=== PATIENT | male | born 1935 | race Caucasian/White ===

== ENCOUNTER 2017-02-22 15:39 | Inpatient (IN) | payer MEDICARE, OTHER ==
[2017-02-22] MEDS ORDERED: Sodium Chloride 0.9% 500 ML IV STA (17:37)
[2017-02-22] MEDS ORDERED: Sodium Chloride 0.9% 500 ML IV ONE (17:51)
--- NOTE | 2017-02-22 17:53 | C.PDOC ---
History Of Present Illness <Lucy Abreu - Last Filed: 02/22/17 19:10> <Christiano Callahan - Last Filed: 02/22/17 21:07> 81-year-old male, presents to the emergency department with complaints of generalized weakness. States he was seen by PMD in office, who told him that he was dehydrated w/ abnormal liver enzymes, resulting in him being sent to the ED for evaluation. Denies nausea/vomiting, diarrhea, fevers or chills. No other complaints at this time, (Lucy Abreu) History Per: Patient History/Exam Limitations: no limitations Current Symptoms Are (Timing): Still Present <Lucy Abreu - Last Filed: 02/22/17 19:10> <Christiano Callahan - Last Filed: 02/22/17 21:07> Time Seen by Provider: 02/22/17 17:07 Chief Complaint (Nursing): Dizziness/Lightheaded Past Medical History Reviewed: Historical Data, Nursing Documentation, Vital Signs - Medical History PMH: CHF, HTN Surgical History: CABG (2x) Family History: States: Unknown Family Hx - Social History Hx Alcohol Use: No Hx Substance Use: No <Lucy Abreu - Last Filed: 02/22/17 19:10> Vital Signs: Last Vital Signs Temp 98.2 F 02/22/17 19:39 Pulse 65 02/22/17 19:20 Resp 18 02/22/17 19:20 BP 189/73 H 02/22/17 19:20 Pulse Ox 96 02/22/17 19:20 Review Of Systems Except As Marked, All Systems Reviewed And Found Negative. Constitutional: Positive for: Weakness. Negative for: Fever, Chills Cardiovascular: Negative for: Chest Pain, Palpitations Respiratory: Negative for: Shortness of Breath Gastrointestinal: Negative for: Nausea, Vomiting Musculoskeletal: Negative for: Back Pain Neurological: Negative for: Weakness, Numbness, Headache, Dizziness <Lucy Abreu - Last Filed: 02/22/17 19:10> Physical Exam - Physical Exam Appears: Non-toxic, No Acute Distress Skin: Warm, Dry, No Rash Head: Atraumatic, Normacephalic Eye(s): bilateral: Normal Inspection, PERRL Nose: Normal Oral Mucosa: Moist Lips: Normal Appearing Neck: Normal ROM Cardiovascular: Rhythm Regular Respiratory: Normal Breath Sounds, No Accessory Muscle Use Gastrointestinal/Abdominal: Other (enlarged liver) Back: No CVA Tenderness Extremity: Pedal Edema (2+, pitting B/L LE) Neurological/Psych: Oriented x3, Normal Speech <Lucy Abreu - Last Filed: 02/22/17 19:10> ED Course And Treatment - Laboratory Results Result Diagrams: 02/22/17 18:08 02/22/17 18:08 ECG Rhythm: Sinus Rhythm, ST/T Changes Rate From EC O2 Sat by Pulse Oximetry: 95 <Lucy Abreu - Last Filed: 02/22/17 19:10> - Laboratory Results Result Diagrams: 02/22/17 18:08 02/22/17 18:08 Pulse Ox Interpretation: Normal (96) <Christiano Callahan - Last Filed: 02/22/17 21:07> Disposition - Disposition Disposition Time: 19:11 <Lucy Abreu - Last Filed: 02/22/17 19:10> Discussed With DrLiz: Danna Hutchison Comment: accepted the pt on her service and took over the care at 9:06PM Doctor Will See Patient In The: Hospital Counseled Patient/Family Regarding: Studies Performed, Diagnosis - Disposition Disposition Time: 19:00 - POA Present On Arrival: None <Christiano Callahan - Last Filed: 02/22/17 21:07> - Disposition Disposition: HOSPITALIZED Condition: FAIR - Clinical Impression Clinical Impression: Dehydration - Scribe Statement The provider has reviewed the documentation as recorded by the Scribe <Lucy Abreu - Last Filed: 02/22/17 19:10> <Christiano Callahan - Last Filed: 02/22/17 21:07> - Scribe Statement Anselmo Fall All medical record entries made by the Scribe were at my direction and personally dictated by me. I have reviewed the chart and agree that the record accurately reflects my personal performance of the history, physical exam, medical decision making, and the department course for this patient. I have also personally directed, reviewed, and agree with the discharge instructions and disposition. (Lucy Abreu) Physician Patient Turnover Patient Signed Over To: Christiano Callahan Handoff Comments: Labs and admission are pending <Lucy Abreu - Last Filed: 02/22/17 19:10> Decision To Admit <Lucy Abreu - Last Filed: 02/22/17 19:10> - Pt Status Changed To: Hospital Disposition Of: Inpatient - Admit Certification Admit to Inpatient:: After my assessment, the patient will require hospitalization for at least two midnights. This is because of the severity of symptoms shown, intensity of services needed, and/or the medical risk in this patient being treated as an outpatient. - InPatient: Physician Admission Certification: I certify that this patient requires 2 or more midnights of care for the following reason:: After my assessment, the patient will require hospitalization for at least two midnights. This is because of the severity of symptoms shown, intensity of services needed, and/or the medical risk in this patient being treated as an outpatient. - . Bed Request Type: Regular Admitting Physician: Danna Hutchison <Christiano Callahan - Last Filed: 02/22/17 21:07> - . Patient Diagnosis: Dehydration
--- NOTE | 2017-02-22 18:08 | RAD ---
PROCEDURE: CHEST RADIOGRAPH, 1 VIEW. Technique: Single view portable semi erect @ 17:37. HISTORY: weakness COMPARISON: None available. FINDINGS: LUNGS: Clear. PLEURA: No pneumothorax or pleural fluid seen. CARDIOVASCULAR: Cardiomegaly. No evidence of acute, significant cardiovascular disease. OSSEOUS STRUCTURES: No significant abnormalities. VISUALIZED UPPER ABDOMEN: Normal. OTHER FINDINGS: None. IMPRESSION: No active disease.
[2017-02-22 18:18] LABS: BASO # 0.1 K/uL (0.0-0.2); BASO % 1.3 % (0.0-2.0); EOS # 0.2 K/uL (0.0-0.7); EOS % 2.7 % (0.0-4.0); LYMPH # 2.2 K/uL (1.0-4.3); LYMPH % 36.8 % (20.0-40.0); MEAN CORPUSCULAR HEMOGLOBIN 33.6 pg (27.0-31.0); MEAN PLATELET VOLUME 7.6 fL (7.2-11.7); MONO # 0.6 K/uL (0.0-0.8); MONO % 10.1 % (0.0-10.0); NRBC % 0.2 % (0.0-2.0); RED CELL DISTRIBUTION WIDTH 15.1 % (11.5-14.5); WHITE BLOOD COUNT 5.9 K/uL (4.8-10.8)
[2017-02-22 18:28] LABS: URINE BILIRUBIN NEGATIVE (NEGATIVE); URINE BLOOD 1+ (NEGATIVE); URINE COLOR Straw (YELLOW); URINE GLUCOSE (UA) NORMAL (Normal); URINE KETONE NEGATIVE (NEGATIVE); URINE LEUKOCYTE ESTERASE NEG Leu/uL (Negative); URINE PROTEIN 1+ mg/dL (NEGATIVE); URINE UROBILINOGEN NORMAL mg/dL (0.2-1.0); WBC URINE < 1 /hpf (0-5)
[2017-02-22 18:55] LABS: POTASSIUM 3.7 mmol/L (3.6-5.2)
[2017-02-22 18:57] LABS: ALB/GLOB RATIO 0.9 (1.0-2.1); BILIRUBIN,TOTAL 1.2 mg/dL (0.2-1.3); TOTAL PROTEIN 9.4 g/dL (6.3-8.3)
[2017-02-22 18:58] LABS: CALCIUM 10.1 mg/dl (8.6-10.4); MAGNESIUM 1.3 mg/dL (1.6-2.3)
[2017-02-22 19:09] LABS: TROPONIN I 0.017 ng/mL (0.00-0.120)
[2017-02-22] MEDS ORDERED: Sodium Chloride 0.9% 1,000 ML IV ONE (19:12)
[2017-02-22] MEDS ORDERED: Sodium Chloride 0.9% 1,000 ML ONE (19:49)
[2017-02-22] MEDS ORDERED: Iodixanol 320 MG/ML 100 ML BOTTLE IV ONE (19:56)
[2017-02-22] MEDS ORDERED: Sodium Chloride 0.9% 1,000 ML IV SCH (21:30)
--- NOTE | 2017-02-23 01:45 | CP.PCM.HP ---
History of Present Illness - History of Present Illness History of Present Illness: 81 y. man with PMH DM2 Hypertension CAD S/ CABG COPD was sent to ER due to dehydration from poor po intake and light headedness patient was fine until a month ago, patient 's appetite has declined, and reports lightheadedness, there was no fevr, no cough no vomiting no urine nor abdominal complaints Patient was noted to have lost BOUT 20 OUNDS IN 3 MONTHS. , IN ER PATIENT HAS VERY HIGH LIVER ENZYMES, DEHYDRATED AND WAS SUBSEQUENTLY ADMITTED FOR FURTHER EVALUATION AND MANGEMENT ROS ABOVE PMH ABOVE SOCIAL PREVIOUS SMOKER NON ETOH LIVES [facility] SURGERY CATRACT CABG Present on Admission - Present on Admission Any Indicators Present on Admission: No History of DVT/PE: No History of Uncontrolled Diabetes: No Urinary Catheter: No Decubitus Ulcer Present: No Review of Systems - Constitutional Constitutional: Anorexia, Weakness. absent: Fever - EENT Eyes: absent: Other Visual Disturbances Nose/Mouth/Throat: absent: Epistaxis, Nasal Congestion, Odynophagia, Sore Throat - Cardiovascular Cardiovascular: Syncope (NEAR SYNCOPE ). 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 absent: Abnormal Gait, Convulsions, Memory Loss, Other Visual Disturbances - Psychiatric Psychiatric: absent: Behavioral Changes, Confusion, Depression, Memory Loss - Endocrine Endocrine: absent: Polydipsia, Polyphagia, Polyuria - Hematologic/Lymphatic Hematologic: absent: Easy Bleeding, Easy Bruising Past Patient History - Past Medical History & Family History Past Medical History?: Yes - Past Social History Smoking Status: Former Smoker Alcohol: None Home Situation {Lives}: With Family - CARDIAC Hx Cardiac Disorders: Yes (S/P CABG) Hx Congestive Heart Failure: Yes Hx Hypertension: Yes - PULMONARY Hx Chronic Obstructive Pulmonary Disease (COPD): Yes - HEENT Hx Cataracts: Yes - ENDOCRINE/METABOLIC Hx Diabetes Mellitus Type 2: Yes - PSYCHIATRIC Hx Substance Use: No - SURGICAL HISTORY Hx Coronary Artery Bypass Graft: Yes (2x) Meds Allergies/Adverse Reactions: Allergies Allergy/AdvReac Type Severity Reaction Status Date / Time No Known Allergies Allergy Unverified 02/22/17 16:22 Physical Exam - Constitutional Appears: Non-toxic (BUT LOOKS QUIET) - Head Exam Head Exam: ATRAUMATIC, NORMOCEPHALIC - Eye Exam Eye Exam: Normal appearance. absent: Nystagmus - ENT Exam ENT Exam: Mucous Membranes Dry - Neck Exam Neck exam: Positive for: Full Rom. Negative for: Tenderness - Respiratory Exam Respiratory Exam: Clear to Auscultation Bilateral, NORMAL BREATHING PATTERN - Cardiovascular Exam Cardiovascular Exam: REGULAR RHYTHM - GI/Abdominal Exam GI & Abdominal Exam: Normal Bowel Sounds, Soft. absent: Tenderness - Extremities Exam Extremities exam: Positive for: full ROM, pedal pulses present. Negative for: joint swelling, pedal edema, tenderness - Back Exam Back exam: FULL ROM. absent: tenderness - Neurological Exam Neurological exam: Alert, Normal Gait, Oriented x3 - Psychiatric Exam Psychiatric exam: Normal Affect, Normal Mood - Skin Skin Exam: Dry (POOR TURGOR), Intact, Normal Color Results - Vital Signs Recent Vital Signs: Last Vital Signs Temp 97.9 F 02/23/17 01:21 Pulse 62 02/23/17 01:21 Resp 18 02/23/17 01:21 BP 177/65 H 02/23/17 01:21 Pulse Ox 96 02/23/17 01:21 - Labs Result Diagrams: 02/22/17 18:08 02/22/17 18:08 Assessment & Plan - Assessment and Plan (Free Text) Assessment: PATIENT WITH CAD DME HYPERTENSION ADMITTED FOR WEAKNESS LIGHTHEADEDNESS = DEHYDRATION FROM POOR ORAL INTAKE- IVF - ON LOW DOSE - DUE TO HISTORY OF CHF NOT TO AGGRAVATE WITH ABNORMAL WEIGHT LOSS OF 20 POUNDS IN 3 MONTHS WITH ABNORMAL LFTS AND ABNORMAL CT SCAN-- NEEDS GASTRO EVALUATION WITH UNCONTROLLLED HYPERTENSION- START LOW DOSE- NOT TO CAUSE DROP-SINCE PATIENT IS DEHYDRATED DM TO ACCUCHECK WITH NO COVERAGE FOR NOW, ELEVATED CREATININE- FROM DEHYDRATION WILL REPEAT GI PROPHYL;AXIS DVT PROPHY;AXIS FURTHER EVALUATION AND MANAGEMNET
[2017-02-23] MEDS ORDERED: Metoprolol 1 mg/ml Inj IVP ONE (02:43)
[2017-02-23] MEDS: Pantoprazole 40 mg EC Tab PO SCH (09:04)
[2017-02-23] MEDS: Enoxaparin 30 mg Syringe SC SCH (09:05)
--- NOTE | 2017-02-23 09:38 | CT ---
PROCEDURE: CT Abdomen and Pelvis with contrast HISTORY: elevated lipase COMPARISON: None. TECHNIQUE: Axial and reformatted coronal and sagittal CT images of the abdomen and pelvis were obtained after IV contrast administration. Contrast dose: 100 mL of Visipaque 320 Radiation dose: Total exam DLP = 424.5 mGy-cm. This CT exam was performed using one or more of the following dose reduction techniques: Automated exposure control, adjustment of the mA and/or kV according to patient size, and/or use of iterative reconstruction technique. FINDINGS: LOWER THORAX: No evidence of acute pathology at the lung bases. Hazy opacities at the posterior dependent portion likely atelectasis. The heart is mildly to moderately enlarged. LIVER: There is a spiculated border partially demarcated low-attenuation mass lesion at the left liver lobe measures approximately 7.2 x 5.8 centimeter. The possibility of malignant neoplasm should be considered. The left liver lobe is larger than the right. There are also smaller foci of low attenuation seen in the left liver lobe. There is low-attenuation lesion at the posterior medial aspect of the liver dome measures 10.6 millimeter. The portal vein is patent. There is a tubular shaped low-attenuation structure adjacent to the cecilia hepatis and main portal vein of uncertain etiology may represent dilated biliary duct. GALLBLADDER AND BILE DUCTS: Multiple gallstones are seen without evidence of acute cholecystitis. The main hepatic and common hepatic biliary duct is not dilated. PANCREAS: The pancreas is small in size. No evidence of pancreatitis or pancreatic mass. The main pancreatic duct is not dilated. SPLEEN: Unremarkable. ADRENALS: Unremarkable. No mass. KIDNEYS AND URETERS: The kidneys enhance symmetrically. There is low-attenuation cystic lesion exophytic from the left kidney measures 2.3 centimeter. No evidence of hydronephrosis. VASCULATURE: Unremarkable. No aortic aneurysm. BOWEL: Unremarkable. No obstruction. No gross mural thickening. APPENDIX: No evidence of appendicitis P PERITONEUM: Unremarkable. No free fluid. No free air. LYMPH NODES: Unremarkable. No enlarged lymph nodes. BLADDER: Mildly distended urinary bladder demonstrate mild diffuse wall thickening. There is right posterior bladder diverticulum measures 1.5 x 1.6 centimeter. REPRODUCTIVE: Moderately enlarged heterogeneous prostate protruding into the bladder lumen. BONES: No acute fracture. OTHER FINDINGS: None. IMPRESSION: Heterogeneous low-attenuation poorly defined spiculated border mass lesion at the left liver lobe suspicious for neoplasm. Further assessment by MRI with contrast is suggested. Gallstones without evidence of cholecystitis. Moderately enlarged heterogeneous prostate. Mild diffuse urinary bladder wall thickening. Preliminary report was submitted by [facility].
[2017-02-23] MEDS ORDERED: Metoprolol Succinate 50 mg XL Tab PO SCH ×2 (10:00)
--- NOTE | 2017-02-23 10:53 | CP.PCM.PN ---
Subjective - Date & Time of Evaluation Date of Evaluation: 02/23/17 Time of Evaluation: 10:45 - Subjective Subjective: Patient seen, in bed , afraid of getting out of bed- worries for who is in the hospital no complaints, BP still running high no chest pain case discussed with patient Objective - Vital Signs/Intake and Output Vital Signs (last 24 hours): Temp Pulse Resp BP Pulse Ox 97.8 F 70 22 180/76 H 97 02/23/17 08:36 02/23/17 09:07 02/23/17 09:07 02/23/17 09:07 02/23/17 09:07 Intake and Output: 02/23/17 02/23/17 06:59 18:59 Intake Total 490 Output Total 750 Balance -260 - Medications Medications: Current Medications Amlodipine Besylate (Norvasc) 10 mg PO DAILY [facility] Enoxaparin Sodium (Lovenox) 30 mg SC DAILY [facility] Last Admin: 02/23/17 09:05 Dose: 30 mg Losartan Potassium (Cozaar) 100 mg PO DAILY [facility] Last Admin: 02/23/17 09:04 Dose: 100 mg Metoprolol Succinate (Toprol Xl) 50 mg PO BID [facility] Last Admin: 02/23/17 09:04 Dose: 50 mg Pantoprazole Sodium (Protonix Ec Tab) 40 mg PO DAILY [facility] Last Admin: 02/23/17 09:04 Dose: 40 mg - Labs Labs: PT 11.2 SECONDS (9.7-12.2) 02/22/17 19:07 INR 1.0 02/22/17 19:07 APTT 34 SECONDS (21-34) 02/22/17 19:07 - Constitutional Appears: Well, Non-toxic (quiet, worried for sick ) - Head Exam Head Exam: ATRAUMATIC, NORMOCEPHALIC - Eye Exam Eye Exam: absent: Nystagmus - ENT Exam ENT Exam: Mucous Membranes Dry - Neck Exam Neck Exam: Full ROM. absent: Meningismus - Respiratory Exam Respiratory Exam: Decreased Breath Sounds, NORMAL BREATHING PATTERN - Cardiovascular Exam Cardiovascular Exam: REGULAR RHYTHM - GI/Abdominal Exam GI & Abdominal Exam: Soft, Normal Bowel Sounds (no mass appreciated). absent: Tenderness - Extremities Exam Extremities Exam: Full ROM. absent: Pedal Edema, Tenderness - Back Exam Back Exam: Full ROM. absent: tenderness - Neurological Exam Neurological Exam: Alert, Awake, Normal Gait, Oriented x3 - Skin Skin Exam: Dry, Intact, Normal Color Assessment and Plan - Assessment and Plan (Free Text) Plan: patient admitted for dehydration- IVF, weakness due to poor oral intake Hypertension not on goal- will adjust meds. History of CAD s/ P CABFG , history of CHF Abnormal weight loss with abnormal LFTs elevated lipase- CT abdomen presult pending case discussed with patient- further discussion with family Physical Therapy GI and DVT prophy;axis
[2017-02-23] MEDS ORDERED: Sodium Chloride 0.9% 1,000 ML IV SCH (11:30)
[2017-02-23 16:48] LABS: CHLORIDE 89 mmol/L (98-107); SODIUM 134 mmol/L (132-148)
[2017-02-23 16:49] LABS: POTASSIUM 3.3 mmol/L (3.6-5.2)
[2017-02-23 16:51] LABS: ALKALINE PHOSPHATASE 49 U/L (38-126); ALT/SGPT 54 U/L (21-72); AST/SGOT 266 U/L (17-59); BLOOD UREA NITROGEN 24 mg/dL (9-20); CARBON DIOXIDE 30 mmol/L (22-30); GFR AFRICAN-AMERICAN > 60; GLUCOSE,RANDOM 117 mg/dL (75-110); TOTAL PROTEIN 7.4 g/dL (6.3-8.3)
[2017-02-23 16:52] LABS: CALCIUM 8.8 mg/dl (8.6-10.4)
--- NOTE | 2017-02-23 16:53 | CARD ---
APPROVED REPORT EKG Measurement Heart [id number] MD [id number] <Conclusion> Reversed Arm leads Normal sinus rhythm ST & T wave abnormality, consider lateral ischemia Abnormal ECG
[2017-02-23] MEDS: Potassium Chloride 10 mEq ER Tab PO SCH (19:34)
--- NOTE | 2017-02-23 23:27 | CP.PCM.CON ---
History of Present Illness - History of Present Illness History of Present Illness: 81 years old male complaining of a generalized weakness, poor appetite, loss of 20 lbs for the past 4 months. 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 He was given Norvasc with good control of hid BP. Known to have a CAD, with CABG x3 in 1995, and CABG x1 (Graft to RCA) in 2001, he denies chest pain. A CT scan of the abdomen reveals a spiculated mas of the left liver lobe, highly suspicious of malignancy. No Hx of abdominal pain, nausea, jaundice. BUN : 32 creatinine 1.2 AST: 360 T biliribin: 1.2 Review of Systems - Constitutional Constitutional: Weight Loss, Weakness - Neurological Neurological: Dizziness Past Patient History - Infectious Disease Hx of Infectious Diseases: None - Tetanus Immunizations Tetanus Immunization: Unknown - Past Medical History & Family History Past Medical History?: Yes - Past Social History Smoking Status: Former Smoker Alcohol: None Home Situation {Lives}: With Family - CARDIAC Hx Cardiac Disorders: Yes (S/P CABG) Hx Congestive Heart Failure: Yes Hx Hypertension: Yes - PULMONARY Hx Chronic Obstructive Pulmonary Disease (COPD): Yes - HEENT Hx Cataracts: Yes - ENDOCRINE/METABOLIC Hx Diabetes Mellitus Type 2: Yes - MUSCULOSKELETAL/RHEUMATOLOGICAL Hx Falls: No - PSYCHIATRIC Hx Substance Use: No - SURGICAL HISTORY Hx Surgeries: Yes Hx Coronary Artery Bypass Graft: Yes (2x) - ANESTHESIA Hx Anesthesia: Yes Hx Anesthesia Reactions: No Meds Allergies/Adverse Reactions: Allergies Allergy/AdvReac Type Severity Reaction Status Date / Time No Known Allergies Allergy Unverified 02/22/17 16:22 - Medications Medications: Current Medications Amlodipine Besylate (Norvasc) 10 mg PO DAILY [facility] Enoxaparin Sodium (Lovenox) 30 mg SC DAILY [facility] Last Admin: 02/23/17 09:05 Dose: 30 mg Sodium Chloride (Sodium Chloride 0.9%) 1,000 mls @ 50 mls/hr IV .Q20H [facility] Last Admin: 02/23/17 12:25 Dose: 50 mls/hr Losartan Potassium (Cozaar) 100 mg PO DAILY [facility] Last Admin: 02/23/17 09:04 Dose: 100 mg Metoprolol Succinate (Toprol Xl) 50 mg PO BID [facility] Last Admin: 02/23/17 09:04 Dose: 50 mg Pantoprazole Sodium (Protonix Ec Tab) 40 mg PO DAILY [facility] Last Admin: 02/23/17 09:04 Dose: 40 mg Pneumococcal Polyvalent Vaccine (Pneumovax 23 Vaccine) 0.5 ml IM .ONCE ONE Stop: 02/25/17 10:01 Potassium Chloride (Klor-Con 10) 10 meq PO BRK [facility] Stop: 02/24/17 08:01 Last Admin: 02/23/17 19:34 Dose: 10 meq Physical Exam - Constitutional Appears: No Acute Distress - Head Exam Head Exam: NORMAL INSPECTION - Eye Exam Eye Exam: Normal appearance - ENT Exam ENT Exam: Normal Exam - Neck Exam Neck exam: Positive for: Normal Inspection - Respiratory Exam Respiratory Exam: Clear to Auscultation Bilateral, NORMAL BREATHING PATTERN - Cardiovascular Exam Cardiovascular Exam: REGULAR RHYTHM - GI/Abdominal Exam GI & Abdominal Exam: Normal Bowel Sounds, Soft - Rectal Exam Rectal Exam: Deferred - Exam Exam: NORMAL INSPECTION - Extremities Exam Extremities exam: Positive for: normal inspection - Back Exam Back exam: NORMAL INSPECTION - Neurological Exam Neurological exam: Alert, CN II-XII Intact, Normal Gait, Oriented x3 - Psychiatric Exam Psychiatric exam: Anxious - Skin Skin Exam: Dry, Intact, Normal Color, Warm Results - Vital Signs Recent Vital Signs: Last Vital Signs Temp 98.4 F 02/23/17 15:51 Pulse 69 02/23/17 16:00 Resp 20 02/23/17 15:51 BP 134/66 02/23/17 15:51 Pulse Ox 97 02/23/17 15:51 - Labs Result Diagrams: 02/22/17 18:08 02/23/17 16:36 Labs: Laboratory Results - last 24 hr 02/23/17 02/23/17 02/23/17 06:38 11:22 16:36 Sodium 134 Potassium 3.3 L Chloride 89 L Carbon Dioxide 30 Anion Gap 18 BUN 24 H Creatinine 1.2 Est GFR ( Amer) > 60 Est GFR (Non-Af Amer) 58 POC Glucose (mg/dL) 86 114 H Random Glucose 117 H Calcium 8.8 Total Bilirubin 1.0 AST 266 H D ALT 54 Alkaline Phosphatase 49 Total Protein 7.4 Albumin 3.8 Globulin 3.7 Albumin/Globulin Ratio 1.0 02/23/17 02/23/17 16:43 21:13 Sodium Potassium Chloride Carbon Dioxide Anion Gap BUN Creatinine Est GFR ( Amer) Est GFR (Non-Af Amer) POC Glucose (mg/dL) 115 H 103 Random Glucose Calcium Total Bilirubin AST ALT Alkaline Phosphatase Total Protein Albumin Globulin Albumin/Globulin Ratio Assessment & Plan (1) Dehydration Assessment and Plan: To continue IVF Status: Acute (2) Uncontrolled hypertension Status: Acute (3) Coronary artery disease Assessment and Plan: Stable. Status: Chronic (4) Liver mass Assessment and Plan: Needs Biopsy? Status: Acute
[2017-02-24] MEDS: Potassium Chloride 10 mEq ER Tab PO SCH (08:36)
--- NOTE | 2017-02-24 10:05 | CP.PCM.CON ---
History of Present Illness - History of Present Illness History of Present Illness: CC: liver lesion WE were not notified about consult. I happened to see patient on my list for the first time today. PMH: HTN, CAD, heart block. Admitted for weakness, light headed. Reports 20 lb wt loss. Review of Systems - Constitutional Constitutional: Fatigue. absent: Chills - EENT Eyes: absent: Photophobia Nose/Mouth/Throat: absent: Throat Swelling - Cardiovascular Cardiovascular: Lightheadedness. absent: Chest Pain, Dyspnea - Respiratory Respiratory: absent: Dyspnea, Hemoptysis, Wheezing - Gastrointestinal Gastrointestinal: absent: Bloating, Constipation, Diarrhea, Hematemesis, Hematochezia, Melena - Genitourinary Genitourinary: absent: Hematuria - Musculoskeletal Musculoskeletal: absent: Arthralgias, Muscle Cramps - Integumentary Integumentary: absent: Pruritus, Rash, Jaundice - Neurological Neurological: absent: Convulsions - Psychiatric Psychiatric: absent: Hallucinations - Endocrine Endocrine: absent: [place] Past Patient History - Infectious Disease Hx of Infectious Diseases: None - Tetanus Immunizations Tetanus Immunization: Unknown - Past Medical History & Family History Past Medical History?: Yes - Past Social History Smoking Status: Former Smoker Alcohol: None Home Situation {Lives}: With Family - CARDIAC Hx Cardiac Disorders: Yes (S/P CABG) Hx Congestive Heart Failure: Yes Hx Hypertension: Yes - PULMONARY Hx Chronic Obstructive Pulmonary Disease (COPD): Yes - HEENT Hx Cataracts: Yes - ENDOCRINE/METABOLIC Hx Diabetes Mellitus Type 2: Yes - MUSCULOSKELETAL/RHEUMATOLOGICAL Hx Falls: No - PSYCHIATRIC Hx Substance Use: No - SURGICAL HISTORY Hx Surgeries: Yes Hx Coronary Artery Bypass Graft: Yes (2x) - ANESTHESIA Hx Anesthesia: Yes Hx Anesthesia Reactions: No Meds Allergies/Adverse Reactions: Allergies Allergy/AdvReac Type Severity Reaction Status Date / Time No Known Allergies Allergy Unverified 02/22/17 16:22 - Medications Medications: Current Medications Amlodipine Besylate (Norvasc) 10 mg PO DAILY [facility] Enoxaparin Sodium (Lovenox) 30 mg SC DAILY [facility] Last Admin: 02/23/17 09:05 Dose: 30 mg Losartan Potassium (Cozaar) 100 mg PO DAILY [facility] Last Admin: 02/23/17 09:04 Dose: 100 mg Metoprolol Succinate (Toprol Xl) 50 mg PO BID [facility] Last Admin: 02/23/17 09:04 Dose: 50 mg Pantoprazole Sodium (Protonix Ec Tab) 40 mg PO DAILY [facility] Last Admin: 02/23/17 09:04 Dose: 40 mg Pneumococcal Polyvalent Vaccine (Pneumovax 23 Vaccine) 0.5 ml IM .ONCE ONE Stop: 02/25/17 10:01 Physical Exam - Constitutional Appears: Non-toxic - Respiratory Exam Respiratory Exam: Clear to Auscultation Bilateral - Cardiovascular Exam Cardiovascular Exam: RRR - GI/Abdominal Exam GI & Abdominal Exam: Normal Bowel Sounds, Soft. absent: Firm, Guarding, Mass, Tenderness - Extremities Exam Extremities exam: Negative for: calf tenderness - Neurological Exam Neurological exam: Alert, Oriented x3 - Skin Skin Exam: Intact Results - Vital Signs Recent Vital Signs: Last Vital Signs Temp 98 F 02/24/17 08:27 Pulse 59 L 02/24/17 08:27 Resp 19 02/24/17 08:27 BP 157/69 H 02/24/17 08:27 Pulse Ox 98 02/24/17 08:27 - Labs Result Diagrams: 02/22/17 18:08 02/23/17 16:36 Labs: Laboratory Results - last 24 hr 02/23/17 02/23/17 02/23/17 11:22 16:36 16:43 Sodium 134 Potassium 3.3 L Chloride 89 L Carbon Dioxide 30 Anion Gap 18 BUN 24 H Creatinine 1.2 Est GFR ( Amer) > 60 Est GFR (Non-Af Amer) 58 POC Glucose (mg/dL) 114 H 115 H Random Glucose 117 H Calcium 8.8 Total Bilirubin 1.0 AST 266 H D ALT 54 Alkaline Phosphatase 49 Total Protein 7.4 Albumin 3.8 Globulin 3.7 Albumin/Globulin Ratio 1.0 02/23/17 02/24/17 21:13 06:38 Sodium Potassium Chloride Carbon Dioxide Anion Gap BUN Creatinine Est GFR ( Amer) Est GFR (Non-Af Amer) POC Glucose (mg/dL) 103 90 Random Glucose Calcium Total Bilirubin AST ALT Alkaline Phosphatase Total Protein Albumin Globulin Albumin/Globulin Ratio Assessment & Plan (1) Dehydration Status: Acute (2) Liver mass Assessment and Plan: r/o malignancy. Consider hemangioma, abscess. Rec: AFP, CEA, stool tests. MRI liver. Consider colonoscopy. Status: Acute (3) Uncontrolled hypertension Status: Acute (4) Coronary artery disease Status: Chronic (5) Weight loss Assessment and Plan: Consider malignancy. Consider liver malignancy. Status: Acute (6) Liver function test abnormality Assessment and Plan: Related to liver mass? Consider meds Rec: check AFP, CEA, sono, MRI abdomen. hepatitis profile. Check LFTs. Status: Acute
[2017-02-24] MEDS: Enoxaparin 30 mg Syringe SC SCH (11:05)
[2017-02-24] MEDS: Pantoprazole 40 mg EC Tab PO SCH (11:06)
[2017-02-24 12:15] LABS: CHLORIDE 92 mmol/L (98-107)
[2017-02-24 12:16] LABS: POTASSIUM 3.5 mmol/L (3.6-5.2); SODIUM 131 mmol/L (132-148)
[2017-02-24 12:18] LABS: ALKALINE PHOSPHATASE 49 U/L (38-126); ALT/SGPT 55 U/L (21-72); AST/SGOT 269 U/L (17-59); BILIRUBIN,TOTAL 1.1 mg/dL (0.2-1.3); BLOOD UREA NITROGEN 19 mg/dL (9-20); CARBON DIOXIDE 25 mmol/L (22-30); GFR AFRICAN-AMERICAN > 60; GLUCOSE,RANDOM 142 mg/dL (75-110); TOTAL PROTEIN 7.7 g/dL (6.3-8.3)
[2017-02-24 12:19] LABS: CALCIUM 8.6 mg/dl (8.6-10.4)
--- NOTE | 2017-02-24 19:18 | CP.PCM.PN ---
Subjective - Date & Time of Evaluation Date of Evaluation: 02/24/17 Time of Evaluation: 11:00 - Subjective Subjective: Patient seen, feeling better- BP still on the high side, adjusting medication dose- discussed with patient CT scan finding discussion - patient does not want any procedure Objective - Vital Signs/Intake and Output Vital Signs (last 24 hours): Temp Pulse Resp BP Pulse Ox 97.6 F 69 20 154/63 H 99 02/24/17 16:00 02/24/17 16:00 02/24/17 16:00 02/24/17 16:00 02/24/17 16:00 - Medications Medications: Current Medications Amlodipine Besylate (Norvasc) 10 mg PO DAILY [facility] Last Admin: 02/24/17 11:06 Dose: 10 mg Enoxaparin Sodium (Lovenox) 30 mg SC DAILY [facility] Last Admin: 02/24/17 11:05 Dose: 30 mg Losartan Potassium (Cozaar) 100 mg PO DAILY [facility] Last Admin: 02/24/17 11:06 Dose: 100 mg Metoprolol Succinate (Toprol Xl) 50 mg PO BID [facility] Last Admin: 02/23/17 09:04 Dose: 50 mg Pantoprazole Sodium (Protonix Ec Tab) 40 mg PO DAILY [facility] Last Admin: 02/24/17 11:06 Dose: 40 mg Pneumococcal Polyvalent Vaccine (Pneumovax 23 Vaccine) 0.5 ml IM .ONCE ONE Stop: 02/25/17 10:01 Potassium Chloride (K-Dur 20 Meq Er Tab) 20 meq PO DAILY [facility] Stop: 02/25/17 23:59 - Labs Labs: 02/24/17 11:44 PT 11.2 SECONDS (9.7-12.2) 02/22/17 19:07 INR 1.0 02/22/17 19:07 APTT 34 SECONDS (21-34) 02/22/17 19:07 - Constitutional Appears: Well, Non-toxic - Head Exam Head Exam: ATRAUMATIC, NORMOCEPHALIC - Eye Exam Eye Exam: Normal appearance. absent: Nystagmus - ENT Exam ENT Exam: Mucous Membranes Moist - Respiratory Exam Respiratory Exam: Clear to Ausculation Bilateral, NORMAL BREATHING PATTERN - Cardiovascular Exam Cardiovascular Exam: REGULAR RHYTHM - GI/Abdominal Exam GI & Abdominal Exam: Soft, Normal Bowel Sounds. absent: Tenderness - Extremities Exam Extremities Exam: Full ROM. absent: Pedal Edema, Tenderness - Back Exam Back Exam: absent: tenderness - Neurological Exam Neurological Exam: Alert, Awake, Normal Gait, Oriented x3 - Psychiatric Exam Psychiatric exam: Normal Affect, Normal Mood - Skin Skin Exam: Intact, Normal Color Assessment and Plan - Assessment and Plan (Free Text) Assessment: Patient with DEhydration- improving, Uncomntrolled HYpertension with medication adjusted Patient will have family discussion tonight regarding wifes condition who is in the hospital Liver mass, with abnormal LFTS amylase= patient does not want any procedure done will plan for home tomorrow
[2017-02-24] MEDS: Potassium Chloride 20 mEq ER Tab PO SCH (19:31)
[2017-02-25 08:29] LABS: CHLORIDE 96 mmol/L (98-107); POTASSIUM 3.7 mmol/L (3.6-5.2); SODIUM 132 mmol/L (132-148)
[2017-02-25 08:31] LABS: BILIRUBIN,DIRECT 1.1 mg/dL (0.0-0.4); BILIRUBIN,TOTAL 1.1 mg/dL (0.2-1.3); CARBON DIOXIDE 23 mmol/L (22-30); GFR AFRICAN-AMERICAN > 60
[2017-02-25 08:32] LABS: ALKALINE PHOSPHATASE 48 U/L (38-126); ALT/SGPT 55 U/L (21-72); AST/SGOT 225 U/L (17-59); BLOOD UREA NITROGEN 19 mg/dL (9-20); CALCIUM 8.3 mg/dl (8.6-10.4); GLUCOSE,RANDOM 95 mg/dL (75-110); TOTAL PROTEIN 7.2 g/dL (6.3-8.3)
[2017-02-25 09:03] LABS: CARCINOEMBRYONIC ANTIGEN 1.9 ng/mL (0-3.0)
--- NOTE | 2017-02-25 09:30 | CP.PCM.PN ---
Subjective - Date & Time of Evaluation Date of Evaluation: 02/25/17 Time of Evaluation: 09:28 - Subjective Subjective: CC: Follow up Liver mass Feels well D/W Dr Hutchison- patient/family do not wish to pursue liver Biopsy AFP WNL Objective - Vital Signs/Intake and Output Vital Signs (last 24 hours): Temp Pulse Resp BP Pulse Ox 98.2 F 82 18 168/69 H 95 02/25/17 09:16 02/25/17 09:16 02/25/17 09:16 02/25/17 09:16 02/25/17 09:16 Intake and Output: 02/25/17 02/25/17 06:59 18:59 Intake Total 120 Balance 120 - Medications Medications: Current Medications Amlodipine Besylate (Norvasc) 10 mg PO DAILY [facility] Last Admin: 02/24/17 11:06 Dose: 10 mg Enoxaparin Sodium (Lovenox) 30 mg SC DAILY [facility] Last Admin: 02/24/17 11:05 Dose: 30 mg Hydrochlorothiazide (Hydrodiuril) 25 mg PO DAILY [facility] Losartan Potassium (Cozaar) 100 mg PO DAILY [facility] Metoprolol Succinate (Toprol Xl) 50 mg PO BID [facility] Last Admin: 02/23/17 09:04 Dose: 50 mg Pantoprazole Sodium (Protonix Ec Tab) 40 mg PO DAILY [facility] Last Admin: 02/24/17 11:06 Dose: 40 mg Pneumococcal Polyvalent Vaccine (Pneumovax 23 Vaccine) 0.5 ml IM .ONCE ONE Stop: 02/25/17 10:01 Potassium Chloride (K-Dur 20 Meq Er Tab) 20 meq PO DAILY [facility] Stop: 02/25/17 23:59 Last Admin: 02/24/17 19:31 Dose: 20 meq - Labs Labs: 02/25/17 07:37 PT 11.2 SECONDS (9.7-12.2) 02/22/17 19:07 INR 1.0 02/22/17 19:07 APTT 34 SECONDS (21-34) 02/22/17 19:07 - Constitutional Appears: Well, No Acute Distress - Eye Exam Eye Exam: absent: Scleral icterus - Respiratory Exam Respiratory Exam: NORMAL BREATHING PATTERN - Cardiovascular Exam Cardiovascular Exam: REGULAR RHYTHM Additional comments: Sternotomy scar - GI/Abdominal Exam GI & Abdominal Exam: Soft. absent: Tenderness Assessment and Plan (1) Liver mass Assessment & Plan: AFP normal If agreeable, recommend MRI of Liver with contrast Status: Acute
[2017-02-25] MEDS ORDERED: Pneumococcal 23-Valent Vaccine IM ONE ×2 (10:00→15:12)
[2017-02-25] MEDS: Pantoprazole 40 mg EC Tab PO SCH (11:57)
[2017-02-25] MEDS: Potassium Chloride 20 mEq ER Tab PO SCH (11:57)
[2017-02-25] MEDS: Enoxaparin 30 mg Syringe SC SCH (11:57)
--- NOTE | 2017-02-25 12:58 | CP.PCM.PN ---
Subjective - Date & Time of Evaluation Date of Evaluation: 02/25/17 Time of Evaluation: 08:50 - Subjective Subjective: Patient seen, no complaints- Bp on the high side no headache no chest pain ambulates feeling sad due to 's condition- they will have family meeting toady in 6th floor eating better Objective - Vital Signs/Intake and Output Vital Signs (last 24 hours): Temp Pulse Resp BP Pulse Ox 98.2 F 86 20 143/67 96 02/25/17 09:16 02/25/17 12:00 02/25/17 12:00 02/25/17 12:00 02/25/17 12:00 Intake and Output: 02/25/17 02/25/17 06:59 18:59 Intake Total 120 Balance 120 - Medications Medications: Current Medications Amlodipine Besylate (Norvasc) 10 mg PO DAILY [facility] Last Admin: 02/25/17 11:57 Dose: 10 mg Enoxaparin Sodium (Lovenox) 30 mg SC DAILY [facility] Last Admin: 02/25/17 11:57 Dose: 30 mg Hydrochlorothiazide (Hydrodiuril) 25 mg PO DAILY [facility] Last Admin: 02/25/17 11:57 Dose: 25 mg Losartan Potassium (Cozaar) 100 mg PO DAILY [facility] Last Admin: 02/25/17 11:57 Dose: 100 mg Metoprolol Succinate (Toprol Xl) 50 mg PO BID [facility] Last Admin: 02/23/17 09:04 Dose: 50 mg Pantoprazole Sodium (Protonix Ec Tab) 40 mg PO DAILY [facility] Last Admin: 02/25/17 11:57 Dose: 40 mg Potassium Chloride (K-Dur 20 Meq Er Tab) 20 meq PO DAILY [facility] Stop: 02/25/17 23:59 Last Admin: 02/25/17 11:57 Dose: 20 meq - Labs Labs: 02/25/17 07:37 PT 11.2 SECONDS (9.7-12.2) 02/22/17 19:07 INR 1.0 02/22/17 19:07 APTT 34 SECONDS (21-34) 02/22/17 19:07 - Constitutional Appears: Well, Non-toxic - Head Exam Head Exam: ATRAUMATIC, NORMOCEPHALIC - Eye Exam Eye Exam: Normal appearance. absent: Nystagmus - ENT Exam ENT Exam: Mucous Membranes Moist - Neck Exam Neck Exam: Full ROM, Tenderness - Respiratory Exam Respiratory Exam: Decreased Breath Sounds, Clear to Ausculation Bilateral, NORMAL BREATHING PATTERN - Cardiovascular Exam Cardiovascular Exam: REGULAR RHYTHM - GI/Abdominal Exam GI & Abdominal Exam: Soft, Normal Bowel Sounds. absent: Tenderness - Extremities Exam Extremities Exam: Normal Capillary Refill. absent: Pedal Edema, Tenderness - Back Exam Back Exam: Full ROM. absent: tenderness - Neurological Exam Neurological Exam: Alert, Awake, Normal Gait, Oriented x3 - Psychiatric Exam Psychiatric exam: Normal Affect, Normal Mood - Skin Skin Exam: Intact, Normal Color Assessment and Plan - Assessment and Plan (Free Text) Assessment: patient with Dehydration due to poor po intake - improved Liver mass with abnormal high LFTS and amylase - patient refuses further evaluation and treatment Hypertension controlled plan for home [facility] referral follow up in clinic next week
--- NOTE | 2017-02-25 13:03 | CP.PCM.DIS ---
Provider - Provider Date of Admission: 02/22/17 21:05 Attending physician: Danna Hutchison MD Time Spent in preparation of Discharge (in minutes): 30 Hospital Course - Lab Results Lab Results: Most Recent Lab Values WBC 5.9 K/uL (4.8-10.8) 02/22/17 18:08 RBC 4.06 Mil/uL (4.40-5.90) L 02/22/17 18:08 Hgb 13.7 g/dL (12.0-18.0) 02/22/17 18:08 Hct 39.0 % (35.0-51.0) 02/22/17 18:08 MCV 96.0 fL (80.0-94.0) H 02/22/17 18:08 MCH 33.6 pg (27.0-31.0) H 02/22/17 18:08 MCHC 35.0 g/dL (33.0-37.0) 02/22/17 18:08 RDW 15.1 % (11.5-14.5) H 02/22/17 18:08 Plt Count 331 K/uL (130-400) 02/22/17 18:08 MPV 7.6 fL (7.2-11.7) 02/22/17 18:08 Neut % (Auto) 49.1 % (50.0-75.0) L 02/22/17 18:08 Lymph % (Auto) 36.8 % (20.0-40.0) 02/22/17 18:08 [place] % (Auto) 10.1 % (0.0-10.0) H 02/22/17 18:08 Eos % (Auto) 2.7 % (0.0-4.0) 02/22/17 18:08 Baso % (Auto) 1.3 % (0.0-2.0) 02/22/17 18:08 Neut # 2.9 K/uL (1.8-7.0) 02/22/17 18:08 Lymph # 2.2 K/uL (1.0-4.3) 02/22/17 18:08 [place] # 0.6 K/uL (0.0-0.8) 02/22/17 18:08 Eos # 0.2 K/uL (0.0-0.7) 02/22/17 18:08 Baso # 0.1 K/uL (0.0-0.2) 02/22/17 18:08 PT 11.2 SECONDS (9.7-12.2) 02/22/17 19:07 INR 1.0 02/22/17 19:07 APTT 34 SECONDS (21-34) 02/22/17 19:07 Sodium 132 mmol/L (132-148) 02/25/17 07:37 Potassium 3.7 mmol/L (3.6-5.2) 02/25/17 07:37 Chloride 96 mmol/L (98-107) L 02/25/17 07:37 Carbon Dioxide 23 mmol/L (22-30) 02/25/17 07:37 Anion Gap 17 (10-20) 02/25/17 07:37 BUN 19 mg/dL (9-20) 02/25/17 07:37 Creatinine 1.3 MG/DL (0.8-1.5) 02/25/17 07:37 Est GFR ( Amer) > 60 02/25/17 07:37 Est GFR (Non-Af Amer) 53 02/25/17 07:37 POC Glucose (mg/dL) 188 mg/dL (65-110) H 02/25/17 11:39 Random Glucose 95 mg/dL (75-110) 02/25/17 07:37 Calcium 8.3 mg/dl (8.6-10.4) L 02/25/17 07:37 Magnesium 1.3 mg/dL (1.6-2.3) L 02/22/17 18:08 Total Bilirubin 1.1 mg/dL (0.2-1.3) 02/25/17 07:37 Direct Bilirubin 1.1 mg/dL (0.0-0.4) H 02/25/17 07:37 AST 225 U/L (17-59) H 02/25/17 07:37 ALT 55 U/L (21-72) 02/25/17 07:37 Alkaline Phosphatase 48 U/L (38-126) 02/25/17 07:37 Total Creatine Kinase 130 U/L (55-170) 02/22/17 18:08 CK-MB (Mass) 0.63 ng/mL (0.0-3.38) 02/22/17 18:08 Troponin I 0.0170 ng/mL (0.00-0.120) 02/22/17 18:08 Total Protein 7.2 g/dL (6.3-8.3) 02/25/17 07:37 Albumin 3.7 g/dL (3.5-5.0) 02/25/17 07:37 Globulin 3.6 gm/dL (2.2-3.9) 02/25/17 07:37 Albumin/Globulin Ratio 1.0 (1.0-2.1) 02/25/17 07:37 Lipase 417 U/L (23-300) H 02/22/17 18:08 Alpha Fetoprotein 4.9 ng/mL (0.0-7.5) 02/25/17 07:37 Carcinoembryonic Ag 1.9 ng/mL (0-3.0) 02/25/17 07:37 Urine Color Straw (YELLOW) 02/22/17 18:08 Urine Clarity Clear (Clear) 02/22/17 18:08 Urine pH 7.0 (5.0-8.0) 02/22/17 18:08 Ur Specific [place] 1.006 (1.003-1.030) 02/22/17 18:08 Urine Protein 1+ mg/dL (NEGATIVE) H 02/22/17 18:08 Urine Glucose (UA) Normal mg/dL (Normal) 02/22/17 18:08 Urine Ketones Negative mg/dL (NEGATIVE) 02/22/17 18:08 Urine Blood 1+ (NEGATIVE) H 02/22/17 18:08 Urine Nitrate Negative (NEGATIVE) 02/22/17 18:08 Urine Bilirubin Negative (NEGATIVE) 02/22/17 18:08 Urine Urobilinogen Normal mg/dL (0.2-1.0) 02/22/17 18:08 Ur Leukocyte Esterase Neg Lady/uL (Negative) 02/22/17 18:08 Urine WBC (Auto) < 1 /hpf (0-5) 02/22/17 18:08 Hepatitis A IgM Ab Negative (NEGATIVE) 02/25/17 07:37 Hep Bs Antigen Negative (NEGATIVE) 02/25/17 07:37 Hep B Core IgM Ab Negative (NEGATIVE) 02/25/17 07:37 Hepatitis C Antibody Negative (NEGATIVE) 02/25/17 07:37 - Hospital Course Hospital Course: Patient admitted for dehydration due to poor oral intake with abnormal 20 pound loss in 3 months, , started on IVF, supplementation for hypokalemia, abnormal ly high LFTS and amylase ct abdomen liver mass- patient refuses further tests and treatment patient sent home Discharge Exam - Head Exam Head Exam: ATRAUMATIC, NORMOCEPHALIC - Eye Exam Eye Exam: absent: Nystagmus - ENT Exam ENT Exam: Mucous Membranes Moist - Neck Exam Neck exam: Full Rom - Respiratory Exam Respiratory Exam: Decreased Breath Sounds, Clear to PA & Lateral, NORMAL BREATHING PATTERN - Cardiovascular Exam Cardiovascular Exam: REGULAR RHYTHM - GI/Abdominal Exam GI & Abdominal Exam: Normal Bowel Sounds, Soft. absent: Distended, Mass, Tenderness - Extremities Exam Extremities exam: full ROM - Neurological Exam Neurological exam: Alert, Normal Gait, Oriented x3 - Psychiatric Exam Psychiatric exam: Normal Affect, Normal Mood - Skin Skin Exam: Intact, Normal Color Discharge Plan - Follow Up Plan Condition: FAIR Disposition: HOME/ ROUTINE
[2017-02-25 15:38] VITALS: BP 129/66; PULSE 77; RESP 18; TEMP 98.4; O2SAT 94
--- NOTE | 2017-02-27 09:15 | CARD ---
APPROVED REPORT EKG Measurement Heart [id number] <Conclusion> Normal sinus rhythm NONSPEC ST FLAT Abnormal ECG
== END 2017-02-25 16:32 | disposition home or self-care (01) | DRG 641 ==
LOC: C.ER 15:39 → C.9E 21:05 → C.3T 22:26 → C.9E 22:45 → C.5T 02-23 01:00
PROVIDERS: ADMIT Internal Medicine; ATTEND Internal Medicine
DX: E86.0 Dehydration (principal); J44.9 Chronic obstructive pulmonary disease, unspecified; I11.0 Hypertensive heart disease with heart failure; I50.9 Heart failure, unspecified; I44.1 Atrioventricular block, second degree; R16.0 Hepatomegaly, not elsewhere classified; E87.6 Hypokalemia; E11.9 Type 2 diabetes mellitus without complications; Z95.1 Presence of aortocoronary bypass graft; I25.10 Atherosclerotic heart disease of native coronary artery without angina pectoris; Z87.891 Personal history of nicotine dependence; R63.4 Abnormal weight loss; R79.89 Other specified abnormal findings of blood chemistry

== ENCOUNTER 2017-04-08 06:19 | Inpatient (IN) | payer MEDICARE, OTHER ==
--- NOTE | 2017-04-08 06:37 | C.PDOC ---
History Of Present Illness 82 year old patient, with a past medical history of COPD, CHF, and hypertension , is brought to the ED by ambulance complaining of shortness of breath for the past week. Patient states it is worse this morning with associated chest pain. Patient reports increased bilateral leg swelling for the past 2 days. Patient was given 20 mg of Lasix by IV by ALS prior to arrival. Patient denies all other complaints. Time Seen by Provider: 04/08/17 06:36 Chief Complaint (Nursing): Respiratory Distress History Per: Patient History/Exam Limitations: no limitations Onset/Duration Of Symptoms: Days (1 week), Worse Since (this morning) Current Symptoms Are (Timing): Still Present Quality: Tightness Current Respiratory Medications: See Home Med List Recent travel outside of the [place]: No Additional History Per: EMS Past Medical History Reviewed: Historical Data, Nursing Documentation, Vital Signs Vital Signs: Last Vital Signs Temp 98.1 F 04/08/17 06:23 Pulse 116 H 04/08/17 06:37 Resp 33 H 04/08/17 06:28 BP 156/86 H 04/08/17 06:23 Pulse Ox 99 04/08/17 06:47 - Medical History PMH: CHF, COPD, HTN Surgical History: CABG (2x) Family History: States: Unknown Family Hx - Social History Hx Alcohol Use: No Hx Substance Use: No Review Of Systems Except As Marked, All Systems Reviewed And Found Negative. Constitutional: Negative for: Fever Cardiovascular: Positive for: Chest Pain Respiratory: Positive for: Shortness of Breath Gastrointestinal: Negative for: Nausea, Vomiting Neurological: Negative for: Weakness, Numbness Physical Exam - Physical Exam Appears: Non-toxic, Other (dyspnea) Skin: Warm, Dry Head: Atraumatic, Normacephalic Eye(s): bilateral: Normal Inspection, PERRL, EOMI Oral Mucosa: Moist Neck: Normal ROM, Supple Chest: Symmetrical, Tenderness (anterior chest wall) Cardiovascular: Rhythm Regular, No Murmur, Other (engorged neck veins) Respiratory: Rales, Rhonchi, No Wheezing Back: Normal Inspection, No CVA Tenderness Extremity: Normal ROM, Pedal Edema (pitting; bilaterally; 3+), No Calf Tenderness, No Deformity Neurological/Psych: Oriented x3, Normal Motor, Normal Sensation ED Course And Treatment - Laboratory Results Result Diagrams: 05/19/17 06:50 O2 Sat by Pulse Oximetry: 99 (room air) Pulse Ox Interpretation: Normal Progress Note: Plan: VBG, EKG, Labs, Chest x-ray, Ecotrin, Nitroglycerin Disposition - Disposition Disposition Time: 07:11 Condition: STABLE - Clinical Impression Clinical Impression: Dyspnea, Congestive heart failure - Scribe Statement The provider has reviewed the documentation as recorded by the Scribe Estefani Yates Provider Attestation: All medical record entries made by the Scribe were at my direction and personally dictated by me. I have reviewed the chart and agree that the record accurately reflects my personal performance of the history, physical exam, medical decision making, and the department course for this patient. I have also personally directed, reviewed, and agree with the discharge instructions and disposition.
[2017-04-08] MEDS ORDERED: Nitroglycerin 2% Ointment Foilpak UD TOP ONE (06:38)
[2017-04-08] MEDS ORDERED: Nitroglycerin 2% Ointment Foilpak UD TOP STA (06:42)
[2017-04-08 06:53] LABS: BASO # 0.1 K/uL (0.0-0.2); BASO % 1.2 % (0.0-2.0); HEMATOCRIT 29.7 % (35.0-51.0); LYMPH # 0.5 K/uL (1.0-4.3); LYMPH % 4.2 % (20.0-40.0); MEAN CELL VOLUME 96.7 fL (80.0-94.0); MEAN CORPUSCULAR HEMOGLOBIN 33.2 pg (27.0-31.0); MEAN CORPUSCULAR HGB CONC 34.4 g/dL (33.0-37.0); MEAN PLATELET VOLUME 7.3 fL (7.2-11.7); MONO # 0.7 K/uL (0.0-0.8); MONO % 5.2 % (0.0-10.0); PLATELET COUNT 568 K/uL (130-400); RED CELL DISTRIBUTION WIDTH 14.7 % (11.5-14.5); WHITE BLOOD COUNT 12.8 K/uL (4.8-10.8)
[2017-04-08 07:05] LABS: ALB/GLOB RATIO 0.9 (1.0-2.1); BILIRUBIN,TOTAL 2.6 mg/dL (0.2-1.3); TOTAL PROTEIN 8.3 g/dL (6.3-8.3)
[2017-04-08 07:06] LABS: CALCIUM 8.9 mg/dl (8.6-10.4)
[2017-04-08 07:07] LABS: INR 1.1
[2017-04-08 07:11] LABS: VENOUS BLOOD GAS BASE EXCESS -5.4 mmol/L (0.0-2.0); VENOUS BLOOD GAS PCO2 41 mmHg (40-60); VENOUS BLOOD PH 7.31 (7.32-7.43)
[2017-04-08 07:53] LABS: NEUTROPHIL 90 % (50-75); REACTIVE LYMPHOCYTES 1 % (0-0); TOTAL CELLS COUNTED 100
[2017-04-08 09:21] LABS: RBC URINE < 1 /hpf (0-3); URINE BILIRUBIN NEGATIVE (NEGATIVE); URINE BLOOD NEGATIVE (NEGATIVE); URINE COLOR Yellow (YELLOW); URINE GLUCOSE (UA) NORMAL (Normal); URINE KETONE NEGATIVE (NEGATIVE); URINE LEUKOCYTE ESTERASE NEG Leu/uL (Negative); URINE PROTEIN 2+ mg/dL (NEGATIVE); URINE UROBILINOGEN NORMAL mg/dL (0.2-1.0); WBC URINE 1 /hpf (0-5)
[2017-04-08] MEDS ORDERED: Albuterol-Ipratrop 3 mg / 0.5 (3 ml) UD INH ONE (12:23)
--- NOTE | 2017-04-08 13:10 | RAD ---
HISTORY: r/o infiltrate bed 6 COMPARISON: 02/22/2017 FINDINGS: LUNGS: Extensive bilateral pulmonary infiltrate predominantly in the lower portions of the lungs. Right greater than left. Bilateral pneumonia versus pulmonary edema. PLEURA: Probable small right pleural effusion. No definite left pleural effusion. No pneumothorax. CARDIOVASCULAR: Normal heart size. Sternotomy wires are noted. Status post CABG. Mild congestive change. OSSEOUS STRUCTURES: No significant abnormalities. VISUALIZED UPPER ABDOMEN: Normal. OTHER FINDINGS: None. IMPRESSION: Bilateral pneumonia versus pulmonary edema. Small right pleural effusion. Mild congestive change. CABG.
[2017-04-08] MEDS: Moxifloxacin IV 400mg/250ml NS 400 MG/250 ML BAG IVPB SCH (13:30)
--- NOTE | 2017-04-08 13:45 | CP.PCM.CON ---
History of Present Illness - History of Present Illness History of Present Illness: 82 year old patient, with a past medical history of COPD, CHF, and hypertension , is brought to the ED by ambulance complaining of shortness of breath for the past week. Patient states it is worse this morning with associated chest pain. Patient reports increased bilateral leg swelling for the past 2 days. Patient was given 20 mg of Lasix by IV by ALS prior to arrival. Patient denies all other complaints. PMH: CAD- S/P CABG X 2- 1995, REDO 2000 HTN DM 2 COPD DL CHF EPISODE FEW MONTH AGO LIVER MASS PSH: CABG- 2 TIMES SOCIAL- FORMER SMOKER NO ETOH OR ILLICITS FH- NONCONTRIBUATORY ROS: SILVA DRY COUGH INCREASING PEDAL EDEMA CONSULT DICTATED PATIENT IN SEVERE CHF- AGREE WITH TREATMENT AND ADD METOLAZONE QUANTFY URINE PROTEIN EXCRETION RATE RENAL US FOLLOW URINE OUTPUT, HYPONATREMIA Past Patient History - Infectious Disease Hx of Infectious Diseases: None - Tetanus Immunizations Tetanus Immunization: Unknown - Past Medical History & Family History Past Medical History?: Yes - Past Social History Smoking Status: Former Smoker - CARDIAC Hx Congestive Heart Failure: Yes Hx Hypertension: Yes - PULMONARY Hx Chronic Obstructive Pulmonary Disease (COPD): Yes - NEUROLOGICAL Hx Neurological Disorder: No - HEENT Hx HEENT Problems: Yes Hx Cataracts: Yes - RENAL Hx Chronic Kidney Disease: No - ENDOCRINE/METABOLIC Hx Endocrine Disorders: Yes Hx Diabetes Mellitus Type 2: Yes - HEMATOLOGICAL/ONCOLOGICAL Hx Blood Disorders: No - INTEGUMENTARY Hx Dermatological Problems: No - MUSCULOSKELETAL/RHEUMATOLOGICAL Hx Falls: No - GASTROINTESTINAL Hx Gastrointestinal Disorders: No - GENITOURINARY/GYNECOLOGICAL Hx Genitourinary Disorders: No Hx Prostate Problems: Yes - PSYCHIATRIC Hx Psychophysiologic Disorder: No Hx Substance Use: No - SURGICAL HISTORY Hx Coronary Artery Bypass Graft: Yes (2x) - ANESTHESIA Hx Anesthesia: Yes Hx Anesthesia Reactions: No Hx Malignant Hyperthermia: No Meds Allergies/Adverse Reactions: Allergies Allergy/AdvReac Type Severity Reaction Status Date / Time No Known Allergies Allergy Unverified 04/08/17 06:27 - Medications Medications: Current Medications Albuterol/Ipratropium (Duoneb 3 Mg/0.5 Mg (3 Ml) Ud) 3 ml INH RQ6 PRN PRN Reason: Shortness of Breath Aspirin (Aspirin Chewable) 81 mg PO DAILY [facility] Last Admin: 04/08/17 13:29 Dose: 81 mg Famotidine (Pepcid) 20 mg PO DAILY [facility] Furosemide (Lasix) 40 mg IVP BID [facility] Last Admin: 04/08/17 13:29 Dose: 40 mg Heparin Sodium (Porcine) (Heparin) 5,000 units SC Q8 [facility] Last Admin: 04/08/17 13:29 Dose: 5,000 units Hydrochlorothiazide (Hydrodiuril) 25 mg PO DAILY [facility] Last Admin: 04/08/17 13:29 Dose: 25 mg Moxifloxacin HCl (Avelox Iv 400mg/250ml Ns) 400 mg in 250 mls @ 167 mls/hr IVPB Q24H [facility] Last Admin: 04/08/17 13:30 Dose: 167 mls/hr Metoprolol Tartrate (Lopressor) 12.5 mg PO BID [facility] Pneumococcal Polyvalent Vaccine (Pneumovax 23 Vaccine) 0.5 ml IM .ONCE ONE Stop: 04/11/17 10:01 Results - Vital Signs Recent Vital Signs: Last Vital Signs Temp 98.1 F 04/08/17 06:23 Pulse 90 04/08/17 13:04 Resp 22 04/08/17 10:21 BP 136/71 04/08/17 13:29 Pulse Ox 100 04/08/17 10:21 - Labs Result Diagrams: 04/08/17 06:50 04/08/17 06:50 Labs: Laboratory Results - last 24 hr 04/08/17 09:07 Urine Color Yellow Urine Clarity Clear Urine pH 5.0 Ur Specific [place] 1.011 Urine Protein 2+ H Urine Glucose (UA) Normal Urine Ketones Negative Urine Blood Negative Urine Nitrate Negative Urine Bilirubin Negative Urine Urobilinogen Normal Ur Leukocyte Esterase Neg Urine WBC (Auto) 1 Urine RBC (Auto) < 1 Ur Squamous Epith Cells < 1 Hyaline Casts 6-10 H
--- NOTE | 2017-04-08 13:46 | CP.PCM.HP ---
History of Present Illness - History of Present Illness History of Present Illness: 82 y.o. with Hypertension CAD s/p CABG CHF COPD CRI Liver mass -patient refuses further evaluation was brought to ER due toincreasing shortness of breath, leg swelling - in ER patient was given Lasix, CXR showed pneumonia/chf, patient has elevated troponins- and patient was admitted to ICU for further evaluation and managmenet PMH as above recent hospitalozation for CHF and COPD and uncom=ntrolled hypertension Surgical Immunization completed Pneumonia Social previous smoker lives with family and children Present on Admission - Present on Admission Any Indicators Present on Admission: No History of DVT/PE: No History of Uncontrolled Diabetes: No Urinary Catheter: No Decubitus Ulcer Present: No Review of Systems - Constitutional Constitutional: Fatigue, Weakness - EENT Eyes: absent: Other Visual Disturbances, Loss of Vision Ears: absent: Ear Pain Nose/Mouth/Throat: absent: Epistaxis, Bleeding Gums - Cardiovascular Cardiovascular: Dyspnea on Exertion, Pedal Edema. absent: Syncope - Gastrointestinal Gastrointestinal: absent: Abdominal Pain, Change in Bowel Habits, Melena, Vomiting - Genitourinary Genitourinary: absent: Difficulty Urinating - Musculoskeletal Musculoskeletal: absent: Abnormal Gait, Deformity, Neck Pain - Integumentary Integumentary: absent: Bleeding Lesions, Skin Ulcer, Sores - Neurological Neurological: absent: Abnormal Movements, Behavioral Changes, Memory Loss - Psychiatric Psychiatric: absent: Behavioral Changes, Confusion, Depression - Endocrine Endocrine: absent: Palpitations - Hematologic/Lymphatic Hematologic: absent: Easy Bleeding, Easy Bruising Past Patient History - Infectious Disease Hx of Infectious Diseases: None - Tetanus Immunizations Tetanus Immunization: Unknown - Past Medical History & Family History Past Medical History?: Yes - Past Social History Smoking Status: Former Smoker - CARDIAC Hx Congestive Heart Failure: Yes Hx Hypertension: Yes - PULMONARY Hx Chronic Obstructive Pulmonary Disease (COPD): Yes - NEUROLOGICAL Hx Neurological Disorder: No - HEENT Hx HEENT Problems: Yes Hx Cataracts: Yes - RENAL Hx Chronic Kidney Disease: No - ENDOCRINE/METABOLIC Hx Endocrine Disorders: Yes Hx Diabetes Mellitus Type 2: Yes - HEMATOLOGICAL/ONCOLOGICAL Hx Blood Disorders: No - INTEGUMENTARY Hx Dermatological Problems: No - MUSCULOSKELETAL/RHEUMATOLOGICAL Hx Falls: No - GASTROINTESTINAL Hx Gastrointestinal Disorders: No - GENITOURINARY/GYNECOLOGICAL Hx Genitourinary Disorders: No Hx Prostate Problems: Yes - PSYCHIATRIC Hx Psychophysiologic Disorder: No Hx Substance Use: No - SURGICAL HISTORY Hx Coronary Artery Bypass Graft: Yes (2x) - ANESTHESIA Hx Anesthesia: Yes Hx Anesthesia Reactions: No Hx Malignant Hyperthermia: No Meds Allergies/Adverse Reactions: Allergies Allergy/AdvReac Type Severity Reaction Status Date / Time No Known Allergies Allergy Unverified 04/08/17 06:27 Physical Exam - Constitutional Appears: Other (in ICU bed , on BIPAP/CPAP, able to answer questions,) - Head Exam Head Exam: ATRAUMATIC, NORMOCEPHALIC - Eye Exam Eye Exam: Normal appearance. absent: Nystagmus - ENT Exam ENT Exam: Mucous Membranes Moist - Neck Exam Neck exam: Negative for: Meningismus, Tenderness - Respiratory Exam Respiratory Exam: NORMAL BREATHING PATTERN (congested no wheezing at this point ) - Cardiovascular Exam Cardiovascular Exam: REGULAR RHYTHM - GI/Abdominal Exam GI & Abdominal Exam: Normal Bowel Sounds, Soft. absent: Distended, Tenderness - Extremities Exam Extremities exam: Positive for: pedal edema, pedal pulses present - Back Exam Back exam: absent: rash noted, tenderness - Neurological Exam Neurological exam: Alert, Oriented x3, Reflexes Normal - Psychiatric Exam Psychiatric exam: Normal Affect, Normal Mood - Skin Skin Exam: Intact, Normal Color Results - Vital Signs Recent Vital Signs: Last Vital Signs Temp 98.1 F 04/08/17 06:23 Pulse 90 04/08/17 13:04 Resp 22 04/08/17 10:21 BP 136/71 04/08/17 13:29 Pulse Ox 100 04/08/17 10:21 - Labs Result Diagrams: 04/09/17 06:40 04/09/17 06:43 Labs: Laboratory Results - last 24 hr 04/08/17 09:07 Urine Color Yellow Urine Clarity Clear Urine pH 5.0 Ur Specific [place] 1.011 Urine Protein 2+ H Urine Glucose (UA) Normal Urine Ketones Negative Urine Blood Negative Urine Nitrate Negative Urine Bilirubin Negative Urine Urobilinogen Normal Ur Leukocyte Esterase Neg Urine WBC (Auto) 1 Urine RBC (Auto) < 1 Ur Squamous Epith Cells < 1 Hyaline Casts 6-10 H Assessment & Plan - Assessment and Plan (Free Text) Assessment: Patient with multiple medical problem- admitted for SOB, fluid retention CHF exacerbation possible pneumonia,, Elevated Troponins, , currently in ICU on antibiotic, respiratory care, cardio care CRI- renal on case on GI prophylaxis on heparin patient had completed pneumonia shots x 2 closer monitoring - Date & Time Date: 04/08/17 Time: 20:04
--- NOTE | 2017-04-08 14:06 | CP.PCM.CON ---
<Ambreen Washburn - Last Filed: 04/08/17 15:56> History of Present Illness - History of Present Illness History of Present Illness: PGY-[address] Wynn Cardiology: CHF, trops elevation 82 M with PMH of CAD s/p CABG, CHF, HTN, COPD (not on home O2), Liver mass, CKD 3A, admitted for shortness of breath x 1 week, and increased dry coughs and b/l leg swelling. Pt was hospitalized for CHF exacerbation in February 2017. After prior hospital discharge, pt sleeps on 3 pillows and ambulates [address] with SOB[address] Pt took his own meds and compliant. However, per family, pt was not always compliant on low Na food. On ED arrival T 98.1, HR 120, BP 156/86, RR 33, 99% bipap WBC 12.8, Hb 10, Hct 30, plt 568 (high) VBG lactate 3 Na 126, K 4, Cl 90, bicarb 18, BUN 37, creatinine 1.6, glu 179 AST = 336. ALT = 56, alk phos 140 Trops 0.852 --> 2 CK-MB 2 --> 2 pro-BNP [id number] ROS: (+) SILVA, orthopnea, DRY COUGH (+) INCREASING PEDAL EDEMA Decreases appetite Denies CP, N/V/D/C, dysuria Per family, stool was dark recently PMH: CAD- S/P CABG X 2- 1995, REDO 2000 HTN CKD 3A DM 2 x 5 years COPD CHF, last exacerbation a FEW MONTHs AGO LIVER MASS, chronic transamininitis, pt does not wish for intervention Cataracts PSH: CABG- 2 TIMES FH- NONCONTRIBUATORY SH- FORMER SMOKER of 40-50ppd, quit 30 years ago NO ETOH OR ILLICITS Allergy: NKDA Meds: ASA, KCl, Lasix, hydrocholrothiazie 25, losartin 50 PMD: Dr. Hutchison Outpt Director Of Staff Development: Dr. Wynn No POA established yet Past Patient History - Infectious Disease Hx of Infectious Diseases: None - Tetanus Immunizations Tetanus Immunization: Unknown - Past Medical History & Family History Past Medical History?: Yes - Past Social History Smoking Status: Former Smoker - CARDIAC Hx Congestive Heart Failure: Yes Hx Hypertension: Yes - PULMONARY Hx Chronic Obstructive Pulmonary Disease (COPD): Yes - NEUROLOGICAL Hx Neurological Disorder: No - HEENT Hx HEENT Problems: Yes Hx Cataracts: Yes - RENAL Hx Chronic Kidney Disease: No - ENDOCRINE/METABOLIC Hx Endocrine Disorders: Yes Hx Diabetes Mellitus Type 2: Yes - HEMATOLOGICAL/ONCOLOGICAL Hx Blood Disorders: No - INTEGUMENTARY Hx Dermatological Problems: No - MUSCULOSKELETAL/RHEUMATOLOGICAL Hx Falls: No - GASTROINTESTINAL Hx Gastrointestinal Disorders: No - GENITOURINARY/GYNECOLOGICAL Hx Genitourinary Disorders: No Hx Prostate Problems: Yes - PSYCHIATRIC Hx Psychophysiologic Disorder: No Hx Substance Use: No - SURGICAL HISTORY Hx Coronary Artery Bypass Graft: Yes (2x) - ANESTHESIA Hx Anesthesia: Yes Hx Anesthesia Reactions: No Hx Malignant Hyperthermia: No Meds Allergies/Adverse Reactions: Allergies Allergy/AdvReac Type Severity Reaction Status Date / Time No Known Allergies Allergy Unverified 04/08/17 06:27 - Medications Medications: Current Medications Albuterol/Ipratropium (Duoneb 3 Mg/0.5 Mg (3 Ml) Ud) 3 ml INH RQ6 PRN PRN Reason: Shortness of Breath Aspirin (Aspirin Chewable) 81 mg PO DAILY [facility] Last Admin: 04/08/17 13:29 Dose: 81 mg Famotidine (Pepcid) 20 mg PO DAILY [facility] Furosemide (Lasix) 60 mg IVP BID [facility] Heparin Sodium (Porcine) (Heparin) 5,000 units SC Q8 [facility] Last Admin: 04/08/17 13:29 Dose: 5,000 units Moxifloxacin HCl (Avelox Iv 400mg/250ml Ns) 400 mg in 250 mls @ 167 mls/hr IVPB Q24H [facility] Last Admin: 04/08/17 13:30 Dose: 167 mls/hr Metolazone (Zaroxolyn) 5 mg PO DAILY [facility] Metoprolol Tartrate (Lopressor) 12.5 mg PO BID [facility] Pneumococcal Polyvalent Vaccine (Pneumovax 23 Vaccine) 0.5 ml IM .ONCE ONE Stop: 04/11/17 10:01 Physical Exam - Constitutional Appears: No Acute Distress, Chronically Ill - Head Exam Head Exam: ATRAUMATIC, NORMOCEPHALIC - Eye Exam Eye Exam: EOMI, Normal appearance, PERRL. absent: Scleral icterus - ENT Exam ENT Exam: Mucous Membranes Moist - Neck Exam Additional comments: No JVD distention - Respiratory Exam Respiratory Exam: Clear to Auscultation Bilateral, Rales, Rhonchi. absent: Wheezes - Cardiovascular Exam Cardiovascular Exam: REGULAR RHYTHM, +S1, +S2. absent: Systolic Murmur - GI/Abdominal Exam GI & Abdominal Exam: Normal Bowel Sounds, Soft. absent: Distended, Guarding, Tenderness - Extremities Exam Extremities exam: Positive for: pedal edema (3+ pitting), pedal pulses present ( slight). Negative for: calf tenderness - Back Exam Back exam: absent: CVA tenderness (L), CVA tenderness (R) - Neurological Exam Neurological exam: Alert - Psychiatric Exam Psychiatric exam: Flat Affect - Skin Skin Exam: Dry, Warm Results - Vital Signs Recent Vital Signs: Last Vital Signs Temp 98.1 F 04/08/17 06:23 Pulse 90 04/08/17 13:04 Resp 22 04/08/17 10:21 BP 136/71 04/08/17 13:29 Pulse Ox 100 04/08/17 10:21 - Labs Result Diagrams: 04/08/17 06:50 04/08/17 06:50 Labs: Laboratory Results - last 24 hr 04/08/17 04/08/17 09:07 13:14 Total Creatine Kinase 86 Urine Color Yellow Urine Clarity Clear Urine pH 5.0 Ur Specific [place] 1.011 Urine Protein 2+ H Urine Glucose (UA) Normal Urine Ketones Negative Urine Blood Negative Urine Nitrate Negative Urine Bilirubin Negative Urine Urobilinogen Normal Ur Leukocyte Esterase Neg Urine WBC (Auto) 1 Urine RBC (Auto) < 1 Ur Squamous Epith Cells < 1 Hyaline Casts 6-10 H Assessment & Plan - Assessment and Plan (Free Text) Plan: 82 M with PMH of CAD s/p CABG, CHF, HTN, COPD (not on home O2), CKD 3A, Liver mass, admitted to ICU for CHF exacerbation requiring bipap vs PNA with Hx of recent hospitalization. Trop is positive. 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 Elevated trops NSTEMI - Possible type 2 [place] vs ventricular stretch from overload vs decrease clearance - Heparin gtt - cardiac cath on tuesday CHF, system, acute on chronic - lasix 60 IV BID - Echo: low EF 30-35% - lifevest of 3 months - repeat echo in 3 months to assess need for permanant icd Hx CAD s/p CABG - asa, Metoprolol 12.5 BID, Metolazone 5 daily, lasix - lipid, A1C S/R/D/w Dr. Wynn - Date & Time Date: 04/08/17 Time: 15:36 <Krishna Wynn - Last Filed: 04/08/17 21:38> Meds - Medications Medications: Current Medications Albuterol/Ipratropium (Duoneb 3 Mg/0.5 Mg (3 Ml) Ud) 3 ml INH RQ6 PRN PRN Reason: Shortness of Breath Last Admin: 04/08/17 19:17 Dose: 3 ml Aspirin (Aspirin Chewable) 81 mg PO DAILY [facility] Last Admin: 04/08/17 13:29 Dose: 81 mg Famotidine (Pepcid) 20 mg PO DAILY [facility] Last Admin: 04/08/17 18:18 Dose: 20 mg Furosemide (Lasix) 60 mg IVP BID [facility] Last Admin: 04/08/17 18:18 Dose: 60 mg Moxifloxacin HCl (Avelox Iv 400mg/250ml Ns) 400 mg in 250 mls @ 167 mls/hr IVPB Q24H [facility] Last Admin: 04/08/17 13:30 Dose: 167 mls/hr Heparin Sodium/Sodium Chloride (Heparin 04579 Units/250ml 1/2 Normal Saline) 25 ,000 units in 250 mls @ 0 mls/hr IV .Q0M PRN; Protocol; Per Protocol PRN Reason: PROTOCOL Last Admin: 04/08/17 16:08 Dose: 13 mls/hr Metolazone (Zaroxolyn) 5 mg PO DAILY [facility] Last Admin: 04/08/17 16:09 Dose: 5 mg Metoprolol Tartrate (Lopressor) 12.5 mg PO BID [facility] Last Admin: 04/08/17 18:18 Dose: 12.5 mg Results - Vital Signs Recent Vital Signs: Last Vital Signs Temp 98.5 F 04/08/17 20:00 Pulse 83 04/08/17 21:30 Resp 29 H 04/08/17 21:30 BP 122/62 04/08/17 20:50 Pulse Ox 94 L 04/08/17 21:30 - Labs Result Diagrams: 04/08/17 06:50 04/08/17 06:50 Labs: Laboratory Results - last 24 hr 04/08/17 04/08/17 04/08/17 09:07 13:14 14:10 Phosphorus 5.2 H Magnesium 1.5 L Total Creatine Kinase 86 CK-MB (Mass) 1.96 Troponin I, Quant 2.0500 H* Urine Color Yellow Urine Clarity Clear Urine pH 5.0 Ur Specific [place] 1.011 Urine Protein 2+ H Urine Glucose (UA) Normal Urine Ketones Negative Urine Blood Negative Urine Nitrate Negative Urine Bilirubin Negative Urine Urobilinogen Normal Ur Leukocyte Esterase Neg Urine WBC (Auto) 1 Urine RBC (Auto) < 1 Ur Squamous Epith Cells < 1 Hyaline Casts 6-10 H Urine Osmolality Ur Random Sodium 04/08/17 04/08/17 15:53 18:45 Phosphorus Magnesium Total Creatine Kinase 86 CK-MB (Mass) 1.91 Troponin I, Quant 2.9000 H* Urine Color Urine Clarity Urine pH Ur Specific [place] Urine Protein Urine Glucose (UA) Urine Ketones Urine Blood Urine Nitrate Urine Bilirubin Urine Urobilinogen Ur Leukocyte Esterase Urine WBC (Auto) Urine RBC (Auto) Ur Squamous Epith Cells Hyaline Casts Urine Osmolality 352 Ur Random Sodium 16 Assessment & Plan - Assessment and Plan (Free Text) Plan: Patient seen and evaluated with the caregivers non medical Agree with the management plan
[2017-04-08 14:20] LABS: MAGNESIUM 1.5 mg/dL (1.6-2.3); PHOSPHOROUS 5.2 mg/dL (2.5-4.5)
--- NOTE | 2017-04-08 14:25 | CON ---
DATE: 04/08/2017 The patient is an 82-year-old man who has a past medical history of heart failure several months ago and now he presents with increasing shortness of breath and was diagnosed with having heart failure a gain and is on BiPAP in the ICU. He had chest pain in the morning accompanied by the shortness of br eath. He has had increasing leg swelling for several weeks to months. PAST MEDICAL HISTORY: Coronary artery disease. He is status post coronary artery bypass graft surge ry in 1995 and a redo again in 2000. History of hypertension, diabetes mellitus type 2, COPD, dyslip idemia and a CHF episode a few months ago and a known liver mass of unknown etiology. PAST SURGICAL HISTORY: Only coronary artery bypass graft surgery 2 times. SOCIAL HISTORY: He is a former smoker. No history of alcohol abuse or illicit drug use. FAMILY HISTORY: Noncontributory. REVIEW OF SYSTEMS: Significant for dyspnea on exertion, chest pain, increasing dry cough and increas ing peripheral edema. He is right now not able to converse due to BiPAP. Other review of systems ar e not obtainable. MEDICATIONS: In the hospital now include Lasix 40 mg b.i.d., aspirin, albuterol, hydrochlorothiazide 25 daily, metoprolol, Avelox, Pepcid. PHYSICAL EXAMINATION: GENERAL: He is a well-developed man, seems very dyspneic, on a BiPAP. VITAL SIGNS: Blood pressure is 124/60, pulse is approximately 100, irregularly irregular. HEENT: He is anicteric. Mouth was clear. NECK: No JVD. CHEST: Showed increasing rales and rhonchi throughout both lung street. HEART SOUNDS: Irregular rhythm. No murmur appreciated. Ventricular response around 100. ABDOMEN: Distended. No mass or organomegaly. EXTREMITIES: He had 2-3+ pedal edema lower extremities. NEUROLOGIC: No focal deficits. Chest x-ray showed congestive heart failure. Hemoglobin of 10.2, white count of 12.8. Sodium 126, potassium 4, BUN 37, creatinine 1.6, GFR of 41. He had elevated AST of 336, total bili of 2.6. Troponins are elevated at 0.8520 and proBNP of 10,9 00. Urinalysis showed 2+ protein. IMPRESSION: The patient has congestive heart failure, atrial fibrillation. He has chronic kidney di sease stage III, likely has cardiorenal syndrome with acute kidney injury and possibly has diabetic n ephropathy with proteinuria. Hyponatremia appears to be dilutional. PLAN: Would be agree with IV Lasix. Would stop the thiazide and give metolazone. Would try to incr ease the diuretics and if the patient cannot diurese, he might need renal replacement therapy. I wou ld get 24-hour urine for protein to quantify his urine protein excretion rate, get a urine electrolyt es and also obtain serial chemistries and a renal ultrasound. We will need to follow up closely. Th e patient appears to be acutely ill. Jose Conrad MD cc: [id number] TT: 04/08/2017 14:25:02 Confirmation # [id number] Dictation # [id number] en
[2017-04-08] MEDS: Heparin25000 units/250ml 1/2NS 25,000 UNITS/250 ML BAG IV PRN (16:08)
--- NOTE | 2017-04-08 16:08 | US ---
PROCEDURE: Ultrasound of the Kidneys HISTORY: ARIE COMPARISON: CT abdomen pelvis with contrast performed 02/22/27 TECHNIQUE: Sonogram of the kidneys. FINDINGS: RIGHT KIDNEY: Measures: 9.2 x 4.2 x 5.4 cm. No obstructing calculus or hydronephrosis identified. LEFT KIDNEY: Measures: 11.0 x 5.6 x 5.6 cm. 2.3 x 1.8 x 2.1 cm lower pole avascular anechoic renal lesion compatible with cyst. No obstructing calculus or hydronephrosis identified. OTHER FINDINGS: Incidental note is made of cholelithiasis. Small right upper quadrant ascites. Distended urinary bladder. Images were not provided of the prostate gland. IMPRESSION: 2.3 x 1.8 x 2.1 cm lower pole avascular anechoic renal lesion compatible with cyst. Incidental note was made of cholelithiasis. Small right upper quadrant ascites.
[2017-04-08] MEDS: metOLazone 5 MG TAB PO SCH (16:09)
--- NOTE | 2017-04-08 16:58 | CP.PCM.CON ---
<Sami Casillas - Last Filed: 04/08/17 16:46> History of Present Illness - History of Present Illness History of Present Illness: PGY-1 ICU Consult Note Pt is an 82 yo M with PMH of CAD s/p CABG, CHF, HTN, COPD (not on home O2), Liver mass and CKD that was admitted for shortness of breath and CXR consistent with CHF exacerbation vs pneumonia. For the past week he states that he has had increased dry coughs and bilateral leg edema. He admits to increased sob with ADLs and sleeps with 3 pillows at night. He was recently hospitalized in February 2017 for CHF exacerbation. He denies non-compliance with home meds but per family, this is not always the case. Denies fevers, chills, nausea, vomiting. PMH: CAD- S/P CABG X 2- 1995, REDO 2000 HTN CKD 3A DM 2 x 5 years COPD CHF, last exacerbation a FEW MONTHs AGO LIVER MASS, chronic transamininitis, pt does not wish for intervention Cataracts PSH: CABG- 2 TIMES FH- NONCONTRIBUATORY SH- FORMER SMOKER of 40-50ppd, quit 30 years ago NO ETOH OR ILLICITS Allergy: NKDA Meds: ASA, KCl, Lasix, hydrocholrothiazie 25, losartin 50 PMD: Dr. Hutchison Review of Systems - Review of Systems All systems: reviewed and no additional remarkable complaints except (where noted in the HPI) Past Patient History - Infectious Disease Hx of Infectious Diseases: None - Tetanus Immunizations Tetanus Immunization: Unknown - Past Medical History & Family History Past Medical History?: Yes - Past Social History Smoking Status: Former Smoker - CARDIAC Hx Congestive Heart Failure: Yes Hx Hypertension: Yes - PULMONARY Hx Chronic Obstructive Pulmonary Disease (COPD): Yes - NEUROLOGICAL Hx Neurological Disorder: No - HEENT Hx HEENT Problems: Yes Hx Cataracts: Yes - RENAL Hx Chronic Kidney Disease: No - ENDOCRINE/METABOLIC Hx Endocrine Disorders: Yes Hx Diabetes Mellitus Type 2: Yes - HEMATOLOGICAL/ONCOLOGICAL Hx Blood Disorders: No - INTEGUMENTARY Hx Dermatological Problems: No - MUSCULOSKELETAL/RHEUMATOLOGICAL Hx Falls: No - GASTROINTESTINAL Hx Gastrointestinal Disorders: No - GENITOURINARY/GYNECOLOGICAL Hx Genitourinary Disorders: No Hx Prostate Problems: Yes - PSYCHIATRIC Hx Psychophysiologic Disorder: No Hx Substance Use: No - SURGICAL HISTORY Hx Coronary Artery Bypass Graft: Yes (2x) - ANESTHESIA Hx Anesthesia: Yes Hx Anesthesia Reactions: No Hx Malignant Hyperthermia: No Meds Allergies/Adverse Reactions: Allergies Allergy/AdvReac Type Severity Reaction Status Date / Time No Known Allergies Allergy Unverified 04/08/17 06:27 - Medications Medications: Current Medications Albuterol/Ipratropium (Duoneb 3 Mg/0.5 Mg (3 Ml) Ud) 3 ml INH RQ6 PRN PRN Reason: Shortness of Breath Aspirin (Aspirin Chewable) 81 mg PO DAILY [facility] Last Admin: 04/08/17 13:29 Dose: 81 mg Famotidine (Pepcid) 20 mg PO DAILY [facility] Furosemide (Lasix) 60 mg IVP BID [facility] Moxifloxacin HCl (Avelox Iv 400mg/250ml Ns) 400 mg in 250 mls @ 167 mls/hr IVPB Q24H [facility] Last Admin: 04/08/17 13:30 Dose: 167 mls/hr Heparin Sodium/Sodium Chloride (Heparin 28466 Units/250ml 1/2 Normal Saline) 25 ,000 units in 250 mls @ 0 mls/hr IV .Q0M PRN; Protocol; Per Protocol PRN Reason: PROTOCOL Last Admin: 04/08/17 16:08 Dose: 13 mls/hr Metolazone (Zaroxolyn) 5 mg PO DAILY [facility] Last Admin: 04/08/17 16:09 Dose: 5 mg Metoprolol Tartrate (Lopressor) 12.5 mg PO BID [facility] Pneumococcal Polyvalent Vaccine (Pneumovax 23 Vaccine) 0.5 ml IM .ONCE ONE Stop: 04/11/17 10:01 Physical Exam - Constitutional Appears: Non-toxic, No Acute Distress, Chronically Ill - Head Exam Head Exam: ATRAUMATIC, NORMOCEPHALIC - ENT Exam ENT Exam: Mucous Membranes Moist - Respiratory Exam Respiratory Exam: Rales - Cardiovascular Exam Cardiovascular Exam: +S1, +S2 - GI/Abdominal Exam GI & Abdominal Exam: Normal Bowel Sounds, Soft - Extremities Exam Extremities exam: Positive for: pedal edema - Back Exam Back exam: NORMAL INSPECTION - Neurological Exam Neurological exam: Alert, Oriented x3 - Skin Skin Exam: Dry, Warm Results - Vital Signs Recent Vital Signs: Last Vital Signs Temp 98.1 F 04/08/17 06:23 Pulse 82 04/08/17 15:37 Resp 22 04/08/17 10:21 BP 136/71 04/08/17 13:29 Pulse Ox 100 04/08/17 10:21 - Labs Result Diagrams: 04/08/17 06:50 04/08/17 06:50 Labs: Laboratory Results - last 24 hr 04/08/17 04/08/17 04/08/17 09:07 13:14 14:10 Phosphorus 5.2 H Magnesium 1.5 L Total Creatine Kinase 86 CK-MB (Mass) 1.96 Troponin I, Quant 2.0500 H* Urine Color Yellow Urine Clarity Clear Urine pH 5.0 Ur Specific [place] 1.011 Urine Protein 2+ H Urine Glucose (UA) Normal Urine Ketones Negative Urine Blood Negative Urine Nitrate Negative Urine Bilirubin Negative Urine Urobilinogen Normal Ur Leukocyte Esterase Neg Urine WBC (Auto) 1 Urine RBC (Auto) < 1 Ur Squamous Epith Cells < 1 Hyaline Casts 6-10 H Urine Osmolality Ur Random Sodium 04/08/17 15:53 Phosphorus Magnesium Total Creatine Kinase CK-MB (Mass) Troponin I, Quant Urine Color Urine Clarity Urine pH Ur Specific [place] Urine Protein Urine Glucose (UA) Urine Ketones Urine Blood Urine Nitrate Urine Bilirubin Urine Urobilinogen Ur Leukocyte Esterase Urine WBC (Auto) Urine RBC (Auto) Ur Squamous Epith Cells Hyaline Casts Urine Osmolality 352 Ur Random Sodium 16 Assessment & Plan - Assessment and Plan (Free Text) Assessment: 82 M with PMH of CAD s/p CABG, CHF, HTN, COPD (not on home O2), CKD 3A, Liver mass, admitted to ICU for CHF exacerbation requiring bipap vs pneumonia. Trop is positive. 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 Plan: Neuro: AAOx3, monitor Cardiovascular: NSTEMI Heparin drip started, ASA and metoprolol Cardio consulted Cath for tuesday Lipid, A1C Acute on chronic systolic CHF exacerbation Last echo shows EF of 30-35% Per cardio - life vest and reassess for AICD Lasix 60 BID Pulmonary: On BiPAP, wean as tolerated CXR - CHF exacerbation vs pneumonia b/l Lasix Avelox started Gastrointestinal: No acute issues Hematology: Anemia at 10.2 - f/u morning labs Endocrine: No acute issues Renal: Lasix 60mg BID, monitor labs Strict I/Os Infectious Disease: Afebrile. mild leukocytosis Avelox Monitor GI Prophylaxis: Pepcid DVT Prophylaxis: Heparin drip <LatefArmando M - Last Filed: 04/14/17 15:32> Meds - Medications Medications: Current Medications Albuterol/Ipratropium (Duoneb 3 Mg/0.5 Mg (3 Ml) Ud) 3 ml INH RQ6 [facility] Last Admin: 04/14/17 14:15 Dose: 3 ml Calcium Acetate (Phoslo) 1,334 mg GT TIDCC [facility] Last Admin: 04/14/17 14:09 Dose: 1,334 mg Propofol (Diprivan) 1,000 mg in 100 mls @ 2.096 mls/hr IV .Q24H PRN; Protocol; 5 MCG/KG/MIN PRN Reason: TITRATE PER MD ORDER Last Titration: 04/12/17 19:30 Dose: 15 mcg/kg/min, 6.287 mls/hr Norepinephrine Bitartrate 8 mg (/ Sodium Chloride) 258 mls @ 7.74 mls/hr IV .Q24H PRN; Protocol; 4 MCG/MIN PRN Reason: TITRATE PER MD ORDER Last Admin: 04/14/17 09:42 Dose: 13.59 mcg/min, 26.3 mls/hr Piperacillin Sod/Tazobactam Sod (Zosyn 2.25 Gm Iv Premix) 2.25 gm in 50 mls @ 100 mls/hr IVPB Q8H [facility] Last Admin: 04/14/17 14:09 Dose: 100 mls/hr Vasopressin 40 units/ Sodium (Chloride) 40 mls @ 2.4 mls/hr IV .[id number] [facility]; 0.04 UNITS/MIN PRN Reason: Protocol Last Admin: 04/12/17 04:27 Dose: Not Given Insulin Human Regular (Novolin R) 0 unit SC Q6 [facility] PRN Reason: Protocol Last Admin: 04/14/17 12:29 Dose: Not Given Pantoprazole Sodium (Protonix Inj) 40 mg IVP DAILY [facility] Last Admin: 04/14/17 09:44 Dose: 40 mg Rosuvastatin Calcium (Crestor) 10 mg PO HS [facility] Last Admin: 04/13/17 21:38 Dose: 10 mg Results - Vital Signs Recent Vital Signs: Last Vital Signs Temp 98.4 F 04/14/17 08:00 Pulse 116 H 04/14/17 12:00 Resp 28 H 04/14/17 12:00 BP 96/29 L 04/14/17 11:28 Pulse Ox 99 04/14/17 12:00 - Labs Result Diagrams: 04/13/17 06:17 04/13/17 06:17 Labs: Laboratory Results - last 24 hr 04/13/17 04/13/17 04/13/17 18:10 18:34 23:44 POC Glucose (mg/dL) 41 L 148 H 124 H 04/14/17 04/14/17 05:39 12:06 POC Glucose (mg/dL) 121 H 118 H Attending/Attestation - Attestation I have personally seen and examined this patient.: Yes I have fully participated in the care of the patient.: Yes I have reviewed all pertinent clinical information: Yes Notes (Text): Today: Tuesday, April 08, 2017 The Patient was seen and examined at the bedside, Medical records reviewed, all clinical/lab/hemodynamic/radiographic data were reviewed and management issues were discussed and formulated, Events reviewed Pain issues, skin care, head of the bed elevation, glycemic control were addressed. Agree with above treatment plans as transcribed in Dr. Casillas note Patient with Acute respiratory failure admitted to the ICU for hemodynamic monitoring and close monitor of respiratory status Chest x-ray revealed bilateral diffuse infiltrates consistent with CHF/possible pneumonia Supplemental O2 with 2L via NC, monitor O2 saturation ANTIBIOTICS IV Diuresis Strict I&O ECHO. Discussed with family in details diagnosis, treatment plans and alternative
--- NOTE | 2017-04-08 17:28 | CP.PCM.CON ---
History of Present Illness - History of Present Illness History of Present Illness: Reason for consultation: Shortness of breath requiring BiPAP 82 M with PMH of CAD s/p CABG, CHF, HTN, COPD (not on home O2), Liver mass, CKD 3A, admitted for shortness of breath x 1 week, and increased dry coughs and b/l leg swelling. Pt was hospitalized for CHF exacerbation in February 2017. pt complaining of orthopnea and sleeps on 3 pillows and ambulates [address] with SOB. In the emergency room patient was placed on BiPAP and was found to have elevated troponins PMH: CAD- S/P CABG X 2- 1995, REDO 2000, CHF, HTN, COPD (not on home O2), Liver mass, CKD 3A SH- FORMER SMOKER of 40-50ppd, quit 30 years ago NO ETOH OR ILLICITS Allergy: NKDA Meds: ASA, KCl, Lasix, hydrocholrothiazie 25, losartin 50 Review of Systems - Review of Systems Systems not reviewed;Unavailable: Respiratory Distress Past Patient History - Infectious Disease Hx of Infectious Diseases: None - Tetanus Immunizations Tetanus Immunization: Unknown - Past Medical History & Family History Past Medical History?: Yes - Past Social History Smoking Status: Former Smoker - CARDIAC Hx Congestive Heart Failure: Yes Hx Hypertension: Yes - PULMONARY Hx Chronic Obstructive Pulmonary Disease (COPD): Yes - NEUROLOGICAL Hx Neurological Disorder: No - HEENT Hx HEENT Problems: Yes Hx Cataracts: Yes - RENAL Hx Chronic Kidney Disease: No - ENDOCRINE/METABOLIC Hx Endocrine Disorders: Yes Hx Diabetes Mellitus Type 2: Yes - HEMATOLOGICAL/ONCOLOGICAL Hx Blood Disorders: No - INTEGUMENTARY Hx Dermatological Problems: No - MUSCULOSKELETAL/RHEUMATOLOGICAL Hx Falls: No - GASTROINTESTINAL Hx Gastrointestinal Disorders: No - GENITOURINARY/GYNECOLOGICAL Hx Genitourinary Disorders: No Hx Prostate Problems: Yes - PSYCHIATRIC Hx Psychophysiologic Disorder: No Hx Substance Use: No - SURGICAL HISTORY Hx Coronary Artery Bypass Graft: Yes (2x) - ANESTHESIA Hx Anesthesia: Yes Hx Anesthesia Reactions: No Hx Malignant Hyperthermia: No Meds Allergies/Adverse Reactions: Allergies Allergy/AdvReac Type Severity Reaction Status Date / Time No Known Allergies Allergy Unverified 04/08/17 06:27 - Medications Medications: Current Medications Albuterol/Ipratropium (Duoneb 3 Mg/0.5 Mg (3 Ml) Ud) 3 ml INH RQ6 PRN PRN Reason: Shortness of Breath Aspirin (Aspirin Chewable) 81 mg PO DAILY [facility] Last Admin: 04/08/17 13:29 Dose: 81 mg Famotidine (Pepcid) 20 mg PO DAILY [facility] Furosemide (Lasix) 60 mg IVP BID [facility] Moxifloxacin HCl (Avelox Iv 400mg/250ml Ns) 400 mg in 250 mls @ 167 mls/hr IVPB Q24H [facility] Last Admin: 04/08/17 13:30 Dose: 167 mls/hr Heparin Sodium/Sodium Chloride (Heparin 88524 Units/250ml 1/2 Normal Saline) 25 ,000 units in 250 mls @ 0 mls/hr IV .Q0M PRN; Protocol; Per Protocol PRN Reason: PROTOCOL Last Admin: 04/08/17 16:08 Dose: 13 mls/hr Metolazone (Zaroxolyn) 5 mg PO DAILY [facility] Last Admin: 04/08/17 16:09 Dose: 5 mg Metoprolol Tartrate (Lopressor) 12.5 mg PO BID [facility] Pneumococcal Polyvalent Vaccine (Pneumovax 23 Vaccine) 0.5 ml IM .ONCE ONE Stop: 04/11/17 10:01 Physical Exam - Head Exam Head Exam: ATRAUMATIC, NORMOCEPHALIC - ENT Exam ENT Exam: Mucous Membranes Moist - Neck Exam Neck exam: Positive for: Normal Inspection - Respiratory Exam Respiratory Exam: Decreased Breath Sounds - Cardiovascular Exam Cardiovascular Exam: REGULAR RHYTHM - GI/Abdominal Exam GI & Abdominal Exam: Normal Bowel Sounds, Soft - Extremities Exam Extremities exam: Positive for: pedal edema Results - Vital Signs Recent Vital Signs: Last Vital Signs Temp 98.1 F 04/08/17 06:23 Pulse 82 04/08/17 15:37 Resp 22 04/08/17 10:21 BP 136/71 04/08/17 13:29 Pulse Ox 100 04/08/17 10:21 - Labs Result Diagrams: 04/08/17 06:50 04/08/17 06:50 Labs: Laboratory Results - last 24 hr 04/08/17 04/08/17 04/08/17 09:07 13:14 14:10 Phosphorus 5.2 H Magnesium 1.5 L Total Creatine Kinase 86 CK-MB (Mass) 1.96 Troponin I, Quant 2.0500 H* Urine Color Yellow Urine Clarity Clear Urine pH 5.0 Ur Specific [place] 1.011 Urine Protein 2+ H Urine Glucose (UA) Normal Urine Ketones Negative Urine Blood Negative Urine Nitrate Negative Urine Bilirubin Negative Urine Urobilinogen Normal Ur Leukocyte Esterase Neg Urine WBC (Auto) 1 Urine RBC (Auto) < 1 Ur Squamous Epith Cells < 1 Hyaline Casts 6-10 H Urine Osmolality Ur Random Sodium 04/08/17 15:53 Phosphorus Magnesium Total Creatine Kinase CK-MB (Mass) Troponin I, Quant Urine Color Urine Clarity Urine pH Ur Specific [place] Urine Protein Urine Glucose (UA) Urine Ketones Urine Blood Urine Nitrate Urine Bilirubin Urine Urobilinogen Ur Leukocyte Esterase Urine WBC (Auto) Urine RBC (Auto) Ur Squamous Epith Cells Hyaline Casts Urine Osmolality 352 Ur Random Sodium 16 Assessment & Plan (1) Acute respiratory failure with hypoxia Status: Acute Comment: 82-year-old male with history of coronary artery disease presented with worsening shortness of breath and found to have elevated troponins with CHF. Continue BiPAP and follow-up ABG. Continue diuretics and IV heparin. Nebulizer treatment because of history of COPD. Seen by cardiology (2) Congestive heart failure Status: Acute (3) Coronary artery disease Status: Chronic
[2017-04-08] MEDS: Albuterol-Ipratrop 3 mg / 0.5 (3 ml) UD INH PRN (19:17)
[2017-04-09 06:12] LABS: ABG ALLEN TEST POS; ARTERIAL BLOOD HGB O2 SAT 88.6 % (95.0-98.0); CARBOXYHEMOGLOBIN 2.1 % (0.5-1.5); DRAW SITE RR; METHEMOGLOBIN 1.2 % (0.0-3.0)
[2017-04-09 06:50] LABS: BASO # 0.2 K/uL (0.0-0.2); BASO % 1.6 % (0.0-2.0); LYMPH # 0.7 K/uL (1.0-4.3); LYMPH % 4.6 % (20.0-40.0); MEAN CELL VOLUME 97.6 fL (80.0-94.0); MEAN CORPUSCULAR HEMOGLOBIN 33.1 pg (27.0-31.0); MEAN CORPUSCULAR HGB CONC 33.9 g/dL (33.0-37.0); MEAN PLATELET VOLUME 8.3 fL (7.2-11.7); MONO # 0.5 K/uL (0.0-0.8); MONO % 3.2 % (0.0-10.0); NRBC % 0.1 % (0.0-2.0); PLATELET COUNT 543 K/uL (130-400); RED CELL DISTRIBUTION WIDTH 15.1 % (11.5-14.5); WHITE BLOOD COUNT 14.4 K/uL (4.8-10.8)
[2017-04-09 07:00] LABS: POTASSIUM 3.9 mmol/L (3.6-5.2)
[2017-04-09 07:02] LABS: ALB/GLOB RATIO 0.9 (1.0-2.1); BILIRUBIN,TOTAL 2.3 mg/dL (0.2-1.3); TOTAL PROTEIN 7.5 g/dL (6.3-8.3)
[2017-04-09 07:03] LABS: CALCIUM 8.5 mg/dl (8.6-10.4); MAGNESIUM 1.5 mg/dL (1.6-2.3); PHOSPHOROUS 6.8 mg/dL (2.5-4.5)
[2017-04-09] MEDS: Albuterol-Ipratrop 3 mg / 0.5 (3 ml) UD INH PRN ×3 (07:20→19:22)
[2017-04-09 07:33] LABS: THYROID STIMULATING HORMONE 0.37 mIU/L (0.46-4.68)
[2017-04-09] MEDS: (Novolog) Insulin Aspart, Recombinant 100 u/ml 10 ml vial SC SCH ×4 (08:03→22:00)
--- NOTE | 2017-04-09 09:03 | RAD ---
PROCEDURE: CHEST RADIOGRAPH, 1 VIEW HISTORY: Shortness of breath COMPARISON: None available. FINDINGS: LUNGS: Dense diffuse confluent bilateral airspace opacities throughout both lungs most prominent in the mid to lower lung zone suggestive for prominent edema and or infiltrate. Posttreatment followup would be helpful to exclude underlying lesions. PLEURA: As above. CARDIOVASCULAR: Status post median sternotomy. Cardiomegaly. OSSEOUS STRUCTURES: Degenerative changes in the spine and shoulders. VISUALIZED UPPER ABDOMEN: Normal. OTHER FINDINGS: None. IMPRESSION: Dense diffuse confluent bilateral airspace opacities throughout both lungs most prominent in the mid to lower lung zone suggestive for prominent edema and or infiltrate. Posttreatment followup would be helpful to exclude underlying lesions.
[2017-04-09 09:12] LABS: NEUTROPHIL 89 % (50-75); REACTIVE LYMPHOCYTES 1 % (0-0); TOTAL CELLS COUNTED 100
[2017-04-09 09:17] LABS: LARGE PLATELETS PRESENT
--- NOTE | 2017-04-09 09:18 | CP.PCM.PN ---
Subjective - Date & Time of Evaluation Date of Evaluation: 04/09/17 Time of Evaluation: 09:15 - Subjective Subjective: urine output 2300 about 1700cc negative water balance not including insensible loss afebrile today bp noted creatinine 1.5 -2 bun up to 48 sodium up to 126 renal ultrasound no obstruction chest bilateral infiltrates awake tachypneic not answering questions ROS no vomiting,diarrhea,hemoptysis according to nurse see above Objective - Vital Signs/Intake and Output Vital Signs (last 24 hours): Temp Pulse Resp BP Pulse Ox 98.5 F 139 H 29 H 129/63 91 L 04/09/17 08:00 04/09/17 08:40 04/09/17 08:40 04/09/17 07:51 04/09/17 08:40 Intake and Output: 04/09/17 04/09/17 06:59 18:59 Intake Total 206 26 Output Total 1000 100 Balance -794 -74 - Medications Medications: Current Medications Albuterol/Ipratropium (Duoneb 3 Mg/0.5 Mg (3 Ml) Ud) 3 ml INH RQ6 PRN PRN Reason: Shortness of Breath Last Admin: 04/09/17 07:20 Dose: 3 ml Aspirin (Aspirin Chewable) 81 mg PO DAILY [facility] Last Admin: 04/08/17 13:29 Dose: 81 mg Famotidine (Pepcid) 20 mg PO DAILY [facility] Last Admin: 04/08/17 18:18 Dose: 20 mg Furosemide (Lasix) 60 mg IVP BID [facility] Last Admin: 04/08/17 18:18 Dose: 60 mg Moxifloxacin HCl (Avelox Iv 400mg/250ml Ns) 400 mg in 250 mls @ 167 mls/hr IVPB Q24H [facility] Last Admin: 04/08/17 13:30 Dose: 167 mls/hr Heparin Sodium/Sodium Chloride (Heparin 09737 Units/250ml 1/2 Normal Saline) 25 ,000 units in 250 mls @ 0 mls/hr IV .Q0M PRN; Protocol; Per Protocol PRN Reason: PROTOCOL Last Admin: 04/08/17 16:08 Dose: 13 mls/hr Insulin Aspart (Novolog) 0 unit SC ACHS [facility] PRN Reason: Protocol Last Admin: 04/09/17 08:03 Dose: Not Given Metolazone (Zaroxolyn) 5 mg PO DAILY [facility] Last Admin: 04/08/17 16:09 Dose: 5 mg Metoprolol Tartrate (Lopressor) 12.5 mg PO BID [facility] Last Admin: 04/08/17 18:18 Dose: 12.5 mg - Labs Labs: 04/09/17 06:40 04/09/17 06:43 PT 11.8 SECONDS (9.7-12.2) 04/08/17 06:50 INR 1.1 04/08/17 06:50 APTT 81 SECONDS (21-34) H D 04/09/17 06:40 - Head Exam Additional comments: tachypneic - Neck Exam Additional comments: no jvd at 70-80 degrees - Respiratory Exam Respiratory Exam: Accessory Muscle Use, Clear to Ausculation Bilateral - Cardiovascular Exam Cardiovascular Exam: Tachycardia, Irregular Rhythm - GI/Abdominal Exam GI & Abdominal Exam: Soft. absent: Distended, Tenderness - Extremities Exam Extremities Exam: absent: Calf Tenderness Additional comments: 1-2+ leg edema - Neurological Exam Neurological Exam: Awake - Skin Additional comments: not responding to commands Assessment and Plan (1) Congestive heart failure Status: Acute (2) Coronary artery disease Status: Chronic - Assessment and Plan (Free Text) Plan: would continue diuretics for now rhythm control per cardiology follow chems closely would expect rise in bun creatinine with negative water balance follow sodium closely Probably manifestion of chf If respiratory staus doesn't improve or chems deterirate may require renal replacement therapy
[2017-04-09] MEDS: Magnesium Sulfate 1 gm in D5W 1 GM/100 ML BAG IVPB SCH ×2 (09:50→11:57)
[2017-04-09] MEDS: metOLazone 5 MG TAB PO SCH (09:50)
[2017-04-09] MEDS: Heparin25000 units/250ml 1/2NS 25,000 UNITS/250 ML BAG IV PRN (12:00)
[2017-04-09] MEDS: Moxifloxacin IV 400mg/250ml NS 400 MG/250 ML BAG IVPB SCH (12:00)
--- NOTE | 2017-04-09 13:31 | CARD ---
APPROVED REPORT EXAM: Two-dimensional and M-mode echocardiogram with Doppler and color Doppler. Other Information Quality : GoodRhythm : INDICATION Dyspnea Cardiac Disease: CAD Congestive Heart Failure RISK FACTORS Hypertension M-Mode DIMENSIONS RVDd0.98 (2.1-3.2cm)Left Atrium (MM)3.91 (2.5-4.0cm) IVSd1.04 (0.7-1.1cm)Aortic Root3.25 (2.2-3.7cm) LVDd5.61 (4.0-5.6cm)Aortic Cusp Exc.1.03 (1.5-2.0cm) PWd0.99 (0.7-1.1cm)FS (%) 18 % LVDs4.59 (2.0-3.8cm)LVEF (%)37 (>50%) Mitral Valve MV E Allmbzbr06.4cm/sMV A Zkvlehpy61.3cm/sE/A ratio1.0 TDI E/Lateral E'0.0E/Medial E'0.0 Tricuspid Valve TR Peak [id number]/sTR Peak Gr.[id number] LEFT VENTRICLE The left ventricle is normal size. There is normal left ventricular wall thickness. The Ejection Fraction is 35-40%. probably pseudonormal,grade 2 diastolic dysfunction. RIGHT VENTRICLE The right ventricle is normal size. The right ventricular systolic function is normal. ATRIA The left atrium is borderline dilated. The right atrium size is normal. The interatrial septum is intact with no evidence for an atrial septal defect. AORTIC VALVE probably biscupid sclerotic aortic valve. No aortic regurgitation is present. MITRAL VALVE Mitral annular calcification is mild. Mitral regurgitation is mild. TRICUSPID VALVE The tricuspid valve is normal in structure. There is mild tricuspid regurgitation. Right ventricular systolic pressure is estimated at 40 mmHg. There is mild pulmonary hypertension. PULMONIC VALVE The pulmonary valve is normal in structure. There is mild pulmonic valvular regurgitation. GREAT VESSELS The aortic root is normal size. The aortic root displays mild sclerocalcific changes of the aortic root. The IVC is normal in size and collapses >50% with inspiration. PERICARDIAL EFFUSION There is no pericardial effusion. <Conclusion> The left ventricle is normal size. The Ejection Fraction is 35-40%. probably pseudonormal,grade 2 diastolic dysfunction. The left atrium is borderline dilated. probably biscupid sclerotic aortic valve. No aortic regurgitation is present. Mitral regurgitation is mild. There is mild tricuspid regurgitation. Right ventricular systolic pressure is estimated at 40 mmHg. There is mild pulmonary hypertension. The aortic root is normal size. The aortic root displays mild sclerocalcific changes of the aortic root.
--- NOTE | 2017-04-09 16:20 | CP.CCUPN ---
CCU Subjective - Physician Review Events Since Last Encounter (Free Text): 04/09/17 16:17 Patient seen and examined in the intensive care unit. Case discussed with house staff in the morning rounds. Patient remains on BiPAP requiring high FiO2 and saturation in the low 90s Afebrile Response to vocal commands by opening eyes good Urine output CCU Objective - Vital Signs / Intake & Output Vital Signs (Last 4 hours): Vital Signs Pulse Resp Pulse Ox 04/09/17 16:05 91 H 04/09/17 13:40 76 04/09/17 12:20 85 26 H 92 L Intake and Output (Last 8hrs): Intake & Output 04/09/17 04/09/17 04/09/17 06:59 14:59 22:59 Intake Total 104 515 Output Total 500 150 Balance -396 365 Weight 158 lb 6.4 oz Intake: Intake, IV Amount 104 445 Left Forearm 104 78 Right Antecubital 367 Oral 70 Output: Urine 500 150 Urine, Voided 500 150 Other: # Voids Urine, Voided 1 - Physical Exam Head: Positive for: Atraumatic, Normocephalic Mouth: Positive for: Moist Mucous Membranes Neck: Positive for: Normal Range of Motion Respiratory/Chest: Positive for: Respiratory Distress, Rales Cardiovascular: Positive for: Regular Rate and Rhythm, Tachycardic Upper Extremity: Positive for: Edema Lower Extremity: Positive for: Edema Skin: Positive for: Warm - Medications Active Medications: Active Medications Generic Name Dose Route Start Last Admin Trade Name Freq PRN Reason Stop Dose Admin Albuterol/Ipratropium 3 ml 04/08/17 12:23 04/09/17 13:40 Duoneb 3 Mg/0.5 Mg (3 Ml) Ud INH 3 ml RQ6 PRN Administration Shortness of Breath Aspirin 81 mg 04/08/17 12:30 04/09/17 09:49 Aspirin Chewable PO 81 mg DAILY [facility] Administration Famotidine 20 mg 04/08/17 18:00 04/09/17 09:49 Pepcid PO 20 mg DAILY [facility] Administration Furosemide 60 mg 04/08/17 13:59 04/09/17 09:49 Lasix IVP 60 mg BID [facility] Administration Moxifloxacin HCl 400 mg in 250 mls @ 167 mls/hr 04/08/17 13:00 04/09/17 12:00 Avelox Iv 400mg/250ml Ns IVPB 167 mls/hr Q24H [facility] Administration Heparin Sodium/Sodium Chloride 25,000 units in 250 mls @ 0 mls/hr 04/08/17 14: 15 04/08/17 16:08 Heparin 34371 Units/250ml 1/2 Normal Saline IV 13 mls/hr .Q0M PRN Administration PROTOCOL Protocol Per Protocol Insulin Aspart 0 unit 04/09/17 07:30 04/09/17 11:55 Novolog SC Not Given ACHS [facility] Protocol Metolazone 5 mg 04/08/17 14:00 04/09/17 09:50 Zaroxolyn PO 5 mg DAILY [facility] Administration Metoprolol Tartrate 12.5 mg 04/08/17 18:00 04/09/17 09:49 Lopressor PO 12.5 mg BID [facility] Administration Rosuvastatin Calcium 20 mg 04/09/17 22:00 Crestor PO HS [facility]Y - Patient Studies Lab Studies: Lab Studies 04/09/17 04/09/17 04/09/17 Range/Units 15:22 06:43 06:40 WBC (4.8-10.8) K/uL RBC (4.40-5.90) Mil/uL Hgb (12.0-18.0) g/dL Hct (35.0-51.0) % MCV (80.0-94.0) fL MCH (27.0-31.0) pg MCHC (33.0-37.0) g/dL RDW (11.5-14.5) % Plt Count (130-400) K/uL MPV (7.2-11.7) fL Neut % (Auto) (50.0-75.0) % Lymph % (Auto) (20.0-40.0) % [place] % (Auto) (0.0-10.0) % Eos % (Auto) (0.0-4.0) % Baso % (Auto) (0.0-2.0) % Neut # (1.8-7.0) K/uL Lymph # (1.0-4.3) K/uL [place] # (0.0-0.8) K/uL Eos # (0.0-0.7) K/uL Baso # (0.0-0.2) K/uL Neutrophils % (Manual) (50-75) % Lymphocytes % (Manual) (20-40) % Reactive Lymphs % (0-0) % Monocytes % (Manual) (0-10) % Toxic Granulation Platelet Estimate (NORMAL) Large Platelets Polychromasia Hypochromasia (manual) Poikilocytosis (manual Anisocytosis (manual) Target Cells Ovalocytes [place] Cells Schistocytes APTT 81 H D (21-34) SECONDS Puncture Site pCO2 (35-45) mm/Hg pO2 (80-100) mm/Hg HCO3 (21-28) mmol/L ABG pH (7.35-7.45) ABG Total CO2 (22-28) mmol/L ABG O2 Saturation (95-98) % ABG Base Excess (-2.0-3.0) mmol/L ABG Hemoglobin (11.7-17.4) g/dL ABG Carboxyhemoglobin (0.5-1.5) % POC ABG HHb (Measured) (0.0-5.0) % ABG Methemoglobin (0.0-3.0) % Ilir Test A-a O2 Difference mm/Hg Respiratory Index Hgb O2 Saturation (95.0-98.0) % FiO2 % Inspiratory BiPAP Expiratory BiPAP Sodium 128 L (132-148) mmol/L Potassium 3.9 (3.6-5.2) mmol/L Chloride 91 L (98-107) mmol/L Carbon Dioxide 20 L (22-30) mmol/L Anion Gap 21 H (10-20) BUN 48 H (9-20) mg/dL Creatinine 2.0 H (0.8-1.5) MG/DL Est GFR ( Amer) 39 Est GFR (Non-Af Amer) 32 Random Glucose 104 (75-110) mg/dL Calcium 8.5 L (8.6-10.4) mg/dl Phosphorus 6.8 H (2.5-4.5) mg/dL Magnesium 1.5 L (1.6-2.3) mg/dL Total Bilirubin 2.3 H (0.2-1.3) mg/dL AST 293 H (17-59) U/L ALT 36 (21-72) U/L Alkaline Phosphatase 110 (38-126) U/L Total Creatine Kinase (55-170) U/L CK-MB (Mass) (0.0-3.38) ng/mL Troponin I, Quant (0.00-0.120) ng/mL Total Protein 7.5 (6.3-8.3) g/dL Albumin 3.5 (3.5-5.0) g/dL Globulin 4.0 H (2.2-3.9) gm/dL Albumin/Globulin Ratio 0.9 L (1.0-2.1) Triglycerides 183 H (0-149) mg/dL Cholesterol 764 H (0-199) mg/dL LDL Cholesterol Direct 500 H (0-129) mg/dL HDL Cholesterol 34 (30-70) mg/dL TSH 3rd Generation 0.37 L (0.46-4.68) mIU/L Urine Osmolality (300-1000) mosm/kg Ur Random Sodium Cancelled mmol/L Urine Collection Time 24 HRS Urine Total Volume 1600 mL Ur Protein 24 Hr Calc 480.0 H (42-225) mg/24hr 04/09/17 04/09/17 04/08/17 Range/Units 06:40 05:50 22:43 WBC 14.4 H (4.8-10.8) K/uL RBC 2.97 L (4.40-5.90) Mil/uL Hgb 9.8 L (12.0-18.0) g/dL Hct 29.0 L (35.0-51.0) % MCV 97.6 H (80.0-94.0) fL MCH 33.1 H (27.0-31.0) pg MCHC 33.9 (33.0-37.0) g/dL RDW 15.1 H (11.5-14.5) % Plt Count 543 H (130-400) K/uL MPV 8.3 (7.2-11.7) fL Neut % (Auto) 90.6 H (50.0-75.0) % Lymph % (Auto) 4.6 L (20.0-40.0) % [place] % (Auto) 3.2 (0.0-10.0) % Eos % (Auto) 0.0 (0.0-4.0) % Baso % (Auto) 1.6 (0.0-2.0) % Neut # 13.1 H (1.8-7.0) K/uL Lymph # 0.7 L (1.0-4.3) K/uL [place] # 0.5 (0.0-0.8) K/uL Eos # 0.0 (0.0-0.7) K/uL Baso # 0.2 (0.0-0.2) K/uL Neutrophils % (Manual) 89 H (50-75) % Lymphocytes % (Manual) 6 L (20-40) % Reactive Lymphs % 1 H (0-0) % Monocytes % (Manual) 4 (0-10) % Toxic Granulation Present Platelet Estimate Increased H (NORMAL) Large Platelets Present Polychromasia Slight Hypochromasia (manual) Slight Poikilocytosis (manual Slight Anisocytosis (manual) Slight Target Cells Slight Ovalocytes Slight [place]ary[place] Cells Slight Schistocytes Slight APTT 74 H D (21-34) SECONDS Puncture Site Rr pCO2 33 L (35-45) mm/Hg pO2 58 L (80-100) mm/Hg HCO3 21.0 (21-28) mmol/L ABG pH 7.38 (7.35-7.45) ABG Total CO2 20.5 L (22-28) mmol/L ABG O2 Saturation 91.7 L (95-98) % ABG Base Excess -4.9 L (-2.0-3.0) mmol/L ABG Hemoglobin 9.8 L (11.7-17.4) g/dL ABG Carboxyhemoglobin 2.1 H (0.5-1.5) % POC ABG HHb (Measured) 8.0 H (0.0-5.0) % ABG Methemoglobin 1.2 (0.0-3.0) % Ilir Test Pos A-a O2 Difference 614.0 mm/Hg Respiratory Index 10.6 Hgb O2 Saturation 88.6 L (95.0-98.0) % FiO2 100.0 % Inspiratory BiPAP 14 Expiratory BiPAP 6 Sodium (132-148) mmol/L Potassium (3.6-5.2) mmol/L Chloride (98-107) mmol/L Carbon Dioxide (22-30) mmol/L Anion Gap (10-20) BUN (9-20) mg/dL Creatinine (0.8-1.5) MG/DL Est GFR ( Amer) Est GFR (Non-Af Amer) Random Glucose (75-110) mg/dL Calcium (8.6-10.4) mg/dl Phosphorus (2.5-4.5) mg/dL Magnesium (1.6-2.3) mg/dL Total Bilirubin (0.2-1.3) mg/dL AST (17-59) U/L ALT (21-72) U/L Alkaline Phosphatase (38-126) U/L Total Creatine Kinase (55-170) U/L CK-MB (Mass) (0.0-3.38) ng/mL Troponin I, Quant (0.00-0.120) ng/mL Total Protein (6.3-8.3) g/dL Albumin (3.5-5.0) g/dL Globulin (2.2-3.9) gm/dL Albumin/Globulin Ratio (1.0-2.1) Triglycerides (0-149) mg/dL Cholesterol (0-199) mg/dL LDL Cholesterol Direct (0-129) mg/dL HDL Cholesterol (30-70) mg/dL TSH 3rd Generation (0.46-4.68) mIU/L Urine Osmolality (300-1000) mosm/kg Ur Random Sodium mmol/L Urine Collection Time HRS Urine Total Volume mL Ur Protein 24 Hr Calc (42-225) mg/24hr 04/08/17 04/08/17 Range/Units 18:45 15:53 WBC (4.8-10.8) K/uL RBC (4.40-5.90) Mil/uL Hgb (12.0-18.0) g/dL Hct (35.0-51.0) % MCV (80.0-94.0) fL MCH (27.0-31.0) pg MCHC (33.0-37.0) g/dL RDW (11.5-14.5) % Plt Count (130-400) K/uL MPV (7.2-11.7) fL Neut % (Auto) (50.0-75.0) % Lymph % (Auto) (20.0-40.0) % [place] % (Auto) (0.0-10.0) % Eos % (Auto) (0.0-4.0) % Baso % (Auto) (0.0-2.0) % Neut # (1.8-7.0) K/uL Lymph # (1.0-4.3) K/uL [place] # (0.0-0.8) K/uL Eos # (0.0-0.7) K/uL Baso # (0.0-0.2) K/uL Neutrophils % (Manual) (50-75) % Lymphocytes % (Manual) (20-40) % Reactive Lymphs % (0-0) % Monocytes % (Manual) (0-10) % Toxic Granulation Platelet Estimate (NORMAL) Large Platelets Polychromasia Hypochromasia (manual) Poikilocytosis (manual Anisocytosis (manual) Target Cells Ovalocytes [place] Cells Schistocytes APTT (21-34) SECONDS Puncture Site pCO2 (35-45) mm/Hg pO2 (80-100) mm/Hg HCO3 (21-28) mmol/L ABG pH (7.35-7.45) ABG Total CO2 (22-28) mmol/L ABG O2 Saturation (95-98) % ABG Base Excess (-2.0-3.0) mmol/L ABG Hemoglobin (11.7-17.4) g/dL ABG Carboxyhemoglobin (0.5-1.5) % POC ABG HHb (Measured) (0.0-5.0) % ABG Methemoglobin (0.0-3.0) % Ilir Test A-a O2 Difference mm/Hg Respiratory Index Hgb O2 Saturation (95.0-98.0) % FiO2 % Inspiratory BiPAP Expiratory BiPAP Sodium (132-148) mmol/L Potassium (3.6-5.2) mmol/L Chloride (98-107) mmol/L Carbon Dioxide (22-30) mmol/L Anion Gap (10-20) BUN (9-20) mg/dL Creatinine (0.8-1.5) MG/DL Est GFR ( Amer) Est GFR (Non-Af Amer) Random Glucose (75-110) mg/dL Calcium (8.6-10.4) mg/dl Phosphorus (2.5-4.5) mg/dL Magnesium (1.6-2.3) mg/dL Total Bilirubin (0.2-1.3) mg/dL AST (17-59) U/L ALT (21-72) U/L Alkaline Phosphatase (38-126) U/L Total Creatine Kinase 86 (55-170) U/L CK-MB (Mass) 1.91 (0.0-3.38) ng/mL Troponin I, Quant 2.9000 H* (0.00-0.120) ng/mL Total Protein (6.3-8.3) g/dL Albumin (3.5-5.0) g/dL Globulin (2.2-3.9) gm/dL Albumin/Globulin Ratio (1.0-2.1) Triglycerides (0-149) mg/dL Cholesterol (0-199) mg/dL LDL Cholesterol Direct (0-129) mg/dL HDL Cholesterol (30-70) mg/dL TSH 3rd Generation (0.46-4.68) mIU/L Urine Osmolality 352 (300-1000) mosm/kg Ur Random Sodium 16 mmol/L Urine Collection Time HRS Urine Total Volume mL Ur Protein 24 Hr Calc (42-225) mg/24hr Laboratory Results - last 24 hr 04/08/17 04/08/17 04/08/17 15:53 18:45 22:43 WBC RBC Hgb Hct MCV MCH MCHC RDW Plt Count MPV Neut % (Auto) Lymph % (Auto) [place] % (Auto) Eos % (Auto) Baso % (Auto) Neut # Lymph # [place] # Eos # Baso # Neutrophils % (Manual) Lymphocytes % (Manual) Reactive Lymphs % Monocytes % (Manual) Toxic Granulation Platelet Estimate Large Platelets Polychromasia Hypochromasia (manual) Poikilocytosis (manual Anisocytosis (manual) Target Cells Ovalocytes [place] Cells Schistocytes APTT 74 H D Puncture Site pCO2 pO2 HCO3 ABG pH ABG Total CO2 ABG O2 Saturation ABG Base Excess ABG Hemoglobin ABG Carboxyhemoglobin POC ABG HHb (Measured) ABG Methemoglobin Ilir Test A-a O2 Difference Respiratory Index Hgb O2 Saturation FiO2 Inspiratory BiPAP Expiratory BiPAP Sodium Potassium Chloride Carbon Dioxide Anion Gap BUN Creatinine Est GFR ( Amer) Est GFR (Non-Af Amer) Random Glucose Calcium Phosphorus Magnesium Total Bilirubin AST ALT Alkaline Phosphatase Total Creatine Kinase 86 CK-MB (Mass) 1.91 Troponin I, Quant 2.9000 H* Total Protein Albumin Globulin Albumin/Globulin Ratio Triglycerides Cholesterol LDL Cholesterol Direct HDL Cholesterol TSH 3rd Generation Urine Osmolality 352 Ur Random Sodium 16 Urine Collection Time Urine Total Volume Ur Protein 24 Hr Calc 04/09/17 04/09/17 04/09/17 05:50 06:40 06:40 WBC 14.4 H RBC 2.97 L Hgb 9.8 L Hct 29.0 L MCV 97.6 H MCH 33.1 H MCHC 33.9 RDW 15.1 H Plt Count 543 H MPV 8.3 Neut % (Auto) 90.6 H Lymph % (Auto) 4.6 L [place] % (Auto) 3.2 Eos % (Auto) 0.0 Baso % (Auto) 1.6 Neut # 13.1 H Lymph # 0.7 L [place] # 0.5 Eos # 0.0 Baso # 0.2 Neutrophils % (Manual) 89 H Lymphocytes % (Manual) 6 L Reactive Lymphs % 1 H Monocytes % (Manual) 4 Toxic Granulation Present Platelet Estimate Increased H Large Platelets Present Polychromasia Slight Hypochromasia (manual) Slight Poikilocytosis (manual Slight Anisocytosis (manual) Slight Target Cells Slight Ovalocytes Slight [place] Cells Slight Schistocytes Slight APTT 81 H D Puncture Site Rr pCO2 33 L pO2 58 L HCO3 21.0 ABG pH 7.38 ABG Total CO2 20.5 L ABG O2 Saturation 91.7 L ABG Base Excess -4.9 L ABG Hemoglobin 9.8 L ABG Carboxyhemoglobin 2.1 H POC ABG HHb (Measured) 8.0 H ABG Methemoglobin 1.2 Ilir Test Pos A-a O2 Difference 614.0 Respiratory Index 10.6 Hgb O2 Saturation 88.6 L FiO2 100.0 Inspiratory BiPAP 14 Expiratory BiPAP 6 Sodium Potassium Chloride Carbon Dioxide Anion Gap BUN Creatinine Est GFR ( Amer) Est GFR (Non-Af Amer) Random Glucose Calcium Phosphorus Magnesium Total Bilirubin AST ALT Alkaline Phosphatase Total Creatine Kinase CK-MB (Mass) Troponin I, Quant Total Protein Albumin Globulin Albumin/Globulin Ratio Triglycerides Cholesterol LDL Cholesterol Direct HDL Cholesterol TSH 3rd Generation Urine Osmolality Ur Random Sodium Urine Collection Time Urine Total Volume Ur Protein 24 Hr Calc 04/09/17 04/09/17 06:43 15:22 WBC RBC Hgb Hct MCV MCH MCHC RDW Plt Count MPV Neut % (Auto) Lymph % (Auto) [place] % (Auto) Eos % (Auto) Baso % (Auto) Neut # Lymph # [place] # Eos # Baso # Neutrophils % (Manual) Lymphocytes % (Manual) Reactive Lymphs % Monocytes % (Manual) Toxic Granulation Platelet Estimate Large Platelets Polychromasia Hypochromasia (manual) Poikilocytosis (manual Anisocytosis (manual) Target Cells Ovalocytes [place] Cells Schistocytes APTT Puncture Site pCO2 pO2 HCO3 ABG pH ABG Total CO2 ABG O2 Saturation ABG Base Excess ABG Hemoglobin ABG Carboxyhemoglobin POC ABG HHb (Measured) ABG Methemoglobin Ilir Test A-a O2 Difference Respiratory Index Hgb O2 Saturation FiO2 Inspiratory BiPAP Expiratory BiPAP Sodium 128 L Potassium 3.9 Chloride 91 L Carbon Dioxide 20 L Anion Gap 21 H BUN 48 H Creatinine 2.0 H Est GFR ( Amer) 39 Est GFR (Non-Af Amer) 32 Random Glucose 104 Calcium 8.5 L Phosphorus 6.8 H Magnesium 1.5 L Total Bilirubin 2.3 H AST 293 H ALT 36 Alkaline Phosphatase 110 Total Creatine Kinase CK-MB (Mass) Troponin I, Quant Total Protein 7.5 Albumin 3.5 Globulin 4.0 H Albumin/Globulin Ratio 0.9 L Triglycerides 183 H Cholesterol 764 H LDL Cholesterol Direct 500 H HDL Cholesterol 34 TSH 3rd Generation 0.37 L Urine Osmolality Ur Random Sodium Cancelled Urine Collection Time 24 Urine Total Volume 1600 Ur Protein 24 Hr Calc 480.0 H Review of Systems - Review of Systems Systems not reviewed;Unavailable: Respiratory Distress (On BiPAP) Critical Care Progress Note - Ventilator Checklist Head of Bed 30 Degrees: Yes Assessment/Plan (1) Acute respiratory failure with hypoxia Assessment and plan: Chest x-ray revealed bilateral diffuse infiltrates consistent with CHF/possible pneumonia Current Visit: Yes Status: Acute Comment: Continue BiPAP Spoke with family at length and need for intubation if condition worsens Family unable to decide at this point Continue present medical management with diuretics, antibiotics (2) Congestive heart failure Current Visit: Yes Status: Acute (3) Coronary artery disease Current Visit: No Status: Chronic
--- NOTE | 2017-04-09 18:43 | CP.PCM.PN ---
Subjective - Date & Time of Evaluation Date of Evaluation: 04/09/17 Time of Evaluation: 02:00 - Subjective Subjective: Patient seen- in ICU- on BIPAP- trying to communicate, discussion of condition , patient aware Objective - Vital Signs/Intake and Output Vital Signs (last 24 hours): Temp Pulse Resp BP Pulse Ox 97.5 F L 138 H 33 H 117/63 87 L 04/09/17 16:00 04/09/17 17:10 04/09/17 17:10 04/09/17 18:10 04/09/17 17:10 Intake and Output: 04/09/17 04/09/17 06:59 18:59 Intake Total 206 917 Output Total 1000 400 Balance -794 517 - Medications Medications: Current Medications Albuterol/Ipratropium (Duoneb 3 Mg/0.5 Mg (3 Ml) Ud) 3 ml INH RQ6 PRN PRN Reason: Shortness of Breath Last Admin: 04/09/17 13:40 Dose: 3 ml Aspirin (Aspirin Chewable) 81 mg PO DAILY [facility] Last Admin: 04/09/17 09:49 Dose: 81 mg Famotidine (Pepcid) 20 mg PO DAILY [facility] Last Admin: 04/09/17 09:49 Dose: 20 mg Furosemide (Lasix) 60 mg IVP BID [facility] Last Admin: 04/09/17 18:10 Dose: 60 mg Moxifloxacin HCl (Avelox Iv 400mg/250ml Ns) 400 mg in 250 mls @ 167 mls/hr IVPB Q24H [facility] Last Admin: 04/09/17 12:00 Dose: 167 mls/hr Heparin Sodium/Sodium Chloride (Heparin 87247 Units/250ml 1/2 Normal Saline) 25 ,000 units in 250 mls @ 0 mls/hr IV .Q0M PRN; Protocol; Per Protocol PRN Reason: PROTOCOL Last Admin: 04/09/17 12:00 Dose: 13 mls/hr Insulin Aspart (Novolog) 0 unit SC ACHS [facility] PRN Reason: Protocol Last Admin: 04/09/17 16:37 Dose: Not Given Metolazone (Zaroxolyn) 5 mg PO DAILY [facility] Last Admin: 04/09/17 09:50 Dose: 5 mg Metoprolol Tartrate (Lopressor) 12.5 mg PO BID [facility] Last Admin: 04/09/17 18:10 Dose: 12.5 mg Rosuvastatin Calcium (Crestor) 20 mg PO HS [facility] - Labs Labs: 04/09/17 06:40 04/09/17 06:43 PT 11.8 SECONDS (9.7-12.2) 04/08/17 06:50 INR 1.1 04/08/17 06:50 APTT 81 SECONDS (21-34) H D 04/09/17 06:40 - Constitutional Appears: Other (on BIPAP/CPAP, ) - Eye Exam Eye Exam: absent: Nystagmus - ENT Exam ENT Exam: Mucous Membranes Moist - Neck Exam Neck Exam: absent: Meningismus - Respiratory Exam Respiratory Exam: Decreased Breath Sounds, NORMAL BREATHING PATTERN. absent: Wheezes - Cardiovascular Exam Cardiovascular Exam: REGULAR RHYTHM - GI/Abdominal Exam GI & Abdominal Exam: Soft, Normal Bowel Sounds. absent: Distended, Tenderness - Extremities Exam Extremities Exam: absent: Pedal Edema, Tenderness - Neurological Exam Neurological Exam: Alert, Awake, Oriented x3 - Psychiatric Exam Psychiatric exam: Normal Affect, Normal Mood - Skin Skin Exam: Intact, Normal Color Assessment and Plan - Assessment and Plan (Free Text) Assessment: Patient with CAD with history of CABG , admitted for CHF exacerbation with Elevated troponins,with infiltrates currently on CPAP/BIPAP, on antibiotic _ DVT and GI prophylaxis currently stable but guarded patient and family aware
--- NOTE | 2017-04-09 23:13 | CP.PCM.PN ---
Subjective - Date & Time of Evaluation Date of Evaluation: 04/09/17 Time of Evaluation: 14:10 - Subjective Subjective: No new events noted. On biPAP Physical Exam - Constitutional Appears: No Acute Distress, Chronically Ill - Head Exam Head Exam: ATRAUMATIC, NORMOCEPHALIC - Eye Exam Eye Exam: EOMI, Normal appearance, PERRL. absent: Scleral icterus - ENT Exam ENT Exam: Mucous Membranes Moist - Neck Exam Additional comments: No JVD distention - Respiratory Exam Respiratory Exam: Clear to Auscultation Bilateral, Rales, Rhonchi. absent: Wheezes - Cardiovascular Exam Cardiovascular Exam: REGULAR RHYTHM, +S1, +S2. absent: Systolic Murmur - GI/Abdominal Exam GI & Abdominal Exam: Normal Bowel Sounds, Soft. absent: Distended, Guarding, Tenderness - Extremities Exam Extremities exam: Positive for: pedal edema (3+ pitting), pedal pulses present ( slight). Negative for: calf tenderness - Back Exam Back exam: absent: CVA tenderness (L), CVA tenderness (R) - Neurological Exam Neurological exam: Alert - Psychiatric Exam Psychiatric exam: Flat Affect - Skin Skin Exam: Dry, Warm Objective - Vital Signs/Intake and Output Vital Signs (last 24 hours): Temp Pulse Resp BP Pulse Ox 97.5 F L 82 31 H 120/57 L 85 L 04/09/17 16:00 04/09/17 22:10 04/09/17 18:50 04/09/17 18:50 04/09/17 18:50 Intake and Output: 04/09/17 04/10/17 18:59 06:59 Intake Total 993 102 Output Total 500 200 Balance 493 -98 - Medications Medications: Current Medications Albuterol/Ipratropium (Duoneb 3 Mg/0.5 Mg (3 Ml) Ud) 3 ml INH RQ6 PRN PRN Reason: Shortness of Breath Last Admin: 04/09/17 19:22 Dose: 3 ml Aspirin (Aspirin Chewable) 81 mg PO DAILY [facility] Last Admin: 04/09/17 09:49 Dose: 81 mg Famotidine (Pepcid) 20 mg PO DAILY [facility] Last Admin: 04/09/17 09:49 Dose: 20 mg Furosemide (Lasix) 60 mg IVP BID [facility] Last Admin: 04/09/17 18:10 Dose: 60 mg Moxifloxacin HCl (Avelox Iv 400mg/250ml Ns) 400 mg in 250 mls @ 167 mls/hr IVPB Q24H [facility] Last Admin: 04/09/17 12:00 Dose: 167 mls/hr Heparin Sodium/Sodium Chloride (Heparin 50717 Units/250ml 1/2 Normal Saline) 25 ,000 units in 250 mls @ 0 mls/hr IV .Q0M PRN; Protocol; Per Protocol PRN Reason: PROTOCOL Last Admin: 04/09/17 12:00 Dose: 13 mls/hr Insulin Aspart (Novolog) 0 unit SC ACHS [facility] PRN Reason: Protocol Last Admin: 04/09/17 22:00 Dose: Not Given Metolazone (Zaroxolyn) 5 mg PO DAILY [facility] Last Admin: 04/09/17 09:50 Dose: 5 mg Metoprolol Tartrate (Lopressor) 12.5 mg PO BID [facility] Last Admin: 04/09/17 18:10 Dose: 12.5 mg Rosuvastatin Calcium (Crestor) 20 mg PO HS [facility] Last Admin: 04/09/17 22:00 Dose: 20 mg - Labs Labs: 04/09/17 06:40 04/09/17 06:43 PT 11.8 SECONDS (9.7-12.2) 04/08/17 06:50 INR 1.1 04/08/17 06:50 APTT 81 SECONDS (21-34) H D 04/09/17 06:40 Assessment and Plan - Assessment and Plan (Free Text) Assessment: 82 M with PMH of CAD s/p CABG, CHF, HTN, COPD (not on home O2), CKD 3A, Liver mass, admitted to ICU for CHF exacerbation requiring bipap vs PNA with Hx of recent hospitalization. Trop is positive. 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 Elevated trops NSTEMI - Possible type 2 HI vs ventricular stretch from overload vs decrease clearance - Heparin gtt - cardiac cath on tuesday CHF, system, acute on chronic - lasix 60 IV BID - Echo: low EF 30-35% - lifevest of 3 months - repeat echo in 3 months to assess need for permanant icd Hx CAD s/p CABG - asa, Metoprolol 12.5 BID, Metolazone 5 daily, lasix - lipid, A1C
[2017-04-10 06:34] LABS: POTASSIUM 3.7 mmol/L (3.6-5.2)
[2017-04-10 06:36] LABS: ALB/GLOB RATIO 0.8 (1.0-2.1); TOTAL PROTEIN 7.6 g/dL (6.3-8.3)
[2017-04-10 06:37] LABS: CALCIUM 8.4 mg/dl (8.6-10.4); MAGNESIUM 2.2 mg/dL (1.6-2.3)
[2017-04-10 06:42] LABS: HEMATOCRIT 29.5 % (35.0-51.0); MEAN CELL VOLUME 97.7 fL (80.0-94.0); MEAN CORPUSCULAR HEMOGLOBIN 32.9 pg (27.0-31.0); MEAN CORPUSCULAR HGB CONC 33.7 g/dL (33.0-37.0); MEAN PLATELET VOLUME 7.6 fL (7.2-11.7); PLATELET COUNT 608 K/uL (130-400); RED CELL DISTRIBUTION WIDTH 15.2 % (11.5-14.5); WHITE BLOOD COUNT 13.4 K/uL (4.8-10.8)
[2017-04-10] MEDS: Albuterol-Ipratrop 3 mg / 0.5 (3 ml) UD INH PRN (07:21)
[2017-04-10] MEDS: Heparin25000 units/250ml 1/2NS 25,000 UNITS/250 ML BAG IV PRN (08:28)
[2017-04-10] MEDS: (Novolog) Insulin Aspart, Recombinant 100 u/ml 10 ml vial SC SCH ×4 (08:33→21:25)
[2017-04-10 08:40] LABS: NEUTROPHIL 93 % (50-75); TOTAL CELLS COUNTED 100
[2017-04-10 08:44] LABS: LARGE PLATELETS PRESENT
[2017-04-10 08:45] LABS: GIANT PLATELETS PRESENT
[2017-04-10] MEDS: metOLazone 5 MG TAB PO SCH (10:08)
[2017-04-10 11:09] LABS: ABG ALLEN TEST POS; ARTERIAL BLOOD HGB O2 SAT 88.9 % (95.0-98.0); CARBOXYHEMOGLOBIN 2.4 % (0.5-1.5); DRAW SITE RR; HHB 7.8 % (0.0-5.0); METHEMOGLOBIN 0.9 % (0.0-3.0)
--- NOTE | 2017-04-10 12:57 | CP.PCM.PN ---
Subjective - Date & Time of Evaluation Date of Evaluation: 04/10/17 Time of Evaluation: 10:00 - Subjective Subjective: Patient remained in ICU- with desaturation on BIPAP CPAP, with respiratory distress- impending intubation- discussion with family and patient regarding intubation on antibiotic on heparin Objective - Vital Signs/Intake and Output Vital Signs (last 24 hours): Temp Pulse Resp BP Pulse Ox 98.3 F 84 30 H 129/58 L 84 L 04/10/17 08:00 04/10/17 10:51 04/10/17 10:51 04/10/17 10:51 04/10/17 10:51 Intake and Output: 04/10/17 04/10/17 06:59 18:59 Intake Total 206 382 Output Total 200 Balance 6 382 - Medications Medications: Current Medications Albuterol/Ipratropium (Duoneb 3 Mg/0.5 Mg (3 Ml) Ud) 3 ml INH RQ6 [facility] Aspirin (Aspirin Chewable) 81 mg PO DAILY [facility] Last Admin: 04/10/17 10:00 Dose: 81 mg Famotidine (Pepcid) 20 mg PO DAILY [facility] Last Admin: 04/10/17 10:00 Dose: 20 mg Furosemide (Lasix) 60 mg IVP BID [facility] Last Admin: 04/10/17 10:02 Dose: 60 mg Moxifloxacin HCl (Avelox Iv 400mg/250ml Ns) 400 mg in 250 mls @ 167 mls/hr IVPB Q24H [facility] Last Admin: 04/09/17 12:00 Dose: 167 mls/hr Heparin Sodium/Sodium Chloride (Heparin 57708 Units/250ml 1/2 Normal Saline) 25 ,000 units in 250 mls @ 0 mls/hr IV .Q0M PRN; Protocol; Per Protocol PRN Reason: PROTOCOL Last Admin: 04/10/17 08:28 Dose: 13 mls/hr Insulin Aspart (Novolog) 0 unit SC ACHS [facility] PRN Reason: Protocol Last Admin: 04/10/17 08:33 Dose: Not Given Metolazone (Zaroxolyn) 5 mg PO DAILY [facility] Last Admin: 04/10/17 10:08 Dose: 5 mg Metoprolol Tartrate (Lopressor) 12.5 mg PO BID [facility] Last Admin: 04/10/17 10:00 Dose: 12.5 mg Rosuvastatin Calcium (Crestor) 20 mg PO HS [facility] Last Admin: 04/09/17 22:00 Dose: 20 mg - Labs Labs: 04/10/17 06:17 04/10/17 06:17 PT 11.8 SECONDS (9.7-12.2) 04/08/17 06:50 INR 1.1 04/08/17 06:50 APTT 75 SECONDS (21-34) H D 04/10/17 06:17 - Constitutional Appears: In Acute Distress (but is conversant ) - Head Exam Head Exam: ATRAUMATIC, NORMOCEPHALIC - Eye Exam Eye Exam: absent: Nystagmus - ENT Exam ENT Exam: Mucous Membranes Moist - Neck Exam Neck Exam: absent: Meningismus, Tenderness - Respiratory Exam Respiratory Exam: Decreased Breath Sounds, Rhonchi, Wheezes, NORMAL BREATHING PATTERN - Cardiovascular Exam Cardiovascular Exam: REGULAR RHYTHM - GI/Abdominal Exam GI & Abdominal Exam: Soft, Normal Bowel Sounds. absent: Tenderness - Extremities Exam Extremities Exam: Full ROM, Pedal Edema. absent: Tenderness - Neurological Exam Neurological Exam: Alert, Awake, Oriented x3 - Psychiatric Exam Psychiatric exam: Normal Affect, Normal Mood - Skin Skin Exam: Intact, Normal Color Assessment and Plan - Assessment and Plan (Free Text) Assessment: Patient with Hypertensison DM CAD admitted for NSTEMI- on heparin drip CXR infiltrate, CHF ,ARDS on antibiotic,closer monitoring - impending intubation Family and patient discussion guarded condition
[2017-04-10] MEDS: Moxifloxacin IV 400mg/250ml NS 400 MG/250 ML BAG IVPB SCH (13:02)
[2017-04-10] MEDS: Albuterol-Ipratrop 3 mg / 0.5 (3 ml) UD INH SCH ×2 (13:08→19:28)
--- NOTE | 2017-04-10 19:09 | CP.CCUPN ---
CCU Subjective - Physician Review Events Since Last Encounter (Free Text): 04/10/17 19:07 Patient is a 82-year-old male with history of CAD hypertension diabetes COPD and liver mass. Patient hospitalized to the intensive care unit with the congestive heart failure, positive troponin. Patient has a bilateral infiltrate in the lungs. Today patient is awake and responding. This morning patient was reluctant to get intubated. Saturation the morning was 84% on 100% BiPAP. I spoke to the PMD. Patient received Lasix this morning. In the evening his oxygen saturation is improving to 96%. Patient is awake and responding. Still on BiPAP with 100%. Patient is still at high risk for intubation. CCU Objective - Vital Signs / Intake & Output Vital Signs (Last 4 hours): Vital Signs Temp Pulse Resp BP Pulse Ox 04/10/17 18:20 89 29 H 83 L 04/10/17 18:10 92 H 30 H 84 L 04/10/17 18:00 85 24 88 L 04/10/17 17:57 123/41 L 04/10/17 17:55 83 27 H 123/41 L 90 L 04/10/17 17:51 84 26 H 112/44 L 97 04/10/17 17:50 82 28 H 92 L 04/10/17 17:40 87 28 H 89 L 04/10/17 17:30 81 29 H 88 L 04/10/17 17:20 85 28 H 87 L 04/10/17 17:10 85 28 H 87 L 04/10/17 17:00 88 28 H 90 L 04/10/17 16:51 85 28 H 119/49 L 90 L 04/10/17 16:50 82 28 H 90 L 04/10/17 16:40 78 30 H 85 L 04/10/17 16:30 84 28 H 89 L 04/10/17 16:20 91 H 28 H 89 L 04/10/17 16:10 84 25 H 85 L 04/10/17 16:00 98.6 F 84 27 H 122/49 L 82 L 04/10/17 15:51 80 29 H 122/49 L 87 L 04/10/17 15:50 82 27 H 89 L 04/10/17 15:40 86 21 84 L 04/10/17 15:30 85 24 90 L 04/10/17 15:20 83 26 H 92 L 04/10/17 15:10 84 29 H 90 L Intake and Output (Last 8hrs): Intake & Output 04/10/17 04/10/17 04/10/17 06:59 14:59 22:59 Intake Total 104 684 132 Output Total 0 580 200 Balance 104 104 -68 Weight 154 lb Intake: IV 250 Intake, IV Amount 104 304 52 Left Forearm 104 104 52 Right Antecubital 200 Oral 0 130 80 Output: Urine 0 580 200 Urine, Voided 0 580 200 Other: # Voids Urine, Voided 1 1 - Physical Exam Narrative Physical Exam (Free Text): 04/10/17 19:07 Vital signs reviewed No neck vein distention noted Bilateral wheezing CVS regular heart sound, no murmur noted Abdomen soft, nontender. Extremities no pedal edema [employer] alert awake oriented 3, no functional neurological deficit Head: Positive for: Atraumatic, Normocephalic Mouth: Positive for: Moist Mucous Membranes Neck: Positive for: Normal Range of Motion Respiratory/Chest: Positive for: Respiratory Distress, Rales Cardiovascular: Positive for: Regular Rate and Rhythm, Tachycardic Upper Extremity: Positive for: Edema Lower Extremity: Positive for: Edema Skin: Positive for: Warm - Medications Active Medications: Active Medications Generic Name Dose Route Start Last Admin Trade Name Freq PRN Reason Stop Dose Admin Albuterol/Ipratropium 3 ml 04/10/17 14:00 04/10/17 13:08 Duoneb 3 Mg/0.5 Mg (3 Ml) Ud INH 3 ml RQ6 [facility] Administration Aspirin 81 mg 04/08/17 12:30 04/10/17 10:00 Aspirin Chewable PO 81 mg DAILY [facility] Administration Famotidine 20 mg 04/08/17 18:00 04/10/17 10:00 Pepcid PO 20 mg DAILY [facility] Administration Furosemide 60 mg 04/08/17 13:59 04/10/17 17:57 Lasix IVP 60 mg BID [facility] Administration Moxifloxacin HCl 400 mg in 250 mls @ 167 mls/hr 04/08/17 13:00 04/10/17 13:02 Avelox Iv 400mg/250ml Ns IVPB 167 mls/hr Q24H [facility] Administration Heparin Sodium/Sodium Chloride 25,000 units in 250 mls @ 0 mls/hr 04/08/17 14: 15 04/10/17 08:28 Heparin 00348 Units/250ml 1/2 Normal Saline IV 13 mls/hr .Q0M PRN Administration PROTOCOL Protocol Per Protocol Insulin Aspart 0 unit 04/09/17 07:30 04/10/17 17:05 Novolog SC Not Given ACHS [facility] Protocol Metolazone 5 mg 04/08/17 14:00 04/10/17 10:08 Zaroxolyn PO 5 mg DAILY [facility] Administration Metoprolol Tartrate 12.5 mg 04/08/17 18:00 04/10/17 18:00 Lopressor PO 12.5 mg BID [facility] Administration Rosuvastatin Calcium 20 mg 04/09/17 22:00 04/09/17 22:00 Crestor PO 20 mg HS [facility] Administration - Patient Studies Lab Studies: Microbiology Studies 04/08/17 12:19 Blood Culture - Preliminary Blood-Venous NO GROWTH AFTER 48 HOURS 04/08/17 12:19 Blood Culture - Preliminary Blood-Venous NO GROWTH AFTER 48 HOURS 04/08/17 10:52 MRSA Culture (Admit) - Final Nose MRSA NOT DETECTED Lab Studies 04/10/17 04/10/17 04/10/17 Range/Units 11:05 06:17 06:17 WBC 13.4 H (4.8-10.8) K/uL RBC 3.02 L (4.40-5.90) Mil/uL Hgb 9.9 L (12.0-18.0) g/dL Hct 29.5 L (35.0-51.0) % MCV 97.7 H (80.0-94.0) fL MCH 32.9 H (27.0-31.0) pg MCHC 33.7 (33.0-37.0) g/dL RDW 15.2 H (11.5-14.5) % Plt Count 608 H (130-400) K/uL MPV 7.6 (7.2-11.7) fL Neutrophils % (Manual) 93 H (50-75) % Band Neutrophils % 1 (0-2) % Lymphocytes % (Manual) 2 L (20-40) % Monocytes % (Manual) 4 (0-10) % Toxic Granulation Present Platelet Estimate Increased H (NORMAL) Large Platelets Present Giant Platelets Present Polychromasia Slight Hypochromasia (manual) Slight Poikilocytosis (manual Slight Anisocytosis (manual) Slight Macrocytosis (manual) Slight Target Cells Slight Ovalocytes Slight [place] Cells Slight APTT (21-34) SECONDS Puncture Site Rr pCO2 39 (35-45) mm/Hg pO2 59 L (80-100) mm/Hg HCO3 21.8 (21-28) mmol/L ABG pH 7.35 (7.35-7.45) ABG Total CO2 22.7 (22-28) mmol/L ABG O2 Saturation 91.9 L (95-98) % ABG Base Excess -3.8 L (-2.0-3.0) mmol/L ABG Hemoglobin 9.4 L (11.7-17.4) g/dL ABG Carboxyhemoglobin 2.4 H (0.5-1.5) % POC ABG HHb (Measured) 7.8 H (0.0-5.0) % ABG Methemoglobin 0.9 (0.0-3.0) % Ilir Test Pos A-a O2 Difference 605.0 mm/Hg Respiratory Index 10.3 Hgb O2 Saturation 88.9 L (95.0-98.0) % FiO2 100.0 % Inspiratory BiPAP 18 Expiratory BiPAP 8 Sodium 130 L (132-148) mmol/L Potassium 3.7 (3.6-5.2) mmol/L Chloride 91 L (98-107) mmol/L Carbon Dioxide 18 L (22-30) mmol/L Anion Gap 25 H (10-20) BUN 76 H (9-20) mg/dL Creatinine 2.2 H (0.8-1.5) MG/DL Est GFR ( Amer) 35 Est GFR (Non-Af Amer) 29 Random Glucose 127 H (75-110) mg/dL Calcium 8.4 L (8.6-10.4) mg/dl Magnesium 2.2 (1.6-2.3) mg/dL Total Bilirubin 2.0 H (0.2-1.3) mg/dL AST 256 H (17-59) U/L ALT 54 (21-72) U/L Alkaline Phosphatase 119 (38-126) U/L Total Protein 7.6 (6.3-8.3) g/dL Albumin 3.4 L (3.5-5.0) g/dL Globulin 4.2 H (2.2-3.9) gm/dL Albumin/Globulin Ratio 0.8 L (1.0-2.1) / Range/Units 06:17 WBC (4.8-10.8) K/uL RBC (4.40-5.90) Mil/uL Hgb (12.0-18.0) g/dL Hct (35.0-51.0) % MCV (80.0-94.0) fL MCH (27.0-31.0) pg MCHC (33.0-37.0) g/dL RDW (11.5-14.5) % Plt Count (130-400) K/uL MPV (7.2-11.7) fL Neutrophils % (Manual) (50-75) % Band Neutrophils % (0-2) % Lymphocytes % (Manual) (20-40) % Monocytes % (Manual) (0-10) % Toxic Granulation Platelet Estimate (NORMAL) Large Platelets Giant Platelets Polychromasia Hypochromasia (manual) Poikilocytosis (manual Anisocytosis (manual) Macrocytosis (manual) Target Cells Ovalocytes [place] Cells APTT 75 H D (21-34) SECONDS Puncture Site pCO2 (35-45) mm/Hg pO2 (80-100) mm/Hg HCO3 (21-28) mmol/L ABG pH (7.35-7.45) ABG Total CO2 (22-28) mmol/L ABG O2 Saturation (95-98) % ABG Base Excess (-2.0-3.0) mmol/L ABG Hemoglobin (11.7-17.4) g/dL ABG Carboxyhemoglobin (0.5-1.5) % POC ABG HHb (Measured) (0.0-5.0) % ABG Methemoglobin (0.0-3.0) % Ilir Test A-a O2 Difference mm/Hg Respiratory Index Hgb O2 Saturation (95.0-98.0) % FiO2 % Inspiratory BiPAP Expiratory BiPAP Sodium (132-148) mmol/L Potassium (3.6-5.2) mmol/L Chloride (98-107) mmol/L Carbon Dioxide (22-30) mmol/L Anion Gap (10-20) BUN (9-20) mg/dL Creatinine (0.8-1.5) MG/DL Est GFR ( Amer) Est GFR (Non-Af Amer) Random Glucose (75-110) mg/dL Calcium (8.6-10.4) mg/dl Magnesium (1.6-2.3) mg/dL Total Bilirubin (0.2-1.3) mg/dL AST (17-59) U/L ALT (21-72) U/L Alkaline Phosphatase (38-126) U/L Total Protein (6.3-8.3) g/dL Albumin (3.5-5.0) g/dL Globulin (2.2-3.9) gm/dL Albumin/Globulin Ratio (1.0-2.1) Laboratory Results - last 24 hr 04/10/17 04/10/17 04/10/17 06:17 06:17 06:17 WBC 13.4 H RBC 3.02 L Hgb 9.9 L Hct 29.5 L MCV 97.7 H MCH 32.9 H MCHC 33.7 RDW 15.2 H Plt Count 608 H MPV 7.6 Neutrophils % (Manual) 93 H Band Neutrophils % 1 Lymphocytes % (Manual) 2 L Monocytes % (Manual) 4 Toxic Granulation Present Platelet Estimate Increased H Large Platelets Present Giant Platelets Present Polychromasia Slight Hypochromasia (manual) Slight Poikilocytosis (manual Slight Anisocytosis (manual) Slight Macrocytosis (manual) Slight Target Cells Slight Ovalocytes Slight [place] Cells Slight APTT 75 H D Puncture Site pCO2 pO2 HCO3 ABG pH ABG Total CO2 ABG O2 Saturation ABG Base Excess ABG Hemoglobin ABG Carboxyhemoglobin POC ABG HHb (Measured) ABG Methemoglobin Ilir Test A-a O2 Difference Respiratory Index Hgb O2 Saturation FiO2 Inspiratory BiPAP Expiratory BiPAP Sodium 130 L Potassium 3.7 Chloride 91 L Carbon Dioxide 18 L Anion Gap 25 H BUN 76 H Creatinine 2.2 H Est GFR ( Amer) 35 Est GFR (Non-Af Amer) 29 Random Glucose 127 H Calcium 8.4 L Magnesium 2.2 Total Bilirubin 2.0 H AST 256 H ALT 54 Alkaline Phosphatase 119 Total Protein 7.6 Albumin 3.4 L Globulin 4.2 H Albumin/Globulin Ratio 0.8 L 04/10/17 11:05 WBC RBC Hgb Hct MCV MCH MCHC RDW Plt Count MPV Neutrophils % (Manual) Band Neutrophils % Lymphocytes % (Manual) Monocytes % (Manual) Toxic Granulation Platelet Estimate Large Platelets Giant Platelets Polychromasia Hypochromasia (manual) Poikilocytosis (manual Anisocytosis (manual) Macrocytosis (manual) Target Cells Ovalocytes [place] Cells APTT Puncture Site Rr pCO2 39 pO2 59 L HCO3 21.8 ABG pH 7.35 ABG Total CO2 22.7 ABG O2 Saturation 91.9 L ABG Base Excess -3.8 L ABG Hemoglobin 9.4 L ABG Carboxyhemoglobin 2.4 H POC ABG HHb (Measured) 7.8 H ABG Methemoglobin 0.9 Ilir Test Pos A-a O2 Difference 605.0 Respiratory Index 10.3 Hgb O2 Saturation 88.9 L FiO2 100.0 Inspiratory BiPAP 18 Expiratory BiPAP 8 Sodium Potassium Chloride Carbon Dioxide Anion Gap BUN Creatinine Est GFR ( Amer) Est GFR (Non-Af Amer) Random Glucose Calcium Magnesium Total Bilirubin AST ALT Alkaline Phosphatase Total Protein Albumin Globulin Albumin/Globulin Ratio Review of Systems - Review of Systems All systems: reviewed and no additional remarkable complaints except Assessment/Plan (1) Acute respiratory failure with hypoxia Assessment and plan: Patient with acute respiratory failure, secondary to congestive heart failure. Currently on FiO2 of 100%. On BiPAP. There is some improvement noted since morning. But still at high risk. Spoke to the patient's family. Family wants everything to be done. We'll closely monitor. Continue the Lasix May need intubation if there is no improvement. Discussed with the family Current Visit: Yes Status: Acute Comment: Continue BiPAP Spoke with family at length and need for intubation if condition worsens Family unable to decide at this point Continue present medical management with diuretics, antibiotics (2) Congestive heart failure Current Visit: Yes Status: Acute (3) Coronary artery disease Current Visit: No Status: Chronic
[2017-04-10] MEDS ORDERED: Propofol 10 mg/ml Inj (20 ML) ONE (19:51)
[2017-04-10] MEDS ORDERED: Propofol 10 mg/ml Inj (20 ML) IV ONE (20:00)
[2017-04-10] MEDS ORDERED: Phenylephrine 30 MG in Sodium Chloride 0.9% 250 ML IV PRN (20:14)
[2017-04-10] MEDS ORDERED: Propofol 10 mg/ml Inj (100 ml) IV ONE (20:15)
[2017-04-10] MEDS ORDERED: Sodium Bicarbonate (8.4%) 50 Meq Syringe IVP ONE ×2 (20:20→20:25)
[2017-04-10 20:39] LABS: ABG ALLEN TEST POS; ATERIAL BLOOD GAS PEEP 10; DRAW SITE RRA
[2017-04-10] MEDS ORDERED: Potassium Chloride 20 mEq/15 ml LIQ UD PO ONE ×2 (20:40→22:30)
[2017-04-10] MEDS ORDERED: Calcium Gluconate 4.65 mEq/10 ml Inj IV ONE (21:00)
[2017-04-10 21:19] LABS: POTASSIUM 3.3 mmol/L (3.6-5.2)
[2017-04-10 21:22] LABS: PHOSPHOROUS 7.7 mg/dL (2.5-4.5)
[2017-04-10 21:23] LABS: CALCIUM 8.2 mg/dl (8.6-10.4); MAGNESIUM 2.4 mg/dL (1.6-2.3)
[2017-04-10] MEDS: Propofol 10 mg/ml 1,000 MG/100 ML VIAL IV PRN (21:23)
[2017-04-10] MEDS ORDERED: (Novolin R) Insulin Human Regular 100 units/ml vial SC SCH (21:45)
--- NOTE | 2017-04-10 21:51 | CP.CCUPN ---
CCU Subjective - Physician Review Events Since Last Encounter (Free Text): 04/10/17 21:42 Critical Care note While doing the night round found the patient with BiPAP off, took 2 shallow breaths and then stopped breathing, non reponsive, intubated with out need of sedation, taking agonal breaths only, gave 100 mEq of NaHCO3, 1 amp of calcium gluconate, 0.3 mg of epinephrine IV, after a couple of mn he started moving, pulse was not lost, rhythm on the monitor a. fib with RVR. Ventilator support 450/10/20/100% with gas 7.32/48/54 on arterial sample. New EKG with T wave inversions on lateral and high lateral leads. Placed right IJ central line with out complications, now on cardizem drip, levophed drip, propofol, added zosyn, discontinued zosyn and b-blockers. Lungs with ronchi on inspiration and expiration, x-ray similar to previous one, bilateral infiltrated, doubt on acute chf, but bilateral pneumonia, needs CT scan of the chest. New labs reviewed. Called his son to come and spoke to him, Junior Grant, prognosis is very poor. Critical care time 70 mn Intubated for respiratory arrest with tube 7.5 at 25 cm on first attempt with mac #3, no complications during procedure. Inserted internal jugular central line under aseptic conditions and with US guidance with out any complications, noted wire bend 45 degrees when pulled out , x-ray reviewed no pneumothorax, consent obtained over the phone from Junior Grant. CCU Objective - Vital Signs / Intake & Output Vital Signs (Last 4 hours): Vital Signs Pulse Resp BP Pulse Ox 04/10/17 21:24 77/53 L 04/10/17 21:17 125 H 28 H 108/45 L 90 L 04/10/17 21:15 127 H 24 103/42 L 87 L 04/10/17 21:12 132 H 32 H 107/48 L 84 L 04/10/17 21:10 134 H 29 H 83 L 04/10/17 21:07 120 H 29 H 100/43 L 84 L 04/10/17 21:04 136 H 30 H 100/44 L 88 L 04/10/17 21:00 151 H 28 H 86 L 04/10/17 20:58 192 H 28 H 178/84 H 86 L 04/10/17 20:53 140 H 30 H 77/53 L 85 L 04/10/17 20:50 123 H 34 H 83 L 04/10/17 20:47 131 H 33 H 95/52 L 83 L 04/10/17 20:43 135 H 26 H 88/42 L 84 L 04/10/17 20:40 141 H 29 H 86 L 04/10/17 20:37 134 H 26 H 129/59 L 89 L 04/10/17 20:32 131 H 31 H 121/60 87 L 04/10/17 20:30 140 H 30 H 90 L 04/10/17 20:27 132 H 24 100/46 L 89 L 04/10/17 20:20 109 H 28 H 88 L 04/10/17 20:14 131 H 27 H 83/45 L 82 L 04/10/17 20:10 146 H 24 75 L 04/10/17 20:02 160 H 26 H 136/66 04/10/17 20:00 187 H 22 04/10/17 19:58 167 H 20 177/79 H 04/10/17 19:55 186 H 16 176/95 H 04/10/17 19:53 169 H 25 H 132/78 04/10/17 19:52 27 H 81/34 L 04/10/17 19:50 48 L 11 L 04/10/17 19:40 127 H 31 H 89 L 04/10/17 19:30 78 29 H 100 04/10/17 19:28 78 04/10/17 19:20 78 29 H 97 04/10/17 19:10 81 30 H 100 04/10/17 19:00 78 24 04/10/17 18:51 90 33 H 131/54 L 89 L 04/10/17 18:50 82 31 H 91 L 04/10/17 18:40 86 23 87 L 04/10/17 18:30 87 27 H 91 L 04/10/17 18:20 89 29 H 83 L 04/10/17 18:10 92 H 30 H 84 L 04/10/17 18:00 85 24 88 L 04/10/17 17:57 123/41 L 04/10/17 17:55 83 27 H 123/41 L 90 L 04/10/17 17:51 84 26 H 112/44 L 97 04/10/17 17:50 82 28 H 92 L Intake and Output (Last 8hrs): Intake & Output 04/10/17 04/10/17 04/10/17 06:59 14:59 22:59 Intake Total 104 684 145 Output Total 0 580 200 Balance 104 104 -55 Weight 154 lb Intake: IV 250 Intake, IV Amount 104 304 65 Left Forearm 104 104 65 Right Antecubital 200 Oral 0 130 80 Output: Urine 0 580 200 Urine, Voided 0 580 200 Other: # Voids Urine, Voided 1 1 - Physical Exam Head: Positive for: Atraumatic, Normocephalic Mouth: Positive for: Moist Mucous Membranes Neck: Positive for: Normal Range of Motion Respiratory/Chest: Positive for: Respiratory Distress, Rales Cardiovascular: Positive for: Regular Rate and Rhythm, Tachycardic Upper Extremity: Positive for: Edema Lower Extremity: Positive for: Edema Skin: Positive for: Warm - Medications Active Medications: Active Medications Generic Name Dose Route Start Last Admin Trade Name Freq PRN Reason Stop Dose Admin Albuterol/Ipratropium 3 ml 04/10/17 14:00 04/10/17 19:28 Duoneb 3 Mg/0.5 Mg (3 Ml) Ud INH 3 ml RQ6 [facility] Administration Aspirin 81 mg 04/08/17 12:30 04/10/17 10:00 Aspirin Chewable PO 81 mg DAILY ROCKY Administration Moxifloxacin HCl 400 mg in 250 mls @ 167 mls/hr 04/08/17 13:00 04/10/17 13:02 Avelox Iv 400mg/250ml Ns IVPB 167 mls/hr Q24H [facility]Y Administration Heparin Sodium/Sodium Chloride 25,000 units in 250 mls @ 0 mls/hr 04/08/17 14: 15 04/10/17 08:28 Heparin 99403 Units/250ml 1/2 Normal Saline IV 13 mls/hr .Q0M PRN Administration PROTOCOL Protocol Per Protocol Propofol 1,000 mg in 100 mls @ 2.096 mls/hr 04/10/17 20:06 04/10/17 21:23 Diprivan IV 15 mcg/kg/min .Q24H PRN 6.287 mls/hr TITRATE PER MD ORDER Administration Protocol 5 MCG/KG/MIN Phenylephrine HCl 30 mg/ 253 mls @ 10.12 mls/hr 04/10/17 20:14 04/10/17 21:24 Sodium Chloride IV 79.05 mcg/min .Q24H PRN 40 mls/hr TITRATE PER MD ORDER Administration Protocol 20 MCG/MIN Diltiazem HCl 125 mg/ Sodium 125 mls @ 10 mls/hr 04/10/17 20:30 04/10/17 21: 27 Chloride IV 10 mg/hr .[id number] ROCKY 10 mls/hr Protocol Administration 10 MG/HR Norepinephrine Bitartrate 8 mg 258 mls @ 7.74 mls/hr 04/10/17 21:05 / Sodium Chloride IV .Q24H PRN TITRATE PER MD ORDER Protocol 4 MCG/MIN Piperacillin Sod/Tazobactam Sod 2.25 gm in 50 mls @ 100 mls/hr 04/10/17 21:45 Zosyn 2.25 Gm Iv Premix IVPB Q8H [facility] Insulin Human Regular 0 unit 04/10/17 21:45 Novolin R SC Q6H [facility] Protocol Rosuvastatin Calcium 20 mg 04/09/17 22:00 04/09/17 22:00 Crestor PO 20 mg HS ROCKY Administration - Patient Studies Lab Studies: Microbiology Studies 04/08/17 12:19 Blood Culture - Preliminary Blood-Venous NO GROWTH AFTER 48 HOURS 04/08/17 12:19 Blood Culture - Preliminary Blood-Venous NO GROWTH AFTER 48 HOURS 04/08/17 10:52 MRSA Culture (Admit) - Final Nose MRSA NOT DETECTED Lab Studies 04/10/17 04/10/17 04/10/17 Range/Units 21:09 20:30 20:07 WBC (4.8-10.8) K/uL RBC (4.40-5.90) Mil/uL Hgb (12.0-18.0) g/dL Hct (35.0-51.0) % MCV (80.0-94.0) fL MCH (27.0-31.0) pg MCHC (33.0-37.0) g/dL RDW (11.5-14.5) % Plt Count (130-400) K/uL MPV (7.2-11.7) fL Neutrophils % (Manual) (50-75) % Band Neutrophils % (0-2) % Lymphocytes % (Manual) (20-40) % Monocytes % (Manual) (0-10) % Toxic Granulation Platelet Estimate (NORMAL) Large Platelets Giant Platelets Polychromasia Hypochromasia (manual) Poikilocytosis (manual Anisocytosis (manual) Macrocytosis (manual) Target Cells Ovalocytes [place] Cells APTT (21-34) SECONDS Puncture Site Rra pCO2 48 H (35-45) mm/Hg pO2 54 L (80-100) mm/Hg HCO3 23.2 (21-28) mmol/L ABG pH 7.32 L (7.35-7.45) ABG Total CO2 26.2 (22-28) mmol/L ABG O2 Saturation 86.3 L (95-98) % ABG Base Excess -1.8 (-2.0-3.0) mmol/L ABG Hemoglobin (11.7-17.4) g/dL ABG Carboxyhemoglobin (0.5-1.5) % POC ABG HHb (Measured) (0.0-5.0) % ABG Methemoglobin (0.0-3.0) % Ilir Test Pos ABG Potassium 3.1 L (3.6-5.2) mmol/L A-a O2 Difference 599.0 mm/Hg Respiratory Index 11.1 Hgb O2 Saturation (95.0-98.0) % Glucose 167 H (75-110) mg/dl Lactate 2.7 H (0.7-2.1) mmol/L FiO2 100.0 % Tidal Volume 450 PEEP 10 Inspiratory BiPAP Expiratory BiPAP Sodium 134 139.0 Cancelled (132-148) mmol/L Potassium 3.3 L Cancelled (3.6-5.2) mmol/L Chloride 92 L 100.0 Cancelled (98-107) mmol/L Carbon Dioxide 25 Cancelled (22-30) mmol/L Anion Gap 20 Cancelled (10-20) BUN 82 H Cancelled (9-20) mg/dL Creatinine 2.6 H Cancelled (0.8-1.5) MG/DL Est GFR ( Amer) 29 Cancelled Est GFR (Non-Af Amer) 24 Cancelled Random Glucose 177 H Cancelled (75-110) mg/dL Calcium 8.2 L Cancelled (8.6-10.4) mg/dl Phosphorus 7.7 H Cancelled Magnesium 2.4 H Cancelled (1.6-2.3) mg/dL Total Bilirubin (0.2-1.3) mg/dL AST (17-59) U/L ALT (21-72) U/L Alkaline Phosphatase (38-126) U/L Total Creatine Kinase 112 Cancelled CK-MB (Mass) 0.62 Cancelled Troponin I, Quant 0.9620 H* Cancelled Total Protein (6.3-8.3) g/dL Albumin (3.5-5.0) g/dL Globulin (2.2-3.9) gm/dL Albumin/Globulin Ratio (1.0-2.1) Arterial Blood Potassium 3.1 L (3.6-5.2) mmol/L 04/10/17 04/10/17 04/10/17 Range/Units 11:05 06:17 06:17 WBC 13.4 H (4.8-10.8) K/uL RBC 3.02 L (4.40-5.90) Mil/uL Hgb 9.9 L (12.0-18.0) g/dL Hct 29.5 L (35.0-51.0) % MCV 97.7 H (80.0-94.0) fL MCH 32.9 H (27.0-31.0) pg MCHC 33.7 (33.0-37.0) g/dL RDW 15.2 H (11.5-14.5) % Plt Count 608 H (130-400) K/uL MPV 7.6 (7.2-11.7) fL Neutrophils % (Manual) 93 H (50-75) % Band Neutrophils % 1 (0-2) % Lymphocytes % (Manual) 2 L (20-40) % Monocytes % (Manual) 4 (0-10) % Toxic Granulation Present Platelet Estimate Increased H (NORMAL) Large Platelets Present Giant Platelets Present Polychromasia Slight Hypochromasia (manual) Slight Poikilocytosis (manual Slight Anisocytosis (manual) Slight Macrocytosis (manual) Slight Target Cells Slight Ovalocytes Slight [place] Cells Slight APTT (21-34) SECONDS Puncture Site Rr pCO2 39 (35-45) mm/Hg pO2 59 L (80-100) mm/Hg HCO3 21.8 (21-28) mmol/L ABG pH 7.35 (7.35-7.45) ABG Total CO2 22.7 (22-28) mmol/L ABG O2 Saturation 91.9 L (95-98) % ABG Base Excess -3.8 L (-2.0-3.0) mmol/L ABG Hemoglobin 9.4 L (11.7-17.4) g/dL ABG Carboxyhemoglobin 2.4 H (0.5-1.5) % POC ABG HHb (Measured) 7.8 H (0.0-5.0) % ABG Methemoglobin 0.9 (0.0-3.0) % Ilir Test Pos ABG Potassium (3.6-5.2) mmol/L A-a O2 Difference 605.0 mm/Hg Respiratory Index 10.3 Hgb O2 Saturation 88.9 L (95.0-98.0) % Glucose (75-110) mg/dl Lactate (0.7-2.1) mmol/L FiO2 100.0 % Tidal Volume PEEP Inspiratory BiPAP 18 Expiratory BiPAP 8 Sodium 130 L (132-148) mmol/L Potassium 3.7 (3.6-5.2) mmol/L Chloride 91 L (98-107) mmol/L Carbon Dioxide 18 L (22-30) mmol/L Anion Gap 25 H (10-20) BUN 76 H (9-20) mg/dL Creatinine 2.2 H (0.8-1.5) MG/DL Est GFR ( Amer) 35 Est GFR (Non-Af Amer) 29 Random Glucose 127 H (75-110) mg/dL Calcium 8.4 L (8.6-10.4) mg/dl Phosphorus Magnesium 2.2 (1.6-2.3) mg/dL Total Bilirubin 2.0 H (0.2-1.3) mg/dL AST 256 H (17-59) U/L ALT 54 (21-72) U/L Alkaline Phosphatase 119 (38-126) U/L Total Creatine Kinase CK-MB (Mass) Troponin I, Quant Total Protein 7.6 (6.3-8.3) g/dL Albumin 3.4 L (3.5-5.0) g/dL Globulin 4.2 H (2.2-3.9) gm/dL Albumin/Globulin Ratio 0.8 L (1.0-2.1) Arterial Blood Potassium (3.6-5.2) mmol/L 04/10/17 Range/Units 06:17 WBC (4.8-10.8) K/uL RBC (4.40-5.90) Mil/uL Hgb (12.0-18.0) g/dL Hct (35.0-51.0) % MCV (80.0-94.0) fL MCH (27.0-31.0) pg MCHC (33.0-37.0) g/dL RDW (11.5-14.5) % Plt Count (130-400) K/uL MPV (7.2-11.7) fL Neutrophils % (Manual) (50-75) % Band Neutrophils % (0-2) % Lymphocytes % (Manual) (20-40) % Monocytes % (Manual) (0-10) % Toxic Granulation Platelet Estimate (NORMAL) Large Platelets Giant Platelets Polychromasia Hypochromasia (manual) Poikilocytosis (manual Anisocytosis (manual) Macrocytosis (manual) Target Cells Ovalocytes [place] Cells APTT 75 H D (21-34) SECONDS Puncture Site pCO2 (35-45) mm/Hg pO2 (80-100) mm/Hg HCO3 (21-28) mmol/L ABG pH (7.35-7.45) ABG Total CO2 (22-28) mmol/L ABG O2 Saturation (95-98) % ABG Base Excess (-2.0-3.0) mmol/L ABG Hemoglobin (11.7-17.4) g/dL ABG Carboxyhemoglobin (0.5-1.5) % POC ABG HHb (Measured) (0.0-5.0) % ABG Methemoglobin (0.0-3.0) % Ilir Test ABG Potassium (3.6-5.2) mmol/L A-a O2 Difference mm/Hg Respiratory Index Hgb O2 Saturation (95.0-98.0) % Glucose (75-110) mg/dl Lactate (0.7-2.1) mmol/L FiO2 % Tidal Volume PEEP Inspiratory BiPAP Expiratory BiPAP Sodium (132-148) mmol/L Potassium (3.6-5.2) mmol/L Chloride (98-107) mmol/L Carbon Dioxide (22-30) mmol/L Anion Gap (10-20) BUN (9-20) mg/dL Creatinine (0.8-1.5) MG/DL Est GFR ( Amer) Est GFR (Non-Af Amer) Random Glucose (75-110) mg/dL Calcium (8.6-10.4) mg/dl Phosphorus Magnesium (1.6-2.3) mg/dL Total Bilirubin (0.2-1.3) mg/dL AST (17-59) U/L ALT (21-72) U/L Alkaline Phosphatase (38-126) U/L Total Creatine Kinase CK-MB (Mass) Troponin I, Quant Total Protein (6.3-8.3) g/dL Albumin (3.5-5.0) g/dL Globulin (2.2-3.9) gm/dL Albumin/Globulin Ratio (1.0-2.1) Arterial Blood Potassium (3.6-5.2) mmol/L Laboratory Results - last 24 hr 04/10/17 04/10/17 04/10/17 06:17 06:17 06:17 WBC 13.4 H RBC 3.02 L Hgb 9.9 L Hct 29.5 L MCV 97.7 H MCH 32.9 H MCHC 33.7 RDW 15.2 H Plt Count 608 H MPV 7.6 Neutrophils % (Manual) 93 H Band Neutrophils % 1 Lymphocytes % (Manual) 2 L Monocytes % (Manual) 4 Toxic Granulation Present Platelet Estimate Increased H Large Platelets Present Giant Platelets Present Polychromasia Slight Hypochromasia (manual) Slight Poikilocytosis (manual Slight Anisocytosis (manual) Slight Macrocytosis (manual) Slight Target Cells Slight Ovalocytes Slight [place] Cells Slight APTT 75 H D Puncture Site pCO2 pO2 HCO3 ABG pH ABG Total CO2 ABG O2 Saturation ABG Base Excess ABG Hemoglobin ABG Carboxyhemoglobin POC ABG HHb (Measured) ABG Methemoglobin Ilir Test ABG Potassium A-a O2 Difference Respiratory Index Hgb O2 Saturation Glucose Lactate FiO2 Tidal Volume PEEP Inspiratory BiPAP Expiratory BiPAP Sodium 130 L Potassium 3.7 Chloride 91 L Carbon Dioxide 18 L Anion Gap 25 H BUN 76 H Creatinine 2.2 H Est GFR ( Amer) 35 Est GFR (Non-Af Amer) 29 Random Glucose 127 H Calcium 8.4 L Phosphorus Magnesium 2.2 Total Bilirubin 2.0 H AST 256 H ALT 54 Alkaline Phosphatase 119 Total Creatine Kinase CK-MB (Mass) Troponin I, Quant Total Protein 7.6 Albumin 3.4 L Globulin 4.2 H Albumin/Globulin Ratio 0.8 L Arterial Blood Potassium 04/10/17 04/10/17 04/10/17 11:05 20:07 20:30 WBC RBC Hgb Hct MCV MCH MCHC RDW Plt Count MPV Neutrophils % (Manual) Band Neutrophils % Lymphocytes % (Manual) Monocytes % (Manual) Toxic Granulation Platelet Estimate Large Platelets Giant Platelets Polychromasia Hypochromasia (manual) Poikilocytosis (manual Anisocytosis (manual) Macrocytosis (manual) Target Cells Ovalocytes [place] Cells APTT Puncture Site Rr Rra pCO2 39 48 H pO2 59 L 54 L HCO3 21.8 23.2 ABG pH 7.35 7.32 L ABG Total CO2 22.7 26.2 ABG O2 Saturation 91.9 L 86.3 L ABG Base Excess -3.8 L -1.8 ABG Hemoglobin 9.4 L ABG Carboxyhemoglobin 2.4 H POC ABG HHb (Measured) 7.8 H ABG Methemoglobin 0.9 Ilir Test Pos Pos ABG Potassium 3.1 L A-a O2 Difference 605.0 599.0 Respiratory Index 10.3 11.1 Hgb O2 Saturation 88.9 L Glucose 167 H Lactate 2.7 H FiO2 100.0 100.0 Tidal Volume 450 PEEP 10 Inspiratory BiPAP 18 Expiratory BiPAP 8 Sodium Cancelled 139.0 Potassium Cancelled Chloride Cancelled 100.0 Carbon Dioxide Cancelled Anion Gap Cancelled BUN Cancelled Creatinine Cancelled Est GFR ( Amer) Cancelled Est GFR (Non-Af Amer) Cancelled Random Glucose Cancelled Calcium Cancelled Phosphorus Cancelled Magnesium Cancelled Total Bilirubin AST ALT Alkaline Phosphatase Total Creatine Kinase Cancelled CK-MB (Mass) Cancelled Troponin I, Quant Cancelled Total Protein Albumin Globulin Albumin/Globulin Ratio Arterial Blood Potassium 3.1 L 04/10/17 21:09 WBC RBC Hgb Hct MCV MCH MCHC RDW Plt Count MPV Neutrophils % (Manual) Band Neutrophils % Lymphocytes % (Manual) Monocytes % (Manual) Toxic Granulation Platelet Estimate Large Platelets Giant Platelets Polychromasia Hypochromasia (manual) Poikilocytosis (manual Anisocytosis (manual) Macrocytosis (manual) Target Cells Ovalocytes [place] Cells APTT Puncture Site pCO2 pO2 HCO3 ABG pH ABG Total CO2 ABG O2 Saturation ABG Base Excess ABG Hemoglobin ABG Carboxyhemoglobin POC ABG HHb (Measured) ABG Methemoglobin Ilir Test ABG Potassium A-a O2 Difference Respiratory Index Hgb O2 Saturation Glucose Lactate FiO2 Tidal Volume PEEP Inspiratory BiPAP Expiratory BiPAP Sodium 134 Potassium 3.3 L Chloride 92 L Carbon Dioxide 25 Anion Gap 20 BUN 82 H Creatinine 2.6 H Est GFR ( Amer) 29 Est GFR (Non-Af Amer) 24 Random Glucose 177 H Calcium 8.2 L Phosphorus 7.7 H Magnesium 2.4 H Total Bilirubin AST ALT Alkaline Phosphatase Total Creatine Kinase 112 CK-MB (Mass) 0.62 Troponin I, Quant 0.9620 H* Total Protein Albumin Globulin Albumin/Globulin Ratio Arterial Blood Potassium EKG/Cardiology Studies: Cardiology / EKG Studies 04/10/17 20:07 EKG [ELECTROCARDIOGRAM] Stat Comment: Mode Of Transportation: Reason For Exam: T wave inversions
[2017-04-10] MEDS: Piperacill/Tazo 2.25gm in Dex 2.25 GM/50 ML BAG IVPB SCH (22:38)
--- NOTE | 2017-04-11 00:08 | CP.PCM.PN ---
Subjective - Date & Time of Evaluation Date of Evaluation: 04/10/17 Time of Evaluation: 11:30 - Subjective Subjective: Patient seen and evaluated On BiPAP No cath tomorrow Will reassess Physical Exam - Constitutional Appears: No Acute Distress, Chronically Ill - Head Exam Head Exam: ATRAUMATIC, NORMOCEPHALIC - Eye Exam Eye Exam: EOMI, Normal appearance, PERRL. absent: Scleral icterus - ENT Exam ENT Exam: Mucous Membranes Moist - Neck Exam Additional comments: No JVD distention - Respiratory Exam Respiratory Exam: Clear to Auscultation Bilateral, Rales, Rhonchi. absent: Wheezes - Cardiovascular Exam Cardiovascular Exam: REGULAR RHYTHM, +S1, +S2. absent: Systolic Murmur - GI/Abdominal Exam GI & Abdominal Exam: Normal Bowel Sounds, Soft. absent: Distended, Guarding, Tenderness - Extremities Exam Extremities exam: Positive for: pedal edema (3+ pitting), pedal pulses present ( slight). Negative for: calf tenderness - Back Exam Back exam: absent: CVA tenderness (L), CVA tenderness (R) - Neurological Exam Neurological exam: Alert - Psychiatric Exam Psychiatric exam: Flat Affect - Skin Skin Exam: Dry, Warm Objective - Vital Signs/Intake and Output Vital Signs (last 24 hours): Temp Pulse Resp BP Pulse Ox 97.8 F 92 H 29 H 117/48 L 97 04/10/17 20:00 04/10/17 23:50 04/10/17 23:50 04/10/17 23:48 04/10/17 23:50 Intake and Output: 04/10/17 04/11/17 18:59 06:59 Intake Total 816 571.0 Output Total 780 300 Balance 36 271.0 - Medications Medications: Current Medications Albuterol/Ipratropium (Duoneb 3 Mg/0.5 Mg (3 Ml) Ud) 3 ml INH RQ6 [facility] Last Admin: 04/10/17 19:28 Dose: 3 ml Aspirin (Aspirin Chewable) 81 mg PO DAILY [facility] Last Admin: 04/10/17 10:00 Dose: 81 mg Clopidogrel Bisulfate (Plavix) 75 mg PO DAILY [facility] Moxifloxacin HCl (Avelox Iv 400mg/250ml Ns) 400 mg in 250 mls @ 167 mls/hr IVPB Q24H [facility] Last Admin: 04/10/17 13:02 Dose: 167 mls/hr Heparin Sodium/Sodium Chloride (Heparin 18385 Units/250ml 1/2 Normal Saline) 25 ,000 units in 250 mls @ 0 mls/hr IV .Q0M PRN; Protocol; Per Protocol PRN Reason: PROTOCOL Last Admin: 04/10/17 08:28 Dose: 13 mls/hr Propofol (Diprivan) 1,000 mg in 100 mls @ 2.096 mls/hr IV .Q24H PRN; Protocol; 5 MCG/KG/MIN PRN Reason: TITRATE PER MD ORDER Last Titration: 04/10/17 21:55 Dose: 40 mcg/kg/min, 16.765 mls/hr Phenylephrine HCl 30 mg/ (Sodium Chloride) 253 mls @ 10.12 mls/hr IV .Q24H PRN ; Protocol; 20 MCG/MIN PRN Reason: TITRATE PER MD ORDER Last Titration: 04/11/17 00:02 Dose: 19.76 mcg/min, 9.99 mls/hr Diltiazem HCl 125 mg/ Sodium (Chloride) 125 mls @ 10 mls/hr IV .[id number] [facility]OCKY; 10 MG/HR PRN Reason: Protocol Last Titration: 04/11/17 00:03 Dose: 5 mg/hr, 5 mls/hr Norepinephrine Bitartrate 8 mg (/ Sodium Chloride) 258 mls @ 7.74 mls/hr IV .Q24H PRN; Protocol; 4 MCG/MIN PRN Reason: TITRATE PER MD ORDER Last Titration: 04/11/17 00:04 Dose: 2 mcg/min, 3.87 mls/hr Piperacillin Sod/Tazobactam Sod (Zosyn 2.25 Gm Iv Premix) 2.25 gm in 50 mls @ 100 mls/hr IVPB Q8H [facility] Last Admin: 04/10/17 22:38 Dose: 100 mls/hr Insulin Human Regular (Novolin R) 0 unit SC Q6H [facility] PRN Reason: Protocol Last Admin: 04/10/17 21:53 Dose: Not Given Pantoprazole Sodium (Protonix Inj) 40 mg IVP DAILY [facility] Rosuvastatin Calcium (Crestor) 20 mg PO HS [facility] Last Admin: 04/10/17 22:37 Dose: 20 mg - Labs Labs: 04/10/17 06:17 05/21/17 21:09 PT 11.8 SECONDS (9.7-12.2) 04/08/17 06:50 INR 1.1 04/08/17 06:50 APTT 75 SECONDS (21-34) H D 04/10/17 06:17 Assessment and Plan - Assessment and Plan (Free Text) Assessment: S/P Cardiopulm arrest Tachycardia Hx A-fib - Cardizem 30 q6 - Esmolol gtt, Cardizem gtt PRN Hypotension Shock, cardiogenic vs septic from PNA - Levaphed gtt @ 7.5 - propofol gtt NSTEMI - Heparin gtt - hold - ASA, Plavix - hold - No crestor for transaminitis - No plan for cardiac cath CHF, systolic, acute on chronic - lasix 60 IV BID - Echo: low EF 30-35% - lifevest for 3 months - PENDING DNR/DNI DECISION, may need to cancel - repeat echo in 3 months to assess need for permanant icd - While intubated and sedated in ICU, will not get Life Vest; will start process now so that Life Vest available when extubated and stable/ready for discharge Hx CAD s/p CABG - asa, Metoprolol 12.5 BID, Metolazone 5 daily, lasix - A1C 5.8 Hyperlipidemia (lipid panel drawn before propofol and intubation) - Cholesterol 764 - LDL 500
[2017-04-11] MEDS: (Novolin R) Insulin Human Regular 100 units/ml vial SC SCH ×4 (00:38→17:46)
[2017-04-11] MEDS: Albuterol-Ipratrop 3 mg / 0.5 (3 ml) UD INH SCH ×4 (01:02→19:30)
[2017-04-11] MEDS: Propofol 10 mg/ml 1,000 MG/100 ML VIAL IV PRN ×3 (01:33→20:16)
[2017-04-11 04:45] LABS: ABG MECHANICAL RATE 20; ARTERIAL BLOOD HGB O2 SAT 95.4 % (95.0-98.0); ATERIAL BLOOD GAS PEEP 10; DRAW SITE LB; HHB 1.6 % (0.0-5.0); METHEMOGLOBIN 1.9 % (0.0-3.0)
[2017-04-11] MEDS: Piperacill/Tazo 2.25gm in Dex 2.25 GM/50 ML BAG IVPB SCH ×3 (05:58→21:10)
[2017-04-11 06:10] LABS: BASO % 0.3 % (0.0-2.0); HEMATOCRIT 25.2 % (35.0-51.0); LYMPH # 0.9 K/uL (1.0-4.3); LYMPH % 10.4 % (20.0-40.0); MEAN CELL VOLUME 97.7 fL (80.0-94.0); MEAN CORPUSCULAR HEMOGLOBIN 34.3 pg (27.0-31.0); MEAN CORPUSCULAR HGB CONC 35.1 g/dL (33.0-37.0); MEAN PLATELET VOLUME 7.6 fL (7.2-11.7); MONO # 0.2 K/uL (0.0-0.8); MONO % 2.6 % (0.0-10.0); NRBC % 0.2 % (0.0-2.0); PLATELET COUNT 510 K/uL (130-400)
[2017-04-11 06:14] LABS: POTASSIUM 3.6 mmol/L (3.6-5.2)
[2017-04-11 06:17] LABS: PHOSPHOROUS 6.2 mg/dL (2.5-4.5)
[2017-04-11 06:18] LABS: CALCIUM 8.2 mg/dl (8.6-10.4); MAGNESIUM 2.5 mg/dL (1.6-2.3)
[2017-04-11 08:04] LABS: NEUTROPHIL 94 % (50-75); TOTAL CELLS COUNTED 100
--- NOTE | 2017-04-11 08:55 | RAD ---
HISTORY: post intubation COMPARISON: 04/09/2017 FINDINGS: LUNGS: Endotracheal tube extending into the midthoracic trachea. NG tube extending into the stomach. Persistent diffuse ill-defined consolidative opacities throughout both lungs. Biapical pleural thickening with upper lobe granulomatous changes. PLEURA: As above. CARDIOVASCULAR: Status post median sternotomy. Calcification at the aortic knob. Mild cardiomegaly. OSSEOUS STRUCTURES: Degenerative changes in the spine and shoulders. VISUALIZED UPPER ABDOMEN: Normal. OTHER FINDINGS: None. IMPRESSION: Endotracheal tube extending into the midthoracic trachea. NG tube extending into the stomach. Persistent diffuse ill-defined consolidative opacities throughout both lungs. Biapical pleural thickening with upper lobe granulomatous changes.
--- NOTE | 2017-04-11 08:58 | RAD ---
HISTORY: post TLC palcement COMPARISON: 04/10/2017 FINDINGS: LUNGS: Status post insertion of a right central venous catheter with tip extending to the proximal SVC/right brachiocephalic junction. Other lines and tubes stable position. Diffuse increased interstitial airspace opacities throughout both lungs. Right midlung atelectasis. PLEURA: As above. CARDIOVASCULAR: Cardiomegaly. Calcification at the aortic knob. OSSEOUS STRUCTURES: Degenerative changes in the spine and shoulders. VISUALIZED UPPER ABDOMEN: Normal. OTHER FINDINGS: None. IMPRESSION: Status post insertion of a right central venous catheter with tip extending to the proximal SVC/right brachiocephalic junction. Other lines and tubes stable position. Diffuse increased interstitial airspace opacities throughout both lungs. Right midlung atelectasis.
--- NOTE | 2017-04-11 09:22 | RAD ---
HISTORY: intubated COMPARISON: 04/10/2017 FINDINGS: LUNGS: Decreased diffuse opacity compared to 04/10. This may be due in part to differences in technique. No focal consolidation. PLEURA: No significant pleural effusion identified, no pneumothorax apparent. CARDIOVASCULAR: ET tube, NG tube and right IJ central venous catheter are unchanged in position. OSSEOUS STRUCTURES: No significant abnormalities. VISUALIZED UPPER ABDOMEN: Normal. OTHER FINDINGS: None. IMPRESSION: Decreased diffuse bilateral pulmonary opacity compared to 04/09. No focal consolidation. Lines and tubes unchanged.
[2017-04-11] MEDS: Heparin25000 units/250ml 1/2NS 25,000 UNITS/250 ML BAG IV PRN (09:25)
[2017-04-11] MEDS ORDERED: Pneumococcal 23-Valent Vaccine IM ONE (10:00)
--- NOTE | 2017-04-11 10:16 | CP.PCM.PN ---
Subjective - Date & Time of Evaluation Date of Evaluation: 04/11/17 Time of Evaluation: 10:11 - Subjective Subjective: Events noted- s/p agonal episode 04/10 requiring intubation On vent now, sedated but awake UO- 1100ml/24 hrs; creat only sl worse-2.5 now CXR with same bilateral infiltrates; TNIs elevated Discussed case with family and ICU team. No need for WEEKDAY BABYSITTER now Objective - Vital Signs/Intake and Output Vital Signs (last 24 hours): Temp Pulse Resp BP Pulse Ox 99.5 F 84 26 H 115/45 L 100 04/11/17 00:00 04/11/17 06:38 04/11/17 06:38 04/11/17 06:39 04/11/17 06:38 Intake and Output: 04/11/17 04/11/17 06:59 18:59 Intake Total 1378.1 Output Total 615 Balance 763.1 - Medications Medications: Current Medications Albuterol/Ipratropium (Duoneb 3 Mg/0.5 Mg (3 Ml) Ud) 3 ml INH RQ6 ROCKY Last Admin: 04/11/17 07:48 Dose: 3 ml Aspirin (Aspirin Chewable) 81 mg PO DAILY ROCKY Last Admin: 04/11/17 09:24 Dose: 81 mg Clopidogrel Bisulfate (Plavix) 75 mg PO DAILY [facility] Last Admin: 04/11/17 09:24 Dose: 75 mg Heparin Sodium/Sodium Chloride (Heparin 00075 Units/250ml 1/2 Normal Saline) 25 ,000 units in 250 mls @ 0 mls/hr IV .Q0M PRN; Protocol; Per Protocol PRN Reason: PROTOCOL Last Admin: 04/11/17 09:25 Dose: 13 mls/hr Propofol (Diprivan) 1,000 mg in 100 mls @ 2.096 mls/hr IV .Q24H PRN; Protocol; 5 MCG/KG/MIN PRN Reason: TITRATE PER MD ORDER Last Titration: 04/11/17 06:02 Dose: 20 mcg/kg/min, 8.382 mls/hr Diltiazem HCl 125 mg/ Sodium (Chloride) 125 mls @ 10 mls/hr IV .Q30N01V ROCKY; 10 MG/HR PRN Reason: Protocol Last Admin: 04/11/17 09:23 Dose: Not Given Norepinephrine Bitartrate 8 mg (/ Sodium Chloride) 258 mls @ 7.74 mls/hr IV .Q24H PRN; Protocol; 4 MCG/MIN PRN Reason: TITRATE PER MD ORDER Last Titration: 04/11/17 06:43 Dose: 1 mcg/min, 1.93 mls/hr Piperacillin Sod/Tazobactam Sod (Zosyn 2.25 Gm Iv Premix) 2.25 gm in 50 mls @ 100 mls/hr IVPB Q8H ROCKY Last Admin: 04/11/17 05:58 Dose: 100 mls/hr Insulin Human Regular (Novolin R) 0 unit SC Q6 ROCKY PRN Reason: Protocol Last Admin: 04/11/17 05:58 Dose: Not Given Pantoprazole Sodium (Protonix Inj) 40 mg IVP DAILY [facility] Last Admin: 04/11/17 09:24 Dose: 40 mg Rosuvastatin Calcium (Crestor) 20 mg PO HS [facility] Last Admin: 04/10/17 22:37 Dose: 20 mg - Labs Labs: 04/11/17 05:54 04/11/17 05:54 PT 11.8 SECONDS (9.7-12.2) 04/08/17 06:50 INR 1.1 04/08/17 06:50 APTT 64 SECONDS (21-34) H D 04/11/17 05:54 - Constitutional Appears: Toxic, Chronically Ill - Head Exam Head Exam: ATRAUMATIC, NORMAL INSPECTION - Eye Exam Eye Exam: EOMI, Normal appearance - Neck Exam Neck Exam: Normal Inspection. absent: Tenderness - Respiratory Exam Respiratory Exam: Rhonchi, Respiratory Distress - Cardiovascular Exam Cardiovascular Exam: Irregular Rhythm, +S1 - GI/Abdominal Exam GI & Abdominal Exam: Soft. absent: Tenderness - Extremities Exam Extremities Exam: Normal Inspection. absent: Tenderness - Neurological Exam Neurological Exam: Awake, CN II-XII Intact - Skin Skin Exam: Dry, Warm Assessment and Plan (1) ARIE (acute kidney injury) Status: Acute (2) CKD (chronic kidney disease) stage 3, GFR 30-59 ml/min Status: Acute (3) ARDS (adult respiratory distress syndrome) Status: Acute (4) Coronary artery disease Status: Chronic - Assessment and Plan (Free Text) Plan: Agree with present management Mild hydration No need for WEEKDAY BABYSITTER at this time Replete K Add phoslo Serial chemistries Continue ICU management, meds
--- NOTE | 2017-04-11 11:11 | CARD ---
APPROVED REPORT EKG Measurement Heart [id number] <Conclusion> Atrial fibrillation with rapid ventricular response ST & T wave abnormality, consider inferolateral ischemia Abnormal ECG
--- NOTE | 2017-04-11 12:17 | CP.CCUPN ---
<Sami Casillas - Last Filed: 04/11/17 12:14> CCU Subjective - Physician Review Subjective (Free Text): 04/11/17 12:14 PGY-1 ICU progress note Pt seen and examined at bedside. Pt intubated overnight. Critical Care Time Spent (in minutes): 35 CCU Objective - Vital Signs / Intake & Output Intake and Output (Last 8hrs): Intake & Output 04/10/17 04/11/17 04/11/17 22:59 06:59 14:59 Intake Total 480.4 1029.7 33 Output Total 425 390 Balance 55.4 639.7 33 Weight 158 lb 1.143 oz Intake: IV 130 529.0 33 Intake, IV Amount 220.4 455.7 Left Forearm 104 117 Right 40 Right Antecubital 2 50 Right Distal Port 40 70 Right Medial Port 10 40 Right Proximal Port 7.4 37.8 Right TLC 17 140.9 Oral 80 Tube Feeding 45 Other 50 Output: Urine 425 390 Urethral (Ortiz) 225 390 Urine, Voided 200 Other: # Voids Urine, Voided 1 - Physical Exam Head: Positive for: Atraumatic, Normocephalic Mouth: Positive for: Moist Mucous Membranes Neck: Positive for: Normal Range of Motion Respiratory/Chest: Positive for: Decreased Breath Sounds, Other (intubated) Cardiovascular: Positive for: Regular Rate and Rhythm, Tachycardic Abdomen: Positive for: Normal Bowel Sounds. Negative for: Distention Upper Extremity: Positive for: Edema Lower Extremity: Positive for: Edema Skin: Positive for: Warm, Dry - Medications Active Medications: Active Medications Generic Name Dose Route Start Last Admin Trade Name Freq PRN Reason Stop Dose Admin Albuterol/Ipratropium 3 ml 04/10/17 14:00 04/11/17 07:48 Duoneb 3 Mg/0.5 Mg (3 Ml) Ud INH 3 ml RQ6 ROCKY Administration Aspirin 81 mg 04/08/17 12:30 04/11/17 09:24 Aspirin Chewable PO 81 mg DAILY ROCKY Administration Calcium Acetate 667 mg 04/11/17 14:00 Phoslo GT TID ROCKY Clopidogrel Bisulfate 75 mg 04/11/17 10:00 04/11/17 09:24 Plavix PO 75 mg DAILY ROCKY Administration Heparin Sodium/Sodium Chloride 25,000 units in 250 mls @ 0 mls/hr 04/08/17 14: 15 04/11/17 09:25 Heparin 99995 Units/250ml 1/2 Normal Saline IV 13 mls/hr .Q0M PRN Administration PROTOCOL Protocol Per Protocol Propofol 1,000 mg in 100 mls @ 2.096 mls/hr 04/10/17 20:06 04/11/17 11:24 Diprivan IV 30 mcg/kg/min .Q24H PRN 12.574 mls/hr TITRATE PER MD ORDER Administration Protocol 5 MCG/KG/MIN Diltiazem HCl 125 mg/ Sodium 125 mls @ 10 mls/hr 04/10/17 20:30 04/11/17 09: 23 Chloride IV Not Given .[id number] ROCKY Protocol 10 MG/HR Norepinephrine Bitartrate 8 mg 258 mls @ 7.74 mls/hr 04/10/17 21:05 04/11/17 06:43 / Sodium Chloride IV 1 mcg/min .Q24H PRN 1.93 mls/hr TITRATE PER MD ORDER Titration Protocol 4 MCG/MIN Piperacillin Sod/Tazobactam Sod 2.25 gm in 50 mls @ 100 mls/hr 04/10/17 21:45 04/11/17 05:58 Zosyn 2.25 Gm Iv Premix IVPB 100 mls/hr Q8H ROCKY Administration Insulin Human Regular 0 unit 04/11/17 00:45 04/11/17 12:01 Novolin R SC Not Given Q6 ROCKY Protocol Pantoprazole Sodium 40 mg 04/11/17 10:00 04/11/17 09:24 Protonix Inj IVP 40 mg DAILY ROCKY Administration Rosuvastatin Calcium 20 mg 04/09/17 22:00 04/10/17 22:37 Crestor PO 20 mg HS ROCKY Administration - Patient Studies Lab Studies: Microbiology Studies 04/08/17 12:19 Blood Culture - Preliminary Blood-Venous NO GROWTH AFTER 48 HOURS 04/08/17 12:19 Blood Culture - Preliminary Blood-Venous NO GROWTH AFTER 48 HOURS 04/08/17 10:52 MRSA Culture (Admit) - Final Nose MRSA NOT DETECTED Lab Studies 04/11/17 04/11/17 04/11/17 Range/Units 05:54 05:54 05:54 WBC 9.0 (4.8-10.8) K/uL RBC 2.57 L (4.40-5.90) Mil/uL Hgb 8.8 L (12.0-18.0) g/dL Hct 25.2 L (35.0-51.0) % MCV 97.7 H (80.0-94.0) fL MCH 34.3 H (27.0-31.0) pg MCHC 35.1 (33.0-37.0) g/dL RDW 15.0 H (11.5-14.5) % Plt Count 510 H (130-400) K/uL MPV 7.6 (7.2-11.7) fL Neut % (Auto) 86.7 H (50.0-75.0) % Lymph % (Auto) 10.4 L (20.0-40.0) % Norman % (Auto) 2.6 (0.0-10.0) % Eos % (Auto) 0.0 (0.0-4.0) % Baso % (Auto) 0.3 (0.0-2.0) % Neut # 7.8 H (1.8-7.0) K/uL Lymph # 0.9 L (1.0-4.3) K/uL Norman # 0.2 (0.0-0.8) K/uL Eos # 0.0 (0.0-0.7) K/uL Baso # 0.0 (0.0-0.2) K/uL Neutrophils % (Manual) 94 H (50-75) % Band Neutrophils % 1 (0-2) % Lymphocytes % (Manual) 4 L (20-40) % Monocytes % (Manual) 1 (0-10) % Platelet Estimate Slightly increased H (NORMAL) Polychromasia Slight Hypochromasia (manual) Slight Anisocytosis (manual) Slight Target Cells Slight APTT 64 H D (21-34) SECONDS Puncture Site pCO2 (35-45) mm/Hg pO2 (80-100) mm/Hg HCO3 (21-28) mmol/L ABG pH (7.35-7.45) ABG Total CO2 (22-28) mmol/L ABG O2 Saturation (95-98) % ABG Base Excess (-2.0-3.0) mmol/L ABG Hemoglobin (11.7-17.4) g/dL ABG Carboxyhemoglobin (0.5-1.5) % POC ABG HHb (Measured) (0.0-5.0) % ABG Methemoglobin (0.0-3.0) % Ilir Test ABG Potassium (3.6-5.2) mmol/L A-a O2 Difference mm/Hg Respiratory Index Hgb O2 Saturation (95.0-98.0) % Glucose (75-110) mg/dl Lactate (0.7-2.1) mmol/L Mechanical Rate FiO2 % Tidal Volume PEEP Sodium 135 Potassium 3.6 Chloride 93 L Carbon Dioxide 27 Anion Gap 19 BUN 93 H Creatinine 2.5 H Est GFR ( Amer) 30 Est GFR (Non-Af Amer) 25 POC Glucose (mg/dL) (65-110) mg/dL Random Glucose 133 H Calcium 8.2 L Phosphorus 6.2 H Magnesium 2.5 H Total Creatine Kinase 79 CK-MB (Mass) 0.83 Troponin I, Quant 1.7700 H* Arterial Blood Potassium (3.6-5.2) mmol/L 04/11/17 04/10/17 04/10/17 Range/Units 04:25 21:09 20:30 WBC (4.8-10.8) K/uL RBC (4.40-5.90) Mil/uL Hgb (12.0-18.0) g/dL Hct (35.0-51.0) % MCV (80.0-94.0) fL MCH (27.0-31.0) pg MCHC (33.0-37.0) g/dL RDW (11.5-14.5) % Plt Count (130-400) K/uL MPV (7.2-11.7) fL Neut % (Auto) (50.0-75.0) % Lymph % (Auto) (20.0-40.0) % Norman % (Auto) (0.0-10.0) % Eos % (Auto) (0.0-4.0) % Baso % (Auto) (0.0-2.0) % Neut # (1.8-7.0) K/uL Lymph # (1.0-4.3) K/uL Norman # (0.0-0.8) K/uL Eos # (0.0-0.7) K/uL Baso # (0.0-0.2) K/uL Neutrophils % (Manual) (50-75) % Band Neutrophils % (0-2) % Lymphocytes % (Manual) (20-40) % Monocytes % (Manual) (0-10) % Platelet Estimate (NORMAL) Polychromasia Hypochromasia (manual) Anisocytosis (manual) Target Cells APTT (21-34) SECONDS Puncture Site Lb Rra pCO2 44 48 H (35-45) mm/Hg pO2 254 H 54 L (80-100) mm/Hg HCO3 24.3 23.2 (21-28) mmol/L ABG pH 7.36 7.32 L (7.35-7.45) ABG Total CO2 26.3 26.2 (22-28) mmol/L ABG O2 Saturation 98.4 H 86.3 L (95-98) % ABG Base Excess -0.7 -1.8 (-2.0-3.0) mmol/L ABG Hemoglobin 11.7 (11.7-17.4) g/dL ABG Carboxyhemoglobin 1.0 (0.5-1.5) % POC ABG HHb (Measured) 1.6 (0.0-5.0) % ABG Methemoglobin 1.9 (0.0-3.0) % Ilir Test Na Pos ABG Potassium 3.1 L (3.6-5.2) mmol/L A-a O2 Difference 404.0 599.0 mm/Hg Respiratory Index 1.6 11.1 Hgb O2 Saturation 95.4 (95.0-98.0) % Glucose 167 H (75-110) mg/dl Lactate 2.7 H (0.7-2.1) mmol/L Mechanical Rate 20 FiO2 100.0 100.0 % Tidal Volume 450 450 PEEP 10 10 Sodium 134 139.0 Potassium 3.3 L Chloride 92 L 100.0 Carbon Dioxide 25 Anion Gap 20 BUN 82 H Creatinine 2.6 H Est GFR ( Amer) 29 Est GFR (Non-Af Amer) 24 POC Glucose (mg/dL) (65-110) mg/dL Random Glucose 177 H Calcium 8.2 L Phosphorus 7.7 H Magnesium 2.4 H Total Creatine Kinase 112 CK-MB (Mass) 0.62 Troponin I, Quant 0.9620 H* Arterial Blood Potassium 3.1 L (3.6-5.2) mmol/L 04/10/17 04/10/17 04/09/17 Range/Units 20:07 07:14 20:57 WBC (4.8-10.8) K/uL RBC (4.40-5.90) Mil/uL Hgb (12.0-18.0) g/dL Hct (35.0-51.0) % MCV (80.0-94.0) fL MCH (27.0-31.0) pg MCHC (33.0-37.0) g/dL RDW (11.5-14.5) % Plt Count (130-400) K/uL MPV (7.2-11.7) fL Neut % (Auto) (50.0-75.0) % Lymph % (Auto) (20.0-40.0) % Norman % (Auto) (0.0-10.0) % Eos % (Auto) (0.0-4.0) % Baso % (Auto) (0.0-2.0) % Neut # (1.8-7.0) K/uL Lymph # (1.0-4.3) K/uL Norman # (0.0-0.8) K/uL Eos # (0.0-0.7) K/uL Baso # (0.0-0.2) K/uL Neutrophils % (Manual) (50-75) % Band Neutrophils % (0-2) % Lymphocytes % (Manual) (20-40) % Monocytes % (Manual) (0-10) % Platelet Estimate (NORMAL) Polychromasia Hypochromasia (manual) Anisocytosis (manual) Target Cells APTT (21-34) SECONDS Puncture Site pCO2 (35-45) mm/Hg pO2 (80-100) mm/Hg HCO3 (21-28) mmol/L ABG pH (7.35-7.45) ABG Total CO2 (22-28) mmol/L ABG O2 Saturation (95-98) % ABG Base Excess (-2.0-3.0) mmol/L ABG Hemoglobin (11.7-17.4) g/dL ABG Carboxyhemoglobin (0.5-1.5) % POC ABG HHb (Measured) (0.0-5.0) % ABG Methemoglobin (0.0-3.0) % Ilir Test ABG Potassium (3.6-5.2) mmol/L A-a O2 Difference mm/Hg Respiratory Index Hgb O2 Saturation (95.0-98.0) % Glucose (75-110) mg/dl Lactate (0.7-2.1) mmol/L Mechanical Rate FiO2 % Tidal Volume PEEP Sodium Cancelled Potassium Cancelled Chloride Cancelled Carbon Dioxide Cancelled Anion Gap Cancelled BUN Cancelled Creatinine Cancelled Est GFR ( Amer) Cancelled Est GFR (Non-Af Amer) Cancelled POC Glucose (mg/dL) 139 H 132 H (65-110) mg/dL Random Glucose Cancelled Calcium Cancelled Phosphorus Cancelled Magnesium Cancelled Total Creatine Kinase Cancelled CK-MB (Mass) Cancelled Troponin I, Quant Cancelled Arterial Blood Potassium (3.6-5.2) mmol/L 04/09/17 04/09/17 04/09/17 Range/Units 16:24 11:26 08:02 WBC (4.8-10.8) K/uL RBC (4.40-5.90) Mil/uL Hgb (12.0-18.0) g/dL Hct (35.0-51.0) % MCV (80.0-94.0) fL MCH (27.0-31.0) pg MCHC (33.0-37.0) g/dL RDW (11.5-14.5) % Plt Count (130-400) K/uL MPV (7.2-11.7) fL Neut % (Auto) (50.0-75.0) % Lymph % (Auto) (20.0-40.0) % Norman % (Auto) (0.0-10.0) % Eos % (Auto) (0.0-4.0) % Baso % (Auto) (0.0-2.0) % Neut # (1.8-7.0) K/uL Lymph # (1.0-4.3) K/uL Norman # (0.0-0.8) K/uL Eos # (0.0-0.7) K/uL Baso # (0.0-0.2) K/uL Neutrophils % (Manual) (50-75) % Band Neutrophils % (0-2) % Lymphocytes % (Manual) (20-40) % Monocytes % (Manual) (0-10) % Platelet Estimate (NORMAL) Polychromasia Hypochromasia (manual) Anisocytosis (manual) Target Cells APTT (21-34) SECONDS Puncture Site pCO2 (35-45) mm/Hg pO2 (80-100) mm/Hg HCO3 (21-28) mmol/L ABG pH (7.35-7.45) ABG Total CO2 (22-28) mmol/L ABG O2 Saturation (95-98) % ABG Base Excess (-2.0-3.0) mmol/L ABG Hemoglobin (11.7-17.4) g/dL ABG Carboxyhemoglobin (0.5-1.5) % POC ABG HHb (Measured) (0.0-5.0) % ABG Methemoglobin (0.0-3.0) % Ilir Test ABG Potassium (3.6-5.2) mmol/L A-a O2 Difference mm/Hg Respiratory Index Hgb O2 Saturation (95.0-98.0) % Glucose (75-110) mg/dl Lactate (0.7-2.1) mmol/L Mechanical Rate FiO2 % Tidal Volume PEEP Sodium Potassium Chloride Carbon Dioxide Anion Gap BUN Creatinine Est GFR ( Amer) Est GFR (Non-Af Amer) POC Glucose (mg/dL) 126 H 122 H 117 H (65-110) mg/dL Random Glucose Calcium Phosphorus Magnesium Total Creatine Kinase CK-MB (Mass) Troponin I, Quant Arterial Blood Potassium (3.6-5.2) mmol/L 04/08/17 04/08/17 04/08/17 Range/Units 20:59 16:08 11:28 WBC (4.8-10.8) K/uL RBC (4.40-5.90) Mil/uL Hgb (12.0-18.0) g/dL Hct (35.0-51.0) % MCV (80.0-94.0) fL MCH (27.0-31.0) pg MCHC (33.0-37.0) g/dL RDW (11.5-14.5) % Plt Count (130-400) K/uL MPV (7.2-11.7) fL Neut % (Auto) (50.0-75.0) % Lymph % (Auto) (20.0-40.0) % Norman % (Auto) (0.0-10.0) % Eos % (Auto) (0.0-4.0) % Baso % (Auto) (0.0-2.0) % Neut # (1.8-7.0) K/uL Lymph # (1.0-4.3) K/uL Norman # (0.0-0.8) K/uL Eos # (0.0-0.7) K/uL Baso # (0.0-0.2) K/uL Neutrophils % (Manual) (50-75) % Band Neutrophils % (0-2) % Lymphocytes % (Manual) (20-40) % Monocytes % (Manual) (0-10) % Platelet Estimate (NORMAL) Polychromasia Hypochromasia (manual) Anisocytosis (manual) Target Cells APTT (21-34) SECONDS Puncture Site pCO2 (35-45) mm/Hg pO2 (80-100) mm/Hg HCO3 (21-28) mmol/L ABG pH (7.35-7.45) ABG Total CO2 (22-28) mmol/L ABG O2 Saturation (95-98) % ABG Base Excess (-2.0-3.0) mmol/L ABG Hemoglobin (11.7-17.4) g/dL ABG Carboxyhemoglobin (0.5-1.5) % POC ABG HHb (Measured) (0.0-5.0) % ABG Methemoglobin (0.0-3.0) % Ilir Test ABG Potassium (3.6-5.2) mmol/L A-a O2 Difference mm/Hg Respiratory Index Hgb O2 Saturation (95.0-98.0) % Glucose (75-110) mg/dl Lactate (0.7-2.1) mmol/L Mechanical Rate FiO2 % Tidal Volume PEEP Sodium Potassium Chloride Carbon Dioxide Anion Gap BUN Creatinine Est GFR ( Amer) Est GFR (Non-Af Amer) POC Glucose (mg/dL) 102 107 113 H (65-110) mg/dL Random Glucose Calcium Phosphorus Magnesium Total Creatine Kinase CK-MB (Mass) Troponin I, Quant Arterial Blood Potassium (3.6-5.2) mmol/L Laboratory Results - last 24 hr 04/08/17 04/08/17 04/08/17 11:28 16:08 20:59 WBC RBC Hgb Hct MCV MCH MCHC RDW Plt Count MPV Neut % (Auto) Lymph % (Auto) Norman % (Auto) Eos % (Auto) Baso % (Auto) Neut # Lymph # Norman # Eos # Baso # Neutrophils % (Manual) Band Neutrophils % Lymphocytes % (Manual) Monocytes % (Manual) Platelet Estimate Polychromasia Hypochromasia (manual) Anisocytosis (manual) Target Cells APTT Puncture Site pCO2 pO2 HCO3 ABG pH ABG Total CO2 ABG O2 Saturation ABG Base Excess ABG Hemoglobin ABG Carboxyhemoglobin POC ABG HHb (Measured) ABG Methemoglobin Ilir Test ABG Potassium A-a O2 Difference Respiratory Index Hgb O2 Saturation Glucose Lactate Mechanical Rate FiO2 Tidal Volume PEEP Sodium Potassium Chloride Carbon Dioxide Anion Gap BUN Creatinine Est GFR ( Amer) Est GFR (Non-Af Amer) POC Glucose (mg/dL) 113 H 107 102 Random Glucose Calcium Phosphorus Magnesium Total Creatine Kinase CK-MB (Mass) Troponin I, Quant Arterial Blood Potassium 04/09/17 04/09/17 04/09/17 08:02 11:26 16:24 WBC RBC Hgb Hct MCV MCH MCHC RDW Plt Count MPV Neut % (Auto) Lymph % (Auto) Norman % (Auto) Eos % (Auto) Baso % (Auto) Neut # Lymph # Norman # Eos # Baso # Neutrophils % (Manual) Band Neutrophils % Lymphocytes % (Manual) Monocytes % (Manual) Platelet Estimate Polychromasia Hypochromasia (manual) Anisocytosis (manual) Target Cells APTT Puncture Site pCO2 pO2 HCO3 ABG pH ABG Total CO2 ABG O2 Saturation ABG Base Excess ABG Hemoglobin ABG Carboxyhemoglobin POC ABG HHb (Measured) ABG Methemoglobin Ilir Test ABG Potassium A-a O2 Difference Respiratory Index Hgb O2 Saturation Glucose Lactate Mechanical Rate FiO2 Tidal Volume PEEP Sodium Potassium Chloride Carbon Dioxide Anion Gap BUN Creatinine Est GFR ( Amer) Est GFR (Non-Af Amer) POC Glucose (mg/dL) 117 H 122 H 126 H Random Glucose Calcium Phosphorus Magnesium Total Creatine Kinase CK-MB (Mass) Troponin I, Quant Arterial Blood Potassium 04/09/17 04/10/17 04/10/17 20:57 07:14 20:07 WBC RBC Hgb Hct MCV MCH MCHC RDW Plt Count MPV Neut % (Auto) Lymph % (Auto) Norman % (Auto) Eos % (Auto) Baso % (Auto) Neut # Lymph # Norman # Eos # Baso # Neutrophils % (Manual) Band Neutrophils % Lymphocytes % (Manual) Monocytes % (Manual) Platelet Estimate Polychromasia Hypochromasia (manual) Anisocytosis (manual) Target Cells APTT Puncture Site pCO2 pO2 HCO3 ABG pH ABG Total CO2 ABG O2 Saturation ABG Base Excess ABG Hemoglobin ABG Carboxyhemoglobin POC ABG HHb (Measured) ABG Methemoglobin Ilir Test ABG Potassium A-a O2 Difference Respiratory Index Hgb O2 Saturation Glucose Lactate Mechanical Rate FiO2 Tidal Volume PEEP Sodium Cancelled Potassium Cancelled Chloride Cancelled Carbon Dioxide Cancelled Anion Gap Cancelled BUN Cancelled Creatinine Cancelled Est GFR ( Amer) Cancelled Est GFR (Non-Af Amer) Cancelled POC Glucose (mg/dL) 132 H 139 H Random Glucose Cancelled Calcium Cancelled Phosphorus Cancelled Magnesium Cancelled Total Creatine Kinase Cancelled CK-MB (Mass) Cancelled Troponin I, Quant Cancelled Arterial Blood Potassium 04/10/17 04/10/17 04/11/17 20:30 21:09 04:25 WBC RBC Hgb Hct MCV MCH MCHC RDW Plt Count MPV Neut % (Auto) Lymph % (Auto) Norman % (Auto) Eos % (Auto) Baso % (Auto) Neut # Lymph # Norman # Eos # Baso # Neutrophils % (Manual) Band Neutrophils % Lymphocytes % (Manual) Monocytes % (Manual) Platelet Estimate Polychromasia Hypochromasia (manual) Anisocytosis (manual) Target Cells APTT Puncture Site Rra Lb pCO2 48 H 44 pO2 54 L 254 H HCO3 23.2 24.3 ABG pH 7.32 L 7.36 ABG Total CO2 26.2 26.3 ABG O2 Saturation 86.3 L 98.4 H ABG Base Excess -1.8 -0.7 ABG Hemoglobin 11.7 ABG Carboxyhemoglobin 1.0 POC ABG HHb (Measured) 1.6 ABG Methemoglobin 1.9 Ilir Test Pos Na ABG Potassium 3.1 L A-a O2 Difference 599.0 404.0 Respiratory Index 11.1 1.6 Hgb O2 Saturation 95.4 Glucose 167 H Lactate 2.7 H Mechanical Rate 20 FiO2 100.0 100.0 Tidal Volume 450 450 PEEP 10 10 Sodium 139.0 134 Potassium 3.3 L Chloride 100.0 92 L Carbon Dioxide 25 Anion Gap 20 BUN 82 H Creatinine 2.6 H Est GFR ( Amer) 29 Est GFR (Non-Af Amer) 24 POC Glucose (mg/dL) Random Glucose 177 H Calcium 8.2 L Phosphorus 7.7 H Magnesium 2.4 H Total Creatine Kinase 112 CK-MB (Mass) 0.62 Troponin I, Quant 0.9620 H* Arterial Blood Potassium 3.1 L 04/11/17 04/11/17 04/11/17 05:54 05:54 05:54 WBC 9.0 RBC 2.57 L Hgb 8.8 L Hct 25.2 L MCV 97.7 H MCH 34.3 H MCHC 35.1 RDW 15.0 H Plt Count 510 H MPV 7.6 Neut % (Auto) 86.7 H Lymph % (Auto) 10.4 L Norman % (Auto) 2.6 Eos % (Auto) 0.0 Baso % (Auto) 0.3 Neut # 7.8 H Lymph # 0.9 L Norman # 0.2 Eos # 0.0 Baso # 0.0 Neutrophils % (Manual) 94 H Band Neutrophils % 1 Lymphocytes % (Manual) 4 L Monocytes % (Manual) 1 Platelet Estimate Slightly increased H Polychromasia Slight Hypochromasia (manual) Slight Anisocytosis (manual) Slight Target Cells Slight APTT 64 H D Puncture Site pCO2 pO2 HCO3 ABG pH ABG Total CO2 ABG O2 Saturation ABG Base Excess ABG Hemoglobin ABG Carboxyhemoglobin POC ABG HHb (Measured) ABG Methemoglobin Ilir Test ABG Potassium A-a O2 Difference Respiratory Index Hgb O2 Saturation Glucose Lactate Mechanical Rate FiO2 Tidal Volume PEEP Sodium 135 Potassium 3.6 Chloride 93 L Carbon Dioxide 27 Anion Gap 19 BUN 93 H Creatinine 2.5 H Est GFR ( Amer) 30 Est GFR (Non-Af Amer) 25 POC Glucose (mg/dL) Random Glucose 133 H Calcium 8.2 L Phosphorus 6.2 H Magnesium 2.5 H Total Creatine Kinase 79 CK-MB (Mass) 0.83 Troponin I, Quant 1.7700 H* Arterial Blood Potassium EKG/Cardiology Studies: Cardiology / EKG Studies 04/10/17 20:07 EKG [ELECTROCARDIOGRAM] Stat Comment: Mode Of Transportation: Reason For Exam: T wave inversions Fingerstick Blood Sugar Results: 145 Review of Systems - Review of Systems Systems not reviewed;Unavailable: Intubated Assessment/Plan - Assessment and Plan (Free Text) Assessment: 82 M with PMH of CAD s/p CABG, CHF, HTN, COPD (not on home O2), CKD 3A, Liver mass, admitted to ICU for CHF exacerbation requiring bipap vs pneumonia. Trop is positive. 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 Developed respiratory failure secondary to likely pneumonia per most recent CXR Plan: Neuro: Intubated and sedated Cardiovascular: NSTEMI Cont heparin drip, Plavix, crestor and ASA A fib with RVR last night, cardizem drip started Levophed drip for pressor support Pulmonary: Respiratory failure, intubated CXR - Decreased diffuse bilateral pulmonary opacity compared to 04/09. No focal consolidation. Lines and tubes unchanged. Avelox stopped, on Zosyn Gastrointestinal: Tube feeds started No acute issues Hematology: Anemia at 8.8 - continue to follow Endocrine: No acute issues Renal: ARIE on CKD Continue to monitor electrolytes and replete as needed Infectious Disease: Afebrile. leukocytosis resolved Zosyn Monitor GI Prophylaxis: Pepcid DVT Prophylaxis: Heparin drip <Kailash Nunez - Last Filed: 04/11/17 12:54> CCU Objective - Vital Signs / Intake & Output Intake and Output (Last 8hrs): Intake & Output 04/10/17 04/11/17 04/11/17 22:59 06:59 14:59 Intake Total 480.4 1029.7 33 Output Total 425 390 Balance 55.4 639.7 33 Weight 158 lb 1.143 oz Intake: IV 130 529.0 33 Intake, IV Amount 220.4 455.7 Left Forearm 104 117 Right 40 Right Antecubital 2 50 Right Distal Port 40 70 Right Medial Port 10 40 Right Proximal Port 7.4 37.8 Right TLC 17 140.9 Oral 80 Tube Feeding 45 Other 50 Output: Urine 425 390 Urethral (Ortiz) 225 390 Urine, Voided 200 Other: # Voids Urine, Voided 1 - Medications Active Medications: Active Medications Generic Name Dose Route Start Last Admin Trade Name Freq PRN Reason Stop Dose Admin Albuterol/Ipratropium 3 ml 04/10/17 14:00 04/11/17 07:48 Duoneb 3 Mg/0.5 Mg (3 Ml) Ud INH 3 ml RQ6 ROCKY Administration Aspirin 81 mg 04/08/17 12:30 04/11/17 09:24 Aspirin Chewable PO 81 mg DAILY ROCKY Administration Calcium Acetate 667 mg 04/11/17 14:00 Phoslo GT TID ROCKY Clopidogrel Bisulfate 75 mg 04/11/17 10:00 04/11/17 09:24 Plavix PO 75 mg DAILY ROCKY Administration Heparin Sodium/Sodium Chloride 25,000 units in 250 mls @ 0 mls/hr 04/08/17 14: 15 04/11/17 09:25 Heparin 33268 Units/250ml 1/2 Normal Saline IV 13 mls/hr .Q0M PRN Administration PROTOCOL Protocol Per Protocol Propofol 1,000 mg in 100 mls @ 2.096 mls/hr 04/10/17 20:06 04/11/17 11:24 Diprivan IV 30 mcg/kg/min .Q24H PRN 12.574 mls/hr TITRATE PER MD ORDER Administration Protocol 5 MCG/KG/MIN Diltiazem HCl 125 mg/ Sodium 125 mls @ 10 mls/hr 04/10/17 20:30 04/11/17 09: 23 Chloride IV Not Given .[id number] ROCKY Protocol 10 MG/HR Norepinephrine Bitartrate 8 mg 258 mls @ 7.74 mls/hr 04/10/17 21:05 04/11/17 06:43 / Sodium Chloride IV 1 mcg/min .Q24H PRN 1.93 mls/hr TITRATE PER MD ORDER Titration Protocol 4 MCG/MIN Piperacillin Sod/Tazobactam Sod 2.25 gm in 50 mls @ 100 mls/hr 04/10/17 21:45 04/11/17 05:58 Zosyn 2.25 Gm Iv Premix IVPB 100 mls/hr Q8H ROCKY Administration Insulin Human Regular 0 unit 04/11/17 00:45 04/11/17 12:01 Novolin R SC Not Given Q6 ROCKY Protocol Pantoprazole Sodium 40 mg 04/11/17 10:00 04/11/17 09:24 Protonix Inj IVP 40 mg DAILY ROCKY Administration Rosuvastatin Calcium 20 mg 04/09/17 22:00 04/10/17 22:37 Crestor PO 20 mg HS ROCKY Administration - Patient Studies Lab Studies: Microbiology Studies 04/08/17 12:19 Blood Culture - Preliminary Blood-Venous NO GROWTH AFTER 48 HOURS 04/08/17 12:19 Blood Culture - Preliminary Blood-Venous NO GROWTH AFTER 48 HOURS 04/08/17 10:52 MRSA Culture (Admit) - Final Nose MRSA NOT DETECTED Lab Studies 04/11/17 04/11/17 04/11/17 Range/Units 12:03 11:57 05:56 WBC (4.8-10.8) K/uL RBC (4.40-5.90) Mil/uL Hgb (12.0-18.0) g/dL Hct (35.0-51.0) % MCV (80.0-94.0) fL MCH (27.0-31.0) pg MCHC (33.0-37.0) g/dL RDW (11.5-14.5) % Plt Count (130-400) K/uL MPV (7.2-11.7) fL Neut % (Auto) (50.0-75.0) % Lymph % (Auto) (20.0-40.0) % Norman % (Auto) (0.0-10.0) % Eos % (Auto) (0.0-4.0) % Baso % (Auto) (0.0-2.0) % Neut # (1.8-7.0) K/uL Lymph # (1.0-4.3) K/uL Norman # (0.0-0.8) K/uL Eos # (0.0-0.7) K/uL Baso # (0.0-0.2) K/uL Neutrophils % (Manual) (50-75) % Band Neutrophils % (0-2) % Lymphocytes % (Manual) (20-40) % Monocytes % (Manual) (0-10) % Platelet Estimate (NORMAL) Polychromasia Hypochromasia (manual) Anisocytosis (manual) Target Cells APTT (21-34) SECONDS Puncture Site pCO2 (35-45) mm/Hg pO2 (80-100) mm/Hg HCO3 (21-28) mmol/L ABG pH (7.35-7.45) ABG Total CO2 (22-28) mmol/L ABG O2 Saturation (95-98) % ABG Base Excess (-2.0-3.0) mmol/L ABG Hemoglobin (11.7-17.4) g/dL ABG Carboxyhemoglobin (0.5-1.5) % POC ABG HHb (Measured) (0.0-5.0) % ABG Methemoglobin (0.0-3.0) % Ilir Test ABG Potassium (3.6-5.2) mmol/L A-a O2 Difference mm/Hg Respiratory Index Hgb O2 Saturation (95.0-98.0) % Glucose (75-110) mg/dl Lactate (0.7-2.1) mmol/L Mechanical Rate FiO2 % Tidal Volume PEEP Sodium Potassium Chloride Carbon Dioxide Anion Gap BUN Creatinine Est GFR ( Amer) Est GFR (Non-Af Amer) POC Glucose (mg/dL) 145 H 134 H (65-110) mg/dL Random Glucose Calcium Phosphorus Magnesium Total Creatine Kinase CK-MB (Mass) Troponin I, Quant Arterial Blood Potassium (3.6-5.2) mmol/L Stool Occult Blood Positive H (NEGATIVE) 04/11/17 04/11/17 04/11/17 Range/Units 05:54 05:54 05:54 WBC 9.0 (4.8-10.8) K/uL RBC 2.57 L (4.40-5.90) Mil/uL Hgb 8.8 L (12.0-18.0) g/dL Hct 25.2 L (35.0-51.0) % MCV 97.7 H (80.0-94.0) fL MCH 34.3 H (27.0-31.0) pg MCHC 35.1 (33.0-37.0) g/dL RDW 15.0 H (11.5-14.5) % Plt Count 510 H (130-400) K/uL MPV 7.6 (7.2-11.7) fL Neut % (Auto) 86.7 H (50.0-75.0) % Lymph % (Auto) 10.4 L (20.0-40.0) % Norman % (Auto) 2.6 (0.0-10.0) % Eos % (Auto) 0.0 (0.0-4.0) % Baso % (Auto) 0.3 (0.0-2.0) % Neut # 7.8 H (1.8-7.0) K/uL Lymph # 0.9 L (1.0-4.3) K/uL Norman # 0.2 (0.0-0.8) K/uL Eos # 0.0 (0.0-0.7) K/uL Baso # 0.0 (0.0-0.2) K/uL Neutrophils % (Manual) 94 H (50-75) % Band Neutrophils % 1 (0-2) % Lymphocytes % (Manual) 4 L (20-40) % Monocytes % (Manual) 1 (0-10) % Platelet Estimate Slightly increased H (NORMAL) Polychromasia Slight Hypochromasia (manual) Slight Anisocytosis (manual) Slight Target Cells Slight APTT 64 H D (21-34) SECONDS Puncture Site pCO2 (35-45) mm/Hg pO2 (80-100) mm/Hg HCO3 (21-28) mmol/L ABG pH (7.35-7.45) ABG Total CO2 (22-28) mmol/L ABG O2 Saturation (95-98) % ABG Base Excess (-2.0-3.0) mmol/L ABG Hemoglobin (11.7-17.4) g/dL ABG Carboxyhemoglobin (0.5-1.5) % POC ABG HHb (Measured) (0.0-5.0) % ABG Methemoglobin (0.0-3.0) % Ilir Test ABG Potassium (3.6-5.2) mmol/L A-a O2 Difference mm/Hg Respiratory Index Hgb O2 Saturation (95.0-98.0) % Glucose (75-110) mg/dl Lactate (0.7-2.1) mmol/L Mechanical Rate FiO2 % Tidal Volume PEEP Sodium 135 Potassium 3.6 Chloride 93 L Carbon Dioxide 27 Anion Gap 19 BUN 93 H Creatinine 2.5 H Est GFR ( Amer) 30 Est GFR (Non-Af Amer) 25 POC Glucose (mg/dL) (65-110) mg/dL Random Glucose 133 H Calcium 8.2 L Phosphorus 6.2 H Magnesium 2.5 H Total Creatine Kinase 79 CK-MB (Mass) 0.83 Troponin I, Quant 1.7700 H* Arterial Blood Potassium (3.6-5.2) mmol/L Stool Occult Blood (NEGATIVE) 04/11/17 04/10/17 04/10/17 Range/Units 04:25 23:51 21:24 WBC (4.8-10.8) K/uL RBC (4.40-5.90) Mil/uL Hgb (12.0-18.0) g/dL Hct (35.0-51.0) % MCV (80.0-94.0) fL MCH (27.0-31.0) pg MCHC (33.0-37.0) g/dL RDW (11.5-14.5) % Plt Count (130-400) K/uL MPV (7.2-11.7) fL Neut % (Auto) (50.0-75.0) % Lymph % (Auto) (20.0-40.0) % Norman % (Auto) (0.0-10.0) % Eos % (Auto) (0.0-4.0) % Baso % (Auto) (0.0-2.0) % Neut # (1.8-7.0) K/uL Lymph # (1.0-4.3) K/uL Norman # (0.0-0.8) K/uL Eos # (0.0-0.7) K/uL Baso # (0.0-0.2) K/uL Neutrophils % (Manual) (50-75) % Band Neutrophils % (0-2) % Lymphocytes % (Manual) (20-40) % Monocytes % (Manual) (0-10) % Platelet Estimate (NORMAL) Polychromasia Hypochromasia (manual) Anisocytosis (manual) Target Cells APTT (21-34) SECONDS Puncture Site Lb pCO2 44 (35-45) mm/Hg pO2 254 H (80-100) mm/Hg HCO3 24.3 (21-28) mmol/L ABG pH 7.36 (7.35-7.45) ABG Total CO2 26.3 (22-28) mmol/L ABG O2 Saturation 98.4 H (95-98) % ABG Base Excess -0.7 (-2.0-3.0) mmol/L ABG Hemoglobin 11.7 (11.7-17.4) g/dL ABG Carboxyhemoglobin 1.0 (0.5-1.5) % POC ABG HHb (Measured) 1.6 (0.0-5.0) % ABG Methemoglobin 1.9 (0.0-3.0) % Ilir Test Na ABG Potassium (3.6-5.2) mmol/L A-a O2 Difference 404.0 mm/Hg Respiratory Index 1.6 Hgb O2 Saturation 95.4 (95.0-98.0) % Glucose (75-110) mg/dl Lactate (0.7-2.1) mmol/L Mechanical Rate 20 FiO2 100.0 % Tidal Volume 450 PEEP 10 Sodium Potassium Chloride Carbon Dioxide Anion Gap BUN Creatinine Est GFR ( Amer) Est GFR (Non-Af Amer) POC Glucose (mg/dL) 157 H 183 H (65-110) mg/dL Random Glucose Calcium Phosphorus Magnesium Total Creatine Kinase CK-MB (Mass) Troponin I, Quant Arterial Blood Potassium (3.6-5.2) mmol/L Stool Occult Blood (NEGATIVE) 04/10/17 04/10/17 04/10/17 Range/Units 21:09 20:30 20:07 WBC (4.8-10.8) K/uL RBC (4.40-5.90) Mil/uL Hgb (12.0-18.0) g/dL Hct (35.0-51.0) % MCV (80.0-94.0) fL MCH (27.0-31.0) pg MCHC (33.0-37.0) g/dL RDW (11.5-14.5) % Plt Count (130-400) K/uL MPV (7.2-11.7) fL Neut % (Auto) (50.0-75.0) % Lymph % (Auto) (20.0-40.0) % Norman % (Auto) (0.0-10.0) % Eos % (Auto) (0.0-4.0) % Baso % (Auto) (0.0-2.0) % Neut # (1.8-7.0) K/uL Lymph # (1.0-4.3) K/uL Norman # (0.0-0.8) K/uL Eos # (0.0-0.7) K/uL Baso # (0.0-0.2) K/uL Neutrophils % (Manual) (50-75) % Band Neutrophils % (0-2) % Lymphocytes % (Manual) (20-40) % Monocytes % (Manual) (0-10) % Platelet Estimate (NORMAL) Polychromasia Hypochromasia (manual) Anisocytosis (manual) Target Cells APTT (21-34) SECONDS Puncture Site Rra pCO2 48 H (35-45) mm/Hg pO2 54 L (80-100) mm/Hg HCO3 23.2 (21-28) mmol/L ABG pH 7.32 L (7.35-7.45) ABG Total CO2 26.2 (22-28) mmol/L ABG O2 Saturation 86.3 L (95-98) % ABG Base Excess -1.8 (-2.0-3.0) mmol/L ABG Hemoglobin (11.7-17.4) g/dL ABG Carboxyhemoglobin (0.5-1.5) % POC ABG HHb (Measured) (0.0-5.0) % ABG Methemoglobin (0.0-3.0) % Ilir Test Pos ABG Potassium 3.1 L (3.6-5.2) mmol/L A-a O2 Difference 599.0 mm/Hg Respiratory Index 11.1 Hgb O2 Saturation (95.0-98.0) % Glucose 167 H (75-110) mg/dl Lactate 2.7 H (0.7-2.1) mmol/L Mechanical Rate FiO2 100.0 % Tidal Volume 450 PEEP 10 Sodium 134 139.0 Cancelled Potassium 3.3 L Cancelled Chloride 92 L 100.0 Cancelled Carbon Dioxide 25 Cancelled Anion Gap 20 Cancelled BUN 82 H Cancelled Creatinine 2.6 H Cancelled Est GFR ( Amer) 29 Cancelled Est GFR (Non-Af Amer) 24 Cancelled POC Glucose (mg/dL) (65-110) mg/dL Random Glucose 177 H Cancelled Calcium 8.2 L Cancelled Phosphorus 7.7 H Cancelled Magnesium 2.4 H Cancelled Total Creatine Kinase 112 Cancelled CK-MB (Mass) 0.62 Cancelled Troponin I, Quant 0.9620 H* Cancelled Arterial Blood Potassium 3.1 L (3.6-5.2) mmol/L Stool Occult Blood (NEGATIVE) 04/10/17 04/10/17 04/10/17 Range/Units 16:08 11:52 07:14 WBC (4.8-10.8) K/uL RBC (4.40-5.90) Mil/uL Hgb (12.0-18.0) g/dL Hct (35.0-51.0) % MCV (80.0-94.0) fL MCH (27.0-31.0) pg MCHC (33.0-37.0) g/dL RDW (11.5-14.5) % Plt Count (130-400) K/uL MPV (7.2-11.7) fL Neut % (Auto) (50.0-75.0) % Lymph % (Auto) (20.0-40.0) % Norman % (Auto) (0.0-10.0) % Eos % (Auto) (0.0-4.0) % Baso % (Auto) (0.0-2.0) % Neut # (1.8-7.0) K/uL Lymph # (1.0-4.3) K/uL Norman # (0.0-0.8) K/uL Eos # (0.0-0.7) K/uL Baso # (0.0-0.2) K/uL Neutrophils % (Manual) (50-75) % Band Neutrophils % (0-2) % Lymphocytes % (Manual) (20-40) % Monocytes % (Manual) (0-10) % Platelet Estimate (NORMAL) Polychromasia Hypochromasia (manual) Anisocytosis (manual) Target Cells APTT (21-34) SECONDS Puncture Site pCO2 (35-45) mm/Hg pO2 (80-100) mm/Hg HCO3 (21-28) mmol/L ABG pH (7.35-7.45) ABG Total CO2 (22-28) mmol/L ABG O2 Saturation (95-98) % ABG Base Excess (-2.0-3.0) mmol/L ABG Hemoglobin (11.7-17.4) g/dL ABG Carboxyhemoglobin (0.5-1.5) % POC ABG HHb (Measured) (0.0-5.0) % ABG Methemoglobin (0.0-3.0) % Ilir Test ABG Potassium (3.6-5.2) mmol/L A-a O2 Difference mm/Hg Respiratory Index Hgb O2 Saturation (95.0-98.0) % Glucose (75-110) mg/dl Lactate (0.7-2.1) mmol/L Mechanical Rate FiO2 % Tidal Volume PEEP Sodium Potassium Chloride Carbon Dioxide Anion Gap BUN Creatinine Est GFR ( Amer) Est GFR (Non-Af Amer) POC Glucose (mg/dL) 126 H 150 H 139 H (65-110) mg/dL Random Glucose Calcium Phosphorus Magnesium Total Creatine Kinase CK-MB (Mass) Troponin I, Quant Arterial Blood Potassium (3.6-5.2) mmol/L Stool Occult Blood (NEGATIVE) 04/09/17 04/09/17 04/09/17 Range/Units 20:57 16:24 11:26 WBC (4.8-10.8) K/uL RBC (4.40-5.90) Mil/uL Hgb (12.0-18.0) g/dL Hct (35.0-51.0) % MCV (80.0-94.0) fL MCH (27.0-31.0) pg MCHC (33.0-37.0) g/dL RDW (11.5-14.5) % Plt Count (130-400) K/uL MPV (7.2-11.7) fL Neut % (Auto) (50.0-75.0) % Lymph % (Auto) (20.0-40.0) % Norman % (Auto) (0.0-10.0) % Eos % (Auto) (0.0-4.0) % Baso % (Auto) (0.0-2.0) % Neut # (1.8-7.0) K/uL Lymph # (1.0-4.3) K/uL Norman # (0.0-0.8) K/uL Eos # (0.0-0.7) K/uL Baso # (0.0-0.2) K/uL Neutrophils % (Manual) (50-75) % Band Neutrophils % (0-2) % Lymphocytes % (Manual) (20-40) % Monocytes % (Manual) (0-10) % Platelet Estimate (NORMAL) Polychromasia Hypochromasia (manual) Anisocytosis (manual) Target Cells APTT (21-34) SECONDS Puncture Site pCO2 (35-45) mm/Hg pO2 (80-100) mm/Hg HCO3 (21-28) mmol/L ABG pH (7.35-7.45) ABG Total CO2 (22-28) mmol/L ABG O2 Saturation (95-98) % ABG Base Excess (-2.0-3.0) mmol/L ABG Hemoglobin (11.7-17.4) g/dL ABG Carboxyhemoglobin (0.5-1.5) % POC ABG HHb (Measured) (0.0-5.0) % ABG Methemoglobin (0.0-3.0) % Ilir Test ABG Potassium (3.6-5.2) mmol/L A-a O2 Difference mm/Hg Respiratory Index Hgb O2 Saturation (95.0-98.0) % Glucose (75-110) mg/dl Lactate (0.7-2.1) mmol/L Mechanical Rate FiO2 % Tidal Volume PEEP Sodium Potassium Chloride Carbon Dioxide Anion Gap BUN Creatinine Est GFR ( Amer) Est GFR (Non-Af Amer) POC Glucose (mg/dL) 132 H 126 H 122 H (65-110) mg/dL Random Glucose Calcium Phosphorus Magnesium Total Creatine Kinase CK-MB (Mass) Troponin I, Quant Arterial Blood Potassium (3.6-5.2) mmol/L Stool Occult Blood (NEGATIVE) 04/09/17 04/08/17 04/08/17 Range/Units 08:02 20:59 16:08 WBC (4.8-10.8) K/uL RBC (4.40-5.90) Mil/uL Hgb (12.0-18.0) g/dL Hct (35.0-51.0) % MCV (80.0-94.0) fL MCH (27.0-31.0) pg MCHC (33.0-37.0) g/dL RDW (11.5-14.5) % Plt Count (130-400) K/uL MPV (7.2-11.7) fL Neut % (Auto) (50.0-75.0) % Lymph % (Auto) (20.0-40.0) % Norman % (Auto) (0.0-10.0) % Eos % (Auto) (0.0-4.0) % Baso % (Auto) (0.0-2.0) % Neut # (1.8-7.0) K/uL Lymph # (1.0-4.3) K/uL Norman # (0.0-0.8) K/uL Eos # (0.0-0.7) K/uL Baso # (0.0-0.2) K/uL Neutrophils % (Manual) (50-75) % Band Neutrophils % (0-2) % Lymphocytes % (Manual) (20-40) % Monocytes % (Manual) (0-10) % Platelet Estimate (NORMAL) Polychromasia Hypochromasia (manual) Anisocytosis (manual) Target Cells APTT (21-34) SECONDS Puncture Site pCO2 (35-45) mm/Hg pO2 (80-100) mm/Hg HCO3 (21-28) mmol/L ABG pH (7.35-7.45) ABG Total CO2 (22-28) mmol/L ABG O2 Saturation (95-98) % ABG Base Excess (-2.0-3.0) mmol/L ABG Hemoglobin (11.7-17.4) g/dL ABG Carboxyhemoglobin (0.5-1.5) % POC ABG HHb (Measured) (0.0-5.0) % ABG Methemoglobin (0.0-3.0) % Ilir Test ABG Potassium (3.6-5.2) mmol/L A-a O2 Difference mm/Hg Respiratory Index Hgb O2 Saturation (95.0-98.0) % Glucose (75-110) mg/dl Lactate (0.7-2.1) mmol/L Mechanical Rate FiO2 % Tidal Volume PEEP Sodium Potassium Chloride Carbon Dioxide Anion Gap BUN Creatinine Est GFR ( Amer) Est GFR (Non-Af Amer) POC Glucose (mg/dL) 117 H 102 107 (65-110) mg/dL Random Glucose Calcium Phosphorus Magnesium Total Creatine Kinase CK-MB (Mass) Troponin I, Quant Arterial Blood Potassium (3.6-5.2) mmol/L Stool Occult Blood (NEGATIVE) 04/08/17 Range/Units 11:28 WBC (4.8-10.8) K/uL RBC (4.40-5.90) Mil/uL Hgb (12.0-18.0) g/dL Hct (35.0-51.0) % MCV (80.0-94.0) fL MCH (27.0-31.0) pg MCHC (33.0-37.0) g/dL RDW (11.5-14.5) % Plt Count (130-400) K/uL MPV (7.2-11.7) fL Neut % (Auto) (50.0-75.0) % Lymph % (Auto) (20.0-40.0) % Norman % (Auto) (0.0-10.0) % Eos % (Auto) (0.0-4.0) % Baso % (Auto) (0.0-2.0) % Neut # (1.8-7.0) K/uL Lymph # (1.0-4.3) K/uL Norman # (0.0-0.8) K/uL Eos # (0.0-0.7) K/uL Baso # (0.0-0.2) K/uL Neutrophils % (Manual) (50-75) % Band Neutrophils % (0-2) % Lymphocytes % (Manual) (20-40) % Monocytes % (Manual) (0-10) % Platelet Estimate (NORMAL) Polychromasia Hypochromasia (manual) Anisocytosis (manual) Target Cells APTT (21-34) SECONDS Puncture Site pCO2 (35-45) mm/Hg pO2 (80-100) mm/Hg HCO3 (21-28) mmol/L ABG pH (7.35-7.45) ABG Total CO2 (22-28) mmol/L ABG O2 Saturation (95-98) % ABG Base Excess (-2.0-3.0) mmol/L ABG Hemoglobin (11.7-17.4) g/dL ABG Carboxyhemoglobin (0.5-1.5) % POC ABG HHb (Measured) (0.0-5.0) % ABG Methemoglobin (0.0-3.0) % Ilir Test ABG Potassium (3.6-5.2) mmol/L A-a O2 Difference mm/Hg Respiratory Index Hgb O2 Saturation (95.0-98.0) % Glucose (75-110) mg/dl Lactate (0.7-2.1) mmol/L Mechanical Rate FiO2 % Tidal Volume PEEP Sodium Potassium Chloride Carbon Dioxide Anion Gap BUN Creatinine Est GFR ( Amer) Est GFR (Non-Af Amer) POC Glucose (mg/dL) 113 H (65-110) mg/dL Random Glucose Calcium Phosphorus Magnesium Total Creatine Kinase CK-MB (Mass) Troponin I, Quant Arterial Blood Potassium (3.6-5.2) mmol/L Stool Occult Blood (NEGATIVE) Laboratory Results - last 24 hr 04/08/17 04/08/17 04/08/17 11:28 16:08 20:59 WBC RBC Hgb Hct MCV MCH MCHC RDW Plt Count MPV Neut % (Auto) Lymph % (Auto) Norman % (Auto) Eos % (Auto) Baso % (Auto) Neut # Lymph # Norman # Eos # Baso # Neutrophils % (Manual) Band Neutrophils % Lymphocytes % (Manual) Monocytes % (Manual) Platelet Estimate Polychromasia Hypochromasia (manual) Anisocytosis (manual) Target Cells APTT Puncture Site pCO2 pO2 HCO3 ABG pH ABG Total CO2 ABG O2 Saturation ABG Base Excess ABG Hemoglobin ABG Carboxyhemoglobin POC ABG HHb (Measured) ABG Methemoglobin Ilir Test ABG Potassium A-a O2 Difference Respiratory Index Hgb O2 Saturation Glucose Lactate Mechanical Rate FiO2 Tidal Volume PEEP Sodium Potassium Chloride Carbon Dioxide Anion Gap BUN Creatinine Est GFR ( Amer) Est GFR (Non-Af Amer) POC Glucose (mg/dL) 113 H 107 102 Random Glucose Calcium Phosphorus Magnesium Total Creatine Kinase CK-MB (Mass) Troponin I, Quant Arterial Blood Potassium Stool Occult Blood 04/09/17 04/09/17 04/09/17 08:02 11:26 16:24 WBC RBC Hgb Hct MCV MCH MCHC RDW Plt Count MPV Neut % (Auto) Lymph % (Auto) Norman % (Auto) Eos % (Auto) Baso % (Auto) Neut # Lymph # Norman # Eos # Baso # Neutrophils % (Manual) Band Neutrophils % Lymphocytes % (Manual) Monocytes % (Manual) Platelet Estimate Polychromasia Hypochromasia (manual) Anisocytosis (manual) Target Cells APTT Puncture Site pCO2 pO2 HCO3 ABG pH ABG Total CO2 ABG O2 Saturation ABG Base Excess ABG Hemoglobin ABG Carboxyhemoglobin POC ABG HHb (Measured) ABG Methemoglobin Ilir Test ABG Potassium A-a O2 Difference Respiratory Index Hgb O2 Saturation Glucose Lactate Mechanical Rate FiO2 Tidal Volume PEEP Sodium Potassium Chloride Carbon Dioxide Anion Gap BUN Creatinine Est GFR ( Amer) Est GFR (Non-Af Amer) POC Glucose (mg/dL) 117 H 122 H 126 H Random Glucose Calcium Phosphorus Magnesium Total Creatine Kinase CK-MB (Mass) Troponin I, Quant Arterial Blood Potassium Stool Occult Blood 04/09/17 04/10/17 04/10/17 20:57 07:14 11:52 WBC RBC Hgb Hct MCV MCH MCHC RDW Plt Count MPV Neut % (Auto) Lymph % (Auto) Norman % (Auto) Eos % (Auto) Baso % (Auto) Neut # Lymph # Norman # Eos # Baso # Neutrophils % (Manual) Band Neutrophils % Lymphocytes % (Manual) Monocytes % (Manual) Platelet Estimate Polychromasia Hypochromasia (manual) Anisocytosis (manual) Target Cells APTT Puncture Site pCO2 pO2 HCO3 ABG pH ABG Total CO2 ABG O2 Saturation ABG Base Excess ABG Hemoglobin ABG Carboxyhemoglobin POC ABG HHb (Measured) ABG Methemoglobin Ilir Test ABG Potassium A-a O2 Difference Respiratory Index Hgb O2 Saturation Glucose Lactate Mechanical Rate FiO2 Tidal Volume PEEP Sodium Potassium Chloride Carbon Dioxide Anion Gap BUN Creatinine Est GFR ( Amer) Est GFR (Non-Af Amer) POC Glucose (mg/dL) 132 H 139 H 150 H Random Glucose Calcium Phosphorus Magnesium Total Creatine Kinase CK-MB (Mass) Troponin I, Quant Arterial Blood Potassium Stool Occult Blood 04/10/17 04/10/17 04/10/17 16:08 20:07 20:30 WBC RBC Hgb Hct MCV MCH MCHC RDW Plt Count MPV Neut % (Auto) Lymph % (Auto) Norman % (Auto) Eos % (Auto) Baso % (Auto) Neut # Lymph # Norman # Eos # Baso # Neutrophils % (Manual) Band Neutrophils % Lymphocytes % (Manual) Monocytes % (Manual) Platelet Estimate Polychromasia Hypochromasia (manual) Anisocytosis (manual) Target Cells APTT Puncture Site Rra pCO2 48 H pO2 54 L HCO3 23.2 ABG pH 7.32 L ABG Total CO2 26.2 ABG O2 Saturation 86.3 L ABG Base Excess -1.8 ABG Hemoglobin ABG Carboxyhemoglobin POC ABG HHb (Measured) ABG Methemoglobin Ilir Test Pos ABG Potassium 3.1 L A-a O2 Difference 599.0 Respiratory Index 11.1 Hgb O2 Saturation Glucose 167 H Lactate 2.7 H Mechanical Rate FiO2 100.0 Tidal Volume 450 PEEP 10 Sodium Cancelled 139.0 Potassium Cancelled Chloride Cancelled 100.0 Carbon Dioxide Cancelled Anion Gap Cancelled BUN Cancelled Creatinine Cancelled Est GFR ( Amer) Cancelled Est GFR (Non-Af Amer) Cancelled POC Glucose (mg/dL) 126 H Random Glucose Cancelled Calcium Cancelled Phosphorus Cancelled Magnesium Cancelled Total Creatine Kinase Cancelled CK-MB (Mass) Cancelled Troponin I, Quant Cancelled Arterial Blood Potassium 3.1 L Stool Occult Blood 04/10/17 04/10/17 04/10/17 21:09 21:24 23:51 WBC RBC Hgb Hct MCV MCH MCHC RDW Plt Count MPV Neut % (Auto) Lymph % (Auto) Norman % (Auto) Eos % (Auto) Baso % (Auto) Neut # Lymph # Norman # Eos # Baso # Neutrophils % (Manual) Band Neutrophils % Lymphocytes % (Manual) Monocytes % (Manual) Platelet Estimate Polychromasia Hypochromasia (manual) Anisocytosis (manual) Target Cells APTT Puncture Site pCO2 pO2 HCO3 ABG pH ABG Total CO2 ABG O2 Saturation ABG Base Excess ABG Hemoglobin ABG Carboxyhemoglobin POC ABG HHb (Measured) ABG Methemoglobin Ilir Test ABG Potassium A-a O2 Difference Respiratory Index Hgb O2 Saturation Glucose Lactate Mechanical Rate FiO2 Tidal Volume PEEP Sodium 134 Potassium 3.3 L Chloride 92 L Carbon Dioxide 25 Anion Gap 20 BUN 82 H Creatinine 2.6 H Est GFR ( Amer) 29 Est GFR (Non-Af Amer) 24 POC Glucose (mg/dL) 183 H 157 H Random Glucose 177 H Calcium 8.2 L Phosphorus 7.7 H Magnesium 2.4 H Total Creatine Kinase 112 CK-MB (Mass) 0.62 Troponin I, Quant 0.9620 H* Arterial Blood Potassium Stool Occult Blood 04/11/17 04/11/17 04/11/17 04:25 05:54 05:54 WBC 9.0 RBC 2.57 L Hgb 8.8 L Hct 25.2 L MCV 97.7 H MCH 34.3 H MCHC 35.1 RDW 15.0 H Plt Count 510 H MPV 7.6 Neut % (Auto) 86.7 H Lymph % (Auto) 10.4 L Norman % (Auto) 2.6 Eos % (Auto) 0.0 Baso % (Auto) 0.3 Neut # 7.8 H Lymph # 0.9 L Norman # 0.2 Eos # 0.0 Baso # 0.0 Neutrophils % (Manual) 94 H Band Neutrophils % 1 Lymphocytes % (Manual) 4 L Monocytes % (Manual) 1 Platelet Estimate Slightly increased H Polychromasia Slight Hypochromasia (manual) Slight Anisocytosis (manual) Slight Target Cells Slight APTT Puncture Site Lb pCO2 44 pO2 254 H HCO3 24.3 ABG pH 7.36 ABG Total CO2 26.3 ABG O2 Saturation 98.4 H ABG Base Excess -0.7 ABG Hemoglobin 11.7 ABG Carboxyhemoglobin 1.0 POC ABG HHb (Measured) 1.6 ABG Methemoglobin 1.9 Ilir Test Na ABG Potassium A-a O2 Difference 404.0 Respiratory Index 1.6 Hgb O2 Saturation 95.4 Glucose Lactate Mechanical Rate 20 FiO2 100.0 Tidal Volume 450 PEEP 10 Sodium 135 Potassium 3.6 Chloride 93 L Carbon Dioxide 27 Anion Gap 19 BUN 93 H Creatinine 2.5 H Est GFR ( Amer) 30 Est GFR (Non-Af Amer) 25 POC Glucose (mg/dL) Random Glucose 133 H Calcium 8.2 L Phosphorus 6.2 H Magnesium 2.5 H Total Creatine Kinase 79 CK-MB (Mass) 0.83 Troponin I, Quant 1.7700 H* Arterial Blood Potassium Stool Occult Blood 04/11/17 04/11/17 04/11/17 05:54 05:56 11:57 WBC RBC Hgb Hct MCV MCH MCHC RDW Plt Count MPV Neut % (Auto) Lymph % (Auto) Norman % (Auto) Eos % (Auto) Baso % (Auto) Neut # Lymph # Norman # Eos # Baso # Neutrophils % (Manual) Band Neutrophils % Lymphocytes % (Manual) Monocytes % (Manual) Platelet Estimate Polychromasia Hypochromasia (manual) Anisocytosis (manual) Target Cells APTT 64 H D Puncture Site pCO2 pO2 HCO3 ABG pH ABG Total CO2 ABG O2 Saturation ABG Base Excess ABG Hemoglobin ABG Carboxyhemoglobin POC ABG HHb (Measured) ABG Methemoglobin Ilir Test ABG Potassium A-a O2 Difference Respiratory Index Hgb O2 Saturation Glucose Lactate Mechanical Rate FiO2 Tidal Volume PEEP Sodium Potassium Chloride Carbon Dioxide Anion Gap BUN Creatinine Est GFR ( Amer) Est GFR (Non-Af Amer) POC Glucose (mg/dL) 134 H 145 H Random Glucose Calcium Phosphorus Magnesium Total Creatine Kinase CK-MB (Mass) Troponin I, Quant Arterial Blood Potassium Stool Occult Blood 04/11/17 12:03 WBC RBC Hgb Hct MCV MCH MCHC RDW Plt Count MPV Neut % (Auto) Lymph % (Auto) Norman % (Auto) Eos % (Auto) Baso % (Auto) Neut # Lymph # Norman # Eos # Baso # Neutrophils % (Manual) Band Neutrophils % Lymphocytes % (Manual) Monocytes % (Manual) Platelet Estimate Polychromasia Hypochromasia (manual) Anisocytosis (manual) Target Cells APTT Puncture Site pCO2 pO2 HCO3 ABG pH ABG Total CO2 ABG O2 Saturation ABG Base Excess ABG Hemoglobin ABG Carboxyhemoglobin POC ABG HHb (Measured) ABG Methemoglobin Ilir Test ABG Potassium A-a O2 Difference Respiratory Index Hgb O2 Saturation Glucose Lactate Mechanical Rate FiO2 Tidal Volume PEEP Sodium Potassium Chloride Carbon Dioxide Anion Gap BUN Creatinine Est GFR ( Amer) Est GFR (Non-Af Amer) POC Glucose (mg/dL) Random Glucose Calcium Phosphorus Magnesium Total Creatine Kinase CK-MB (Mass) Troponin I, Quant Arterial Blood Potassium Stool Occult Blood Positive H EKG/Cardiology Studies: Cardiology / EKG Studies 04/10/17 20:07 EKG [ELECTROCARDIOGRAM] Stat Comment: Mode Of Transportation: Reason For Exam: T wave inversions Assessment/Plan (1) Acute respiratory failure with hypoxia Current Visit: Yes Status: Acute Comment: Continue BiPAP Spoke with family at length and need for intubation if condition worsens Family unable to decide at this point Continue present medical management with diuretics, antibiotics (2) Congestive heart failure Current Visit: Yes Status: Acute (3) Coronary artery disease Current Visit: No Status: Chronic Attending/Attestation - Attestation I have personally seen and examined this patient.: Yes I have fully participated in the care of the patient.: Yes I have reviewed all pertinent clinical information: Yes Notes (Text): 04/11/17 12:54 Patient with acute respiratory failure. Pneumonia. Aspiration pneumonitis. CHF. Non-ST elevation IN. Slowly improving, will continue the current treatment. We'll follow the patient
[2017-04-11 13:33] LABS: ABG ALLEN TEST POS; ABG MECHANICAL RATE 20; ARTERIAL BLOOD HGB O2 SAT 96.6 % (95.0-98.0); ATERIAL BLOOD GAS PEEP 8; CARBOXYHEMOGLOBIN 1.6 % (0.5-1.5); DRAW SITE LRA; HHB 1.1 % (0.0-5.0); METHEMOGLOBIN 0.7 % (0.0-3.0)
--- NOTE | 2017-04-11 14:05 | CARD ---
APPROVED REPORT EKG Measurement Heart [id number] <Conclusion> Atrial fibrillation with rapid ventricular response Marked ST abnormality, possible anterolateral subendocardial injury Abnormal ECG
--- NOTE | 2017-04-11 16:54 | CP.PCM.PN ---
Subjective - Date & Time of Evaluation Date of Evaluation: 04/11/17 Time of Evaluation: 10:00 - Subjective Subjective: patient seen and examined in the intensive care unit. Patient intubated overnight for respiratory failure Sedated on ventilatory support requiring 100% FiO2 Spoke with family at length Objective - Vital Signs/Intake and Output Vital Signs (last 24 hours): Temp Pulse Resp BP Pulse Ox 97.6 F 88 27 H 104/64 98 04/11/17 16:00 04/11/17 16:00 04/11/17 16:00 04/11/17 16:00 04/11/17 16:00 Intake and Output: 04/11/17 04/11/17 06:59 18:59 Intake Total 1378.1 648.8 Output Total 615 355 Balance 763.1 293.8 - Medications Medications: Current Medications Albuterol/Ipratropium (Duoneb 3 Mg/0.5 Mg (3 Ml) Ud) 3 ml INH RQ6 [facility] Last Admin: 04/11/17 13:45 Dose: 3 ml Aspirin (Aspirin Chewable) 81 mg PO DAILY [facility] Last Admin: 04/11/17 09:24 Dose: 81 mg Calcium Acetate (Phoslo) 667 mg GT TID [facility] Last Admin: 04/11/17 14:09 Dose: 667 mg Clopidogrel Bisulfate (Plavix) 75 mg PO DAILY [facility] Last Admin: 04/11/17 09:24 Dose: 75 mg Heparin Sodium/Sodium Chloride (Heparin 02113 Units/250ml 1/2 Normal Saline) 25 ,000 units in 250 mls @ 0 mls/hr IV .Q0M PRN; Protocol; Per Protocol PRN Reason: PROTOCOL Last Admin: 04/11/17 09:25 Dose: 13 mls/hr Propofol (Diprivan) 1,000 mg in 100 mls @ 2.096 mls/hr IV .Q24H PRN; Protocol; 5 MCG/KG/MIN PRN Reason: TITRATE PER MD ORDER Last Admin: 04/11/17 11:24 Dose: 30 mcg/kg/min, 12.574 mls/hr Diltiazem HCl 125 mg/ Sodium (Chloride) 125 mls @ 10 mls/hr IV .[id number] ROCKY; 10 MG/HR PRN Reason: Protocol Last Admin: 04/11/17 09:23 Dose: Not Given Norepinephrine Bitartrate 8 mg (/ Sodium Chloride) 258 mls @ 7.74 mls/hr IV .Q24H PRN; Protocol; 4 MCG/MIN PRN Reason: TITRATE PER MD ORDER Last Titration: 04/11/17 06:43 Dose: 1 mcg/min, 1.93 mls/hr Piperacillin Sod/Tazobactam Sod (Zosyn 2.25 Gm Iv Premix) 2.25 gm in 50 mls @ 100 mls/hr IVPB Q8H [facility] Last Admin: 04/11/17 14:09 Dose: 100 mls/hr Insulin Human Regular (Novolin R) 0 unit SC Q6 ROCKY PRN Reason: Protocol Last Admin: 04/11/17 12:01 Dose: Not Given Pantoprazole Sodium (Protonix Inj) 40 mg IVP DAILY [facility] Last Admin: 04/11/17 09:24 Dose: 40 mg Rosuvastatin Calcium (Crestor) 20 mg PO HS [facility] Last Admin: 04/10/17 22:37 Dose: 20 mg - Labs Labs: 04/11/17 05:54 04/11/17 05:54 PT 11.8 SECONDS (9.7-12.2) 04/08/17 06:50 INR 1.1 04/08/17 06:50 APTT 64 SECONDS (21-34) H D 04/11/17 05:54 - Head Exam Head Exam: ATRAUMATIC, NORMOCEPHALIC - ENT Exam ENT Exam: Mucous Membranes Moist - Neck Exam Neck Exam: Normal Inspection - Respiratory Exam Respiratory Exam: Rales, Rhonchi - Cardiovascular Exam Cardiovascular Exam: REGULAR RHYTHM - GI/Abdominal Exam GI & Abdominal Exam: Soft, Normal Bowel Sounds Assessment and Plan (1) Acute respiratory failure with hypoxia Assessment & Plan: intubated overnight for worsening condition Reduce FiO2 as tolerated Continue antibiotics and diuretics Status: Acute (2) Congestive heart failure Status: Acute (3) Coronary artery disease Status: Chronic
--- NOTE | 2017-04-11 17:15 | CP.PCM.PN ---
Subjective - Date & Time of Evaluation Date of Evaluation: 04/11/17 Time of Evaluation: 09:00 - Subjective Subjective: Patient seen, in ICU, intubated, Discussion with staff ARDS, vs CHF versus pneumonia on antibiotic Objective - Vital Signs/Intake and Output Vital Signs (last 24 hours): Temp Pulse Resp BP Pulse Ox 97.6 F 88 27 H 104/64 98 04/11/17 16:00 04/11/17 16:00 04/11/17 16:00 04/11/17 16:00 04/11/17 16:00 Intake and Output: 04/11/17 04/11/17 06:59 18:59 Intake Total 1378.1 648.8 Output Total 615 355 Balance 763.1 293.8 - Medications Medications: Current Medications Albuterol/Ipratropium (Duoneb 3 Mg/0.5 Mg (3 Ml) Ud) 3 ml INH RQ6 [facility] Last Admin: 04/11/17 13:45 Dose: 3 ml Aspirin (Aspirin Chewable) 81 mg PO DAILY [facility] Last Admin: 04/11/17 09:24 Dose: 81 mg Calcium Acetate (Phoslo) 667 mg GT TID [facility] Last Admin: 04/11/17 14:09 Dose: 667 mg Clopidogrel Bisulfate (Plavix) 75 mg PO DAILY [facility] Last Admin: 04/11/17 09:24 Dose: 75 mg Heparin Sodium/Sodium Chloride (Heparin 94676 Units/250ml 1/2 Normal Saline) 25 ,000 units in 250 mls @ 0 mls/hr IV .Q0M PRN; Protocol; Per Protocol PRN Reason: PROTOCOL Last Admin: 04/11/17 09:25 Dose: 13 mls/hr Propofol (Diprivan) 1,000 mg in 100 mls @ 2.096 mls/hr IV .Q24H PRN; Protocol; 5 MCG/KG/MIN PRN Reason: TITRATE PER MD ORDER Last Admin: 04/11/17 11:24 Dose: 30 mcg/kg/min, 12.574 mls/hr Diltiazem HCl 125 mg/ Sodium (Chloride) 125 mls @ 10 mls/hr IV .[id number] [facility]; 10 MG/HR PRN Reason: Protocol Last Admin: 04/11/17 09:23 Dose: Not Given Norepinephrine Bitartrate 8 mg (/ Sodium Chloride) 258 mls @ 7.74 mls/hr IV .Q24H PRN; Protocol; 4 MCG/MIN PRN Reason: TITRATE PER MD ORDER Last Titration: 04/11/17 06:43 Dose: 1 mcg/min, 1.93 mls/hr Piperacillin Sod/Tazobactam Sod (Zosyn 2.25 Gm Iv Premix) 2.25 gm in 50 mls @ 100 mls/hr IVPB Q8H [facility] Last Admin: 04/11/17 14:09 Dose: 100 mls/hr Insulin Human Regular (Novolin R) 0 unit SC Q6 [facility] PRN Reason: Protocol Last Admin: 04/11/17 12:01 Dose: Not Given Pantoprazole Sodium (Protonix Inj) 40 mg IVP DAILY [facility] Last Admin: 04/11/17 09:24 Dose: 40 mg Rosuvastatin Calcium (Crestor) 20 mg PO HS [facility] Last Admin: 04/10/17 22:37 Dose: 20 mg - Labs Labs: 04/11/17 05:54 04/11/17 05:54 PT 11.8 SECONDS (9.7-12.2) 04/08/17 06:50 INR 1.1 04/08/17 06:50 APTT 64 SECONDS (21-34) H D 04/11/17 05:54 - Constitutional Appears: Other (intubated sedated ) - Head Exam Head Exam: ATRAUMATIC, NORMOCEPHALIC - Eye Exam Eye Exam: absent: Nystagmus - ENT Exam ENT Exam: Mucous Membranes Moist - Respiratory Exam Respiratory Exam: Decreased Breath Sounds - Cardiovascular Exam Cardiovascular Exam: REGULAR RHYTHM - GI/Abdominal Exam GI & Abdominal Exam: Soft, Normal Bowel Sounds. absent: Distended - Neurological Exam Neurological Exam: Altered (sedated ) Assessment and Plan - Assessment and Plan (Free Text) Assessment: Patient with DM Hypertension CAD S/P CABG- admitted for respiratory distress with no improvement with BIPAP- currently intubated on antibiotic,in ICU care Anemia-follow up
--- NOTE | 2017-04-11 17:39 | CP.PCM.PN ---
<Ambreen Washburn - Last Filed: 04/11/17 17:37> Subjective - Date & Time of Evaluation Date of Evaluation: 04/11/17 Time of Evaluation: 17:37 - Subjective Subjective: PGY-[address] Wynn Pt seen and examined with family by bedside. Intubated Objective - Vital Signs/Intake and Output Vital Signs (last 24 hours): Temp Pulse Resp BP Pulse Ox 97.6 F 75 26 H 96/60 L 100 04/11/17 16:00 04/11/17 17:00 04/11/17 17:00 04/11/17 17:00 04/11/17 17:00 Intake and Output: 04/11/17 04/11/17 06:59 18:59 Intake Total 1378.1 704.4 Output Total 615 390 Balance 763.1 314.4 - Medications Medications: Current Medications Albuterol/Ipratropium (Duoneb 3 Mg/0.5 Mg (3 Ml) Ud) 3 ml INH RQ6 [facility] Last Admin: 04/11/17 13:45 Dose: 3 ml Aspirin (Aspirin Chewable) 81 mg PO DAILY [facility] Last Admin: 04/11/17 09:24 Dose: 81 mg Calcium Acetate (Phoslo) 667 mg GT TID [facility] Last Admin: 04/11/17 14:09 Dose: 667 mg Clopidogrel Bisulfate (Plavix) 75 mg PO DAILY [facility] Last Admin: 04/11/17 09:24 Dose: 75 mg Heparin Sodium/Sodium Chloride (Heparin 86283 Units/250ml 1/2 Normal Saline) 25 ,000 units in 250 mls @ 0 mls/hr IV .Q0M PRN; Protocol; Per Protocol PRN Reason: PROTOCOL Last Admin: 04/11/17 09:25 Dose: 13 mls/hr Propofol (Diprivan) 1,000 mg in 100 mls @ 2.096 mls/hr IV .Q24H PRN; Protocol; 5 MCG/KG/MIN PRN Reason: TITRATE PER MD ORDER Last Admin: 04/11/17 11:24 Dose: 30 mcg/kg/min, 12.574 mls/hr Diltiazem HCl 125 mg/ Sodium (Chloride) 125 mls @ 10 mls/hr IV .[id number] [facility]; 10 MG/HR PRN Reason: Protocol Last Admin: 04/11/17 09:23 Dose: Not Given Norepinephrine Bitartrate 8 mg (/ Sodium Chloride) 258 mls @ 7.74 mls/hr IV .Q24H PRN; Protocol; 4 MCG/MIN PRN Reason: TITRATE PER MD ORDER Last Titration: 04/11/17 06:43 Dose: 1 mcg/min, 1.93 mls/hr Piperacillin Sod/Tazobactam Sod (Zosyn 2.25 Gm Iv Premix) 2.25 gm in 50 mls @ 100 mls/hr IVPB Q8H [facility] Last Admin: 04/11/17 14:09 Dose: 100 mls/hr Insulin Human Regular (Novolin R) 0 unit SC Q6 [facility] PRN Reason: Protocol Last Admin: 04/11/17 12:01 Dose: Not Given Pantoprazole Sodium (Protonix Inj) 40 mg IVP DAILY [facility] Last Admin: 04/11/17 09:24 Dose: 40 mg Rosuvastatin Calcium (Crestor) 20 mg PO HS [facility] Last Admin: 04/10/17 22:37 Dose: 20 mg - Labs Labs: 04/11/17 05:54 04/11/17 05:54 PT 11.8 SECONDS (9.7-12.2) 04/08/17 06:50 INR 1.1 04/08/17 06:50 APTT 64 SECONDS (21-34) H D 04/11/17 05:54 - Constitutional Appears: Other (intubated) - Head Exam Head Exam: ATRAUMATIC, NORMOCEPHALIC - ENT Exam Additional comments: intubated - Respiratory Exam Respiratory Exam: Decreased Breath Sounds, Rales. absent: Rhonchi, Wheezes - Cardiovascular Exam Cardiovascular Exam: REGULAR RHYTHM, +S1, +S2 - GI/Abdominal Exam GI & Abdominal Exam: Soft. absent: Guarding, Rigid - Extremities Exam Extremities Exam: Pedal Edema - Neurological Exam Additional comments: intubated - Psychiatric Exam Psychiatric exam: Flat Affect - Skin Skin Exam: Dry, Warm Assessment and Plan - Assessment and Plan (Free Text) Plan: 82 M with PMH of CAD s/p CABG, CHF, HTN, COPD (not on home O2), CKD 3A, Liver mass, admitted to ICU for CHF exacerbation requiring bipap vs PNA with Hx of recent hospitalization. Trop is positive. 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 Pt was apneic over the weekend, developed a-fib RVR. Pt was intubated on PRVC. A-fib rvr - resolved - OFF cardizem gtt - Consider cardizem PRN Shock, cardiogenic vs septic from PNA - Levaphid gtt Elevated trops NSTEMI - Possible type 2 [place] vs ventricular stretch from overload vs decrease clearance - Heparin gtt - No plan for cardiac cath now until pt medically stablize CHF, system, acute on chronic - lasix 60 IV BID - Echo: low EF 30-35% - lifevest of 3 months - repeat echo in 3 months to assess need for permanant icd Hx CAD s/p CABG - asa, Metoprolol 12.5 BID, Metolazone 5 daily, lasix - lipid, A1C S/R/D/w Dr. Wynn <Krishna Wynn - Last Filed: 04/11/17 20:39> Objective - Vital Signs/Intake and Output Vital Signs (last 24 hours): Temp Pulse Resp BP Pulse Ox 97.6 F 79 26 H 100/41 L 100 04/11/17 16:00 04/11/17 19:00 04/11/17 19:00 04/11/17 19:00 04/11/17 19:00 Intake and Output: 04/11/17 04/12/17 18:59 06:59 Intake Total 807.0 211.2 Output Total 435 55 Balance 372.0 156.2 - Medications Medications: Current Medications Albuterol/Ipratropium (Duoneb 3 Mg/0.5 Mg (3 Ml) Ud) 3 ml INH RQ6 [facility] Last Admin: 04/11/17 19:30 Dose: 3 ml Aspirin (Aspirin Chewable) 81 mg PO DAILY [facility] Last Admin: 04/11/17 09:24 Dose: 81 mg Calcium Acetate (Phoslo) 667 mg GT TID [facility] Last Admin: 04/11/17 17:46 Dose: 667 mg Clopidogrel Bisulfate (Plavix) 75 mg PO DAILY [facility] Last Admin: 04/11/17 09:24 Dose: 75 mg Heparin Sodium/Sodium Chloride (Heparin 21492 Units/250ml 1/2 Normal Saline) 25 ,000 units in 250 mls @ 0 mls/hr IV .Q0M PRN; Protocol; Per Protocol PRN Reason: PROTOCOL Last Admin: 04/11/17 09:25 Dose: 13 mls/hr Propofol (Diprivan) 1,000 mg in 100 mls @ 2.096 mls/hr IV .Q24H PRN; Protocol; 5 MCG/KG/MIN PRN Reason: TITRATE PER MD ORDER Last Admin: 04/11/17 20:16 Dose: 30 mcg/kg/min, 12.574 mls/hr Diltiazem HCl 125 mg/ Sodium (Chloride) 125 mls @ 10 mls/hr IV .[id number] [facility]; 10 MG/HR PRN Reason: Protocol Last Admin: 04/11/17 09:23 Dose: Not Given Norepinephrine Bitartrate 8 mg (/ Sodium Chloride) 258 mls @ 7.74 mls/hr IV .Q24H PRN; Protocol; 4 MCG/MIN PRN Reason: TITRATE PER MD ORDER Last Titration: 04/11/17 10:10 Dose: 0 mcg/min, 0 mls/hr Piperacillin Sod/Tazobactam Sod (Zosyn 2.25 Gm Iv Premix) 2.25 gm in 50 mls @ 100 mls/hr IVPB Q8H [facility] Last Admin: 04/11/17 14:09 Dose: 100 mls/hr Insulin Human Regular (Novolin R) 0 unit SC Q6 [facility] PRN Reason: Protocol Last Admin: 04/11/17 17:46 Dose: 2 unit Pantoprazole Sodium (Protonix Inj) 40 mg IVP DAILY [facility] Last Admin: 04/11/17 09:24 Dose: 40 mg Rosuvastatin Calcium (Crestor) 20 mg PO HS [facility] Last Admin: 04/10/17 22:37 Dose: 20 mg - Labs Labs: 04/11/17 17:41 04/11/17 05:54 PT 11.8 SECONDS (9.7-12.2) 04/08/17 06:50 INR 1.1 04/08/17 06:50 APTT 64 SECONDS (21-34) H D 04/11/17 05:54 Assessment and Plan - Assessment and Plan (Free Text) Assessment: Patient seen and evaluated with the medical office coordinator Agree with the plan of care
[2017-04-11 18:04] LABS: MEAN CORPUSCULAR HGB CONC 34.7 g/dL (33.0-37.0); MEAN PLATELET VOLUME 7.2 fL (7.2-11.7)
[2017-04-11 18:06] LABS: HEMATOCRIT 24.6 % (35.0-51.0); MEAN CELL VOLUME 96.5 fL (80.0-94.0); MEAN CORPUSCULAR HEMOGLOBIN 33.5 pg (27.0-31.0); PLATELET COUNT 418 K/uL (130-400); RED CELL DISTRIBUTION WIDTH 15.2 % (11.5-14.5); WHITE BLOOD COUNT 8.5 K/uL (4.8-10.8)
[2017-04-11 19:23] LABS: NEUTROPHIL 89 % (50-75); TOTAL CELLS COUNTED 100
--- NOTE | 2017-04-11 19:54 | CP.PCM.CON ---
<Ankit Varner - Last Filed: 04/11/17 19:41> History of Present Illness - History of Present Illness History of Present Illness: EP-Cardio Consult Note for Dr. Vitaliy Varner PGY-1, Internal Medicine Consulted for: Life Vest with EF 37% HPI: Pt is an 82 yo M with PMH of CAD s/p CABG, CHF, HTN, COPD (not on home O2), liver mass, CKD 3, and DM who came in on 04/06/17 for an acute exacerbation of his CHF; pt was SOB and had CP. Patient was found to have positive troponins respiratory distress, prompting initiation of BiPAP and admission to the ICU. Overnight, he went into respiratory arrest, necessitating intubation/mechanical ventilation. Last CHF exacerbation was February 2017, which was not followed up with cardiac rehab. We were consulted for implementation of life vest given low EF%. As per chart the patient went into respiratory arrest yesterday requiring intubation. Pt is currently sedated and intubated at time of exam, so ROS not obtainable. PMHx: CAD s/p CABG x2 ( 1995, 2000); HTN, CKD 3A, DM2, COPD (no home O2), CHF, Liver mass (no intervention requested) SHx: CABG x 2 (1995, 2000) FHx: none Social: former smoker, quite 30 years ago; denies ETOH and Drug use Allergies: NKDA, NKA Home meds: ASA, KCL, Lasix, HCTZ 25mg, Losartan 50 mg PMD: Dr. 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 Imaging: CXR - B/L pneumonia vs pulmonary edema; Small R pleural effusion; mild congestive changes; s/p CABG Review of Systems - Review of Systems Systems not reviewed;Unavailable: Intubated Past Patient History - Infectious Disease Hx of Infectious Diseases: None - Tetanus Immunizations Tetanus Immunization: Unknown - Past Medical History & Family History Past Medical History?: Yes - Past Social History Smoking Status: Former Smoker - CARDIAC Hx Congestive Heart Failure: Yes Hx Hypertension: Yes - PULMONARY Hx Chronic Obstructive Pulmonary Disease (COPD): Yes - NEUROLOGICAL Hx Neurological Disorder: No - HEENT Hx HEENT Problems: Yes Hx Cataracts: Yes - RENAL Hx Chronic Kidney Disease: No - ENDOCRINE/METABOLIC Hx Endocrine Disorders: Yes Hx Diabetes Mellitus Type 2: Yes - HEMATOLOGICAL/ONCOLOGICAL Hx Blood Disorders: No - INTEGUMENTARY Hx Dermatological Problems: No - MUSCULOSKELETAL/RHEUMATOLOGICAL Hx Falls: No - GASTROINTESTINAL Hx Gastrointestinal Disorders: No - GENITOURINARY/GYNECOLOGICAL Hx Genitourinary Disorders: No Hx Prostate Problems: Yes - PSYCHIATRIC Hx Psychophysiologic Disorder: No Hx Substance Use: No - SURGICAL HISTORY Hx Coronary Artery Bypass Graft: Yes (2x) - ANESTHESIA Hx Anesthesia: Yes Hx Anesthesia Reactions: No Hx Malignant Hyperthermia: No Meds Allergies/Adverse Reactions: Allergies Allergy/AdvReac Type Severity Reaction Status Date / Time No Known Allergies Allergy Unverified 04/08/17 06:27 - Medications Medications: Current Medications Albuterol/Ipratropium (Duoneb 3 Mg/0.5 Mg (3 Ml) Ud) 3 ml INH RQ6 [facility] Last Admin: 04/11/17 19:30 Dose: 3 ml Aspirin (Aspirin Chewable) 81 mg PO DAILY [facility] Last Admin: 04/11/17 09:24 Dose: 81 mg Calcium Acetate (Phoslo) 667 mg GT TID [facility] Last Admin: 04/11/17 17:46 Dose: 667 mg Clopidogrel Bisulfate (Plavix) 75 mg PO DAILY [facility] Last Admin: 04/11/17 09:24 Dose: 75 mg Heparin Sodium/Sodium Chloride (Heparin 06905 Units/250ml 1/2 Normal Saline) 25 ,000 units in 250 mls @ 0 mls/hr IV .Q0M PRN; Protocol; Per Protocol PRN Reason: PROTOCOL Last Admin: 04/11/17 09:25 Dose: 13 mls/hr Propofol (Diprivan) 1,000 mg in 100 mls @ 2.096 mls/hr IV .Q24H PRN; Protocol; 5 MCG/KG/MIN PRN Reason: TITRATE PER MD ORDER Last Admin: 04/11/17 11:24 Dose: 30 mcg/kg/min, 12.574 mls/hr Diltiazem HCl 125 mg/ Sodium (Chloride) 125 mls @ 10 mls/hr IV .[id number] ROCKY; 10 MG/HR PRN Reason: Protocol Last Admin: 04/11/17 09:23 Dose: Not Given Norepinephrine Bitartrate 8 mg (/ Sodium Chloride) 258 mls @ 7.74 mls/hr IV .Q24H PRN; Protocol; 4 MCG/MIN PRN Reason: TITRATE PER MD ORDER Last Titration: 04/11/17 10:10 Dose: 0 mcg/min, 0 mls/hr Piperacillin Sod/Tazobactam Sod (Zosyn 2.25 Gm Iv Premix) 2.25 gm in 50 mls @ 100 mls/hr IVPB Q8H [facility] Last Admin: 04/11/17 14:09 Dose: 100 mls/hr Insulin Human Regular (Novolin R) 0 unit SC Q6 [facility] PRN Reason: Protocol Last Admin: 04/11/17 17:46 Dose: 2 unit Pantoprazole Sodium (Protonix Inj) 40 mg IVP DAILY [facility] Last Admin: 04/11/17 09:24 Dose: 40 mg Rosuvastatin Calcium (Crestor) 20 mg PO HS [facility] Last Admin: 04/10/17 22:37 Dose: 20 mg Physical Exam - Additional Findings Additional findings: - Constitutional Appears: Intubated and sedated, unresponsive to stimuli, Ill-appearing - Head Exam Head Exam: ATRAUMATIC, NORMOCEPHALIC - ENT Exam ENT Exam: ETT in place. Absent: JVD - Respiratory Exam Respiratory Exam: Decreased Breath Sounds, Rales (mild rales diffusely in all street). absent: Rhonchi, Wheezes - Cardiovascular Exam Cardiovascular Exam: REGULAR RHYTHM, +S1, +S2, Difficult to auscultate due to diffuse breath sounds - GI/Abdominal Exam GI & Abdominal Exam: Soft. absent: Guarding, Rigid, Firm - Extremities Exam Extremities Exam: Pedal Edema (+1 pitting edema in B/L LE), Pedal pulses ( faintly palpable dorsalis pedis bilaterally). Absent: Erythema, Asymmetric swelling - Neurological Exam Neurological Exam: intubated and sedated, no spontaneous extremities movement noted, some withdrawal from Noxious pain stimuli, GCS: [id number] - Psychiatric Exam Psychiatric exam: Unable to assess 2/2 sedation - Skin Skin Exam: Dry, Warm, Intact, Normal Color Results - Vital Signs Recent Vital Signs: Last Vital Signs Temp 97.6 F 04/11/17 16:00 Pulse 79 04/11/17 19:00 Resp 26 H 04/11/17 19:00 BP 100/41 L 04/11/17 19:00 Pulse Ox 100 04/11/17 19:00 - Labs Result Diagrams: 04/11/17 17:41 04/11/17 05:54 Labs: Laboratory Results - last 24 hr 04/08/17 04/08/17 04/08/17 11:28 16:08 20:59 WBC RBC Hgb Hct MCV MCH MCHC RDW Plt Count MPV Neut % (Auto) Lymph % (Auto) [place] % (Auto) Eos % (Auto) Baso % (Auto) Neut # Lymph # [place] # Eos # Baso # Neutrophils % (Manual) Band Neutrophils % Lymphocytes % (Manual) Monocytes % (Manual) Platelet Estimate Polychromasia Hypochromasia (manual) Anisocytosis (manual) Target Cells APTT Puncture Site pCO2 pO2 HCO3 ABG pH ABG Total CO2 ABG O2 Saturation ABG Base Excess ABG Hemoglobin ABG Carboxyhemoglobin POC ABG HHb (Measured) ABG Methemoglobin Ilir Test ABG Potassium A-a O2 Difference Respiratory Index Hgb O2 Saturation Glucose Lactate Mechanical Rate FiO2 Tidal Volume PEEP Sodium Potassium Chloride Carbon Dioxide Anion Gap BUN Creatinine Est GFR ( Amer) Est GFR (Non-Af Amer) POC Glucose (mg/dL) 113 H 107 102 Random Glucose Calcium Phosphorus Magnesium Total Creatine Kinase CK-MB (Mass) Troponin I, Quant Procalcitonin Arterial Blood Potassium Stool Occult Blood Blood Type Antibody Screen 04/09/17 04/09/17 04/09/17 08:02 11:26 16:24 WBC RBC Hgb Hct MCV MCH MCHC RDW Plt Count MPV Neut % (Auto) Lymph % (Auto) [place] % (Auto) Eos % (Auto) Baso % (Auto) Neut # Lymph # [place] # Eos # Baso # Neutrophils % (Manual) Band Neutrophils % Lymphocytes % (Manual) Monocytes % (Manual) Platelet Estimate Polychromasia Hypochromasia (manual) Anisocytosis (manual) Target Cells APTT Puncture Site pCO2 pO2 HCO3 ABG pH ABG Total CO2 ABG O2 Saturation ABG Base Excess ABG Hemoglobin ABG Carboxyhemoglobin POC ABG HHb (Measured) ABG Methemoglobin Ilir Test ABG Potassium A-a O2 Difference Respiratory Index Hgb O2 Saturation Glucose Lactate Mechanical Rate FiO2 Tidal Volume PEEP Sodium Potassium Chloride Carbon Dioxide Anion Gap BUN Creatinine Est GFR ( Amer) Est GFR (Non-Af Amer) POC Glucose (mg/dL) 117 H 122 H 126 H Random Glucose Calcium Phosphorus Magnesium Total Creatine Kinase CK-MB (Mass) Troponin I, Quant Procalcitonin Arterial Blood Potassium Stool Occult Blood Blood Type Antibody Screen 04/09/17 04/10/17 04/10/17 20:57 07:14 11:52 WBC RBC Hgb Hct MCV MCH MCHC RDW Plt Count MPV Neut % (Auto) Lymph % (Auto) [place] % (Auto) Eos % (Auto) Baso % (Auto) Neut # Lymph # [place] # Eos # Baso # Neutrophils % (Manual) Band Neutrophils % Lymphocytes % (Manual) Monocytes % (Manual) Platelet Estimate Polychromasia Hypochromasia (manual) Anisocytosis (manual) Target Cells APTT Puncture Site pCO2 pO2 HCO3 ABG pH ABG Total CO2 ABG O2 Saturation ABG Base Excess ABG Hemoglobin ABG Carboxyhemoglobin POC ABG HHb (Measured) ABG Methemoglobin Ilir Test ABG Potassium A-a O2 Difference Respiratory Index Hgb O2 Saturation Glucose Lactate Mechanical Rate FiO2 Tidal Volume PEEP Sodium Potassium Chloride Carbon Dioxide Anion Gap BUN Creatinine Est GFR ( Amer) Est GFR (Non-Af Amer) POC Glucose (mg/dL) 132 H 139 H 150 H Random Glucose Calcium Phosphorus Magnesium Total Creatine Kinase CK-MB (Mass) Troponin I, Quant Procalcitonin Arterial Blood Potassium Stool Occult Blood Blood Type Antibody Screen 04/10/17 04/10/17 04/10/17 16:08 20:07 20:30 WBC RBC Hgb Hct MCV MCH MCHC RDW Plt Count MPV Neut % (Auto) Lymph % (Auto) [place] % (Auto) Eos % (Auto) Baso % (Auto) Neut # Lymph # [place] # Eos # Baso # Neutrophils % (Manual) Band Neutrophils % Lymphocytes % (Manual) Monocytes % (Manual) Platelet Estimate Polychromasia Hypochromasia (manual) Anisocytosis (manual) Target Cells APTT Puncture Site Rra pCO2 48 H pO2 54 L HCO3 23.2 ABG pH 7.32 L ABG Total CO2 26.2 ABG O2 Saturation 86.3 L ABG Base Excess -1.8 ABG Hemoglobin ABG Carboxyhemoglobin POC ABG HHb (Measured) ABG Methemoglobin Ilir Test Pos ABG Potassium 3.1 L A-a O2 Difference 599.0 Respiratory Index 11.1 Hgb O2 Saturation Glucose 167 H Lactate 2.7 H Mechanical Rate FiO2 100.0 Tidal Volume 450 PEEP 10 Sodium Cancelled 139.0 Potassium Cancelled Chloride Cancelled 100.0 Carbon Dioxide Cancelled Anion Gap Cancelled BUN Cancelled Creatinine Cancelled Est GFR ( Amer) Cancelled Est GFR (Non-Af Amer) Cancelled POC Glucose (mg/dL) 126 H Random Glucose Cancelled Calcium Cancelled Phosphorus Cancelled Magnesium Cancelled Total Creatine Kinase Cancelled CK-MB (Mass) Cancelled Troponin I, Quant Cancelled Procalcitonin Arterial Blood Potassium 3.1 L Stool Occult Blood Blood Type Antibody Screen 04/10/17 04/10/17 04/10/17 21:09 21:24 23:51 WBC RBC Hgb Hct MCV MCH MCHC RDW Plt Count MPV Neut % (Auto) Lymph % (Auto) [place] % (Auto) Eos % (Auto) Baso % (Auto) Neut # Lymph # [place] # Eos # Baso # Neutrophils % (Manual) Band Neutrophils % Lymphocytes % (Manual) Monocytes % (Manual) Platelet Estimate Polychromasia Hypochromasia (manual) Anisocytosis (manual) Target Cells APTT Puncture Site pCO2 pO2 HCO3 ABG pH ABG Total CO2 ABG O2 Saturation ABG Base Excess ABG Hemoglobin ABG Carboxyhemoglobin POC ABG HHb (Measured) ABG Methemoglobin Ilir Test ABG Potassium A-a O2 Difference Respiratory Index Hgb O2 Saturation Glucose Lactate Mechanical Rate FiO2 Tidal Volume PEEP Sodium 134 Potassium 3.3 L Chloride 92 L Carbon Dioxide 25 Anion Gap 20 BUN 82 H Creatinine 2.6 H Est GFR ( Amer) 29 Est GFR (Non-Af Amer) 24 POC Glucose (mg/dL) 183 H 157 H Random Glucose 177 H Calcium 8.2 L Phosphorus 7.7 H Magnesium 2.4 H Total Creatine Kinase 112 CK-MB (Mass) 0.62 Troponin I, Quant 0.9620 H* Procalcitonin Arterial Blood Potassium Stool Occult Blood Blood Type Antibody Screen 04/11/17 04/11/17 04/11/17 04:25 05:54 05:54 WBC 9.0 RBC 2.57 L Hgb 8.8 L Hct 25.2 L MCV 97.7 H MCH 34.3 H MCHC 35.1 RDW 15.0 H Plt Count 510 H MPV 7.6 Neut % (Auto) 86.7 H Lymph % (Auto) 10.4 L [place] % (Auto) 2.6 Eos % (Auto) 0.0 Baso % (Auto) 0.3 Neut # 7.8 H Lymph # 0.9 L [place] # 0.2 Eos # 0.0 Baso # 0.0 Neutrophils % (Manual) 94 H Band Neutrophils % 1 Lymphocytes % (Manual) 4 L Monocytes % (Manual) 1 Platelet Estimate Slightly increased H Polychromasia Slight Hypochromasia (manual) Slight Anisocytosis (manual) Slight Target Cells Slight APTT Puncture Site Lb pCO2 44 pO2 254 H HCO3 24.3 ABG pH 7.36 ABG Total CO2 26.3 ABG O2 Saturation 98.4 H ABG Base Excess -0.7 ABG Hemoglobin 11.7 ABG Carboxyhemoglobin 1.0 POC ABG HHb (Measured) 1.6 ABG Methemoglobin 1.9 Ilir Test Na ABG Potassium A-a O2 Difference 404.0 Respiratory Index 1.6 Hgb O2 Saturation 95.4 Glucose Lactate Mechanical Rate 20 FiO2 100.0 Tidal Volume 450 PEEP 10 Sodium Potassium Chloride Carbon Dioxide Anion Gap BUN Creatinine Est GFR ( Amer) Est GFR (Non-Af Amer) POC Glucose (mg/dL) Random Glucose Calcium Phosphorus Magnesium Total Creatine Kinase CK-MB (Mass) Troponin I, Quant Procalcitonin 6.96 H Arterial Blood Potassium Stool Occult Blood Blood Type Antibody Screen 04/11/17 04/11/17 04/11/17 05:54 05:54 05:56 WBC RBC Hgb Hct MCV MCH MCHC RDW Plt Count MPV Neut % (Auto) Lymph % (Auto) [place] % (Auto) Eos % (Auto) Baso % (Auto) Neut # Lymph # [place] # Eos # Baso # Neutrophils % (Manual) Band Neutrophils % Lymphocytes % (Manual) Monocytes % (Manual) Platelet Estimate Polychromasia Hypochromasia (manual) Anisocytosis (manual) Target Cells APTT 64 H D Puncture Site pCO2 pO2 HCO3 ABG pH ABG Total CO2 ABG O2 Saturation ABG Base Excess ABG Hemoglobin ABG Carboxyhemoglobin POC ABG HHb (Measured) ABG Methemoglobin Ilir Test ABG Potassium A-a O2 Difference Respiratory Index Hgb O2 Saturation Glucose Lactate Mechanical Rate FiO2 Tidal Volume PEEP Sodium 135 Potassium 3.6 Chloride 93 L Carbon Dioxide 27 Anion Gap 19 BUN 93 H Creatinine 2.5 H Est GFR ( Amer) 30 Est GFR (Non-Af Amer) 25 POC Glucose (mg/dL) 134 H Random Glucose 133 H Calcium 8.2 L Phosphorus 6.2 H Magnesium 2.5 H Total Creatine Kinase 79 CK-MB (Mass) 0.83 Troponin I, Quant 1.7700 H* Procalcitonin Arterial Blood Potassium Stool Occult Blood Blood Type Antibody Screen 04/11/17 04/11/17 04/11/17 10:18 11:57 12:03 WBC RBC Hgb Hct MCV MCH MCHC RDW Plt Count MPV Neut % (Auto) Lymph % (Auto) [place] % (Auto) Eos % (Auto) Baso % (Auto) Neut # Lymph # [place] # Eos # Baso # Neutrophils % (Manual) Band Neutrophils % Lymphocytes % (Manual) Monocytes % (Manual) Platelet Estimate Polychromasia Hypochromasia (manual) Anisocytosis (manual) Target Cells APTT Puncture Site pCO2 pO2 HCO3 ABG pH ABG Total CO2 ABG O2 Saturation ABG Base Excess ABG Hemoglobin ABG Carboxyhemoglobin POC ABG HHb (Measured) ABG Methemoglobin Ilir Test ABG Potassium A-a O2 Difference Respiratory Index Hgb O2 Saturation Glucose Lactate Mechanical Rate FiO2 Tidal Volume PEEP Sodium Potassium Chloride Carbon Dioxide Anion Gap BUN Creatinine Est GFR ( Amer) Est GFR (Non-Af Amer) POC Glucose (mg/dL) 145 H Random Glucose Calcium Phosphorus Magnesium Total Creatine Kinase CK-MB (Mass) Troponin I, Quant Procalcitonin 6.56 H Arterial Blood Potassium Stool Occult Blood Positive H Blood Type Antibody Screen 04/11/17 04/11/17 04/11/17 13:26 17:40 17:41 WBC 8.5 RBC 2.55 L Hgb 8.5 L Hct 24.6 L MCV 96.5 H MCH 33.5 H MCHC 34.7 RDW 15.2 H Plt Count 418 H MPV 7.2 Neut % (Auto) Lymph % (Auto) [place] % (Auto) Eos % (Auto) Baso % (Auto) Neut # Lymph # [place] # Eos # Baso # Neutrophils % (Manual) 89 H Band Neutrophils % 4 H Lymphocytes % (Manual) 5 L Monocytes % (Manual) 2 Platelet Estimate Normal Polychromasia Hypochromasia (manual) Anisocytosis (manual) Target Cells APTT Puncture Site Lra pCO2 40 pO2 107 H HCO3 25.5 ABG pH 7.41 ABG Total CO2 26.6 ABG O2 Saturation 98.9 H ABG Base Excess 0.7 ABG Hemoglobin 13.7 ABG Carboxyhemoglobin 1.6 H POC ABG HHb (Measured) 1.1 ABG Methemoglobin 0.7 Ilir Test Pos ABG Potassium A-a O2 Difference 271.0 Respiratory Index 2.5 Hgb O2 Saturation 96.6 Glucose Lactate Mechanical Rate 20 FiO2 60.0 Tidal Volume 500 PEEP 8 Sodium Potassium Chloride Carbon Dioxide Anion Gap BUN Creatinine Est GFR ( Amer) Est GFR (Non-Af Amer) POC Glucose (mg/dL) 183 H Random Glucose Calcium Phosphorus Magnesium Total Creatine Kinase CK-MB (Mass) Troponin I, Quant Procalcitonin Arterial Blood Potassium Stool Occult Blood Blood Type Antibody Screen 04/11/17 17:41 WBC RBC Hgb Hct MCV MCH MCHC RDW Plt Count MPV Neut % (Auto) Lymph % (Auto) [place] % (Auto) Eos % (Auto) Baso % (Auto) Neut # Lymph # [place] # Eos # Baso # Neutrophils % (Manual) Band Neutrophils % Lymphocytes % (Manual) Monocytes % (Manual) Platelet Estimate Polychromasia Hypochromasia (manual) Anisocytosis (manual) Target Cells APTT Puncture Site pCO2 pO2 HCO3 ABG pH ABG Total CO2 ABG O2 Saturation ABG Base Excess ABG Hemoglobin ABG Carboxyhemoglobin POC ABG HHb (Measured) ABG Methemoglobin Ilir Test ABG Potassium A-a O2 Difference Respiratory Index Hgb O2 Saturation Glucose Lactate Mechanical Rate FiO2 Tidal Volume PEEP Sodium Potassium Chloride Carbon Dioxide Anion Gap BUN Creatinine Est GFR ( Amer) Est GFR (Non-Af Amer) POC Glucose (mg/dL) Random Glucose Calcium Phosphorus Magnesium Total Creatine Kinase CK-MB (Mass) Troponin I, Quant Procalcitonin Arterial Blood Potassium Stool Occult Blood Blood Type A POSITIVE Antibody Screen Negative Assessment & Plan (1) Decreased cardiac ejection fraction Assessment and Plan: Echo 04/08/17: EF 37%, Normal LV size, pseudonormal grade 2 diastolic dysfxn, borderline dilated LA, Probably bicuspid and scleroitc aortic valve, No AR, Mild MR and TR, RVSO 40mmHg, mild Pulm HTN, Aortic root normal size with mild sclerocalcific changes EKG 04/08/17: Atrial fibrillation with rapid ventricular response at 122, ST & T wave abnormality (consider inferolateral ischemia), Abnormal ECG EKG 04/10/17: Atrial fibrillation with rapid ventricular response at 115, Marked ST abnormality, possible anterolateral subendocardial injury, Abnormal ECG -Decreased EF 2/2 Systolic CHF -Consulted for Lifevest, will get Echo in 3 months to assess need for permanent pacer as per pt's primary Cardio (Dr. Wynn) -While intubated and sedated in ICU, will not get Life Vest; will start process now so that Life Vest available when extubated and stable/ready for discharge -Continue medical management as per Pt's primary Cardio (Dr. Wynn) and per ICU team Status: Acute - Assessment and Plan (Free Text) Assessment: Case discussed with Dr. Burks. - Date & Time Date: 04/11/17 Time: 16:50 <Rosalva Burks - Last Filed: 05/30/17 03:38> Results - Vital Signs Recent Vital Signs: Last Vital Signs Temp 99.3 F 04/16/17 00:00 Pulse 37 L 04/16/17 02:06 Resp 26 H 04/16/17 02:30 BP 46/19 L 04/16/17 02:06 Pulse Ox 74 L 04/16/17 02:05 - Labs Result Diagrams: 04/13/17 06:17 04/13/17 06:17 Attending/Attestation - Attestation I have personally seen and examined this patient.: Yes I have fully participated in the care of the patient.: Yes I have reviewed all pertinent clinical information: Yes Notes (Text): 05/30/17 03:38 called for life vest eval will follow low ef prognosis guarded
[2017-04-12] MEDS: Albuterol-Ipratrop 3 mg / 0.5 (3 ml) UD INH SCH ×4 (01:04→19:11)
[2017-04-12] MEDS ORDERED: Digoxin 500 mcg/2ml (0.5 mg/2ml) Inj IVP ONE (03:02)
[2017-04-12] MEDS ORDERED: Midazolam 2 MG/2 ML VIAL IVP ONE (03:10)
[2017-04-12 03:16] VITALS: PULSE 186
[2017-04-12] MEDS ORDERED: Midazolam 2 MG/2 ML VIAL ONE (03:16)
[2017-04-12] MEDS: Propofol 10 mg/ml 1,000 MG/100 ML VIAL IV PRN (03:18)
[2017-04-12] MEDS: Esmolol 2,500 MG in Sodium Chloride 0.9% 240 ML IV SCH ×2 (04:25→15:54)
[2017-04-12 04:36] LABS: ABG MECHANICAL RATE 20; ARTERIAL BLOOD HGB O2 SAT 96.5 % (95.0-98.0); ATERIAL BLOOD GAS PEEP 8; CARBOXYHEMOGLOBIN 1.7 % (0.5-1.5); DRAW SITE LB; HHB 0.6 % (0.0-5.0); METHEMOGLOBIN 1.1 % (0.0-3.0)
--- NOTE | 2017-04-12 04:57 | CP.CCUPN ---
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 10 mn after dropping FiO2 to 50% he desaturated in the mid 80"s, back to 100% FiO2. Latter on in the night he went into a. fib with RVR in the 180's with requirement of pressors up to 15 mcg/mn of levophed, cardizem and digoxin did not worked, synchronized cardioconvesion X3 at 50J,100J and 200J with change of rhythm to sinus tachycardia and then SVT, no response to adenosine, slowed HR down with esmolol drip, levophed requirement had dropped to 5 mcg/mn. Will decrease cardizem drip slowly, on po cardizem. CCU Objective - Vital Signs / Intake & Output Vital Signs (Last 4 hours): Vital Signs Pulse Resp BP Pulse Ox 04/12/17 02:00 148 H 26 H 74/45 L 100 04/12/17 01:00 139 H 29 H 93/40 L 100 Intake and Output (Last 8hrs): Intake & Output 04/11/17 04/11/17 04/12/17 14:59 22:59 06:59 Intake Total 544.6 599.8 498.6 Output Total 300 265 100 Balance 244.6 334.8 398.6 Intake: IV 40 100 153 Intake, IV Amount 224.6 219.8 225.6 Left Forearm 91 104 52 Right Distal Port 50 15 75 Right Medial Port 79.8 100.8 79.8 Right Proximal Port 3.8 18.8 Tube Feeding 210 240 120 Other 70 40 Output: Urine 300 265 100 Urethral (Ortiz) 300 265 100 - Physical Exam Head: Positive for: Atraumatic, Normocephalic Mouth: Positive for: Moist Mucous Membranes Neck: Positive for: Normal Range of Motion Respiratory/Chest: Positive for: Decreased Breath Sounds, Other (intubated) Cardiovascular: Positive for: Regular Rate and Rhythm, Tachycardic Abdomen: Positive for: Normal Bowel Sounds. Negative for: Distention Upper Extremity: Positive for: Edema Lower Extremity: Positive for: Edema Skin: Positive for: Warm, Dry - Medications Active Medications: Active Medications Generic Name Dose Route Start Last Admin Trade Name Freq PRN Reason Stop Dose Admin Albuterol/Ipratropium 3 ml 04/10/17 14:00 04/12/17 01:04 Duoneb 3 Mg/0.5 Mg (3 Ml) Ud INH Not Given RQ6 ROCKY Aspirin 81 mg 04/08/17 12:30 04/11/17 09:24 Aspirin Chewable PO 81 mg DAILY ROCKY Administration Calcium Acetate 667 mg 04/11/17 14:00 04/11/17 17:46 Phoslo GT 667 mg TID ROCKY Administration Clopidogrel Bisulfate 75 mg 04/11/17 10:00 04/11/17 09:24 Plavix PO 75 mg DAILY ROCKY Administration Diltiazem HCl 30 mg 04/11/17 22:15 04/12/17 03:55 Cardizem PO 30 mg Q6H ROCKY Administration Fentanyl 50 mcg 04/12/17 04:00 04/12/17 04:18 Fentanyl IVP 04/12/17 06:01 Not Given Q2 ROCKY Heparin Sodium/Sodium Chloride 25,000 units in 250 mls @ 0 mls/hr 04/08/17 14: 15 04/11/17 09:25 Heparin 76648 Units/250ml 1/2 Normal Saline IV 13 mls/hr .Q0M PRN Administration PROTOCOL Protocol Per Protocol Propofol 1,000 mg in 100 mls @ 2.096 mls/hr 04/10/17 20:06 04/12/17 03:18 Diprivan IV 30 mcg/kg/min .Q24H PRN 12.574 mls/hr TITRATE PER MD ORDER Administration Protocol 5 MCG/KG/MIN Diltiazem HCl 125 mg/ Sodium 125 mls @ 10 mls/hr 04/10/17 20:30 04/12/17 02: 10 Chloride IV 15 mg/hr .[id number] ROCKY 15 mls/hr Protocol Administration 10 MG/HR Norepinephrine Bitartrate 8 mg 258 mls @ 7.74 mls/hr 04/10/17 21:05 04/12/17 02:22 / Sodium Chloride IV 10 mcg/min .Q24H PRN 19.35 mls/hr TITRATE PER MD ORDER Titration Protocol 4 MCG/MIN Piperacillin Sod/Tazobactam Sod 2.25 gm in 50 mls @ 100 mls/hr 04/10/17 21:45 04/11/17 21:10 Zosyn 2.25 Gm Iv Premix IVPB 100 mls/hr Q8H ROCKY Administration Esmolol HCl 2,500 mg/ Sodium 250 mls @ 21.51 mls/hr 04/12/17 04:00 04/12/17 04:25 Chloride IV 50 mcg/kg/min .[id number] ROCKY 21.51 mls/hr Protocol Administration 50 MCG/KG/MIN Vasopressin 40 units/ Sodium 40 mls @ 2.4 mls/hr 04/12/17 04:00 04/12/17 04: 27 Chloride IV Not Given .[id number] [facility] Protocol 0.04 UNITS/MIN Insulin Human Regular 0 unit 04/11/17 00:45 04/12/17 00:00 Novolin R SC Not Given Q6 ROCKY Protocol Pantoprazole Sodium 40 mg 04/11/17 10:00 04/11/17 09:24 Protonix Inj IVP 40 mg DAILY ROCKY Administration Rosuvastatin Calcium 20 mg 04/09/17 22:00 04/11/17 21:09 Crestor PO 20 mg HS ROCKY Administration - Patient Studies Lab Studies: Microbiology Studies 04/08/17 12:19 Blood Culture - Preliminary Blood-Venous NO GROWTH AFTER 3 DAYS 04/08/17 12:19 Blood Culture - Preliminary Blood-Venous NO GROWTH AFTER 3 DAYS Lab Studies 04/12/17 04/11/17 04/11/17 Range/Units 04:20 23:42 17:41 WBC (4.8-10.8) K/uL RBC (4.40-5.90) Mil/uL Hgb (12.0-18.0) g/dL Hct (35.0-51.0) % MCV (80.0-94.0) fL MCH (27.0-31.0) pg MCHC (33.0-37.0) g/dL RDW (11.5-14.5) % Plt Count (130-400) K/uL MPV (7.2-11.7) fL Neut % (Auto) (50.0-75.0) % Lymph % (Auto) (20.0-40.0) % Brown % (Auto) (0.0-10.0) % Eos % (Auto) (0.0-4.0) % Baso % (Auto) (0.0-2.0) % Neut # (1.8-7.0) K/uL Lymph # (1.0-4.3) K/uL Brown # (0.0-0.8) K/uL Eos # (0.0-0.7) K/uL Baso # (0.0-0.2) K/uL Neutrophils % (Manual) (50-75) % Band Neutrophils % (0-2) % Lymphocytes % (Manual) (20-40) % Monocytes % (Manual) (0-10) % Platelet Estimate (NORMAL) Polychromasia Hypochromasia (manual) Anisocytosis (manual) Target Cells APTT (21-34) SECONDS Puncture Site Lb pCO2 51 H (35-45) mm/Hg pO2 124 H (80-100) mm/Hg HCO3 24.9 (21-28) mmol/L ABG pH 7.32 L (7.35-7.45) ABG Total CO2 27.9 (22-28) mmol/L ABG O2 Saturation 99.4 H (95-98) % ABG Base Excess 0 (-2.0-3.0) mmol/L ABG Hemoglobin 7.9 L (11.7-17.4) g/dL ABG Carboxyhemoglobin 1.7 H (0.5-1.5) % POC ABG HHb (Measured) 0.6 (0.0-5.0) % ABG Methemoglobin 1.1 (0.0-3.0) % Ilir Test Na A-a O2 Difference 525.0 mm/Hg Respiratory Index 4.2 Hgb O2 Saturation 96.5 (95.0-98.0) % Mechanical Rate 20 FiO2 100.0 % Tidal Volume 500 PEEP 8 Sodium (132-148) mmol/L Potassium (3.6-5.2) mmol/L Chloride (98-107) mmol/L Carbon Dioxide (22-30) mmol/L Anion Gap (10-20) BUN (9-20) mg/dL Creatinine (0.8-1.5) MG/DL Est GFR ( Amer) Est GFR (Non-Af Amer) POC Glucose (mg/dL) 143 H (65-110) mg/dL Random Glucose (75-110) mg/dL Calcium (8.6-10.4) mg/dl Phosphorus (2.5-4.5) mg/dL Magnesium (1.6-2.3) mg/dL Total Creatine Kinase (55-170) U/L CK-MB (Mass) (0.0-3.38) ng/mL Troponin I, Quant (0.00-0.120) ng/mL Procalcitonin (0.19-0.49) NG/ML Stool Occult Blood (NEGATIVE) Blood Type A POSITIVE Antibody Screen Negative 04/11/17 04/11/17 04/11/17 Range/Units 17:41 17:40 13:26 WBC 8.5 (4.8-10.8) K/uL RBC 2.55 L (4.40-5.90) Mil/uL Hgb 8.5 L (12.0-18.0) g/dL Hct 24.6 L (35.0-51.0) % MCV 96.5 H (80.0-94.0) fL MCH 33.5 H (27.0-31.0) pg MCHC 34.7 (33.0-37.0) g/dL RDW 15.2 H (11.5-14.5) % Plt Count 418 H (130-400) K/uL MPV 7.2 (7.2-11.7) fL Neut % (Auto) (50.0-75.0) % Lymph % (Auto) (20.0-40.0) % Brown % (Auto) (0.0-10.0) % Eos % (Auto) (0.0-4.0) % Baso % (Auto) (0.0-2.0) % Neut # (1.8-7.0) K/uL Lymph # (1.0-4.3) K/uL Brown # (0.0-0.8) K/uL Eos # (0.0-0.7) K/uL Baso # (0.0-0.2) K/uL Neutrophils % (Manual) 89 H (50-75) % Band Neutrophils % 4 H (0-2) % Lymphocytes % (Manual) 5 L (20-40) % Monocytes % (Manual) 2 (0-10) % Platelet Estimate Normal (NORMAL) Polychromasia Hypochromasia (manual) Anisocytosis (manual) Target Cells APTT (21-34) SECONDS Puncture Site Lra pCO2 40 (35-45) mm/Hg pO2 107 H (80-100) mm/Hg HCO3 25.5 (21-28) mmol/L ABG pH 7.41 (7.35-7.45) ABG Total CO2 26.6 (22-28) mmol/L ABG O2 Saturation 98.9 H (95-98) % ABG Base Excess 0.7 (-2.0-3.0) mmol/L ABG Hemoglobin 13.7 (11.7-17.4) g/dL ABG Carboxyhemoglobin 1.6 H (0.5-1.5) % POC ABG HHb (Measured) 1.1 (0.0-5.0) % ABG Methemoglobin 0.7 (0.0-3.0) % Ilir Test Pos A-a O2 Difference 271.0 mm/Hg Respiratory Index 2.5 Hgb O2 Saturation 96.6 (95.0-98.0) % Mechanical Rate 20 FiO2 60.0 % Tidal Volume 500 PEEP 8 Sodium (132-148) mmol/L Potassium (3.6-5.2) mmol/L Chloride (98-107) mmol/L Carbon Dioxide (22-30) mmol/L Anion Gap (10-20) BUN (9-20) mg/dL Creatinine (0.8-1.5) MG/DL Est GFR ( Amer) Est GFR (Non-Af Amer) POC Glucose (mg/dL) 183 H (65-110) mg/dL Random Glucose (75-110) mg/dL Calcium (8.6-10.4) mg/dl Phosphorus (2.5-4.5) mg/dL Magnesium (1.6-2.3) mg/dL Total Creatine Kinase (55-170) U/L CK-MB (Mass) (0.0-3.38) ng/mL Troponin I, Quant (0.00-0.120) ng/mL Procalcitonin (0.19-0.49) NG/ML Stool Occult Blood (NEGATIVE) Blood Type Antibody Screen 04/11/17 04/11/1704/11/17 Range/Units 12:03 11:57 10:18 WBC (4.8-10.8) K/uL RBC (4.40-5.90) Mil/uL Hgb (12.0-18.0) g/dL Hct (35.0-51.0) % MCV (80.0-94.0) fL MCH (27.0-31.0) pg MCHC (33.0-37.0) g/dL RDW (11.5-14.5) % Plt Count (130-400) K/uL MPV (7.2-11.7) fL Neut % (Auto) (50.0-75.0) % Lymph % (Auto) (20.0-40.0) % Brown % (Auto) (0.0-10.0) % Eos % (Auto) (0.0-4.0) % Baso % (Auto) (0.0-2.0) % Neut # (1.8-7.0) K/uL Lymph # (1.0-4.3) K/uL Brown # (0.0-0.8) K/uL Eos # (0.0-0.7) K/uL Baso # (0.0-0.2) K/uL Neutrophils % (Manual) (50-75) % Band Neutrophils % (0-2) % Lymphocytes % (Manual) (20-40) % Monocytes % (Manual) (0-10) % Platelet Estimate (NORMAL) Polychromasia Hypochromasia (manual) Anisocytosis (manual) Target Cells APTT (21-34) SECONDS Puncture Site pCO2 (35-45) mm/Hg pO2 (80-100) mm/Hg HCO3 (21-28) mmol/L ABG pH (7.35-7.45) ABG Total CO2 (22-28) mmol/L ABG O2 Saturation (95-98) % ABG Base Excess (-2.0-3.0) mmol/L ABG Hemoglobin (11.7-17.4) g/dL ABG Carboxyhemoglobin (0.5-1.5) % POC ABG HHb (Measured) (0.0-5.0) % ABG Methemoglobin (0.0-3.0) % Ilir Test A-a O2 Difference mm/Hg Respiratory Index Hgb O2 Saturation (95.0-98.0) % Mechanical Rate FiO2 % Tidal Volume PEEP Sodium (132-148) mmol/L Potassium (3.6-5.2) mmol/L Chloride (98-107) mmol/L Carbon Dioxide (22-30) mmol/L Anion Gap (10-20) BUN (9-20) mg/dL Creatinine (0.8-1.5) MG/DL Est GFR ( Amer) Est GFR (Non-Af Amer) POC Glucose (mg/dL) 145 H (65-110) mg/dL Random Glucose (75-110) mg/dL Calcium (8.6-10.4) mg/dl Phosphorus (2.5-4.5) mg/dL Magnesium (1.6-2.3) mg/dL Total Creatine Kinase (55-170) U/L CK-MB (Mass) (0.0-3.38) ng/mL Troponin I, Quant (0.00-0.120) ng/mL Procalcitonin 6.56 H (0.19-0.49) NG/ML Stool Occult Blood Positive H (NEGATIVE) Blood Type Antibody Screen 04/11/17 04/11/17 04/11/17 Range/Units 05:56 05:54 05:54 WBC (4.8-10.8) K/uL RBC (4.40-5.90) Mil/uL Hgb (12.0-18.0) g/dL Hct (35.0-51.0) % MCV (80.0-94.0) fL MCH (27.0-31.0) pg MCHC (33.0-37.0) g/dL RDW (11.5-14.5) % Plt Count (130-400) K/uL MPV (7.2-11.7) fL Neut % (Auto) (50.0-75.0) % Lymph % (Auto) (20.0-40.0) % Brown % (Auto) (0.0-10.0) % Eos % (Auto) (0.0-4.0) % Baso % (Auto) (0.0-2.0) % Neut # (1.8-7.0) K/uL Lymph # (1.0-4.3) K/uL Brown # (0.0-0.8) K/uL Eos # (0.0-0.7) K/uL Baso # (0.0-0.2) K/uL Neutrophils % (Manual) (50-75) % Band Neutrophils % (0-2) % Lymphocytes % (Manual) (20-40) % Monocytes % (Manual) (0-10) % Platelet Estimate (NORMAL) Polychromasia Hypochromasia (manual) Anisocytosis (manual) Target Cells APTT 64 H D (21-34) SECONDS Puncture Site pCO2 (35-45) mm/Hg pO2 (80-100) mm/Hg HCO3 (21-28) mmol/L ABG pH (7.35-7.45) ABG Total CO2 (22-28) mmol/L ABG O2 Saturation (95-98) % ABG Base Excess (-2.0-3.0) mmol/L ABG Hemoglobin (11.7-17.4) g/dL ABG Carboxyhemoglobin (0.5-1.5) % POC ABG HHb (Measured) (0.0-5.0) % ABG Methemoglobin (0.0-3.0) % Ilir Test A-a O2 Difference mm/Hg Respiratory Index Hgb O2 Saturation (95.0-98.0) % Mechanical Rate FiO2 % Tidal Volume PEEP Sodium 135 (132-148) mmol/L Potassium 3.6 (3.6-5.2) mmol/L Chloride 93 L (98-107) mmol/L Carbon Dioxide 27 (22-30) mmol/L Anion Gap 19 (10-20) BUN 93 H (9-20) mg/dL Creatinine 2.5 H (0.8-1.5) MG/DL Est GFR ( Amer) 30 Est GFR (Non-Af Amer) 25 POC Glucose (mg/dL) 134 H (65-110) mg/dL Random Glucose 133 H (75-110) mg/dL Calcium 8.2 L (8.6-10.4) mg/dl Phosphorus 6.2 H (2.5-4.5) mg/dL Magnesium 2.5 H (1.6-2.3) mg/dL Total Creatine Kinase 79 (55-170) U/L CK-MB (Mass) 0.83 (0.0-3.38) ng/mL Troponin I, Quant 1.7700 H* (0.00-0.120) ng/mL Procalcitonin (0.19-0.49) NG/ML Stool Occult Blood (NEGATIVE) Blood Type Antibody Screen 04/11/17 04/11/17 04/10/17 Range/Units 05:54 05:54 23:51 WBC 9.0 (4.8-10.8) K/uL RBC 2.57 L (4.40-5.90) Mil/uL Hgb 8.8 L (12.0-18.0) g/dL Hct 25.2 L (35.0-51.0) % MCV 97.7 H (80.0-94.0) fL MCH 34.3 H (27.0-31.0) pg MCHC 35.1 (33.0-37.0) g/dL RDW 15.0 H (11.5-14.5) % Plt Count 510 H (130-400) K/uL MPV 7.6 (7.2-11.7) fL Neut % (Auto) 86.7 H (50.0-75.0) % Lymph % (Auto) 10.4 L (20.0-40.0) % Brown % (Auto) 2.6 (0.0-10.0) % Eos % (Auto) 0.0 (0.0-4.0) % Baso % (Auto) 0.3 (0.0-2.0) % Neut # 7.8 H (1.8-7.0) K/uL Lymph # 0.9 L (1.0-4.3) K/uL Brown # 0.2 (0.0-0.8) K/uL Eos # 0.0 (0.0-0.7) K/uL Baso # 0.0 (0.0-0.2) K/uL Neutrophils % (Manual) 94 H (50-75) % Band Neutrophils % 1 (0-2) % Lymphocytes % (Manual) 4 L (20-40) % Monocytes % (Manual) 1 (0-10) % Platelet Estimate Slightly increased H (NORMAL) Polychromasia Slight Hypochromasia (manual) Slight Anisocytosis (manual) Slight Target Cells Slight APTT (21-34) SECONDS Puncture Site pCO2 (35-45) mm/Hg pO2 (80-100) mm/Hg HCO3 (21-28) mmol/L ABG pH (7.35-7.45) ABG Total CO2 (22-28) mmol/L ABG O2 Saturation (95-98) % ABG Base Excess (-2.0-3.0) mmol/L ABG Hemoglobin (11.7-17.4) g/dL ABG Carboxyhemoglobin (0.5-1.5) % POC ABG HHb (Measured) (0.0-5.0) % ABG Methemoglobin (0.0-3.0) % Ilir Test A-a O2 Difference mm/Hg Respiratory Index Hgb O2 Saturation (95.0-98.0) % Mechanical Rate FiO2 % Tidal Volume PEEP Sodium (132-148) mmol/L Potassium (3.6-5.2) mmol/L Chloride (98-107) mmol/L Carbon Dioxide (22-30) mmol/L Anion Gap (10-20) BUN (9-20) mg/dL Creatinine (0.8-1.5) MG/DL Est GFR ( Amer) Est GFR (Non-Af Amer) POC Glucose (mg/dL) 157 H (65-110) mg/dL Random Glucose (75-110) mg/dL Calcium (8.6-10.4) mg/dl Phosphorus (2.5-4.5) mg/dL Magnesium (1.6-2.3) mg/dL Total Creatine Kinase (55-170) U/L CK-MB (Mass) (0.0-3.38) ng/mL Troponin I, Quant (0.00-0.120) ng/mL Procalcitonin 6.96 H (0.19-0.49) NG/ML Stool Occult Blood (NEGATIVE) Blood Type Antibody Screen 04/10/17 04/10/17 04/10/17 Range/Units 21:24 16:08 11:52 WBC (4.8-10.8) K/uL RBC (4.40-5.90) Mil/uL Hgb (12.0-18.0) g/dL Hct (35.0-51.0) % MCV (80.0-94.0) fL MCH (27.0-31.0) pg MCHC (33.0-37.0) g/dL RDW (11.5-14.5) % Plt Count (130-400) K/uL MPV (7.2-11.7) fL Neut % (Auto) (50.0-75.0) % Lymph % (Auto) (20.0-40.0) % Brown % (Auto) (0.0-10.0) % Eos % (Auto) (0.0-4.0) % Baso % (Auto) (0.0-2.0) % Neut # (1.8-7.0) K/uL Lymph # (1.0-4.3) K/uL Brown # (0.0-0.8) K/uL Eos # (0.0-0.7) K/uL Baso # (0.0-0.2) K/uL Neutrophils % (Manual) (50-75) % Band Neutrophils % (0-2) % Lymphocytes % (Manual) (20-40) % Monocytes % (Manual) (0-10) % Platelet Estimate (NORMAL) Polychromasia Hypochromasia (manual) Anisocytosis (manual) Target Cells APTT (21-34) SECONDS Puncture Site pCO2 (35-45) mm/Hg pO2 (80-100) mm/Hg HCO3 (21-28) mmol/L ABG pH (7.35-7.45) ABG Total CO2 (22-28) mmol/L ABG O2 Saturation (95-98) % ABG Base Excess (-2.0-3.0) mmol/L ABG Hemoglobin (11.7-17.4) g/dL ABG Carboxyhemoglobin (0.5-1.5) % POC ABG HHb (Measured) (0.0-5.0) % ABG Methemoglobin (0.0-3.0) % Ilir Test A-a O2 Difference mm/Hg Respiratory Index Hgb O2 Saturation (95.0-98.0) % Mechanical Rate FiO2 % Tidal Volume PEEP Sodium (132-148) mmol/L Potassium (3.6-5.2) mmol/L Chloride (98-107) mmol/L Carbon Dioxide (22-30) mmol/L Anion Gap (10-20) BUN (9-20) mg/dL Creatinine (0.8-1.5) MG/DL Est GFR ( Amer) Est GFR (Non-Af Amer) POC Glucose (mg/dL) 183 H 126 H 150 H (65-110) mg/dL Random Glucose (75-110) mg/dL Calcium (8.6-10.4) mg/dl Phosphorus (2.5-4.5) mg/dL Magnesium (1.6-2.3) mg/dL Total Creatine Kinase (55-170) U/L CK-MB (Mass) (0.0-3.38) ng/mL Troponin I, Quant (0.00-0.120) ng/mL Procalcitonin (0.19-0.49) NG/ML Stool Occult Blood (NEGATIVE) Blood Type Antibody Screen 04/10/17 04/09/17 04/09/17 Range/Units 07:14 20:57 16:24 WBC (4.8-10.8) K/uL RBC (4.40-5.90) Mil/uL Hgb (12.0-18.0) g/dL Hct (35.0-51.0) % MCV (80.0-94.0) fL MCH (27.0-31.0) pg MCHC (33.0-37.0) g/dL RDW (11.5-14.5) % Plt Count (130-400) K/uL MPV (7.2-11.7) fL Neut % (Auto) (50.0-75.0) % Lymph % (Auto) (20.0-40.0) % Brown % (Auto) (0.0-10.0) % Eos % (Auto) (0.0-4.0) % Baso % (Auto) (0.0-2.0) % Neut # (1.8-7.0) K/uL Lymph # (1.0-4.3) K/uL Brown # (0.0-0.8) K/uL Eos # (0.0-0.7) K/uL Baso # (0.0-0.2) K/uL Neutrophils % (Manual) (50-75) % Band Neutrophils % (0-2) % Lymphocytes % (Manual) (20-40) % Monocytes % (Manual) (0-10) % Platelet Estimate (NORMAL) Polychromasia Hypochromasia (manual) Anisocytosis (manual) Target Cells APTT (21-34) SECONDS Puncture Site pCO2 (35-45) mm/Hg pO2 (80-100) mm/Hg HCO3 (21-28) mmol/L ABG pH (7.35-7.45) ABG Total CO2 (22-28) mmol/L ABG O2 Saturation (95-98) % ABG Base Excess (-2.0-3.0) mmol/L ABG Hemoglobin (11.7-17.4) g/dL ABG Carboxyhemoglobin (0.5-1.5) % POC ABG HHb (Measured) (0.0-5.0) % ABG Methemoglobin (0.0-3.0) % Ilir Test A-a O2 Difference mm/Hg Respiratory Index Hgb O2 Saturation (95.0-98.0) % Mechanical Rate FiO2 % Tidal Volume PEEP Sodium (132-148) mmol/L Potassium (3.6-5.2) mmol/L Chloride (98-107) mmol/L Carbon Dioxide (22-30) mmol/L Anion Gap (10-20) BUN (9-20) mg/dL Creatinine (0.8-1.5) MG/DL Est GFR ( Amer) Est GFR (Non-Af Amer) POC Glucose (mg/dL) 139 H 132 H 126 H (65-110) mg/dL Random Glucose (75-110) mg/dL Calcium (8.6-10.4) mg/dl Phosphorus (2.5-4.5) mg/dL Magnesium (1.6-2.3) mg/dL Total Creatine Kinase (55-170) U/L CK-MB (Mass) (0.0-3.38) ng/mL Troponin I, Quant (0.00-0.120) ng/mL Procalcitonin (0.19-0.49) NG/ML Stool Occult Blood (NEGATIVE) Blood Type Antibody Screen 04/09/17 04/09/17 04/08/17 Range/Units 11:26 08:02 20:59 WBC (4.8-10.8) K/uL RBC (4.40-5.90) Mil/uL Hgb (12.0-18.0) g/dL Hct (35.0-51.0) % MCV (80.0-94.0) fL MCH (27.0-31.0) pg MCHC (33.0-37.0) g/dL RDW (11.5-14.5) % Plt Count (130-400) K/uL MPV (7.2-11.7) fL Neut % (Auto) (50.0-75.0) % Lymph % (Auto) (20.0-40.0) % Brown % (Auto) (0.0-10.0) % Eos % (Auto) (0.0-4.0) % Baso % (Auto) (0.0-2.0) % Neut # (1.8-7.0) K/uL Lymph # (1.0-4.3) K/uL Brown # (0.0-0.8) K/uL Eos # (0.0-0.7) K/uL Baso # (0.0-0.2) K/uL Neutrophils % (Manual) (50-75) % Band Neutrophils % (0-2) % Lymphocytes % (Manual) (20-40) % Monocytes % (Manual) (0-10) % Platelet Estimate (NORMAL) Polychromasia Hypochromasia (manual) Anisocytosis (manual) Target Cells APTT (21-34) SECONDS Puncture Site pCO2 (35-45) mm/Hg pO2 (80-100) mm/Hg HCO3 (21-28) mmol/L ABG pH (7.35-7.45) ABG Total CO2 (22-28) mmol/L ABG O2 Saturation (95-98) % ABG Base Excess (-2.0-3.0) mmol/L ABG Hemoglobin (11.7-17.4) g/dL ABG Carboxyhemoglobin (0.5-1.5) % POC ABG HHb (Measured) (0.0-5.0) % ABG Methemoglobin (0.0-3.0) % Ilir Test A-a O2 Difference mm/Hg Respiratory Index Hgb O2 Saturation (95.0-98.0) % Mechanical Rate FiO2 % Tidal Volume PEEP Sodium (132-148) mmol/L Potassium (3.6-5.2) mmol/L Chloride (98-107) mmol/L Carbon Dioxide (22-30) mmol/L Anion Gap (10-20) BUN (9-20) mg/dL Creatinine (0.8-1.5) MG/DL Est GFR ( Amer) Est GFR (Non-Af Amer) POC Glucose (mg/dL) 122 H 117 H 102 (65-110) mg/dL Random Glucose (75-110) mg/dL Calcium (8.6-10.4) mg/dl Phosphorus (2.5-4.5) mg/dL Magnesium (1.6-2.3) mg/dL Total Creatine Kinase (55-170) U/L CK-MB (Mass) (0.0-3.38) ng/mL Troponin I, Quant (0.00-0.120) ng/mL Procalcitonin (0.19-0.49) NG/ML Stool Occult Blood (NEGATIVE) Blood Type Antibody Screen 04/08/17 04/08/17 Range/Units 16:08 11:28 WBC (4.8-10.8) K/uL RBC (4.40-5.90) Mil/uL Hgb (12.0-18.0) g/dL Hct (35.0-51.0) % MCV (80.0-94.0) fL MCH (27.0-31.0) pg MCHC (33.0-37.0) g/dL RDW (11.5-14.5) % Plt Count (130-400) K/uL MPV (7.2-11.7) fL Neut % (Auto) (50.0-75.0) % Lymph % (Auto) (20.0-40.0) % Brown % (Auto) (0.0-10.0) % Eos % (Auto) (0.0-4.0) % Baso % (Auto) (0.0-2.0) % Neut # (1.8-7.0) K/uL Lymph # (1.0-4.3) K/uL Brown # (0.0-0.8) K/uL Eos # (0.0-0.7) K/uL Baso # (0.0-0.2) K/uL Neutrophils % (Manual) (50-75) % Band Neutrophils % (0-2) % Lymphocytes % (Manual) (20-40) % Monocytes % (Manual) (0-10) % Platelet Estimate (NORMAL) Polychromasia Hypochromasia (manual) Anisocytosis (manual) Target Cells APTT (21-34) SECONDS Puncture Site pCO2 (35-45) mm/Hg pO2 (80-100) mm/Hg HCO3 (21-28) mmol/L ABG pH (7.35-7.45) ABG Total CO2 (22-28) mmol/L ABG O2 Saturation (95-98) % ABG Base Excess (-2.0-3.0) mmol/L ABG Hemoglobin (11.7-17.4) g/dL ABG Carboxyhemoglobin (0.5-1.5) % POC ABG HHb (Measured) (0.0-5.0) % ABG Methemoglobin (0.0-3.0) % Ilir Test A-a O2 Difference mm/Hg Respiratory Index Hgb O2 Saturation (95.0-98.0) % Mechanical Rate FiO2 % Tidal Volume PEEP Sodium (132-148) mmol/L Potassium (3.6-5.2) mmol/L Chloride (98-107) mmol/L Carbon Dioxide (22-30) mmol/L Anion Gap (10-20) BUN (9-20) mg/dL Creatinine (0.8-1.5) MG/DL Est GFR ( Amer) Est GFR (Non-Af Amer) POC Glucose (mg/dL) 107 113 H (65-110) mg/dL Random Glucose (75-110) mg/dL Calcium (8.6-10.4) mg/dl Phosphorus (2.5-4.5) mg/dL Magnesium (1.6-2.3) mg/dL Total Creatine Kinase (55-170) U/L CK-MB (Mass) (0.0-3.38) ng/mL Troponin I, Quant (0.00-0.120) ng/mL Procalcitonin (0.19-0.49) NG/ML Stool Occult Blood (NEGATIVE) Blood Type Antibody Screen Laboratory Results - last 24 hr 04/08/17 04/08/17 04/08/17 11:28 16:08 20:59 WBC RBC Hgb Hct MCV MCH MCHC RDW Plt Count MPV Neut % (Auto) Lymph % (Auto) Brown % (Auto) Eos % (Auto) Baso % (Auto) Neut # Lymph # Brown # Eos # Baso # Neutrophils % (Manual) Band Neutrophils % Lymphocytes % (Manual) Monocytes % (Manual) Platelet Estimate Polychromasia Hypochromasia (manual) Anisocytosis (manual) Target Cells APTT Puncture Site pCO2 pO2 HCO3 ABG pH ABG Total CO2 ABG O2 Saturation ABG Base Excess ABG Hemoglobin ABG Carboxyhemoglobin POC ABG HHb (Measured) ABG Methemoglobin Ilir Test A-a O2 Difference Respiratory Index Hgb O2 Saturation Mechanical Rate FiO2 Tidal Volume PEEP Sodium Potassium Chloride Carbon Dioxide Anion Gap BUN Creatinine Est GFR ( Amer) Est GFR (Non-Af Amer) POC Glucose (mg/dL) 113 H 107 102 Random Glucose Calcium Phosphorus Magnesium Total Creatine Kinase CK-MB (Mass) Troponin I, Quant Procalcitonin Stool Occult Blood Blood Type Antibody Screen 04/09/17 04/09/17 04/09/17 08:02 11:26 16:24 WBC RBC Hgb Hct MCV MCH MCHC RDW Plt Count MPV Neut % (Auto) Lymph % (Auto) Brown % (Auto) Eos % (Auto) Baso % (Auto) Neut # Lymph # Brown # Eos # Baso # Neutrophils % (Manual) Band Neutrophils % Lymphocytes % (Manual) Monocytes % (Manual) Platelet Estimate Polychromasia Hypochromasia (manual) Anisocytosis (manual) Target Cells APTT Puncture Site pCO2 pO2 HCO3 ABG pH ABG Total CO2 ABG O2 Saturation ABG Base Excess ABG Hemoglobin ABG Carboxyhemoglobin POC ABG HHb (Measured) ABG Methemoglobin Ilir Test A-a O2 Difference Respiratory Index Hgb O2 Saturation Mechanical Rate FiO2 Tidal Volume PEEP Sodium Potassium Chloride Carbon Dioxide Anion Gap BUN Creatinine Est GFR ( Amer) Est GFR (Non-Af Amer) POC Glucose (mg/dL) 117 H 122 H 126 H Random Glucose Calcium Phosphorus Magnesium Total Creatine Kinase CK-MB (Mass) Troponin I, Quant Procalcitonin Stool Occult Blood Blood Type Antibody Screen 05/20/17 05/21/17 05/21/17 20:57 07:14 11:52 WBC RBC Hgb Hct MCV MCH MCHC RDW Plt Count MPV Neut % (Auto) Lymph % (Auto) Brown % (Auto) Eos % (Auto) Baso % (Auto) Neut # Lymph # Brown # Eos # Baso # Neutrophils % (Manual) Band Neutrophils % Lymphocytes % (Manual) Monocytes % (Manual) Platelet Estimate Polychromasia Hypochromasia (manual) Anisocytosis (manual) Target Cells APTT Puncture Site pCO2 pO2 HCO3 ABG pH ABG Total CO2 ABG O2 Saturation ABG Base Excess ABG Hemoglobin ABG Carboxyhemoglobin POC ABG HHb (Measured) ABG Methemoglobin Ilir Test A-a O2 Difference Respiratory Index Hgb O2 Saturation Mechanical Rate FiO2 Tidal Volume PEEP Sodium Potassium Chloride Carbon Dioxide Anion Gap BUN Creatinine Est GFR ( Amer) Est GFR (Non-Af Amer) POC Glucose (mg/dL) 132 H 139 H 150 H Random Glucose Calcium Phosphorus Magnesium Total Creatine Kinase CK-MB (Mass) Troponin I, Quant Procalcitonin Stool Occult Blood Blood Type Antibody Screen 04/10/17 04/10/17 04/10/17 16:08 21:24 23:51 WBC RBC Hgb Hct MCV MCH MCHC RDW Plt Count MPV Neut % (Auto) Lymph % (Auto) Brown % (Auto) Eos % (Auto) Baso % (Auto) Neut # Lymph # Brown # Eos # Baso # Neutrophils % (Manual) Band Neutrophils % Lymphocytes % (Manual) Monocytes % (Manual) Platelet Estimate Polychromasia Hypochromasia (manual) Anisocytosis (manual) Target Cells APTT Puncture Site pCO2 pO2 HCO3 ABG pH ABG Total CO2 ABG O2 Saturation ABG Base Excess ABG Hemoglobin ABG Carboxyhemoglobin POC ABG HHb (Measured) ABG Methemoglobin Ilir Test A-a O2 Difference Respiratory Index Hgb O2 Saturation Mechanical Rate FiO2 Tidal Volume PEEP Sodium Potassium Chloride Carbon Dioxide Anion Gap BUN Creatinine Est GFR ( Amer) Est GFR (Non-Af Amer) POC Glucose (mg/dL) 126 H 183 H 157 H Random Glucose Calcium Phosphorus Magnesium Total Creatine Kinase CK-MB (Mass) Troponin I, Quant Procalcitonin Stool Occult Blood Blood Type Antibody Screen 04/11/17 04/11/17 04/11/17 05:54 05:54 05:54 WBC 9.0 RBC 2.57 L Hgb 8.8 L Hct 25.2 L MCV 97.7 H MCH 34.3 H MCHC 35.1 RDW 15.0 H Plt Count 510 H MPV 7.6 Neut % (Auto) 86.7 H Lymph % (Auto) 10.4 L Brown % (Auto) 2.6 Eos % (Auto) 0.0 Baso % (Auto) 0.3 Neut # 7.8 H Lymph # 0.9 L Brown # 0.2 Eos # 0.0 Baso # 0.0 Neutrophils % (Manual) 94 H Band Neutrophils % 1 Lymphocytes % (Manual) 4 L Monocytes % (Manual) 1 Platelet Estimate Slightly increased H Polychromasia Slight Hypochromasia (manual) Slight Anisocytosis (manual) Slight Target Cells Slight APTT Puncture Site pCO2 pO2 HCO3 ABG pH ABG Total CO2 ABG O2 Saturation ABG Base Excess ABG Hemoglobin ABG Carboxyhemoglobin POC ABG HHb (Measured) ABG Methemoglobin Ilir Test A-a O2 Difference Respiratory Index Hgb O2 Saturation Mechanical Rate FiO2 Tidal Volume PEEP Sodium 135 Potassium 3.6 Chloride 93 L Carbon Dioxide 27 Anion Gap 19 BUN 93 H Creatinine 2.5 H Est GFR ( Amer) 30 Est GFR (Non-Af Amer) 25 POC Glucose (mg/dL) Random Glucose 133 H Calcium 8.2 L Phosphorus 6.2 H Magnesium 2.5 H Total Creatine Kinase 79 CK-MB (Mass) 0.83 Troponin I, Quant 1.7700 H* Procalcitonin 6.96 H Stool Occult Blood Blood Type Antibody Screen 04/11/17 04/11/17 04/11/17 05:54 05:56 10:18 WBC RBC Hgb Hct MCV MCH MCHC RDW Plt Count MPV Neut % (Auto) Lymph % (Auto) Brown % (Auto) Eos % (Auto) Baso % (Auto) Neut # Lymph # Brown # Eos # Baso # Neutrophils % (Manual) Band Neutrophils % Lymphocytes % (Manual) Monocytes % (Manual) Platelet Estimate Polychromasia Hypochromasia (manual) Anisocytosis (manual) Target Cells APTT 64 H D Puncture Site pCO2 pO2 HCO3 ABG pH ABG Total CO2 ABG O2 Saturation ABG Base Excess ABG Hemoglobin ABG Carboxyhemoglobin POC ABG HHb (Measured) ABG Methemoglobin Ilir Test A-a O2 Difference Respiratory Index Hgb O2 Saturation Mechanical Rate FiO2 Tidal Volume PEEP Sodium Potassium Chloride Carbon Dioxide Anion Gap BUN Creatinine Est GFR ( Amer) Est GFR (Non-Af Amer) POC Glucose (mg/dL) 134 H Random Glucose Calcium Phosphorus Magnesium Total Creatine Kinase CK-MB (Mass) Troponin I, Quant Procalcitonin 6.56 H Stool Occult Blood Blood Type Antibody Screen 04/11/17 04/11/17 04/11/17 11:57 12:03 13:26 WBC RBC Hgb Hct MCV MCH MCHC RDW Plt Count MPV Neut % (Auto) Lymph % (Auto) Brown % (Auto) Eos % (Auto) Baso % (Auto) Neut # Lymph # Brown # Eos # Baso # Neutrophils % (Manual) Band Neutrophils % Lymphocytes % (Manual) Monocytes % (Manual) Platelet Estimate Polychromasia Hypochromasia (manual) Anisocytosis (manual) Target Cells APTT Puncture Site Lra pCO2 40 pO2 107 H HCO3 25.5 ABG pH 7.41 ABG Total CO2 26.6 ABG O2 Saturation 98.9 H ABG Base Excess 0.7 ABG Hemoglobin 13.7 ABG Carboxyhemoglobin 1.6 H POC ABG HHb (Measured) 1.1 ABG Methemoglobin 0.7 Ilir Test Pos A-a O2 Difference 271.0 Respiratory Index 2.5 Hgb O2 Saturation 96.6 Mechanical Rate 20 FiO2 60.0 Tidal Volume 500 PEEP 8 Sodium Potassium Chloride Carbon Dioxide Anion Gap BUN Creatinine Est GFR ( Amer) Est GFR (Non-Af Amer) POC Glucose (mg/dL) 145 H Random Glucose Calcium Phosphorus Magnesium Total Creatine Kinase CK-MB (Mass) Troponin I, Quant Procalcitonin Stool Occult Blood Positive H Blood Type Antibody Screen 04/11/17 04/11/17 04/11/17 17:40 17:41 17:41 WBC 8.5 RBC 2.55 L Hgb 8.5 L Hct 24.6 L MCV 96.5 H MCH 33.5 H MCHC 34.7 RDW 15.2 H Plt Count 418 H MPV 7.2 Neut % (Auto) Lymph % (Auto) Brown % (Auto) Eos % (Auto) Baso % (Auto) Neut # Lymph # Brown # Eos # Baso # Neutrophils % (Manual) 89 H Band Neutrophils % 4 H Lymphocytes % (Manual) 5 L Monocytes % (Manual) 2 Platelet Estimate Normal Polychromasia Hypochromasia (manual) Anisocytosis (manual) Target Cells APTT Puncture Site pCO2 pO2 HCO3 ABG pH ABG Total CO2 ABG O2 Saturation ABG Base Excess ABG Hemoglobin ABG Carboxyhemoglobin POC ABG HHb (Measured) ABG Methemoglobin Ilir Test A-a O2 Difference Respiratory Index Hgb O2 Saturation Mechanical Rate FiO2 Tidal Volume PEEP Sodium Potassium Chloride Carbon Dioxide Anion Gap BUN Creatinine Est GFR ( Amer) Est GFR (Non-Af Amer) POC Glucose (mg/dL) 183 H Random Glucose Calcium Phosphorus Magnesium Total Creatine Kinase CK-MB (Mass) Troponin I, Quant Procalcitonin Stool Occult Blood Blood Type A POSITIVE Antibody Screen Negative 04/11/17 04/12/17 23:42 04:20 WBC RBC Hgb Hct MCV MCH MCHC RDW Plt Count MPV Neut % (Auto) Lymph % (Auto) Brown % (Auto) Eos % (Auto) Baso % (Auto) Neut # Lymph # Brown # Eos # Baso # Neutrophils % (Manual) Band Neutrophils % Lymphocytes % (Manual) Monocytes % (Manual) Platelet Estimate Polychromasia Hypochromasia (manual) Anisocytosis (manual) Target Cells APTT Puncture Site Lb pCO2 51 H pO2 124 H HCO3 24.9 ABG pH 7.32 L ABG Total CO2 27.9 ABG O2 Saturation 99.4 H ABG Base Excess 0 ABG Hemoglobin 7.9 L ABG Carboxyhemoglobin 1.7 H POC ABG HHb (Measured) 0.6 ABG Methemoglobin 1.1 Ilir Test Na A-a O2 Difference 525.0 Respiratory Index 4.2 Hgb O2 Saturation 96.5 Mechanical Rate 20 FiO2 100.0 Tidal Volume 500 PEEP 8 Sodium Potassium Chloride Carbon Dioxide Anion Gap BUN Creatinine Est GFR ( Amer) Est GFR (Non-Af Amer) POC Glucose (mg/dL) 143 H Random Glucose Calcium Phosphorus Magnesium Total Creatine Kinase CK-MB (Mass) Troponin I, Quant Procalcitonin Stool Occult Blood Blood Type Antibody Screen Fingerstick Blood Sugar Results: 183
[2017-04-12] MEDS: Piperacill/Tazo 2.25gm in Dex 2.25 GM/50 ML BAG IVPB SCH ×3 (05:51→22:00)
[2017-04-12 06:39] LABS: BASO # 0.1 K/uL (0.0-0.2); EOS % 0.2 % (0.0-4.0); HEMATOCRIT 25.4 % (35.0-51.0); LYMPH % 9.7 % (20.0-40.0); MEAN CELL VOLUME 97.4 fL (80.0-94.0); MEAN CORPUSCULAR HEMOGLOBIN 33.3 pg (27.0-31.0); MEAN CORPUSCULAR HGB CONC 34.1 g/dL (33.0-37.0); MEAN PLATELET VOLUME 7.6 fL (7.2-11.7); MONO # 0.3 K/uL (0.0-0.8); MONO % 2.6 % (0.0-10.0); PLATELET COUNT 506 K/uL (130-400); RED CELL DISTRIBUTION WIDTH 15.2 % (11.5-14.5); WHITE BLOOD COUNT 10.3 K/uL (4.8-10.8)
[2017-04-12 06:49] LABS: POTASSIUM 3.5 mmol/L (3.6-5.2)
[2017-04-12 06:51] LABS: ALB/GLOB RATIO 0.9 (1.0-2.1); BILIRUBIN,TOTAL 2.5 mg/dL (0.2-1.3); TOTAL PROTEIN 6.6 g/dL (6.3-8.3)
[2017-04-12 06:52] LABS: CALCIUM 7.9 mg/dl (8.6-10.4); PHOSPHOROUS 5.6 mg/dL (2.5-4.5)
[2017-04-12 06:53] LABS: MAGNESIUM 2.6 mg/dL (1.6-2.3)
[2017-04-12] MEDS: Heparin25000 units/250ml 1/2NS 25,000 UNITS/250 ML BAG IV PRN (07:02)
[2017-04-12] MEDS: (Novolin R) Insulin Human Regular 100 units/ml vial SC SCH ×4 (07:16→17:09)
--- NOTE | 2017-04-12 08:43 | RAD ---
HISTORY: intubated COMPARISON: 04/11/2017 FINDINGS: LUNGS: Lines and tubes stable position. Persistent diffuse increased interstitial lung markings throughout both lungs which may represent underlying edema and or infiltrate superimposed on chronic fibrotic changes. Right hilar prominence. Question small bilateral pleural effusions. Tubing projects over upper abdomen into the lower randee thorax. Clinical correlation. PLEURA: As above. CARDIOVASCULAR: Status post median sternotomy. Cardiomegaly. Calcification at the aortic knob. OSSEOUS STRUCTURES: Degenerative changes in the spine and shoulders. VISUALIZED UPPER ABDOMEN: Normal. OTHER FINDINGS: None. IMPRESSION: Lines and tubes stable position. Persistent diffuse increased interstitial lung markings throughout both lungs which may represent underlying edema and or infiltrate superimposed on chronic fibrotic changes. Right hilar prominence. Question small bilateral pleural effusions. Tubing projects over upper abdomen into the lower randee thorax. Clinical correlation.
[2017-04-12 08:55] LABS: NEUTROPHIL 93 % (50-75); TOTAL CELLS COUNTED 100
--- NOTE | 2017-04-12 10:37 | CP.PCM.PN ---
Subjective - Date & Time of Evaluation Date of Evaluation: 04/12/17 Time of Evaluation: 10:35 - Subjective Subjective: events noted - rapid a fib last night with drop in bp. now rate controlled uop poor since am. rising bun noted cxr - congestion. ef 37% remains on vent, unable to obtain ros Discussed w/ daughter over phone- family doesnt want hemodialysis Objective - Vital Signs/Intake and Output Vital Signs (last 24 hours): Temp Pulse Resp BP Pulse Ox 98.0 F 104 H 24 104/43 L 98 04/12/17 08:00 04/12/17 09:00 04/12/17 09:00 04/12/17 09:00 04/12/17 09:00 Intake and Output: 04/12/17 04/12/17 06:59 18:59 Intake Total 1336.9 320.8 Output Total 325 15 Balance 1011.9 305.8 - Medications Medications: Current Medications Albuterol/Ipratropium (Duoneb 3 Mg/0.5 Mg (3 Ml) Ud) 3 ml INH RQ6 [facility] Last Admin: 04/12/17 07:40 Dose: 3 ml Aspirin (Aspirin Chewable) 81 mg PO DAILY [facility] Last Admin: 04/12/17 09:27 Dose: 81 mg Calcium Acetate (Phoslo) 667 mg GT TID [facility] Last Admin: 04/12/17 09:27 Dose: 667 mg Clopidogrel Bisulfate (Plavix) 75 mg PO DAILY [facility] Last Admin: 04/12/17 09:26 Dose: 75 mg Diltiazem HCl (Cardizem) 30 mg PO Q6H [facility] Last Admin: 04/12/17 09:27 Dose: 30 mg Propofol (Diprivan) 1,000 mg in 100 mls @ 2.096 mls/hr IV .Q24H PRN; Protocol; 5 MCG/KG/MIN PRN Reason: TITRATE PER MD ORDER Last Admin: 04/12/17 03:18 Dose: 30 mcg/kg/min, 12.574 mls/hr Diltiazem HCl 125 mg/ Sodium (Chloride) 125 mls @ 10 mls/hr IV .[id number] [facility]; 10 MG/HR PRN Reason: Protocol Last Admin: 04/12/17 02:10 Dose: 15 mg/hr, 15 mls/hr Norepinephrine Bitartrate 8 mg (/ Sodium Chloride) 258 mls @ 7.74 mls/hr IV .Q24H PRN; Protocol; 4 MCG/MIN PRN Reason: TITRATE PER MD ORDER Last Titration: 04/12/17 02:22 Dose: 10 mcg/min, 19.35 mls/hr Piperacillin Sod/Tazobactam Sod (Zosyn 2.25 Gm Iv Premix) 2.25 gm in 50 mls @ 100 mls/hr IVPB Q8H [facility] Last Admin: 04/12/17 05:51 Dose: 100 mls/hr Esmolol HCl 2,500 mg/ Sodium (Chloride) 250 mls @ 21.51 mls/hr IV .[id number] [facility] ; 50 MCG/KG/MIN PRN Reason: Protocol Last Admin: 04/12/17 04:25 Dose: 50 mcg/kg/min, 21.51 mls/hr Vasopressin 40 units/ Sodium (Chloride) 40 mls @ 2.4 mls/hr IV .[id number] [facility]; 0.04 UNITS/MIN PRN Reason: Protocol Last Admin: 04/12/17 04:27 Dose: Not Given Insulin Human Regular (Novolin R) 0 unit SC Q6 [facility] PRN Reason: Protocol Last Admin: 04/12/17 07:16 Dose: 2 unit Pantoprazole Sodium (Protonix Inj) 40 mg IVP DAILY [facility] Last Admin: 04/12/17 09:26 Dose: 40 mg Rosuvastatin Calcium (Crestor) 20 mg PO HS [facility] Last Admin: 04/11/17 21:09 Dose: 20 mg - Labs Labs: 04/12/17 06:29 04/12/17 06:29 PT 11.8 SECONDS (9.7-12.2) 04/08/17 06:50 INR 1.1 04/08/17 06:50 APTT 177 SECONDS (21-34) H* D 04/12/17 06:29 - Constitutional Appears: Non-toxic - Eye Exam Eye Exam: Normal appearance - ENT Exam Additional comments: et tube - Neck Exam Neck Exam: Normal Inspection - Respiratory Exam Additional comments: coarse breath sounds b/l - Cardiovascular Exam Cardiovascular Exam: REGULAR RHYTHM - GI/Abdominal Exam GI & Abdominal Exam: Distended, Soft - Extremities Exam Extremities Exam: Pedal Edema Assessment and Plan (1) ARIE (acute kidney injury) Status: Acute (2) Acute respiratory failure with hypoxia Status: Acute (3) CKD (chronic kidney disease) stage 3, GFR 30-59 ml/min Status: Acute (4) Congestive heart failure Status: Acute (5) Decreased cardiac ejection fraction Status: Acute - Assessment and Plan (Free Text) Assessment: worsening azotemia noted. probable cardiorenal syndrome. recommend low dose lasix if pressures stable. discussed w/ family, no dialysis. Consider family meeting to discuss goals of care recommend renal tube feeds.
--- NOTE | 2017-04-12 10:39 | CP.PCM.PN ---
<Sherron Cheney - Last Filed: 04/12/17 16:49> Subjective - Date & Time of Evaluation Date of Evaluation: 04/12/17 Time of Evaluation: 09:00 - Subjective Subjective: EP Cardiology Progress Note- Dr. Burks Patient seen and examined at bedside this AM. Patient intubated in the ICU with OG tube in place. Patient moves eyes, but does not respond to commands. Patient unable to provide ROS. No acute events overnight as per nursing. Objective - Vital Signs/Intake and Output Vital Signs (last 24 hours): Temp Pulse Resp BP Pulse Ox 98.0 F 104 H 24 104/43 L 98 04/12/17 08:00 04/12/17 09:00 04/12/17 09:00 04/12/17 09:00 04/12/17 09:00 Intake and Output: 04/12/17 04/12/17 06:59 18:59 Intake Total 1336.9 320.8 Output Total 325 15 Balance 1011.9 305.8 - Medications Medications: Current Medications Albuterol/Ipratropium (Duoneb 3 Mg/0.5 Mg (3 Ml) Ud) 3 ml INH RQ6 [facility] Last Admin: 04/12/17 07:40 Dose: 3 ml Aspirin (Aspirin Chewable) 81 mg PO DAILY [facility] Last Admin: 04/12/17 09:27 Dose: 81 mg Calcium Acetate (Phoslo) 667 mg GT TID [facility] Last Admin: 04/12/17 09:27 Dose: 667 mg Clopidogrel Bisulfate (Plavix) 75 mg PO DAILY [facility] Last Admin: 04/12/17 09:26 Dose: 75 mg Diltiazem HCl (Cardizem) 30 mg PO Q6H [facility] Last Admin: 04/12/17 09:27 Dose: 30 mg Propofol (Diprivan) 1,000 mg in 100 mls @ 2.096 mls/hr IV .Q24H PRN; Protocol; 5 MCG/KG/MIN PRN Reason: TITRATE PER MD ORDER Last Admin: 04/12/17 03:18 Dose: 30 mcg/kg/min, 12.574 mls/hr Diltiazem HCl 125 mg/ Sodium (Chloride) 125 mls @ 10 mls/hr IV .[id number] [facility]; 10 MG/HR PRN Reason: Protocol Last Admin: 04/12/17 02:10 Dose: 15 mg/hr, 15 mls/hr Norepinephrine Bitartrate 8 mg (/ Sodium Chloride) 258 mls @ 7.74 mls/hr IV .Q24H PRN; Protocol; 4 MCG/MIN PRN Reason: TITRATE PER MD ORDER Last Titration: 04/12/17 02:22 Dose: 10 mcg/min, 19.35 mls/hr Piperacillin Sod/Tazobactam Sod (Zosyn 2.25 Gm Iv Premix) 2.25 gm in 50 mls @ 100 mls/hr IVPB Q8H [facility] Last Admin: 04/12/17 05:51 Dose: 100 mls/hr Esmolol HCl 2,500 mg/ Sodium (Chloride) 250 mls @ 21.51 mls/hr IV .[id number] [facility] ; 50 MCG/KG/MIN PRN Reason: Protocol Last Admin: 04/12/17 04:25 Dose: 50 mcg/kg/min, 21.51 mls/hr Vasopressin 40 units/ Sodium (Chloride) 40 mls @ 2.4 mls/hr IV .[id number] [facility]; 0.04 UNITS/MIN PRN Reason: Protocol Last Admin: 04/12/17 04:27 Dose: Not Given Insulin Human Regular (Novolin R) 0 unit SC Q6 [facility] PRN Reason: Protocol Last Admin: 04/12/17 07:16 Dose: 2 unit Pantoprazole Sodium (Protonix Inj) 40 mg IVP DAILY [facility] Last Admin: 04/12/17 09:26 Dose: 40 mg Rosuvastatin Calcium (Crestor) 20 mg PO HS [facility] Last Admin: 04/11/17 21:09 Dose: 20 mg - Labs Labs: 04/12/17 06:29 04/12/17 06:29 PT 11.8 SECONDS (9.7-12.2) 04/08/17 06:50 INR 1.1 04/08/17 06:50 APTT 177 SECONDS (21-34) H* D 04/12/17 06:29 - Constitutional Appears: No Acute Distress, Chronically Ill - Head Exam Head Exam: NORMAL INSPECTION - Eye Exam Eye Exam: EOMI - ENT Exam ENT Exam: Mucous Membranes Moist - Respiratory Exam Additional comments: +coarse breath sounds - Cardiovascular Exam Cardiovascular Exam: REGULAR RHYTHM, +S1, +S2 - GI/Abdominal Exam GI & Abdominal Exam: Soft. absent: Distended - Extremities Exam Extremities Exam: Pedal Edema. absent: Tenderness Additional comments: +air boots in place with SCDs - Neurological Exam Neurological Exam: Altered. absent: Alert, Oriented x3 - Skin Skin Exam: Normal Color, Warm Assessment and Plan - Assessment and Plan (Free Text) Assessment: (1) CHF exacerbation Assessment and Plan: - Decreased EF 2/2 Systolic CHF - Consulted for [facility]- patient seen by [facility] junior sales representative today. - Will obtain Echo in 3 months to assess need for permanent pacer as per pt's primary Cardio (Dr. Wynn) - While intubated and sedated in ICU, will not get Life V[facility]; will start process now so that Life Vest available when extubated and stable/ready for discharge. - Continue medical management as per Pt's primary Cardio (Dr. Wynn) and per ICU team Echo 04/08/17: EF 37%, Normal LV size, pseudonormal grade 2 diastolic dysfxn, borderline dilated LA, Probably bicuspid and scleroitc aortic valve, No AR, Mild MR and TR, RVSO 40mmHg, mild Pulm HTN, Aortic root normal size with mild sclerocalcific changes EKG 04/08/17: Atrial fibrillation with rapid ventricular response at 122, ST & T wave abnormality (consider inferolateral ischemia), Abnormal ECG EKG 04/10/17: Atrial fibrillation with rapid ventricular response at 115, Marked ST abnormality, possible anterolateral subendocardial injury, Abnormal ECG Status: Acute Seen and discussed with Dr. Burks. <Rosalva Burks - Last Filed: 05/30/17 03:37> Objective - Vital Signs/Intake and Output Vital Signs (last 24 hours): Temp Pulse Resp BP Pulse Ox 99.3 F 37 L 26 H 46/19 L 74 L 04/16/17 00:00 04/16/17 02:06 04/16/17 02:30 04/16/17 02:06 04/16/17 02:05 - Labs Labs: 04/13/17 06:17 04/13/17 06:17 PT 15.8 SECONDS (9.7-12.2) H 04/13/17 07:59 INR 1.4 04/13/17 07:59 APTT > 400 SECONDS (21-34) H* D 04/13/17 07:59 Attending/Attestation - Attestation I have personally seen and examined this patient.: Yes I have fully participated in the care of the patient.: Yes I have reviewed all pertinent clinical information, including history, physical exam and plan: Yes Notes (Text): 05/30/17 03:36 continue present care prognosis poor
--- NOTE | 2017-04-12 11:53 | CP.PCM.PN ---
Subjective - Date & Time of Evaluation Date of Evaluation: 04/12/17 Time of Evaluation: 00:00 - Subjective Subjective: Patient seen- in ICU intubated, with poor prognosis- discussed with family paliative care discussed Objective - Vital Signs/Intake and Output Vital Signs (last 24 hours): Temp Pulse Resp BP Pulse Ox 98.0 F 73 28 H 91/38 L 100 04/12/17 08:00 04/12/17 11:00 04/12/17 11:00 04/12/17 11:00 04/12/17 11:00 Intake and Output: 04/12/17 04/12/17 06:59 18:59 Intake Total 1336.9 451.0 Output Total 325 20 Balance 1011.9 431.0 - Medications Medications: Current Medications Albuterol/Ipratropium (Duoneb 3 Mg/0.5 Mg (3 Ml) Ud) 3 ml INH RQ6 [facility] Last Admin: 04/12/17 07:40 Dose: 3 ml Aspirin (Aspirin Chewable) 81 mg PO DAILY [facility] Last Admin: 04/12/17 09:27 Dose: 81 mg Calcium Acetate (Phoslo) 667 mg GT TID [facility] Last Admin: 04/12/17 09:27 Dose: 667 mg Clopidogrel Bisulfate (Plavix) 75 mg PO DAILY [facility] Last Admin: 04/12/17 09:26 Dose: 75 mg Diltiazem HCl (Cardizem) 30 mg PO Q6H [facility] Last Admin: 04/12/17 09:27 Dose: 30 mg Propofol (Diprivan) 1,000 mg in 100 mls @ 2.096 mls/hr IV .Q24H PRN; Protocol; 5 MCG/KG/MIN PRN Reason: TITRATE PER MD ORDER Last Admin: 04/12/17 03:18 Dose: 30 mcg/kg/min, 12.574 mls/hr Diltiazem HCl 125 mg/ Sodium (Chloride) 125 mls @ 10 mls/hr IV .[id number] [facility]; 10 MG/HR PRN Reason: Protocol Last Admin: 04/12/17 02:10 Dose: 15 mg/hr, 15 mls/hr Norepinephrine Bitartrate 8 mg (/ Sodium Chloride) 258 mls @ 7.74 mls/hr IV .Q24H PRN; Protocol; 4 MCG/MIN PRN Reason: TITRATE PER MD ORDER Last Titration: 04/12/17 02:22 Dose: 10 mcg/min, 19.35 mls/hr Piperacillin Sod/Tazobactam Sod (Zosyn 2.25 Gm Iv Premix) 2.25 gm in 50 mls @ 100 mls/hr IVPB Q8H [facility] Last Admin: 04/12/17 05:51 Dose: 100 mls/hr Esmolol HCl 2,500 mg/ Sodium (Chloride) 250 mls @ 21.51 mls/hr IV .[id number] [facility] ; 50 MCG/KG/MIN PRN Reason: Protocol Last Admin: 04/12/17 04:25 Dose: 50 mcg/kg/min, 21.51 mls/hr Vasopressin 40 units/ Sodium (Chloride) 40 mls @ 2.4 mls/hr IV .[id number] [facility]; 0.04 UNITS/MIN PRN Reason: Protocol Last Admin: 04/12/17 04:27 Dose: Not Given Insulin Human Regular (Novolin R) 0 unit SC Q6 [facility] PRN Reason: Protocol Last Admin: 04/12/17 07:16 Dose: 2 unit Pantoprazole Sodium (Protonix Inj) 40 mg IVP DAILY [facility] Last Admin: 04/12/17 09:26 Dose: 40 mg Rosuvastatin Calcium (Crestor) 20 mg PO HS [facility] Last Admin: 04/11/17 21:09 Dose: 20 mg - Labs Labs: 04/12/17 06:29 04/12/17 06:29 PT 11.8 SECONDS (9.7-12.2) 04/08/17 06:50 INR 1.1 04/08/17 06:50 APTT 177 SECONDS (21-34) H* D 04/12/17 06:29 - Constitutional Appears: Chronically Ill, Other (intubated ) - Respiratory Exam Respiratory Exam: absent: Chest Wall Tenderness (on respirator sedated) - Cardiovascular Exam Cardiovascular Exam: REGULAR RHYTHM - GI/Abdominal Exam GI & Abdominal Exam: Normal Bowel Sounds. absent: Distended - Extremities Exam Extremities Exam: absent: Joint Swelling - Neurological Exam Neurological Exam: Altered (sedated) Assessment and Plan - Assessment and Plan (Free Text) Assessment: Patient with respiratory failure, ARDS/pneumonia CHF renal failure on ICU care, discussion with family poor prognosis, paliative care consulted
--- NOTE | 2017-04-12 11:59 | CP.CCUPN ---
<Sami Casillas - Last Filed: 04/12/17 11:56> CCU Subjective - Physician Review Subjective (Free Text): 04/12/17 11:56 PGY-1 ICU progress note Pt seen and examined at bedside. Pt still intubated. Pt had episode of desaturation followed by afib with RVR requiring synchronized cardiocoversion overnight. Evaluated by night superintendent drivers and started on cardizem and esmolol drips. Please see full progress note. Now in NSR and off of cardizem drip, tolerating well. Critical Care Time Spent (in minutes): 35 CCU Objective - Vital Signs / Intake & Output Vital Signs (Last 4 hours): Vital Signs Temp Pulse Resp BP Pulse Ox 04/12/17 11:00 73 28 H 91/38 L 100 04/12/17 10:00 78 29 H 93/45 L 94 L 04/12/17 09:00 104 H 24 104/43 L 98 04/12/17 08:00 98.0 F 134 H 25 H 102/52 L 99 Intake and Output (Last 8hrs): Intake & Output 04/11/17 04/12/17 04/12/17 22:59 06:59 14:59 Intake Total 599.8 999.5 451.0 Output Total 265 195 20 Balance 334.8 804.5 431.0 Weight 157 lb 13.616 oz Intake: IV 100 403 50 Intake, IV Amount 219.8 416.5 221.0 Left Forearm 104 104 25.5 Right Antecubital 64.5 107.5 Right Distal Port 15 115 47.6 Right Medial Port 100.8 67.2 21.0 Right Proximal Port 65.8 19.4 Tube Feeding 240 180 120 Other 40 60 Output: Urine 265 195 20 Urethral (Ortiz) 265 195 20 Other: # Bowel Movements 1 - Physical Exam Head: Positive for: Atraumatic, Normocephalic Mouth: Positive for: Moist Mucous Membranes Respiratory/Chest: Positive for: Decreased Breath Sounds, Other (intubated) Cardiovascular: Positive for: Regular Rate and Rhythm, Tachycardic Abdomen: Positive for: Normal Bowel Sounds. Negative for: Distention Upper Extremity: Positive for: Edema Lower Extremity: Positive for: Edema Skin: Positive for: Warm, Dry Psychiatric: Positive for: Alert - Medications Active Medications: Active Medications Generic Name Dose Route Start Last Admin Trade Name Freq PRN Reason Stop Dose Admin Albuterol/Ipratropium 3 ml 04/10/17 14:00 04/12/17 07:40 Duoneb 3 Mg/0.5 Mg (3 Ml) Ud INH 3 ml RQ6 ROKCY Administration Aspirin 81 mg 04/08/17 12:30 04/12/17 09:27 Aspirin Chewable PO 81 mg DAILY ROCKY Administration Calcium Acetate 667 mg 04/11/17 14:00 04/12/17 09:27 Phoslo GT 667 mg TID ROCKY Administration Clopidogrel Bisulfate 75 mg 04/11/17 10:00 04/12/17 09:26 Plavix PO 75 mg DAILY ROCKY Administration Diltiazem HCl 30 mg 04/11/17 22:15 04/12/17 09:27 Cardizem PO 30 mg Q6H ROCKY Administration Propofol 1,000 mg in 100 mls @ 2.096 mls/hr 04/10/17 20:06 04/12/17 03:18 Diprivan IV 30 mcg/kg/min .Q24H PRN 12.574 mls/hr TITRATE PER MD ORDER Administration Protocol 5 MCG/KG/MIN Diltiazem HCl 125 mg/ Sodium 125 mls @ 10 mls/hr 04/10/17 20:30 04/12/17 02: 10 Chloride IV 15 mg/hr .[id number] ROCKY 15 mls/hr Protocol Administration 10 MG/HR Norepinephrine Bitartrate 8 mg 258 mls @ 7.74 mls/hr 04/10/17 21:05 04/12/17 02:22 / Sodium Chloride IV 10 mcg/min .Q24H PRN 19.35 mls/hr TITRATE PER MD ORDER Titration Protocol 4 MCG/MIN Piperacillin Sod/Tazobactam Sod 2.25 gm in 50 mls @ 100 mls/hr 04/10/17 21:45 04/12/17 05:51 Zosyn 2.25 Gm Iv Premix IVPB 100 mls/hr Q8H ROCKY Administration Esmolol HCl 2,500 mg/ Sodium 250 mls @ 21.51 mls/hr 04/12/17 04:00 04/12/17 04:25 Chloride IV 50 mcg/kg/min .[id number] ROCKY 21.51 mls/hr Protocol Administration 50 MCG/KG/MIN Vasopressin 40 units/ Sodium 40 mls @ 2.4 mls/hr 04/12/17 04:00 04/12/17 04: 27 Chloride IV Not Given .[id number] ROCKY Protocol 0.04 UNITS/MIN Insulin Human Regular 0 unit 04/11/17 00:45 04/12/17 07:16 Novolin R SC 2 unit Q6 ROCKY Administration Protocol Pantoprazole Sodium 40 mg 04/11/17 10:00 04/12/17 09:26 Protonix Inj IVP 40 mg DAILY ROCKY Administration Rosuvastatin Calcium 20 mg 04/09/17 22:00 04/11/17 21:09 Crestor PO 20 mg HS ROCKY Administration - Patient Studies Lab Studies: Microbiology Studies 04/08/17 12:19 Blood Culture - Preliminary Blood-Venous NO GROWTH AFTER 3 DAYS 04/08/17 12:19 Blood Culture - Preliminary Blood-Venous NO GROWTH AFTER 3 DAYS Lab Studies 04/12/17 04/12/17 04/12/17 Range/Units 11:44 06:29 06:29 WBC (4.8-10.8) K/uL RBC (4.40-5.90) Mil/uL Hgb (12.0-18.0) g/dL Hct (35.0-51.0) % MCV (80.0-94.0) fL MCH (27.0-31.0) pg MCHC (33.0-37.0) g/dL RDW (11.5-14.5) % Plt Count (130-400) K/uL MPV (7.2-11.7) fL Neut % (Auto) (50.0-75.0) % Lymph % (Auto) (20.0-40.0) % Citrus % (Auto) (0.0-10.0) % Eos % (Auto) (0.0-4.0) % Baso % (Auto) (0.0-2.0) % Neut # (1.8-7.0) K/uL Lymph # (1.0-4.3) K/uL Citrus # (0.0-0.8) K/uL Eos # (0.0-0.7) K/uL Baso # (0.0-0.2) K/uL Neutrophils % (Manual) (50-75) % Band Neutrophils % (0-2) % Lymphocytes % (Manual) (20-40) % Monocytes % (Manual) (0-10) % Platelet Estimate (NORMAL) Polychromasia Hypochromasia (manual) Anisocytosis (manual) Target Cells [place] Cells APTT 177 H* D (21-34) SECONDS Puncture Site pCO2 (35-45) mm/Hg pO2 (80-100) mm/Hg HCO3 (21-28) mmol/L ABG pH (7.35-7.45) ABG Total CO2 (22-28) mmol/L ABG O2 Saturation (95-98) % ABG Base Excess (-2.0-3.0) mmol/L ABG Hemoglobin (11.7-17.4) g/dL ABG Carboxyhemoglobin (0.5-1.5) % POC ABG HHb (Measured) (0.0-5.0) % ABG Methemoglobin (0.0-3.0) % Ilir Test A-a O2 Difference mm/Hg Respiratory Index Hgb O2 Saturation (95.0-98.0) % Mechanical Rate FiO2 % Tidal Volume PEEP Sodium 136 (132-148) mmol/L Potassium 3.5 L (3.6-5.2) mmol/L Chloride 96 L (98-107) mmol/L Carbon Dioxide 24 (22-30) mmol/L Anion Gap 20 (10-20) BUN 109 H* (9-20) mg/dL Creatinine 2.8 H (0.8-1.5) MG/DL Est GFR ( Amer) 26 Est GFR (Non-Af Amer) 22 POC Glucose (mg/dL) 147 H (65-110) mg/dL Random Glucose 164 H (75-110) mg/dL Calcium 7.9 L (8.6-10.4) mg/dl Phosphorus 5.6 H (2.5-4.5) mg/dL Magnesium 2.6 H (1.6-2.3) mg/dL Total Bilirubin 2.5 H (0.2-1.3) mg/dL AST 222 H (17-59) U/L ALT 44 (21-72) U/L Alkaline Phosphatase 170 H D (38-126) U/L Total Protein 6.6 (6.3-8.3) g/dL Albumin 3.1 L (3.5-5.0) g/dL Globulin 3.4 (2.2-3.9) gm/dL Albumin/Globulin Ratio 0.9 L (1.0-2.1) Procalcitonin (0.19-0.49) NG/ML Stool Occult Blood (NEGATIVE) Blood Type Antibody Screen 04/12/17 04/12/17 04/12/17 Range/Units 06:29 05:40 04:20 WBC 10.3 (4.8-10.8) K/uL RBC 2.60 L (4.40-5.90) Mil/uL Hgb 8.7 L (12.0-18.0) g/dL Hct 25.4 L (35.0-51.0) % MCV 97.4 H (80.0-94.0) fL MCH 33.3 H (27.0-31.0) pg MCHC 34.1 (33.0-37.0) g/dL RDW 15.2 H (11.5-14.5) % Plt Count 506 H (130-400) K/uL MPV 7.6 (7.2-11.7) fL Neut % (Auto) 86.5 H (50.0-75.0) % Lymph % (Auto) 9.7 L (20.0-40.0) % Citrus % (Auto) 2.6 (0.0-10.0) % Eos % (Auto) 0.2 (0.0-4.0) % Baso % (Auto) 1.0 (0.0-2.0) % Neut # 8.9 H (1.8-7.0) K/uL Lymph # 1.0 (1.0-4.3) K/uL Citrus # 0.3 (0.0-0.8) K/uL Eos # 0.0 (0.0-0.7) K/uL Baso # 0.1 (0.0-0.2) K/uL Neutrophils % (Manual) 93 H (50-75) % Band Neutrophils % (0-2) % Lymphocytes % (Manual) 4 L (20-40) % Monocytes % (Manual) 3 (0-10) % Platelet Estimate Slightly increased H (NORMAL) Polychromasia Slight Hypochromasia (manual) Slight Anisocytosis (manual) Slight Target Cells Slight [place] Cells Slight APTT (21-34) SECONDS Puncture Site Lb pCO2 51 H (35-45) mm/Hg pO2 124 H (80-100) mm/Hg HCO3 24.9 (21-28) mmol/L ABG pH 7.32 L (7.35-7.45) ABG Total CO2 27.9 (22-28) mmol/L ABG O2 Saturation 99.4 H (95-98) % ABG Base Excess 0 (-2.0-3.0) mmol/L ABG Hemoglobin 7.9 L (11.7-17.4) g/dL ABG Carboxyhemoglobin 1.7 H (0.5-1.5) % POC ABG HHb (Measured) 0.6 (0.0-5.0) % ABG Methemoglobin 1.1 (0.0-3.0) % Ilir Test Na A-a O2 Difference 525.0 mm/Hg Respiratory Index 4.2 Hgb O2 Saturation 96.5 (95.0-98.0) % Mechanical Rate 20 FiO2 100.0 % Tidal Volume 500 PEEP 8 Sodium (132-148) mmol/L Potassium (3.6-5.2) mmol/L Chloride (98-107) mmol/L Carbon Dioxide (22-30) mmol/L Anion Gap (10-20) BUN (9-20) mg/dL Creatinine (0.8-1.5) MG/DL Est GFR ( Amer) Est GFR (Non-Af Amer) POC Glucose (mg/dL) 181 H (65-110) mg/dL Random Glucose (75-110) mg/dL Calcium (8.6-10.4) mg/dl Phosphorus (2.5-4.5) mg/dL Magnesium (1.6-2.3) mg/dL Total Bilirubin (0.2-1.3) mg/dL AST (17-59) U/L ALT (21-72) U/L Alkaline Phosphatase (38-126) U/L Total Protein (6.3-8.3) g/dL Albumin (3.5-5.0) g/dL Globulin (2.2-3.9) gm/dL Albumin/Globulin Ratio (1.0-2.1) Procalcitonin (0.19-0.49) NG/ML Stool Occult Blood (NEGATIVE) Blood Type Antibody Screen 04/11/17 04/11/17 04/11/17 Range/Units 23:42 17:41 17:41 WBC 8.5 (4.8-10.8) K/uL RBC 2.55 L (4.40-5.90) Mil/uL Hgb 8.5 L (12.0-18.0) g/dL Hct 24.6 L (35.0-51.0) % MCV 96.5 H (80.0-94.0) fL MCH 33.5 H (27.0-31.0) pg MCHC 34.7 (33.0-37.0) g/dL RDW 15.2 H (11.5-14.5) % Plt Count 418 H (130-400) K/uL MPV 7.2 (7.2-11.7) fL Neut % (Auto) (50.0-75.0) % Lymph % (Auto) (20.0-40.0) % Citrus % (Auto) (0.0-10.0) % Eos % (Auto) (0.0-4.0) % Baso % (Auto) (0.0-2.0) % Neut # (1.8-7.0) K/uL Lymph # (1.0-4.3) K/uL Citrus # (0.0-0.8) K/uL Eos # (0.0-0.7) K/uL Baso # (0.0-0.2) K/uL Neutrophils % (Manual) 89 H (50-75) % Band Neutrophils % 4 H (0-2) % Lymphocytes % (Manual) 5 L (20-40) % Monocytes % (Manual) 2 (0-10) % Platelet Estimate Normal (NORMAL) Polychromasia Hypochromasia (manual) Anisocytosis (manual) Target Cells [place] Cells APTT (21-34) SECONDS Puncture Site pCO2 (35-45) mm/Hg pO2 (80-100) mm/Hg HCO3 (21-28) mmol/L ABG pH (7.35-7.45) ABG Total CO2 (22-28) mmol/L ABG O2 Saturation (95-98) % ABG Base Excess (-2.0-3.0) mmol/L ABG Hemoglobin (11.7-17.4) g/dL ABG Carboxyhemoglobin (0.5-1.5) % POC ABG HHb (Measured) (0.0-5.0) % ABG Methemoglobin (0.0-3.0) % Ilir Test A-a O2 Difference mm/Hg Respiratory Index Hgb O2 Saturation (95.0-98.0) % Mechanical Rate FiO2 % Tidal Volume PEEP Sodium (132-148) mmol/L Potassium (3.6-5.2) mmol/L Chloride (98-107) mmol/L Carbon Dioxide (22-30) mmol/L Anion Gap (10-20) BUN (9-20) mg/dL Creatinine (0.8-1.5) MG/DL Est GFR ( Amer) Est GFR (Non-Af Amer) POC Glucose (mg/dL) 143 H (65-110) mg/dL Random Glucose (75-110) mg/dL Calcium (8.6-10.4) mg/dl Phosphorus (2.5-4.5) mg/dL Magnesium (1.6-2.3) mg/dL Total Bilirubin (0.2-1.3) mg/dL AST (17-59) U/L ALT (21-72) U/L Alkaline Phosphatase (38-126) U/L Total Protein (6.3-8.3) g/dL Albumin (3.5-5.0) g/dL Globulin (2.2-3.9) gm/dL Albumin/Globulin Ratio (1.0-2.1) Procalcitonin (0.19-0.49) NG/ML Stool Occult Blood (NEGATIVE) Blood Type A POSITIVE Antibody Screen Negative 04/11/17 04/11/17 04/11/17 Range/Units 17:40 13:26 12:03 WBC (4.8-10.8) K/uL RBC (4.40-5.90) Mil/uL Hgb (12.0-18.0) g/dL Hct (35.0-51.0) % MCV (80.0-94.0) fL MCH (27.0-31.0) pg MCHC (33.0-37.0) g/dL RDW (11.5-14.5) % Plt Count (130-400) K/uL MPV (7.2-11.7) fL Neut % (Auto) (50.0-75.0) % Lymph % (Auto) (20.0-40.0) % Citrus % (Auto) (0.0-10.0) % Eos % (Auto) (0.0-4.0) % Baso % (Auto) (0.0-2.0) % Neut # (1.8-7.0) K/uL Lymph # (1.0-4.3) K/uL Citrus # (0.0-0.8) K/uL Eos # (0.0-0.7) K/uL Baso # (0.0-0.2) K/uL Neutrophils % (Manual) (50-75) % Band Neutrophils % (0-2) % Lymphocytes % (Manual) (20-40) % Monocytes % (Manual) (0-10) % Platelet Estimate (NORMAL) Polychromasia Hypochromasia (manual) Anisocytosis (manual) Target Cells [place] Cells APTT (21-34) SECONDS Puncture Site Lra pCO2 40 (35-45) mm/Hg pO2 107 H (80-100) mm/Hg HCO3 25.5 (21-28) mmol/L ABG pH 7.41 (7.35-7.45) ABG Total CO2 26.6 (22-28) mmol/L ABG O2 Saturation 98.9 H (95-98) % ABG Base Excess 0.7 (-2.0-3.0) mmol/L ABG Hemoglobin 13.7 (11.7-17.4) g/dL ABG Carboxyhemoglobin 1.6 H (0.5-1.5) % POC ABG HHb (Measured) 1.1 (0.0-5.0) % ABG Methemoglobin 0.7 (0.0-3.0) % Ilir Test Pos A-a O2 Difference 271.0 mm/Hg Respiratory Index 2.5 Hgb O2 Saturation 96.6 (95.0-98.0) % Mechanical Rate 20 FiO2 60.0 % Tidal Volume 500 PEEP 8 Sodium (132-148) mmol/L Potassium (3.6-5.2) mmol/L Chloride (98-107) mmol/L Carbon Dioxide (22-30) mmol/L Anion Gap (10-20) BUN (9-20) mg/dL Creatinine (0.8-1.5) MG/DL Est GFR ( Amer) Est GFR (Non-Af Amer) POC Glucose (mg/dL) 183 H (65-110) mg/dL Random Glucose (75-110) mg/dL Calcium (8.6-10.4) mg/dl Phosphorus (2.5-4.5) mg/dL Magnesium (1.6-2.3) mg/dL Total Bilirubin (0.2-1.3) mg/dL AST (17-59) U/L ALT (21-72) U/L Alkaline Phosphatase (38-126) U/L Total Protein (6.3-8.3) g/dL Albumin (3.5-5.0) g/dL Globulin (2.2-3.9) gm/dL Albumin/Globulin Ratio (1.0-2.1) Procalcitonin (0.19-0.49) NG/ML Stool Occult Blood Positive H (NEGATIVE) Blood Type Antibody Screen 04/11/17 04/11/17 04/11/17 Range/Units 11:57 10:18 05:56 WBC (4.8-10.8) K/uL RBC (4.40-5.90) Mil/uL Hgb (12.0-18.0) g/dL Hct (35.0-51.0) % MCV (80.0-94.0) fL MCH (27.0-31.0) pg MCHC (33.0-37.0) g/dL RDW (11.5-14.5) % Plt Count (130-400) K/uL MPV (7.2-11.7) fL Neut % (Auto) (50.0-75.0) % Lymph % (Auto) (20.0-40.0) % Citrus % (Auto) (0.0-10.0) % Eos % (Auto) (0.0-4.0) % Baso % (Auto) (0.0-2.0) % Neut # (1.8-7.0) K/uL Lymph # (1.0-4.3) K/uL Citrus # (0.0-0.8) K/uL Eos # (0.0-0.7) K/uL Baso # (0.0-0.2) K/uL Neutrophils % (Manual) (50-75) % Band Neutrophils % (0-2) % Lymphocytes % (Manual) (20-40) % Monocytes % (Manual) (0-10) % Platelet Estimate (NORMAL) Polychromasia Hypochromasia (manual) Anisocytosis (manual) Target Cells [place] Cells APTT (21-34) SECONDS Puncture Site pCO2 (35-45) mm/Hg pO2 (80-100) mm/Hg HCO3 (21-28) mmol/L ABG pH (7.35-7.45) ABG Total CO2 (22-28) mmol/L ABG O2 Saturation (95-98) % ABG Base Excess (-2.0-3.0) mmol/L ABG Hemoglobin (11.7-17.4) g/dL ABG Carboxyhemoglobin (0.5-1.5) % POC ABG HHb (Measured) (0.0-5.0) % ABG Methemoglobin (0.0-3.0) % Ilir Test A-a O2 Difference mm/Hg Respiratory Index Hgb O2 Saturation (95.0-98.0) % Mechanical Rate FiO2 % Tidal Volume PEEP Sodium (132-148) mmol/L Potassium (3.6-5.2) mmol/L Chloride (98-107) mmol/L Carbon Dioxide (22-30) mmol/L Anion Gap (10-20) BUN (9-20) mg/dL Creatinine (0.8-1.5) MG/DL Est GFR ( Amer) Est GFR (Non-Af Amer) POC Glucose (mg/dL) 145 H 134 H (65-110) mg/dL Random Glucose (75-110) mg/dL Calcium (8.6-10.4) mg/dl Phosphorus (2.5-4.5) mg/dL Magnesium (1.6-2.3) mg/dL Total Bilirubin (0.2-1.3) mg/dL AST (17-59) U/L ALT (21-72) U/L Alkaline Phosphatase (38-126) U/L Total Protein (6.3-8.3) g/dL Albumin (3.5-5.0) g/dL Globulin (2.2-3.9) gm/dL Albumin/Globulin Ratio (1.0-2.1) Procalcitonin 6.56 H (0.19-0.49) NG/ML Stool Occult Blood (NEGATIVE) Blood Type Antibody Screen 04/11/17 04/10/17 04/10/17 Range/Units 05:54 23:51 21:24 WBC (4.8-10.8) K/uL RBC (4.40-5.90) Mil/uL Hgb (12.0-18.0) g/dL Hct (35.0-51.0) % MCV (80.0-94.0) fL MCH (27.0-31.0) pg MCHC (33.0-37.0) g/dL RDW (11.5-14.5) % Plt Count (130-400) K/uL MPV (7.2-11.7) fL Neut % (Auto) (50.0-75.0) % Lymph % (Auto) (20.0-40.0) % Citrus % (Auto) (0.0-10.0) % Eos % (Auto) (0.0-4.0) % Baso % (Auto) (0.0-2.0) % Neut # (1.8-7.0) K/uL Lymph # (1.0-4.3) K/uL Citrus # (0.0-0.8) K/uL Eos # (0.0-0.7) K/uL Baso # (0.0-0.2) K/uL Neutrophils % (Manual) (50-75) % Band Neutrophils % (0-2) % Lymphocytes % (Manual) (20-40) % Monocytes % (Manual) (0-10) % Platelet Estimate (NORMAL) Polychromasia Hypochromasia (manual) Anisocytosis (manual) Target Cells [place] Cells APTT (21-34) SECONDS Puncture Site pCO2 (35-45) mm/Hg pO2 (80-100) mm/Hg HCO3 (21-28) mmol/L ABG pH (7.35-7.45) ABG Total CO2 (22-28) mmol/L ABG O2 Saturation (95-98) % ABG Base Excess (-2.0-3.0) mmol/L ABG Hemoglobin (11.7-17.4) g/dL ABG Carboxyhemoglobin (0.5-1.5) % POC ABG HHb (Measured) (0.0-5.0) % ABG Methemoglobin (0.0-3.0) % Ilir Test A-a O2 Difference mm/Hg Respiratory Index Hgb O2 Saturation (95.0-98.0) % Mechanical Rate FiO2 % Tidal Volume PEEP Sodium (132-148) mmol/L Potassium (3.6-5.2) mmol/L Chloride (98-107) mmol/L Carbon Dioxide (22-30) mmol/L Anion Gap (10-20) BUN (9-20) mg/dL Creatinine (0.8-1.5) MG/DL Est GFR ( Amer) Est GFR (Non-Af Amer) POC Glucose (mg/dL) 157 H 183 H (65-110) mg/dL Random Glucose (75-110) mg/dL Calcium (8.6-10.4) mg/dl Phosphorus (2.5-4.5) mg/dL Magnesium (1.6-2.3) mg/dL Total Bilirubin (0.2-1.3) mg/dL AST (17-59) U/L ALT (21-72) U/L Alkaline Phosphatase (38-126) U/L Total Protein (6.3-8.3) g/dL Albumin (3.5-5.0) g/dL Globulin (2.2-3.9) gm/dL Albumin/Globulin Ratio (1.0-2.1) Procalcitonin 6.96 H (0.19-0.49) NG/ML Stool Occult Blood (NEGATIVE) Blood Type Antibody Screen 04/10/17 04/10/17 04/10/17 Range/Units 16:08 11:52 07:14 WBC (4.8-10.8) K/uL RBC (4.40-5.90) Mil/uL Hgb (12.0-18.0) g/dL Hct (35.0-51.0) % MCV (80.0-94.0) fL MCH (27.0-31.0) pg MCHC (33.0-37.0) g/dL RDW (11.5-14.5) % Plt Count (130-400) K/uL MPV (7.2-11.7) fL Neut % (Auto) (50.0-75.0) % Lymph % (Auto) (20.0-40.0) % Citrus % (Auto) (0.0-10.0) % Eos % (Auto) (0.0-4.0) % Baso % (Auto) (0.0-2.0) % Neut # (1.8-7.0) K/uL Lymph # (1.0-4.3) K/uL Citrus # (0.0-0.8) K/uL Eos # (0.0-0.7) K/uL Baso # (0.0-0.2) K/uL Neutrophils % (Manual) (50-75) % Band Neutrophils % (0-2) % Lymphocytes % (Manual) (20-40) % Monocytes % (Manual) (0-10) % Platelet Estimate (NORMAL) Polychromasia Hypochromasia (manual) Anisocytosis (manual) Target Cells [place] Cells APTT (21-34) SECONDS Puncture Site pCO2 (35-45) mm/Hg pO2 (80-100) mm/Hg HCO3 (21-28) mmol/L ABG pH (7.35-7.45) ABG Total CO2 (22-28) mmol/L ABG O2 Saturation (95-98) % ABG Base Excess (-2.0-3.0) mmol/L ABG Hemoglobin (11.7-17.4) g/dL ABG Carboxyhemoglobin (0.5-1.5) % POC ABG HHb (Measured) (0.0-5.0) % ABG Methemoglobin (0.0-3.0) % Ilir Test A-a O2 Difference mm/Hg Respiratory Index Hgb O2 Saturation (95.0-98.0) % Mechanical Rate FiO2 % Tidal Volume PEEP Sodium (132-148) mmol/L Potassium (3.6-5.2) mmol/L Chloride (98-107) mmol/L Carbon Dioxide (22-30) mmol/L Anion Gap (10-20) BUN (9-20) mg/dL Creatinine (0.8-1.5) MG/DL Est GFR ( Amer) Est GFR (Non-Af Amer) POC Glucose (mg/dL) 126 H 150 H 139 H (65-110) mg/dL Random Glucose (75-110) mg/dL Calcium (8.6-10.4) mg/dl Phosphorus (2.5-4.5) mg/dL Magnesium (1.6-2.3) mg/dL Total Bilirubin (0.2-1.3) mg/dL AST (17-59) U/L ALT (21-72) U/L Alkaline Phosphatase (38-126) U/L Total Protein (6.3-8.3) g/dL Albumin (3.5-5.0) g/dL Globulin (2.2-3.9) gm/dL Albumin/Globulin Ratio (1.0-2.1) Procalcitonin (0.19-0.49) NG/ML Stool Occult Blood (NEGATIVE) Blood Type Antibody Screen 04/09/17 04/09/17 04/09/17 Range/Units 20:57 16:24 11:26 WBC (4.8-10.8) K/uL RBC (4.40-5.90) Mil/uL Hgb (12.0-18.0) g/dL Hct (35.0-51.0) % MCV (80.0-94.0) fL MCH (27.0-31.0) pg MCHC (33.0-37.0) g/dL RDW (11.5-14.5) % Plt Count (130-400) K/uL MPV (7.2-11.7) fL Neut % (Auto) (50.0-75.0) % Lymph % (Auto) (20.0-40.0) % Citrus % (Auto) (0.0-10.0) % Eos % (Auto) (0.0-4.0) % Baso % (Auto) (0.0-2.0) % Neut # (1.8-7.0) K/uL Lymph # (1.0-4.3) K/uL Citrus # (0.0-0.8) K/uL Eos # (0.0-0.7) K/uL Baso # (0.0-0.2) K/uL Neutrophils % (Manual) (50-75) % Band Neutrophils % (0-2) % Lymphocytes % (Manual) (20-40) % Monocytes % (Manual) (0-10) % Platelet Estimate (NORMAL) Polychromasia Hypochromasia (manual) Anisocytosis (manual) Target Cells [place] Cells APTT (21-34) SECONDS Puncture Site pCO2 (35-45) mm/Hg pO2 (80-100) mm/Hg HCO3 (21-28) mmol/L ABG pH (7.35-7.45) ABG Total CO2 (22-28) mmol/L ABG O2 Saturation (95-98) % ABG Base Excess (-2.0-3.0) mmol/L ABG Hemoglobin (11.7-17.4) g/dL ABG Carboxyhemoglobin (0.5-1.5) % POC ABG HHb (Measured) (0.0-5.0) % ABG Methemoglobin (0.0-3.0) % Ilir Test A-a O2 Difference mm/Hg Respiratory Index Hgb O2 Saturation (95.0-98.0) % Mechanical Rate FiO2 % Tidal Volume PEEP Sodium (132-148) mmol/L Potassium (3.6-5.2) mmol/L Chloride (98-107) mmol/L Carbon Dioxide (22-30) mmol/L Anion Gap (10-20) BUN (9-20) mg/dL Creatinine (0.8-1.5) MG/DL Est GFR ( Amer) Est GFR (Non-Af Amer) POC Glucose (mg/dL) 132 H 126 H 122 H (65-110) mg/dL Random Glucose (75-110) mg/dL Calcium (8.6-10.4) mg/dl Phosphorus (2.5-4.5) mg/dL Magnesium (1.6-2.3) mg/dL Total Bilirubin (0.2-1.3) mg/dL AST (17-59) U/L ALT (21-72) U/L Alkaline Phosphatase (38-126) U/L Total Protein (6.3-8.3) g/dL Albumin (3.5-5.0) g/dL Globulin (2.2-3.9) gm/dL Albumin/Globulin Ratio (1.0-2.1) Procalcitonin (0.19-0.49) NG/ML Stool Occult Blood (NEGATIVE) Blood Type Antibody Screen 04/09/17 04/08/17 04/08/17 Range/Units 08:02 20:59 16:08 WBC (4.8-10.8) K/uL RBC (4.40-5.90) Mil/uL Hgb (12.0-18.0) g/dL Hct (35.0-51.0) % MCV (80.0-94.0) fL MCH (27.0-31.0) pg MCHC (33.0-37.0) g/dL RDW (11.5-14.5) % Plt Count (130-400) K/uL MPV (7.2-11.7) fL Neut % (Auto) (50.0-75.0) % Lymph % (Auto) (20.0-40.0) % Citrus % (Auto) (0.0-10.0) % Eos % (Auto) (0.0-4.0) % Baso % (Auto) (0.0-2.0) % Neut # (1.8-7.0) K/uL Lymph # (1.0-4.3) K/uL Citrus # (0.0-0.8) K/uL Eos # (0.0-0.7) K/uL Baso # (0.0-0.2) K/uL Neutrophils % (Manual) (50-75) % Band Neutrophils % (0-2) % Lymphocytes % (Manual) (20-40) % Monocytes % (Manual) (0-10) % Platelet Estimate (NORMAL) Polychromasia Hypochromasia (manual) Anisocytosis (manual) Target Cells [place] Cells APTT (21-34) SECONDS Puncture Site pCO2 (35-45) mm/Hg pO2 (80-100) mm/Hg HCO3 (21-28) mmol/L ABG pH (7.35-7.45) ABG Total CO2 (22-28) mmol/L ABG O2 Saturation (95-98) % ABG Base Excess (-2.0-3.0) mmol/L ABG Hemoglobin (11.7-17.4) g/dL ABG Carboxyhemoglobin (0.5-1.5) % POC ABG HHb (Measured) (0.0-5.0) % ABG Methemoglobin (0.0-3.0) % Ilir Test A-a O2 Difference mm/Hg Respiratory Index Hgb O2 Saturation (95.0-98.0) % Mechanical Rate FiO2 % Tidal Volume PEEP Sodium (132-148) mmol/L Potassium (3.6-5.2) mmol/L Chloride (98-107) mmol/L Carbon Dioxide (22-30) mmol/L Anion Gap (10-20) BUN (9-20) mg/dL Creatinine (0.8-1.5) MG/DL Est GFR ( Amer) Est GFR (Non-Af Amer) POC Glucose (mg/dL) 117 H 102 107 (65-110) mg/dL Random Glucose (75-110) mg/dL Calcium (8.6-10.4) mg/dl Phosphorus (2.5-4.5) mg/dL Magnesium (1.6-2.3) mg/dL Total Bilirubin (0.2-1.3) mg/dL AST (17-59) U/L ALT (21-72) U/L Alkaline Phosphatase (38-126) U/L Total Protein (6.3-8.3) g/dL Albumin (3.5-5.0) g/dL Globulin (2.2-3.9) gm/dL Albumin/Globulin Ratio (1.0-2.1) Procalcitonin (0.19-0.49) NG/ML Stool Occult Blood (NEGATIVE) Blood Type Antibody Screen 04/08/17 Range/Units 11:28 WBC (4.8-10.8) K/uL RBC (4.40-5.90) Mil/uL Hgb (12.0-18.0) g/dL Hct (35.0-51.0) % MCV (80.0-94.0) fL MCH (27.0-31.0) pg MCHC (33.0-37.0) g/dL RDW (11.5-14.5) % Plt Count (130-400) K/uL MPV (7.2-11.7) fL Neut % (Auto) (50.0-75.0) % Lymph % (Auto) (20.0-40.0) % Citrus % (Auto) (0.0-10.0) % Eos % (Auto) (0.0-4.0) % Baso % (Auto) (0.0-2.0) % Neut # (1.8-7.0) K/uL Lymph # (1.0-4.3) K/uL Citrus # (0.0-0.8) K/uL Eos # (0.0-0.7) K/uL Baso # (0.0-0.2) K/uL Neutrophils % (Manual) (50-75) % Band Neutrophils % (0-2) % Lymphocytes % (Manual) (20-40) % Monocytes % (Manual) (0-10) % Platelet Estimate (NORMAL) Polychromasia Hypochromasia (manual) Anisocytosis (manual) Target Cells [place] Cells APTT (21-34) SECONDS Puncture Site pCO2 (35-45) mm/Hg pO2 (80-100) mm/Hg HCO3 (21-28) mmol/L ABG pH (7.35-7.45) ABG Total CO2 (22-28) mmol/L ABG O2 Saturation (95-98) % ABG Base Excess (-2.0-3.0) mmol/L ABG Hemoglobin (11.7-17.4) g/dL ABG Carboxyhemoglobin (0.5-1.5) % POC ABG HHb (Measured) (0.0-5.0) % ABG Methemoglobin (0.0-3.0) % Ilir Test A-a O2 Difference mm/Hg Respiratory Index Hgb O2 Saturation (95.0-98.0) % Mechanical Rate FiO2 % Tidal Volume PEEP Sodium (132-148) mmol/L Potassium (3.6-5.2) mmol/L Chloride (98-107) mmol/L Carbon Dioxide (22-30) mmol/L Anion Gap (10-20) BUN (9-20) mg/dL Creatinine (0.8-1.5) MG/DL Est GFR ( Amer) Est GFR (Non-Af Amer) POC Glucose (mg/dL) 113 H (65-110) mg/dL Random Glucose (75-110) mg/dL Calcium (8.6-10.4) mg/dl Phosphorus (2.5-4.5) mg/dL Magnesium (1.6-2.3) mg/dL Total Bilirubin (0.2-1.3) mg/dL AST (17-59) U/L ALT (21-72) U/L Alkaline Phosphatase (38-126) U/L Total Protein (6.3-8.3) g/dL Albumin (3.5-5.0) g/dL Globulin (2.2-3.9) gm/dL Albumin/Globulin Ratio (1.0-2.1) Procalcitonin (0.19-0.49) NG/ML Stool Occult Blood (NEGATIVE) Blood Type Antibody Screen Laboratory Results - last 24 hr 04/08/17 04/08/17 04/08/17 11:28 16:08 20:59 WBC RBC Hgb Hct MCV MCH MCHC RDW Plt Count MPV Neut % (Auto) Lymph % (Auto) Citrus % (Auto) Eos % (Auto) Baso % (Auto) Neut # Lymph # [place] # Eos # Baso # Neutrophils % (Manual) Band Neutrophils % Lymphocytes % (Manual) Monocytes % (Manual) Platelet Estimate Polychromasia Hypochromasia (manual) Anisocytosis (manual) Target Cells [place] Cells APTT Puncture Site pCO2 pO2 HCO3 ABG pH ABG Total CO2 ABG O2 Saturation ABG Base Excess ABG Hemoglobin ABG Carboxyhemoglobin POC ABG HHb (Measured) ABG Methemoglobin Ilir Test A-a O2 Difference Respiratory Index Hgb O2 Saturation Mechanical Rate FiO2 Tidal Volume PEEP Sodium Potassium Chloride Carbon Dioxide Anion Gap BUN Creatinine Est GFR ( Amer) Est GFR (Non-Af Amer) POC Glucose (mg/dL) 113 H 107 102 Random Glucose Calcium Phosphorus Magnesium Total Bilirubin AST ALT Alkaline Phosphatase Total Protein Albumin Globulin Albumin/Globulin Ratio Procalcitonin Stool Occult Blood Blood Type Antibody Screen 04/09/17 04/09/17 04/09/17 08:02 11:26 16:24 WBC RBC Hgb Hct MCV MCH MCHC RDW Plt Count MPV Neut % (Auto) Lymph % (Auto) [place] % (Auto) Eos % (Auto) Baso % (Auto) Neut # Lymph # [place] # Eos # Baso # Neutrophils % (Manual) Band Neutrophils % Lymphocytes % (Manual) Monocytes % (Manual) Platelet Estimate Polychromasia Hypochromasia (manual) Anisocytosis (manual) Target Cells [place] Cells APTT Puncture Site pCO2 pO2 HCO3 ABG pH ABG Total CO2 ABG O2 Saturation ABG Base Excess ABG Hemoglobin ABG Carboxyhemoglobin POC ABG HHb (Measured) ABG Methemoglobin Ilir Test A-a O2 Difference Respiratory Index Hgb O2 Saturation Mechanical Rate FiO2 Tidal Volume PEEP Sodium Potassium Chloride Carbon Dioxide Anion Gap BUN Creatinine Est GFR ( Amer) Est GFR (Non-Af Amer) POC Glucose (mg/dL) 117 H 122 H 126 H Random Glucose Calcium Phosphorus Magnesium Total Bilirubin AST ALT Alkaline Phosphatase Total Protein Albumin Globulin Albumin/Globulin Ratio Procalcitonin Stool Occult Blood Blood Type Antibody Screen 04/09/17 04/10/17 04/10/17 20:57 07:14 11:52 WBC RBC Hgb Hct MCV MCH MCHC RDW Plt Count MPV Neut % (Auto) Lymph % (Auto) [place] % (Auto) Eos % (Auto) Baso % (Auto) Neut # Lymph # [place] # Eos # Baso # Neutrophils % (Manual) Band Neutrophils % Lymphocytes % (Manual) Monocytes % (Manual) Platelet Estimate Polychromasia Hypochromasia (manual) Anisocytosis (manual) Target Cells [place] Cells APTT Puncture Site pCO2 pO2 HCO3 ABG pH ABG Total CO2 ABG O2 Saturation ABG Base Excess ABG Hemoglobin ABG Carboxyhemoglobin POC ABG HHb (Measured) ABG Methemoglobin Ilir Test A-a O2 Difference Respiratory Index Hgb O2 Saturation Mechanical Rate FiO2 Tidal Volume PEEP Sodium Potassium Chloride Carbon Dioxide Anion Gap BUN Creatinine Est GFR ( Amer) Est GFR (Non-Af Amer) POC Glucose (mg/dL) 132 H 139 H 150 H Random Glucose Calcium Phosphorus Magnesium Total Bilirubin AST ALT Alkaline Phosphatase Total Protein Albumin Globulin Albumin/Globulin Ratio Procalcitonin Stool Occult Blood Blood Type Antibody Screen 04/10/17 04/10/17 04/10/17 16:08 21:24 23:51 WBC RBC Hgb Hct MCV MCH MCHC RDW Plt Count MPV Neut % (Auto) Lymph % (Auto) [place] % (Auto) Eos % (Auto) Baso % (Auto) Neut # Lymph # [place] # Eos # Baso # Neutrophils % (Manual) Band Neutrophils % Lymphocytes % (Manual) Monocytes % (Manual) Platelet Estimate Polychromasia Hypochromasia (manual) Anisocytosis (manual) Target Cells [place] Cells APTT Puncture Site pCO2 pO2 HCO3 ABG pH ABG Total CO2 ABG O2 Saturation ABG Base Excess ABG Hemoglobin ABG Carboxyhemoglobin POC ABG HHb (Measured) ABG Methemoglobin Ilir Test A-a O2 Difference Respiratory Index Hgb O2 Saturation Mechanical Rate FiO2 Tidal Volume PEEP Sodium Potassium Chloride Carbon Dioxide Anion Gap BUN Creatinine Est GFR ( Amer) Est GFR (Non-Af Amer) POC Glucose (mg/dL) 126 H 183 H 157 H Random Glucose Calcium Phosphorus Magnesium Total Bilirubin AST ALT Alkaline Phosphatase Total Protein Albumin Globulin Albumin/Globulin Ratio Procalcitonin Stool Occult Blood Blood Type Antibody Screen 04/11/17 04/11/17 04/11/17 05:54 05:56 10:18 WBC RBC Hgb Hct MCV MCH MCHC RDW Plt Count MPV Neut % (Auto) Lymph % (Auto) [place] % (Auto) Eos % (Auto) Baso % (Auto) Neut # Lymph # [place] # Eos # Baso # Neutrophils % (Manual) Band Neutrophils % Lymphocytes % (Manual) Monocytes % (Manual) Platelet Estimate Polychromasia Hypochromasia (manual) Anisocytosis (manual) Target Cells [place] Cells APTT Puncture Site pCO2 pO2 HCO3 ABG pH ABG Total CO2 ABG O2 Saturation ABG Base Excess ABG Hemoglobin ABG Carboxyhemoglobin POC ABG HHb (Measured) ABG Methemoglobin Ilir Test A-a O2 Difference Respiratory Index Hgb O2 Saturation Mechanical Rate FiO2 Tidal Volume PEEP Sodium Potassium Chloride Carbon Dioxide Anion Gap BUN Creatinine Est GFR ( Amer) Est GFR (Non-Af Amer) POC Glucose (mg/dL) 134 H Random Glucose Calcium Phosphorus Magnesium Total Bilirubin AST ALT Alkaline Phosphatase Total Protein Albumin Globulin Albumin/Globulin Ratio Procalcitonin 6.96 H 6.56 H Stool Occult Blood Blood Type Antibody Screen 04/11/17 04/11/17 04/11/17 11:57 12:03 13:26 WBC RBC Hgb Hct MCV MCH MCHC RDW Plt Count MPV Neut % (Auto) Lymph % (Auto) [place] % (Auto) Eos % (Auto) Baso % (Auto) Neut # Lymph # [place] # Eos # Baso # Neutrophils % (Manual) Band Neutrophils % Lymphocytes % (Manual) Monocytes % (Manual) Platelet Estimate Polychromasia Hypochromasia (manual) Anisocytosis (manual) Target Cells [place]arya Cells APTT Puncture Site Lra pCO2 40 pO2 107 H HCO3 25.5 ABG pH 7.41 ABG Total CO2 26.6 ABG O2 Saturation 98.9 H ABG Base Excess 0.7 ABG Hemoglobin 13.7 ABG Carboxyhemoglobin 1.6 H POC ABG HHb (Measured) 1.1 ABG Methemoglobin 0.7 Ilir Test Pos A-a O2 Difference 271.0 Respiratory Index 2.5 Hgb O2 Saturation 96.6 Mechanical Rate 20 FiO2 60.0 Tidal Volume 500 PEEP 8 Sodium Potassium Chloride Carbon Dioxide Anion Gap BUN Creatinine Est GFR ( Amer) Est GFR (Non-Af Amer) POC Glucose (mg/dL) 145 H Random Glucose Calcium Phosphorus Magnesium Total Bilirubin AST ALT Alkaline Phosphatase Total Protein Albumin Globulin Albumin/Globulin Ratio Procalcitonin Stool Occult Blood Positive H Blood Type Antibody Screen 04/11/17 04/11/17 04/11/17 17:40 17:41 17:41 WBC 8.5 RBC 2.55 L Hgb 8.5 L Hct 24.6 L MCV 96.5 H MCH 33.5 H MCHC 34.7 RDW 15.2 H Plt Count 418 H MPV 7.2 Neut % (Auto) Lymph % (Auto) [place] % (Auto) Eos % (Auto) Baso % (Auto) Neut # Lymph # [place] # Eos # Baso # Neutrophils % (Manual) 89 H Band Neutrophils % 4 H Lymphocytes % (Manual) 5 L Monocytes % (Manual) 2 Platelet Estimate Normal Polychromasia Hypochromasia (manual) Anisocytosis (manual) Target Cells [place] Cells APTT Puncture Site pCO2 pO2 HCO3 ABG pH ABG Total CO2 ABG O2 Saturation ABG Base Excess ABG Hemoglobin ABG Carboxyhemoglobin POC ABG HHb (Measured) ABG Methemoglobin Ilir Test A-a O2 Difference Respiratory Index Hgb O2 Saturation Mechanical Rate FiO2 Tidal Volume PEEP Sodium Potassium Chloride Carbon Dioxide Anion Gap BUN Creatinine Est GFR ( Amer) Est GFR (Non-Af Amer) POC Glucose (mg/dL) 183 H Random Glucose Calcium Phosphorus Magnesium Total Bilirubin AST ALT Alkaline Phosphatase Total Protein Albumin Globulin Albumin/Globulin Ratio Procalcitonin Stool Occult Blood Blood Type A POSITIVE Antibody Screen Negative 04/11/17 04/12/17 04/12/17 23:42 04:20 05:40 WBC RBC Hgb Hct MCV MCH MCHC RDW Plt Count MPV Neut % (Auto) Lymph % (Auto) [place] % (Auto) Eos % (Auto) Baso % (Auto) Neut # Lymph # [place] # Eos # Baso # Neutrophils % (Manual) Band Neutrophils % Lymphocytes % (Manual) Monocytes % (Manual) Platelet Estimate Polychromasia Hypochromasia (manual) Anisocytosis (manual) Target Cells [place] Cells APTT Puncture Site Lb pCO2 51 H pO2 124 H HCO3 24.9 ABG pH 7.32 L ABG Total CO2 27.9 ABG O2 Saturation 99.4 H ABG Base Excess 0 ABG Hemoglobin 7.9 L ABG Carboxyhemoglobin 1.7 H POC ABG HHb (Measured) 0.6 ABG Methemoglobin 1.1 Ilir Test Na A-a O2 Difference 525.0 Respiratory Index 4.2 Hgb O2 Saturation 96.5 Mechanical Rate 20 FiO2 100.0 Tidal Volume 500 PEEP 8 Sodium Potassium Chloride Carbon Dioxide Anion Gap BUN Creatinine Est GFR ( Amer) Est GFR (Non-Af Amer) POC Glucose (mg/dL) 143 H 181 H Random Glucose Calcium Phosphorus Magnesium Total Bilirubin AST ALT Alkaline Phosphatase Total Protein Albumin Globulin Albumin/Globulin Ratio Procalcitonin Stool Occult Blood Blood Type Antibody Screen 04/12/17 04/12/17 04/12/17 06:29 06:29 06:29 WBC 10.3 RBC 2.60 L Hgb 8.7 L Hct 25.4 L MCV 97.4 H MCH 33.3 H MCHC 34.1 RDW 15.2 H Plt Count 506 H MPV 7.6 Neut % (Auto) 86.5 H Lymph % (Auto) 9.7 L [place] % (Auto) 2.6 Eos % (Auto) 0.2 Baso % (Auto) 1.0 Neut # 8.9 H Lymph # 1.0 [place] # 0.3 Eos # 0.0 Baso # 0.1 Neutrophils % (Manual) 93 H Band Neutrophils % Lymphocytes % (Manual) 4 L Monocytes % (Manual) 3 Platelet Estimate Slightly increased H Polychromasia Slight Hypochromasia (manual) Slight Anisocytosis (manual) Slight Target Cells Slight [place]arya Cells Slight APTT 177 H* D Puncture Site pCO2 pO2 HCO3 ABG pH ABG Total CO2 ABG O2 Saturation ABG Base Excess ABG Hemoglobin ABG Carboxyhemoglobin POC ABG HHb (Measured) ABG Methemoglobin Ilir Test A-a O2 Difference Respiratory Index Hgb O2 Saturation Mechanical Rate FiO2 Tidal Volume PEEP Sodium 136 Potassium 3.5 L Chloride 96 L Carbon Dioxide 24 Anion Gap 20 BUN 109 H* Creatinine 2.8 H Est GFR ( Amer) 26 Est GFR (Non-Af Amer) 22 POC Glucose (mg/dL) Random Glucose 164 H Calcium 7.9 L Phosphorus 5.6 H Magnesium 2.6 H Total Bilirubin 2.5 H AST 222 H ALT 44 Alkaline Phosphatase 170 H D Total Protein 6.6 Albumin 3.1 L Globulin 3.4 Albumin/Globulin Ratio 0.9 L Procalcitonin Stool Occult Blood Blood Type Antibody Screen 04/12/17 11:44 WBC RBC Hgb Hct MCV MCH MCHC RDW Plt Count MPV Neut % (Auto) Lymph % (Auto) [place] % (Auto) Eos % (Auto) Baso % (Auto) Neut # Lymph # [place] # Eos # Baso # Neutrophils % (Manual) Band Neutrophils % Lymphocytes % (Manual) Monocytes % (Manual) Platelet Estimate Polychromasia Hypochromasia (manual) Anisocytosis (manual) Target Cells [place] Cells APTT Puncture Site pCO2 pO2 HCO3 ABG pH ABG Total CO2 ABG O2 Saturation ABG Base Excess ABG Hemoglobin ABG Carboxyhemoglobin POC ABG HHb (Measured) ABG Methemoglobin Ilir Test A-a O2 Difference Respiratory Index Hgb O2 Saturation Mechanical Rate FiO2 Tidal Volume PEEP Sodium Potassium Chloride Carbon Dioxide Anion Gap BUN Creatinine Est GFR ( Amer) Est GFR (Non-Af Amer) POC Glucose (mg/dL) 147 H Random Glucose Calcium Phosphorus Magnesium Total Bilirubin AST ALT Alkaline Phosphatase Total Protein Albumin Globulin Albumin/Globulin Ratio Procalcitonin Stool Occult Blood Blood Type Antibody Screen Fingerstick Blood Sugar Results: 181 Review of Systems - Review of Systems Systems not reviewed;Unavailable: Intubated Assessment/Plan - Assessment and Plan (Free Text) Assessment: 82 M with PMH of CAD s/p CABG, CHF, HTN, COPD (not on home O2), CKD 3A, Liver mass, admitted to ICU for CHF exacerbation requiring bipap vs pneumonia. Trop is positive. 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 Developed respiratory failure secondary to likely pneumonia per most recent CXR Plan: Neuro: Intubated and sedated Cardiovascular: NSTEMI Plavix, crestor and ASA Discontinue heparin drip A fib with RVR last night Off of cardizem drip now, PO cardizem Esmolol drip Levophed drip for pressor support Pulmonary: Respiratory failure, intubated CXR - Decreased diffuse bilateral pulmonary opacity compared to 04/09. No focal consolidation. Lines and tubes unchanged. Continue Zosyn Gastrointestinal: Tube feeds started No acute issues Hematology: Anemia stable at 8.7 - heparin drip stopped Fecal occult positive Monitor Endocrine: No acute issues Sliding scale coverage Renal: ARIE on CKD worsening Anuric May need dialysis Continue to monitor electrolytes and replete as needed Infectious Disease: Afebrile. leukocytosis resolved Zosyn Monitor GI Prophylaxis: Pepcid DVT Prophylaxis: Heparin <EnriqueTyler virgen S - Last Filed: 04/12/17 16:14> CCU Objective - Vital Signs / Intake & Output Vital Signs (Last 4 hours): Vital Signs Pulse Resp BP Pulse Ox 04/12/17 15:00 84 25 H 99/41 L 100 04/12/17 14:00 90 20 92/40 L 100 04/12/17 13:00 78 25 H 90/36 L 100 Intake and Output (Last 8hrs): Intake & Output 04/12/17 04/12/17 04/12/17 06:59 14:59 22:59 Intake Total 999.5 726.3 315.1 Output Total 195 20 0 Balance 804.5 706.3 315.1 Weight 157 lb 13.616 oz Intake: IV 403 50 250 Intake, IV Amount 416.5 376.3 35.1 Left Forearm 104 25.5 Right Antecubital 64.5 172.0 21.5 Right Distal Port 115 75.8 9.4 Right Medial Port 67.2 33.6 4.2 Right Proximal Port 65.8 69.4 Tube Feeding 180 210 30 Other 90 Output: Urine 195 20 0 Urethral (Ortiz) 195 20 0 Other: # Bowel Movements 1 - Medications Active Medications: Active Medications Generic Name Dose Route Start Last Admin Trade Name Freq PRN Reason Stop Dose Admin Albuterol/Ipratropium 3 ml 04/10/17 14:00 04/12/17 13:18 Duoneb 3 Mg/0.5 Mg (3 Ml) Ud INH 3 ml RQ6 ROCKY Administration Aspirin 81 mg 04/08/17 12:30 04/12/17 09:27 Aspirin Chewable PO 81 mg DAILY ROCKY Administration Calcium Acetate 667 mg 04/11/17 14:00 04/12/17 14:10 Phoslo GT 667 mg TID ROCKY Administration Clopidogrel Bisulfate 75 mg 04/11/17 10:00 04/12/17 09:26 Plavix PO 75 mg DAILY ROCKY Administration Diltiazem HCl 30 mg 04/11/17 22:15 04/12/17 15:36 Cardizem PO 30 mg Q6H ROCKY Administration Heparin Sodium (Porcine) 5,000 units 04/12/17 14:00 04/12/17 14:26 Heparin SC Not Given Q8 ROCKY Propofol 1,000 mg in 100 mls @ 2.096 mls/hr 04/10/17 20:06 04/12/17 03:18 Diprivan IV 30 mcg/kg/min .Q24H PRN 12.574 mls/hr TITRATE PER MD ORDER Administration Protocol 5 MCG/KG/MIN Diltiazem HCl 125 mg/ Sodium 125 mls @ 10 mls/hr 04/10/17 20:30 04/12/17 02: 10 Chloride IV 15 mg/hr .[id number] ROCKY 15 mls/hr Protocol Administration 10 MG/HR Norepinephrine Bitartrate 8 mg 258 mls @ 7.74 mls/hr 04/10/17 21:05 04/12/17 02:22 / Sodium Chloride IV 10 mcg/min .Q24H PRN 19.35 mls/hr TITRATE PER MD ORDER Titration Protocol 4 MCG/MIN Piperacillin Sod/Tazobactam Sod 2.25 gm in 50 mls @ 100 mls/hr 04/10/17 21:45 04/12/17 14:10 Zosyn 2.25 Gm Iv Premix IVPB 100 mls/hr Q8H ROCKY Administration Esmolol HCl 2,500 mg/ Sodium 250 mls @ 21.51 mls/hr 04/12/17 04:00 04/12/17 15:54 Chloride IV 50 mcg/kg/min .[id number] ROCKY 21.51 mls/hr Protocol Administration 50 MCG/KG/MIN Vasopressin 40 units/ Sodium 40 mls @ 2.4 mls/hr 04/12/17 04:00 04/12/17 04: 27 Chloride IV Not Given .[id number] [facility] Protocol 0.04 UNITS/MIN Insulin Human Regular 0 unit 04/11/17 00:45 04/12/17 12:00 Novolin R SC Not Given Q6 ROCKY Protocol Pantoprazole Sodium 40 mg 04/11/17 10:00 04/12/17 09:26 Protonix Inj IVP 40 mg DAILY ROCKY Administration Rosuvastatin Calcium 20 mg 04/09/17 22:00 04/11/17 21:09 Crestor PO 20 mg HS ROCKY Administration - Patient Studies Lab Studies: Microbiology Studies 04/12/17 10:06 Gram Stain - Final Trachasp 04/08/17 12:19 Blood Culture - Preliminary Blood-Venous NO GROWTH AFTER 3 DAYS 04/08/17 12:19 Blood Culture - Preliminary Blood-Venous NO GROWTH AFTER 3 DAYS Lab Studies 04/12/17 04/12/17 04/12/17 Range/Units 11:44 06:29 06:29 WBC (4.8-10.8) K/uL RBC (4.40-5.90) Mil/uL Hgb (12.0-18.0) g/dL Hct (35.0-51.0) % MCV (80.0-94.0) fL MCH (27.0-31.0) pg MCHC (33.0-37.0) g/dL RDW (11.5-14.5) % Plt Count (130-400) K/uL MPV (7.2-11.7) fL Neut % (Auto) (50.0-75.0) % Lymph % (Auto) (20.0-40.0) % [place] % (Auto) (0.0-10.0) % Eos % (Auto) (0.0-4.0) % Baso % (Auto) (0.0-2.0) % Neut # (1.8-7.0) K/uL Lymph # (1.0-4.3) K/uL [place] # (0.0-0.8) K/uL Eos # (0.0-0.7) K/uL Baso # (0.0-0.2) K/uL Neutrophils % (Manual) (50-75) % Band Neutrophils % (0-2) % Lymphocytes % (Manual) (20-40) % Monocytes % (Manual) (0-10) % Platelet Estimate (NORMAL) Polychromasia Hypochromasia (manual) Anisocytosis (manual) Target Cells [place] Cells APTT 177 H* D (21-34) SECONDS Puncture Site pCO2 (35-45) mm/Hg pO2 (80-100) mm/Hg HCO3 (21-28) mmol/L ABG pH (7.35-7.45) ABG Total CO2 (22-28) mmol/L ABG O2 Saturation (95-98) % ABG Base Excess (-2.0-3.0) mmol/L ABG Hemoglobin (11.7-17.4) g/dL ABG Carboxyhemoglobin (0.5-1.5) % POC ABG HHb (Measured) (0.0-5.0) % ABG Methemoglobin (0.0-3.0) % Ilir Test A-a O2 Difference mm/Hg Respiratory Index Hgb O2 Saturation (95.0-98.0) % Mechanical Rate FiO2 % Tidal Volume PEEP Sodium 136 (132-148) mmol/L Potassium 3.5 L (3.6-5.2) mmol/L Chloride 96 L (98-107) mmol/L Carbon Dioxide 24 (22-30) mmol/L Anion Gap 20 (10-20) BUN 109 H* (9-20) mg/dL Creatinine 2.8 H (0.8-1.5) MG/DL Est GFR ( Amer) 26 Est GFR (Non-Af Amer) 22 POC Glucose (mg/dL) 147 H (65-110) mg/dL Random Glucose 164 H (75-110) mg/dL Hemoglobin A1c (4.2-6.5) % Calcium 7.9 L (8.6-10.4) mg/dl Phosphorus 5.6 H (2.5-4.5) mg/dL Magnesium 2.6 H (1.6-2.3) mg/dL Total Bilirubin 2.5 H (0.2-1.3) mg/dL AST 222 H (17-59) U/L ALT 44 (21-72) U/L Alkaline Phosphatase 170 H D (38-126) U/L Total Protein 6.6 (6.3-8.3) g/dL Albumin 3.1 L (3.5-5.0) g/dL Globulin 3.4 (2.2-3.9) gm/dL Albumin/Globulin Ratio 0.9 L (1.0-2.1) Blood Type Antibody Screen 04/12/17 04/12/17 04/12/17 Range/Units 06:29 05:40 04:20 WBC 10.3 (4.8-10.8) K/uL RBC 2.60 L (4.40-5.90) Mil/uL Hgb 8.7 L (12.0-18.0) g/dL Hct 25.4 L (35.0-51.0) % MCV 97.4 H (80.0-94.0) fL MCH 33.3 H (27.0-31.0) pg MCHC 34.1 (33.0-37.0) g/dL RDW 15.2 H (11.5-14.5) % Plt Count 506 H (130-400) K/uL MPV 7.6 (7.2-11.7) fL Neut % (Auto) 86.5 H (50.0-75.0) % Lymph % (Auto) 9.7 L (20.0-40.0) % [place] % (Auto) 2.6 (0.0-10.0) % Eos % (Auto) 0.2 (0.0-4.0) % Baso % (Auto) 1.0 (0.0-2.0) % Neut # 8.9 H (1.8-7.0) K/uL Lymph # 1.0 (1.0-4.3) K/uL [place] # 0.3 (0.0-0.8) K/uL Eos # 0.0 (0.0-0.7) K/uL Baso # 0.1 (0.0-0.2) K/uL Neutrophils % (Manual) 93 H (50-75) % Band Neutrophils % (0-2) % Lymphocytes % (Manual) 4 L (20-40) % Monocytes % (Manual) 3 (0-10) % Platelet Estimate Slightly increased H (NORMAL) Polychromasia Slight Hypochromasia (manual) Slight Anisocytosis (manual) Slight Target Cells Slight [place] Cells Slight APTT (21-34) SECONDS Puncture Site Lb pCO2 51 H (35-45) mm/Hg pO2 124 H (80-100) mm/Hg HCO3 24.9 (21-28) mmol/L ABG pH 7.32 L (7.35-7.45) ABG Total CO2 27.9 (22-28) mmol/L ABG O2 Saturation 99.4 H (95-98) % ABG Base Excess 0 (-2.0-3.0) mmol/L ABG Hemoglobin 7.9 L (11.7-17.4) g/dL ABG Carboxyhemoglobin 1.7 H (0.5-1.5) % POC ABG HHb (Measured) 0.6 (0.0-5.0) % ABG Methemoglobin 1.1 (0.0-3.0) % Ilir Test Na A-a O2 Difference 525.0 mm/Hg Respiratory Index 4.2 Hgb O2 Saturation 96.5 (95.0-98.0) % Mechanical Rate 20 FiO2 100.0 % Tidal Volume 500 PEEP 8 Sodium (132-148) mmol/L Potassium (3.6-5.2) mmol/L Chloride (98-107) mmol/L Carbon Dioxide (22-30) mmol/L Anion Gap (10-20) BUN (9-20) mg/dL Creatinine (0.8-1.5) MG/DL Est GFR ( Amer) Est GFR (Non-Af Amer) POC Glucose (mg/dL) 181 H (65-110) mg/dL Random Glucose (75-110) mg/dL Hemoglobin A1c (4.2-6.5) % Calcium (8.6-10.4) mg/dl Phosphorus (2.5-4.5) mg/dL Magnesium (1.6-2.3) mg/dL Total Bilirubin (0.2-1.3) mg/dL AST (17-59) U/L ALT (21-72) U/L Alkaline Phosphatase (38-126) U/L Total Protein (6.3-8.3) g/dL Albumin (3.5-5.0) g/dL Globulin (2.2-3.9) gm/dL Albumin/Globulin Ratio (1.0-2.1) Blood Type Antibody Screen 04/11/17 04/11/17 04/11/17 Range/Units 23:42 17:41 17:41 WBC 8.5 (4.8-10.8) K/uL RBC 2.55 L (4.40-5.90) Mil/uL Hgb 8.5 L (12.0-18.0) g/dL Hct 24.6 L (35.0-51.0) % MCV 96.5 H (80.0-94.0) fL MCH 33.5 H (27.0-31.0) pg MCHC 34.7 (33.0-37.0) g/dL RDW 15.2 H (11.5-14.5) % Plt Count 418 H (130-400) K/uL MPV 7.2 (7.2-11.7) fL Neut % (Auto) (50.0-75.0) % Lymph % (Auto) (20.0-40.0) % [place] % (Auto) (0.0-10.0) % Eos % (Auto) (0.0-4.0) % Baso % (Auto) (0.0-2.0) % Neut # (1.8-7.0) K/uL Lymph # (1.0-4.3) K/uL [place] # (0.0-0.8) K/uL Eos # (0.0-0.7) K/uL Baso # (0.0-0.2) K/uL Neutrophils % (Manual) 89 H (50-75) % Band Neutrophils % 4 H (0-2) % Lymphocytes % (Manual) 5 L (20-40) % Monocytes % (Manual) 2 (0-10) % Platelet Estimate Normal (NORMAL) Polychromasia Hypochromasia (manual) Anisocytosis (manual) Target Cells [place] Cells APTT (21-34) SECONDS Puncture Site pCO2 (35-45) mm/Hg pO2 (80-100) mm/Hg HCO3 (21-28) mmol/L ABG pH (7.35-7.45) ABG Total CO2 (22-28) mmol/L ABG O2 Saturation (95-98) % ABG Base Excess (-2.0-3.0) mmol/L ABG Hemoglobin (11.7-17.4) g/dL ABG Carboxyhemoglobin (0.5-1.5) % POC ABG HHb (Measured) (0.0-5.0) % ABG Methemoglobin (0.0-3.0) % Ilir Test A-a O2 Difference mm/Hg Respiratory Index Hgb O2 Saturation (95.0-98.0) % Mechanical Rate FiO2 % Tidal Volume PEEP Sodium (132-148) mmol/L Potassium (3.6-5.2) mmol/L Chloride (98-107) mmol/L Carbon Dioxide (22-30) mmol/L Anion Gap (10-20) BUN (9-20) mg/dL Creatinine (0.8-1.5) MG/DL Est GFR ( Amer) Est GFR (Non-Af Amer) POC Glucose (mg/dL) 143 H (65-110) mg/dL Random Glucose (75-110) mg/dL Hemoglobin A1c (4.2-6.5) % Calcium (8.6-10.4) mg/dl Phosphorus (2.5-4.5) mg/dL Magnesium (1.6-2.3) mg/dL Total Bilirubin (0.2-1.3) mg/dL AST (17-59) U/L ALT (21-72) U/L Alkaline Phosphatase (38-126) U/L Total Protein (6.3-8.3) g/dL Albumin (3.5-5.0) g/dL Globulin (2.2-3.9) gm/dL Albumin/Globulin Ratio (1.0-2.1) Blood Type A POSITIVE Antibody Screen Negative 04/11/17 04/09/17 Range/Units 17:40 06:40 WBC (4.8-10.8) K/uL RBC (4.40-5.90) Mil/uL Hgb (12.0-18.0) g/dL Hct (35.0-51.0) % MCV (80.0-94.0) fL MCH (27.0-31.0) pg MCHC (33.0-37.0) g/dL RDW (11.5-14.5) % Plt Count (130-400) K/uL MPV (7.2-11.7) fL Neut % (Auto) (50.0-75.0) % Lymph % (Auto) (20.0-40.0) % [place] % (Auto) (0.0-10.0) % Eos % (Auto) (0.0-4.0) % Baso % (Auto) (0.0-2.0) % Neut # (1.8-7.0) K/uL Lymph # (1.0-4.3) K/uL [place] # (0.0-0.8) K/uL Eos # (0.0-0.7) K/uL Baso # (0.0-0.2) K/uL Neutrophils % (Manual) (50-75) % Band Neutrophils % (0-2) % Lymphocytes % (Manual) (20-40) % Monocytes % (Manual) (0-10) % Platelet Estimate (NORMAL) Polychromasia Hypochromasia (manual) Anisocytosis (manual) Target Cells [place] Cells APTT (21-34) SECONDS Puncture Site pCO2 (35-45) mm/Hg pO2 (80-100) mm/Hg HCO3 (21-28) mmol/L ABG pH (7.35-7.45) ABG Total CO2 (22-28) mmol/L ABG O2 Saturation (95-98) % ABG Base Excess (-2.0-3.0) mmol/L ABG Hemoglobin (11.7-17.4) g/dL ABG Carboxyhemoglobin (0.5-1.5) % POC ABG HHb (Measured) (0.0-5.0) % ABG Methemoglobin (0.0-3.0) % Ilir Test A-a O2 Difference mm/Hg Respiratory Index Hgb O2 Saturation (95.0-98.0) % Mechanical Rate FiO2 % Tidal Volume PEEP Sodium (132-148) mmol/L Potassium (3.6-5.2) mmol/L Chloride (98-107) mmol/L Carbon Dioxide (22-30) mmol/L Anion Gap (10-20) BUN (9-20) mg/dL Creatinine (0.8-1.5) MG/DL Est GFR ( Amer) Est GFR (Non-Af Amer) POC Glucose (mg/dL) 183 H (65-110) mg/dL Random Glucose (75-110) mg/dL Hemoglobin A1c 5.8 (4.2-6.5) % Calcium (8.6-10.4) mg/dl Phosphorus (2.5-4.5) mg/dL Magnesium (1.6-2.3) mg/dL Total Bilirubin (0.2-1.3) mg/dL AST (17-59) U/L ALT (21-72) U/L Alkaline Phosphatase (38-126) U/L Total Protein (6.3-8.3) g/dL Albumin (3.5-5.0) g/dL Globulin (2.2-3.9) gm/dL Albumin/Globulin Ratio (1.0-2.1) Blood Type Antibody Screen Laboratory Results - last 24 hr 04/09/17 04/11/17 04/11/17 06:40 17:40 17:41 WBC 8.5 RBC 2.55 L Hgb 8.5 L Hct 24.6 L MCV 96.5 H MCH 33.5 H MCHC 34.7 RDW 15.2 H Plt Count 418 H MPV 7.2 Neut % (Auto) Lymph % (Auto) [place] % (Auto) Eos % (Auto) Baso % (Auto) Neut # Lymph # [place] # Eos # Baso # Neutrophils % (Manual) 89 H Band Neutrophils % 4 H Lymphocytes % (Manual) 5 L Monocytes % (Manual) 2 Platelet Estimate Normal Polychromasia Hypochromasia (manual) Anisocytosis (manual) Target Cells [place] Cells APTT Puncture Site pCO2 pO2 HCO3 ABG pH ABG Total CO2 ABG O2 Saturation ABG Base Excess ABG Hemoglobin ABG Carboxyhemoglobin POC ABG HHb (Measured) ABG Methemoglobin Ilir Test A-a O2 Difference Respiratory Index Hgb O2 Saturation Mechanical Rate FiO2 Tidal Volume PEEP Sodium Potassium Chloride Carbon Dioxide Anion Gap BUN Creatinine Est GFR ( Amer) Est GFR (Non-Af Amer) POC Glucose (mg/dL) 183 H Random Glucose Hemoglobin A1c 5.8 Calcium Phosphorus Magnesium Total Bilirubin AST ALT Alkaline Phosphatase Total Protein Albumin Globulin Albumin/Globulin Ratio Blood Type Antibody Screen 04/11/17 04/11/17 04/12/17 17:41 23:42 04:20 WBC RBC Hgb Hct MCV MCH MCHC RDW Plt Count MPV Neut % (Auto) Lymph % (Auto) [place] % (Auto) Eos % (Auto) Baso % (Auto) Neut # Lymph # [place] # Eos # Baso # Neutrophils % (Manual) Band Neutrophils % Lymphocytes % (Manual) Monocytes % (Manual) Platelet Estimate Polychromasia Hypochromasia (manual) Anisocytosis (manual) Target Cells [place] Cells APTT Puncture Site Lb pCO2 51 H pO2 124 H HCO3 24.9 ABG pH 7.32 L ABG Total CO2 27.9 ABG O2 Saturation 99.4 H ABG Base Excess 0 ABG Hemoglobin 7.9 L ABG Carboxyhemoglobin 1.7 H POC ABG HHb (Measured) 0.6 ABG Methemoglobin 1.1 Ilir Test Na A-a O2 Difference 525.0 Respiratory Index 4.2 Hgb O2 Saturation 96.5 Mechanical Rate 20 FiO2 100.0 Tidal Volume 500 PEEP 8 Sodium Potassium Chloride Carbon Dioxide Anion Gap BUN Creatinine Est GFR ( Amer) Est GFR (Non-Af Amer) POC Glucose (mg/dL) 143 H Random Glucose Hemoglobin A1c Calcium Phosphorus Magnesium Total Bilirubin AST ALT Alkaline Phosphatase Total Protein Albumin Globulin Albumin/Globulin Ratio Blood Type A POSITIVE Antibody Screen Negative 04/12/17 04/12/17 04/12/17 05:40 06:29 06:29 WBC 10.3 RBC 2.60 L Hgb 8.7 L Hct 25.4 L MCV 97.4 H MCH 33.3 H MCHC 34.1 RDW 15.2 H Plt Count 506 H MPV 7.6 Neut % (Auto) 86.5 H Lymph % (Auto) 9.7 L Citrus % (Auto) 2.6 Eos % (Auto) 0.2 Baso % (Auto) 1.0 Neut # 8.9 H Lymph # 1.0 Citrus # 0.3 Eos # 0.0 Baso # 0.1 Neutrophils % (Manual) 93 H Band Neutrophils % Lymphocytes % (Manual) 4 L Monocytes % (Manual) 3 Platelet Estimate Slightly increased H Polychromasia Slight Hypochromasia (manual) Slight Anisocytosis (manual) Slight Target Cells Slight [place] Cells Slight APTT 177 H* D Puncture Site pCO2 pO2 HCO3 ABG pH ABG Total CO2 ABG O2 Saturation ABG Base Excess ABG Hemoglobin ABG Carboxyhemoglobin POC ABG HHb (Measured) ABG Methemoglobin Ilir Test A-a O2 Difference Respiratory Index Hgb O2 Saturation Mechanical Rate FiO2 Tidal Volume PEEP Sodium Potassium Chloride Carbon Dioxide Anion Gap BUN Creatinine Est GFR ( Amer) Est GFR (Non-Af Amer) POC Glucose (mg/dL) 181 H Random Glucose Hemoglobin A1c Calcium Phosphorus Magnesium Total Bilirubin AST ALT Alkaline Phosphatase Total Protein Albumin Globulin Albumin/Globulin Ratio Blood Type Antibody Screen 04/12/17 04/12/17 06:29 11:44 WBC RBC Hgb Hct MCV MCH MCHC RDW Plt Count MPV Neut % (Auto) Lymph % (Auto) [place] % (Auto) Eos % (Auto) Baso % (Auto) Neut # Lymph # [place] # Eos # Baso # Neutrophils % (Manual) Band Neutrophils % Lymphocytes % (Manual) Monocytes % (Manual) Platelet Estimate Polychromasia Hypochromasia (manual) Anisocytosis (manual) Target Cells [place] Cells APTT Puncture Site pCO2 pO2 HCO3 ABG pH ABG Total CO2 ABG O2 Saturation ABG Base Excess ABG Hemoglobin ABG Carboxyhemoglobin POC ABG HHb (Measured) ABG Methemoglobin Ilir Test A-a O2 Difference Respiratory Index Hgb O2 Saturation Mechanical Rate FiO2 Tidal Volume PEEP Sodium 136 Potassium 3.5 L Chloride 96 L Carbon Dioxide 24 Anion Gap 20 BUN 109 H* Creatinine 2.8 H Est GFR ( Amer) 26 Est GFR (Non-Af Amer) 22 POC Glucose (mg/dL) 147 H Random Glucose 164 H Hemoglobin A1c Calcium 7.9 L Phosphorus 5.6 H Magnesium 2.6 H Total Bilirubin 2.5 H AST 222 H ALT 44 Alkaline Phosphatase 170 H D Total Protein 6.6 Albumin 3.1 L Globulin 3.4 Albumin/Globulin Ratio 0.9 L Blood Type Antibody Screen Assessment/Plan (1) Acute respiratory failure with hypoxia Current Visit: Yes Status: Acute Comment: Continue BiPAP Spoke with family at length and need for intubation if condition worsens Family unable to decide at this point Continue present medical management with diuretics, antibiotics (2) Congestive heart failure Current Visit: Yes Status: Acute (3) Coronary artery disease Current Visit: No Status: Chronic Attending/Attestation - Attestation I have personally seen and examined this patient.: Yes I have fully participated in the care of the patient.: Yes I have reviewed all pertinent clinical information: Yes Notes (Text): 04/12/17 16:12 Patient seen and examined in the intensive care unit. Case discussed with staff in the morning rounds. Remains intubated on ventilatory support requiring high FiO2 with PEEP of 8 Overnight patient went A. fib with rapid ventricular rate status post cardioversion and started on esmolol drip Chest x-ray consistent with bilateral infiltrate/pneumonia Continue antibiotics Worsening renal function noted Prognosis poor Continue anticoagulation and stop heparin drip
--- NOTE | 2017-04-12 14:35 | CP.PCM.PCO ---
Physician Communication Note - Physician Communication Note Physician Communication Note: Fam. meeting 9 am tomorrow.
--- NOTE | 2017-04-12 17:53 | CP.PCM.PN ---
<Ambreen Washburn - Last Filed: 04/12/17 18:04> Subjective - Date & Time of Evaluation Date of Evaluation: 04/12/17 Time of Evaluation: 17:51 - Subjective Subjective: PGY-[address] Wynn Pt seen and examined. Intubated. Cardizem drip weaned off. Incontinent, moderate amount of liquid brown stool. Objective - Vital Signs/Intake and Output Vital Signs (last 24 hours): Temp Pulse Resp BP Pulse Ox 98.2 F 79 24 88/53 L 100 04/12/17 16:00 04/12/17 17:00 04/12/17 17:00 04/12/17 17:00 04/12/17 17:00 Intake and Output: 04/12/17 04/12/17 06:59 18:59 Intake Total 1336.9 1363.7 Output Total 325 20 Balance 1011.9 1343.7 - Medications Medications: Current Medications Albuterol/Ipratropium (Duoneb 3 Mg/0.5 Mg (3 Ml) Ud) 3 ml INH RQ6 [facility] Last Admin: 04/12/17 13:18 Dose: 3 ml Aspirin (Aspirin Chewable) 81 mg PO DAILY [facility] Last Admin: 04/12/17 09:27 Dose: 81 mg Calcium Acetate (Phoslo) 667 mg GT TID [facility] Last Admin: 04/12/17 17:13 Dose: 667 mg Clopidogrel Bisulfate (Plavix) 75 mg PO DAILY [facility] Last Admin: 04/12/17 09:26 Dose: 75 mg Diltiazem HCl (Cardizem) 30 mg PO Q6H [facility] Last Admin: 04/12/17 15:36 Dose: 30 mg Heparin Sodium (Porcine) (Heparin) 5,000 units SC Q8 [facility] Last Admin: 04/12/17 14:26 Dose: Not Given Propofol (Diprivan) 1,000 mg in 100 mls @ 2.096 mls/hr IV .Q24H PRN; Protocol; 5 MCG/KG/MIN PRN Reason: TITRATE PER MD ORDER Last Admin: 04/12/17 03:18 Dose: 30 mcg/kg/min, 12.574 mls/hr Diltiazem HCl 125 mg/ Sodium (Chloride) 125 mls @ 10 mls/hr IV .[id number] [facility]; 10 MG/HR PRN Reason: Protocol Last Admin: 04/12/17 02:10 Dose: 15 mg/hr, 15 mls/hr Norepinephrine Bitartrate 8 mg (/ Sodium Chloride) 258 mls @ 7.74 mls/hr IV .Q24H PRN; Protocol; 4 MCG/MIN PRN Reason: TITRATE PER MD ORDER Last Titration: 04/12/17 17:01 Dose: 7.5 mcg/min, 14.51 mls/hr Piperacillin Sod/Tazobactam Sod (Zosyn 2.25 Gm Iv Premix) 2.25 gm in 50 mls @ 100 mls/hr IVPB Q8H [facility] Last Admin: 04/12/17 14:10 Dose: 100 mls/hr Esmolol HCl 2,500 mg/ Sodium (Chloride) 250 mls @ 21.51 mls/hr IV .[id number] [facility] ; 50 MCG/KG/MIN PRN Reason: Protocol Last Admin: 04/12/17 15:54 Dose: 50 mcg/kg/min, 21.51 mls/hr Vasopressin 40 units/ Sodium (Chloride) 40 mls @ 2.4 mls/hr IV .[id number] [facility]; 0.04 UNITS/MIN PRN Reason: Protocol Last Admin: 04/12/17 04:27 Dose: Not Given Insulin Human Regular (Novolin R) 0 unit SC Q6 [facility] PRN Reason: Protocol Last Admin: 04/12/17 17:09 Dose: Not Given Pantoprazole Sodium (Protonix Inj) 40 mg IVP DAILY [facility] Last Admin: 04/12/17 09:26 Dose: 40 mg Rosuvastatin Calcium (Crestor) 20 mg PO HS [facility] - Labs Labs: 04/12/17 06:29 04/12/17 06:29 PT 11.8 SECONDS (9.7-12.2) 04/08/17 06:50 INR 1.1 04/08/17 06:50 APTT 177 SECONDS (21-34) H* D 04/12/17 06:29 - Constitutional Appears: Other (intubated) - Head Exam Head Exam: ATRAUMATIC, NORMOCEPHALIC - ENT Exam ENT Exam: Mucous Membranes Moist - Respiratory Exam Respiratory Exam: Clear to Ausculation Bilateral, NORMAL BREATHING PATTERN. absent: Rales, Rhonchi, Wheezes - Cardiovascular Exam Cardiovascular Exam: Irregular Rhythm, +S1, +S2. absent: Murmur - GI/Abdominal Exam GI & Abdominal Exam: Soft, Normal Bowel Sounds. absent: Rigid, Tenderness - Extremities Exam Extremities Exam: Pedal Edema (slight, lopes intct) - Skin Skin Exam: Dry, Warm Assessment and Plan - Assessment and Plan (Free Text) Plan: 82 M with PMH of CAD s/p CABG, CHF, HTN, COPD (not on home O2), CKD 3A, Liver mass, admitted to ICU for CHF exacerbation requiring bipap vs PNA with Hx of recent hospitalization. Trop is positive. 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 Pt was apneic over the weekend, developed a-fib RVR. Pt was intubated on PRVC. family meeting 9AM tomorrow A-fib rvr - resolved - Cardizem 30 q6 - Esmolol gtt @ 50 - Cardizem gtt hold Hypotension Shock, cardiogenic vs septic from PNA - Levaphed gtt @ 7.5 - propofol gtt @ 10 NSTEMI - Heparin gtt - ASA, Plavix - No crestor for transaminitis - No plan for cardiac cath now until pt medically stablize CHF, systolic, acute on chronic - lasix 60 IV BID - Echo: low EF 30-35% - lifevest for 3 months - repeat echo in 3 months to assess need for permanant icd - While intubated and sedated in ICU, will not get Life Vest; will start process now so that Life Vest available when extubated and stable/ready for discharge Hx CAD s/p CABG - asa, Metoprolol 12.5 BID, Metolazone 5 daily, lasix - A1C 5.8 Hyperlipidemia (lipid panel drawn before propofol and intubation) - Cholesterol 764 - LDL 500 S/R/D/w Dr. Wynn <Krishna Wynn - Last Filed: 04/13/17 01:27> Objective - Vital Signs/Intake and Output Vital Signs (last 24 hours): Temp Pulse Resp BP Pulse Ox 98.8 F 107 H 30 H 105/54 L 100 04/13/17 00:00 04/12/17 23:57 04/12/17 23:57 04/12/17 23:57 04/12/17 23:57 Intake and Output: 04/12/17 04/13/17 18:59 06:59 Intake Total 1463.1 724.4 Output Total 20 5 Balance 1443.1 719.4 - Medications Medications: Current Medications Albuterol/Ipratropium (Duoneb 3 Mg/0.5 Mg (3 Ml) Ud) 3 ml INH RQ6 [facility] Last Admin: 04/12/17 19:11 Dose: 3 ml Aspirin (Aspirin Chewable) 81 mg PO DAILY [facility] Last Admin: 04/12/17 09:27 Dose: 81 mg Calcium Acetate (Phoslo) 667 mg GT TID [facility] Last Admin: 04/12/17 17:13 Dose: 667 mg Clopidogrel Bisulfate (Plavix) 75 mg PO DAILY [facility] Last Admin: 04/12/17 09:26 Dose: 75 mg Diltiazem HCl (Cardizem) 30 mg PO Q6H [facility] Last Admin: 04/12/17 23:44 Dose: 30 mg Heparin Sodium (Porcine) (Heparin) 5,000 units SC Q8 [facility] Last Admin: 04/12/17 23:40 Dose: 5,000 units Propofol (Diprivan) 1,000 mg in 100 mls @ 2.096 mls/hr IV .Q24H PRN; Protocol; 5 MCG/KG/MIN PRN Reason: TITRATE PER MD ORDER Last Titration: 04/12/17 19:30 Dose: 15 mcg/kg/min, 6.287 mls/hr Diltiazem HCl 125 mg/ Sodium (Chloride) 125 mls @ 10 mls/hr IV .[id number] [facility]; 10 MG/HR PRN Reason: Protocol Last Admin: 04/12/17 02:10 Dose: 15 mg/hr, 15 mls/hr Norepinephrine Bitartrate 8 mg (/ Sodium Chloride) 258 mls @ 7.74 mls/hr IV .Q24H PRN; Protocol; 4 MCG/MIN PRN Reason: TITRATE PER MD ORDER Last Admin: 04/12/17 22:00 Dose: 10 mcg/min, 19.35 mls/hr Piperacillin Sod/Tazobactam Sod (Zosyn 2.25 Gm Iv Premix) 2.25 gm in 50 mls @ 100 mls/hr IVPB Q8H [facility] Last Admin: 04/12/17 22:00 Dose: 100 mls/hr Esmolol HCl 2,500 mg/ Sodium (Chloride) 250 mls @ 21.51 mls/hr IV .[id number] [facility] ; 50 MCG/KG/MIN PRN Reason: Protocol Last Admin: 04/12/17 15:54 Dose: 50 mcg/kg/min, 21.51 mls/hr Vasopressin 40 units/ Sodium (Chloride) 40 mls @ 2.4 mls/hr IV .[id number] [facility]; 0.04 UNITS/MIN PRN Reason: Protocol Last Admin: 04/12/17 04:27 Dose: Not Given Insulin Human Regular (Novolin R) 0 unit SC Q6 [facility] PRN Reason: Protocol Last Admin: 04/13/17 00:52 Dose: Not Given Pantoprazole Sodium (Protonix Inj) 40 mg IVP DAILY [facility] Last Admin: 04/12/17 09:26 Dose: 40 mg Rosuvastatin Calcium (Crestor) 20 mg PO HS [facility] - Labs Labs: 04/12/17 06:29 04/12/17 06:29 PT 11.8 SECONDS (9.7-12.2) 04/08/17 06:50 INR 1.1 04/08/17 06:50 APTT 177 SECONDS (21-34) H* D 04/12/17 06:29 Assessment and Plan - Assessment and Plan (Free Text) Assessment: Patient seen and evaluated with the medical records analyst Agree with the management plan
[2017-04-13] MEDS: (Novolin R) Insulin Human Regular 100 units/ml vial SC SCH ×4 (00:52→18:25)
[2017-04-13] MEDS: Albuterol-Ipratrop 3 mg / 0.5 (3 ml) UD INH SCH ×3 (01:46→20:04)
[2017-04-13] MEDS: Esmolol 2,500 MG in Sodium Chloride 0.9% 240 ML IV SCH (03:43)
[2017-04-13 05:32] LABS: ABG ALLEN TEST POS; ABG MECHANICAL RATE 20; ARTERIAL BLOOD HGB O2 SAT 96.9 % (95.0-98.0); ATERIAL BLOOD GAS PEEP 8; CARBOXYHEMOGLOBIN 1.1 % (0.5-1.5); DRAW SITE RR; HHB 0.7 % (0.0-5.0); METHEMOGLOBIN 1.2 % (0.0-3.0)
[2017-04-13] MEDS: Piperacill/Tazo 2.25gm in Dex 2.25 GM/50 ML BAG IVPB SCH ×3 (05:47→21:39)
[2017-04-13 06:41] LABS: POTASSIUM 4.4 mmol/L (3.6-5.2)
[2017-04-13 06:43] LABS: ALB/GLOB RATIO 0.8 (1.0-2.1); TOTAL PROTEIN 6.2 g/dL (6.3-8.3)
[2017-04-13 06:44] LABS: MAGNESIUM 2.9 mg/dL (1.6-2.3); PHOSPHOROUS 6.2 mg/dL (2.5-4.5)
[2017-04-13 06:46] LABS: BASO % 0.2 % (0.0-2.0); EOS # 0.1 K/uL (0.0-0.7); EOS % 0.8 % (0.0-4.0); HEMATOCRIT 22.3 % (35.0-51.0); LYMPH % 8.8 % (20.0-40.0); MEAN CELL VOLUME 98.1 fL (80.0-94.0); MEAN CORPUSCULAR HEMOGLOBIN 34.1 pg (27.0-31.0); MEAN CORPUSCULAR HGB CONC 34.8 g/dL (33.0-37.0); MEAN PLATELET VOLUME 7.3 fL (7.2-11.7); MONO # 0.2 K/uL (0.0-0.8); MONO % 1.7 % (0.0-10.0); NRBC % 0.1 % (0.0-2.0); PLATELET COUNT 440 K/uL (130-400); RED CELL DISTRIBUTION WIDTH 15.5 % (11.5-14.5); WHITE BLOOD COUNT 10.9 K/uL (4.8-10.8)
[2017-04-13 08:30] LABS: TOTAL CELLS COUNTED 100
[2017-04-13 08:31] LABS: NEUTROPHIL 85 % (50-75); REACTIVE LYMPHOCYTES 1 % (0-0)
--- NOTE | 2017-04-13 08:41 | RAD ---
HISTORY: follow up intubated COMPARISON: 04/12/2017 FINDINGS: LUNGS: Lines and tubes in stable position. Multiple tubing projects over the upper abdomen and left lower hemithorax, possibly external. Clinical correlation. Diffuse prominent increased interstitial lung markings throughout both lungs with a suggestion of a small left pleural effusion. PLEURA: As above. CARDIOVASCULAR: Cardiomegaly. OSSEOUS STRUCTURES: Degenerative changes in the spine and shoulders. VISUALIZED UPPER ABDOMEN: Normal. OTHER FINDINGS: None. IMPRESSION: No significant interval change.
[2017-04-13 08:42] LABS: INR 1.4
[2017-04-13 08:44] LABS: PARTIAL THROMBOPLASTIN TIME > 400 SECONDS (21-34)
[2017-04-13 08:45] LABS: PLT BASE COUNT 404 K/uL
[2017-04-13 08:46] LABS: FUNCTIONING PLTS 163 K/uL; PLT(ADP) 241 K/uL
--- NOTE | 2017-04-13 09:29 | CP.PCM.PN ---
Addendum entered and electronically signed by Ankit Varner DO 04/14/17 07:18: Addendum to Subjective: Patient went into asystole in AM 04/13/17, Code Blue called, ROSC after 15 minutes. Addendum entered and electronically signed by Ankit Varner DO 04/13/17 10:58: Correction to Subjective: -Eyes remain closed, not tracking staff in room Correction to Physical Exam: - Constitutional Appears: Intubated but not sedated, minimally responsive, chronically ill - Head Exam Head Exam: Normocephalic, Atraumatic - Eye Exam Eye Exam: eyes remain closed, some eye movement to avoid direct light challenge for PERRL assessment, PERRL. Absent: Scleral icterus, Conjunctival Injection - ENT Exam ENT Exam: Intubated, OGT in place with feeds running. - Respiratory Exam Respiratory Exam: Rales (mild diffuse rales all street), Intubated and on Mechanical Ventilation (PRVC). Absent: Wheezes, Ronchi, Normal Breathing Pattern, Clear to Auscultation - Cardiovascular Exam Cardiovascular Exam: REGULAR RHYTHM, +S1, +S2. Absent: Tachycardia, Bradycardia - GI/Abdominal Exam GI & Abdominal Exam: Soft, Normal Bowel Sounds. absent: Distended, Firm, Rigid - Extremities Exam Extremities Exam: Pedal Edema (trace-+1 bilateral LE), Air boots/SCDs. absent: Asymmetrical Edema, Erythema, Abnormal coloration - Neurological Exam Neurological Exam: Intubated by not sedated, minimally responsive, minimal eye movement to avoid direct light challenge for PERRL assessment - Skin Skin Exam: Normal Color, Warm, Dry, Intact Original Note: <Ankit Varner - Last Filed: 04/13/17 09:26> Subjective - Date & Time of Evaluation Date of Evaluation: 04/13/17 Time of Evaluation: 10:00 - Subjective Subjective: EP Cardiology Progress Note- Dr. Burks Patient seen and examined at bedside in the ICU. Remains intubated and with OG tube in place receiving feeds, remains off sedation. Patient moves eyes, intermittently tracks staff in room, but does not respond to commands. Patient unable to provide ROS. No acute events overnight as per nursing. Objective - Vital Signs/Intake and Output Vital Signs (last 24 hours): Temp Pulse Resp BP Pulse Ox 98.8 F 103 H 31 H 103/40 L 58 L 04/13/17 08:00 04/13/17 09:10 04/13/17 09:10 04/13/17 08:57 04/13/17 09:10 Intake and Output: 04/13/17 04/13/17 06:59 18:59 Intake Total 1407.4 223.0 Output Total 5 0 Balance 1402.4 223.0 - Medications Medications: Current Medications Albuterol/Ipratropium (Duoneb 3 Mg/0.5 Mg (3 Ml) Ud) 3 ml INH RQ6 [facility] Last Admin: 04/13/17 07:27 Dose: 3 ml Aspirin (Aspirin Chewable) 81 mg PO DAILY [facility] Last Admin: 04/12/17 09:27 Dose: 81 mg Calcium Acetate (Phoslo) 667 mg GT TID [facility] Last Admin: 04/12/17 17:13 Dose: 667 mg Clopidogrel Bisulfate (Plavix) 75 mg PO DAILY [facility] Last Admin: 04/12/17 09:26 Dose: 75 mg Diltiazem HCl (Cardizem) 30 mg PO Q6H [facility] Last Admin: 04/13/17 03:47 Dose: 30 mg Heparin Sodium (Porcine) (Heparin) 5,000 units SC Q8 [facility] Last Admin: 04/13/17 05:46 Dose: 5,000 units Propofol (Diprivan) 1,000 mg in 100 mls @ 2.096 mls/hr IV .Q24H PRN; Protocol; 5 MCG/KG/MIN PRN Reason: TITRATE PER MD ORDER Last Titration: 04/12/17 19:30 Dose: 15 mcg/kg/min, 6.287 mls/hr Diltiazem HCl 125 mg/ Sodium (Chloride) 125 mls @ 10 mls/hr IV .[id number] [facility]; 10 MG/HR PRN Reason: Protocol Last Admin: 04/12/17 02:10 Dose: 15 mg/hr, 15 mls/hr Norepinephrine Bitartrate 8 mg (/ Sodium Chloride) 258 mls @ 7.74 mls/hr IV .Q24H PRN; Protocol; 4 MCG/MIN PRN Reason: TITRATE PER MD ORDER Last Titration: 04/13/17 07:15 Dose: 12 mcg/min, 23.22 mls/hr Piperacillin Sod/Tazobactam Sod (Zosyn 2.25 Gm Iv Premix) 2.25 gm in 50 mls @ 100 mls/hr IVPB Q8H [facility] Last Admin: 04/13/17 05:47 Dose: 100 mls/hr Esmolol HCl 2,500 mg/ Sodium (Chloride) 250 mls @ 21.51 mls/hr IV .[id number] [facility] ; 50 MCG/KG/MIN PRN Reason: Protocol Last Titration: 04/13/17 06:30 Dose: 25 mcg/kg/min, 10.75 mls/hr Vasopressin 40 units/ Sodium (Chloride) 40 mls @ 2.4 mls/hr IV .[id number] [facility]; 0.04 UNITS/MIN PRN Reason: Protocol Last Admin: 04/12/17 04:27 Dose: Not Given Insulin Human Regular (Novolin R) 0 unit SC Q6 [facility] PRN Reason: Protocol Last Admin: 04/13/17 05:56 Dose: 2 unit Pantoprazole Sodium (Protonix Inj) 40 mg IVP DAILY [facility] Last Admin: 04/12/17 09:26 Dose: 40 mg Rosuvastatin Calcium (Crestor) 20 mg PO HS [facility] - Labs Labs: 04/13/17 06:17 04/13/17 06:17 PT 15.8 SECONDS (9.7-12.2) H 04/13/17 07:59 INR 1.4 04/13/17 07:59 APTT > 400 SECONDS (21-34) H* D 04/13/17 07:59 - Additional Findings Additional findings: - Constitutional Appears: Intubated but not sedated, no exhibiting any acute distress, chronically ill - Head Exam Head Exam: Normocephalic, Atraumatic - Eye Exam Eye Exam: Not following commands to assess EOMI but able to track staff throughout room and moving eyes to avoid direct light challenge, PERRL. Absent : Scleral icterus, Conjunctival Injection - ENT Exam ENT Exam: Intubated, OGT in place with feeds running. - Respiratory Exam Respiratory Exam: Rales (mild diffuse rales all street), Intubated and on Mechanical Ventilation (PRVC). Absent: Wheezes, Ronchi, Normal Breathing Pattern, Clear to Auscultation - Cardiovascular Exam Cardiovascular Exam: REGULAR RHYTHM, +S1, +S2. Absent: Tachycardia, Bradycardia - GI/Abdominal Exam GI & Abdominal Exam: Soft, Normal Bowel Sounds. absent: Distended, Firm, Rigid - Extremities Exam Extremities Exam: Pedal Edema (trace-+1 bilateral LE), Air boots/SCDs. absent: Asymmetrical Edema, Erythema, Abnormal coloration - Neurological Exam Neurological Exam: Intubated by not sedated, Awake and intermittently alert, intermittently tracking staff in room with eyes, some spontaneous extremity movements. - Skin Skin Exam: Normal Color, Warm, Dry, Intact Assessment and Plan (1) Decreased cardiac ejection fraction Assessment & Plan: Echo 04/08/17: EF 37%, Normal LV size, pseudonormal grade 2 diastolic dysfxn, borderline dilated LA, Probably bicuspid and scleroitc aortic valve, No AR, Mild MR and TR, RVSO 40mmHg, mild Pulm HTN, Aortic root normal size with mild sclerocalcific changes EKG 04/08/17: Atrial fibrillation with rapid ventricular response at 122, ST & T wave abnormality (consider inferolateral ischemia), Abnormal ECG EKG 04/10/17: Atrial fibrillation with rapid ventricular response at 115, Marked ST abnormality, possible anterolateral subendocardial injury, Abnormal ECG -Decreased EF 2/2 Systolic CHF -Consulted for [employer]- patient seen by [employer] membership sales representative; will get life vest when more stable/post-extubation -Will obtain Echo in 3 months to assess need for permanent pacer as per pt's primary Cardio (Dr. Wynn) -Continue medical management as per Pt's primary Cardio (Dr. Wnyn) and per ICU team Status: Acute - Assessment and Plan (Free Text) Assessment: Case discussed with Dr. Burks. <Rosalva Burks - Last Filed: 05/30/17 03:36> Objective - Vital Signs/Intake and Output Vital Signs (last 24 hours): Temp Pulse Resp BP Pulse Ox 99.3 F 37 L 26 H 46/19 L 74 L 04/16/17 00:00 04/16/17 02:06 04/16/17 02:30 04/16/17 02:06 04/16/17 02:05 - Labs Labs: 04/13/17 06:17 04/13/17 06:17 PT 15.8 SECONDS (9.7-12.2) H 04/13/17 07:59 INR 1.4 04/13/17 07:59 APTT > 400 SECONDS (21-34) H* D 04/13/17 07:59 Attending/Attestation - Attestation I have personally seen and examined this patient.: Yes I have fully participated in the care of the patient.: Yes I have reviewed all pertinent clinical information, including history, physical exam and plan: Yes Notes (Text): 05/30/17 03:36 pt s/p code blue critical condition poor prognosis
--- NOTE | 2017-04-13 12:01 | CP.PCM.CON ---
History of Present Illness - History of Present Illness History of Present Illness: Palliative consult Requested by Kianna NICHOLS Reason: goals of care Patient is a 82 yo male admitted with worsening SOB and edema to B/L LEs. The CXR was significant for B/L pneumonia vs pulmonary edema. During the hospital stay patent's respiratory status worsened and patient needed assistance from MV. On 04/11/2017 over night, patient was with uncontrolled arrhythmias and placed on Cardizem drip, which was stopped once the rhythm become NSR. Patient become hypotensive and placed on Pressors. Of concerns are renal functions. Doctor Houston on case. 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 Family is not considering HD. Last night patient Coded and CPR was performed. PMH" COPD, CHF Soc. Hx: , lives at home, at [facility] at present Fam. Hx: unknown Review of Systems - Review of Systems Systems not reviewed;Unavailable: Intubated Past Patient History - Infectious Disease Hx of Infectious Diseases: None - Tetanus Immunizations Tetanus Immunization: Unknown - Past Medical History & Family History Past Medical History?: Yes - Past Social History Smoking Status: Former Smoker - CARDIAC Hx Congestive Heart Failure: Yes Hx Hypertension: Yes - PULMONARY Hx Chronic Obstructive Pulmonary Disease (COPD): Yes - NEUROLOGICAL Hx Neurological Disorder: No - HEENT Hx HEENT Problems: Yes Hx Cataracts: Yes - RENAL Hx Chronic Kidney Disease: No - ENDOCRINE/METABOLIC Hx Endocrine Disorders: Yes Hx Diabetes Mellitus Type 2: Yes - HEMATOLOGICAL/ONCOLOGICAL Hx Blood Disorders: No - INTEGUMENTARY Hx Dermatological Problems: No - MUSCULOSKELETAL/RHEUMATOLOGICAL Hx Falls: No - GASTROINTESTINAL Hx Gastrointestinal Disorders: No - GENITOURINARY/GYNECOLOGICAL Hx Genitourinary Disorders: No Hx Prostate Problems: Yes - PSYCHIATRIC Hx Psychophysiologic Disorder: No Hx Substance Use: No - SURGICAL HISTORY Hx Coronary Artery Bypass Graft: Yes (2x) - ANESTHESIA Hx Anesthesia: Yes Hx Anesthesia Reactions: No Hx Malignant Hyperthermia: No Meds Allergies/Adverse Reactions: Allergies Allergy/AdvReac Type Severity Reaction Status Date / Time No Known Allergies Allergy Unverified 04/08/17 06:27 - Medications Medications: Current Medications Albuterol/Ipratropium (Duoneb 3 Mg/0.5 Mg (3 Ml) Ud) 3 ml INH RQ6 [facility] Last Admin: 04/13/17 07:27 Dose: 3 ml Calcium Acetate (Phoslo) 667 mg GT TID [facility] Last Admin: 04/13/17 09:36 Dose: 667 mg Propofol (Diprivan) 1,000 mg in 100 mls @ 2.096 mls/hr IV .Q24H PRN; Protocol; 5 MCG/KG/MIN PRN Reason: TITRATE PER MD ORDER Last Titration: 04/12/17 19:30 Dose: 15 mcg/kg/min, 6.287 mls/hr Norepinephrine Bitartrate 8 mg (/ Sodium Chloride) 258 mls @ 7.74 mls/hr IV .Q24H PRN; Protocol; 4 MCG/MIN PRN Reason: TITRATE PER MD ORDER Last Admin: 04/13/17 09:34 Dose: 20 mcg/min, 38.7 mls/hr Piperacillin Sod/Tazobactam Sod (Zosyn 2.25 Gm Iv Premix) 2.25 gm in 50 mls @ 100 mls/hr IVPB Q8H [facility] Last Admin: 04/13/17 05:47 Dose: 100 mls/hr Vasopressin 40 units/ Sodium (Chloride) 40 mls @ 2.4 mls/hr IV .[id number] [facility]; 0.04 UNITS/MIN PRN Reason: Protocol Last Admin: 04/12/17 04:27 Dose: Not Given Insulin Human Regular (Novolin R) 0 unit SC Q6 [facility] PRN Reason: Protocol Last Admin: 04/13/17 05:56 Dose: 2 unit Pantoprazole Sodium (Protonix Inj) 40 mg IVP DAILY [facility] Last Admin: 04/13/17 09:36 Dose: 40 mg Rosuvastatin Calcium (Crestor) 10 mg PO HS [facility] Physical Exam - Constitutional Appears: In Acute Distress, Chronically Ill - Head Exam Head Exam: ATRAUMATIC, NORMAL INSPECTION, NORMOCEPHALIC - Eye Exam Eye Exam: EOMI, Normal appearance, PERRL Pupil Exam: NORMAL ACCOMODATION, PERRL - ENT Exam ENT Exam: Mucous Membranes Dry - Neck Exam Neck exam: Positive for: Normal Inspection - Respiratory Exam Respiratory Exam: Respiratory Distress Additional comments: On MV - Cardiovascular Exam Cardiovascular Exam: Tachycardia - GI/Abdominal Exam GI & Abdominal Exam: Hypoactive Bowel Sounds - Rectal Exam Rectal Exam: Deferred - Exam Additional comments: Ortiz cath - Extremities Exam Extremities exam: Positive for: pedal edema - Back Exam Back exam: NORMAL INSPECTION - Neurological Exam Neurological exam: Motor Sensory Deficit - Psychiatric Exam Psychiatric exam: Flat Affect - Skin Skin Exam: Pallor Results - Vital Signs Recent Vital Signs: Last Vital Signs Temp 98.8 F 04/13/17 08:00 Pulse 101 H 04/13/17 11:10 Resp 30 H 04/13/17 11:10 BP 92/38 L 04/13/17 11:10 Pulse Ox 42 L 04/13/17 11:10 - Labs Result Diagrams: 04/13/17 06:17 04/13/17 06:17 Labs: Laboratory Results - last 24 hr 04/09/17 04/11/17 04/12/17 06:40 17:41 17:07 WBC RBC Hgb Hct MCV MCH MCHC RDW Plt Count MPV Neut % (Auto) Lymph % (Auto) [place] % (Auto) Eos % (Auto) Baso % (Auto) Neut # Lymph # [place] # Eos # Baso # Neutrophils % (Manual) Band Neutrophils % Lymphocytes % (Manual) Reactive Lymphs % Monocytes % (Manual) Metamyelocytes % Platelet Estimate Hypochromasia (manual) Poikilocytosis (manual Anisocytosis (manual) Target Cells PT INR APTT Plt Function Assay Puncture Site pCO2 pO2 HCO3 ABG pH ABG Total CO2 ABG O2 Saturation ABG Base Excess ABG Hemoglobin ABG Carboxyhemoglobin POC ABG HHb (Measured) ABG Methemoglobin Ilir Test A-a O2 Difference Respiratory Index Hgb O2 Saturation Mechanical Rate FiO2 Tidal Volume PEEP Sodium Potassium Chloride Carbon Dioxide Anion Gap BUN Creatinine Est GFR ( Amer) Est GFR (Non-Af Amer) POC Glucose (mg/dL) 142 H Random Glucose Hemoglobin A1c 5.8 Calcium Phosphorus Magnesium Total Bilirubin AST ALT Alkaline Phosphatase Total Protein Albumin Globulin Albumin/Globulin Ratio Blood Type A POSITIVE Antibody Screen Negative 04/13/17 04/13/17 04/13/17 00:51 05:20 05:52 WBC RBC Hgb Hct MCV MCH MCHC RDW Plt Count MPV Neut % (Auto) Lymph % (Auto) [place] % (Auto) Eos % (Auto) Baso % (Auto) Neut # Lymph # [place] # Eos # Baso # Neutrophils % (Manual) Band Neutrophils % Lymphocytes % (Manual) Reactive Lymphs % Monocytes % (Manual) Metamyelocytes % Platelet Estimate Hypochromasia (manual) Poikilocytosis (manual Anisocytosis (manual) Target Cells PT INR APTT Plt Function Assay Puncture Site Rr pCO2 47 H pO2 214 H HCO3 25.0 ABG pH 7.35 ABG Total CO2 27.3 ABG O2 Saturation 99.3 H ABG Base Excess 0.1 ABG Hemoglobin 7.8 L ABG Carboxyhemoglobin 1.1 POC ABG HHb (Measured) 0.7 ABG Methemoglobin 1.2 Ilir Test Pos A-a O2 Difference 440.0 Respiratory Index 2.1 Hgb O2 Saturation 96.9 Mechanical Rate 20 FiO2 100.0 Tidal Volume 500 PEEP 8 Sodium Potassium Chloride Carbon Dioxide Anion Gap BUN Creatinine Est GFR ( Amer) Est GFR (Non-Af Amer) POC Glucose (mg/dL) 162 H 191 H Random Glucose Hemoglobin A1c Calcium Phosphorus Magnesium Total Bilirubin AST ALT Alkaline Phosphatase Total Protein Albumin Globulin Albumin/Globulin Ratio Blood Type Antibody Screen 04/13/17 04/13/17 04/13/17 06:17 06:17 07:59 WBC 10.9 H RBC 2.27 L Hgb 7.7 L Hct 22.3 L MCV 98.1 H MCH 34.1 H MCHC 34.8 RDW 15.5 H Plt Count 440 H MPV 7.3 Neut % (Auto) 88.5 H Lymph % (Auto) 8.8 L [place] % (Auto) 1.7 Eos % (Auto) 0.8 Baso % (Auto) 0.2 Neut # 9.6 H Lymph # 1.0 [place] # 0.2 Eos # 0.1 Baso # 0.0 Neutrophils % (Manual) 85 H Band Neutrophils % 3 H Lymphocytes % (Manual) 5 L Reactive Lymphs % 1 H Monocytes % (Manual) 6 Metamyelocytes % TEST NOT PERFORMED Platelet Estimate Slightly increased H Hypochromasia (manual) Slight Poikilocytosis (manual Slight Anisocytosis (manual) Slight Target Cells Slight PT 15.8 H INR 1.4 APTT > 400 H* D Plt Function Assay Puncture Site pCO2 pO2 HCO3 ABG pH ABG Total CO2 ABG O2 Saturation ABG Base Excess ABG Hemoglobin ABG Carboxyhemoglobin POC ABG HHb (Measured) ABG Methemoglobin Ilir Test A-a O2 Difference Respiratory Index Hgb O2 Saturation Mechanical Rate FiO2 Tidal Volume PEEP Sodium 138 Potassium 4.4 Chloride 98 Carbon Dioxide 26 Anion Gap 19 BUN 125 H* Creatinine 4.4 H Est GFR ( Amer) 16 Est GFR (Non-Af Amer) 13 POC Glucose (mg/dL) Random Glucose 175 H Hemoglobin A1c Calcium 7.0 L Phosphorus 6.2 H Magnesium 2.9 H Total Bilirubin 2.0 H AST 360 H D ALT 43 Alkaline Phosphatase 186 H Total Protein 6.2 L Albumin 2.8 L Globulin 3.4 Albumin/Globulin Ratio 0.8 L Blood Type Antibody Screen 04/13/17 04/13/17 08:41 11:31 WBC RBC Hgb Hct MCV MCH MCHC RDW Plt Count MPV Neut % (Auto) Lymph % (Auto) [place] % (Auto) Eos % (Auto) Baso % (Auto) Neut # Lymph # [place] # Eos # Baso # Neutrophils % (Manual) Band Neutrophils % Lymphocytes % (Manual) Reactive Lymphs % Monocytes % (Manual) Metamyelocytes % Platelet Estimate Hypochromasia (manual) Poikilocytosis (manual Anisocytosis (manual) Target Cells PT INR APTT Plt Function Assay 163 Puncture Site pCO2 pO2 HCO3 ABG pH ABG Total CO2 ABG O2 Saturation ABG Base Excess ABG Hemoglobin ABG Carboxyhemoglobin POC ABG HHb (Measured) ABG Methemoglobin Ilir Test A-a O2 Difference Respiratory Index Hgb O2 Saturation Mechanical Rate FiO2 Tidal Volume PEEP Sodium Potassium Chloride Carbon Dioxide Anion Gap BUN Creatinine Est GFR ( Amer) Est GFR (Non-Af Amer) POC Glucose (mg/dL) 127 H Random Glucose Hemoglobin A1c Calcium Phosphorus Magnesium Total Bilirubin AST ALT Alkaline Phosphatase Total Protein Albumin Globulin Albumin/Globulin Ratio Blood Type Antibody Screen Assessment & Plan - Assessment and Plan (Free Text) Assessment: Palliative consult Code status Full Code, no advance directive on chart, ROS unobtainable due to clinical status, POS 10% I reviewed medical records, all diagnostic stdies, examined patient in the bed, had a phone conversation with patient's daughter Robel, and met with family at bed side. Goals of care discussed. ROS obtained from nursing and family. Patient is intubated on MV support, without sedation. Patient keeps eyes closed and is not fallowing commends. Patient is S/P Code this morning. There is trace of blood in ET tube. Skin looks pale. latest Hb 7.7. Patient is about to receive second unit of RPBCs. Patient is hemodinamically very unstable. BP 85/37 , HR 85 - 101, RR 31, patient is on FiO2 100 %. With two sons and one daughter at bed side I reviewed patient's clinical presentation and most recent diagnostic studies. Daughter Rosalina is a RN and she understands very well the severity of patient's condition . The other two brothers also verbalize understanding. Their common concern is patient's comfort level. Family feels that patient is suffering and would ant him to peacefully. One more daughter is on her way from [place] to see the patient. The rest of family at bed side hopes patient will remain alive until the daughter gets here. However, family is united that if patient Codes again, they would not want the CPR to be performed. In mean time, all current measures to be continued including pressors and blood products. Impression * This is critically ill man that will most likely on this admission * Family is at bed side and is aware of the severity of condition * Family is concerned about patient's comfort level and would want him to peacefully * Family does not want further CPRs to be performed, but agreed with other life supportive meassures, until one more daughter arrives from [place] Suggestion * DNR would be appropriate level of care * Do no provide CPR if patient Codes again, family wants him to peacefully. I shared these with ICU staff.
--- NOTE | 2017-04-13 13:30 | CP.PCM.PN ---
<Ambreen Washburn - Last Filed: 04/13/17 13:30> Subjective - Date & Time of Evaluation Date of Evaluation: 04/13/17 Time of Evaluation: 13:29 - Subjective Subjective: PGY-[address] Wynn Pt was coded this AM. ROSC after 6 mins of ACLS, 2 rounds epi, 2 bicarb. feeding is off. rectal bleed observed. family meeting at 11 am Objective - Vital Signs/Intake and Output Vital Signs (last 24 hours): Temp Pulse Resp BP Pulse Ox 99 F 80 31 H 88/35 L 75 L 04/13/17 12:58 04/13/17 13:00 04/13/17 13:00 04/13/17 12:58 04/13/17 13:00 Intake and Output: 04/13/17 04/13/17 06:59 18:59 Intake Total 1407.4 1307.5 Output Total 5 0 Balance 1402.4 1307.5 - Medications Medications: Current Medications Albuterol/Ipratropium (Duoneb 3 Mg/0.5 Mg (3 Ml) Ud) 3 ml INH RQ6 [facility] Last Admin: 04/13/17 07:27 Dose: 3 ml Calcium Acetate (Phoslo) 667 mg GT TID [facility] Last Admin: 04/13/17 09:36 Dose: 667 mg Propofol (Diprivan) 1,000 mg in 100 mls @ 2.096 mls/hr IV .Q24H PRN; Protocol; 5 MCG/KG/MIN PRN Reason: TITRATE PER MD ORDER Last Titration: 04/12/17 19:30 Dose: 15 mcg/kg/min, 6.287 mls/hr Norepinephrine Bitartrate 8 mg (/ Sodium Chloride) 258 mls @ 7.74 mls/hr IV .Q24H PRN; Protocol; 4 MCG/MIN PRN Reason: TITRATE PER MD ORDER Last Admin: 04/13/17 09:34 Dose: 20 mcg/min, 38.7 mls/hr Piperacillin Sod/Tazobactam Sod (Zosyn 2.25 Gm Iv Premix) 2.25 gm in 50 mls @ 100 mls/hr IVPB Q8H [facility] Last Admin: 04/13/17 12:58 Dose: 100 mls/hr Vasopressin 40 units/ Sodium (Chloride) 40 mls @ 2.4 mls/hr IV .[id number] [facility]; 0.04 UNITS/MIN PRN Reason: Protocol Last Admin: 04/12/17 04:27 Dose: Not Given Insulin Human Regular (Novolin R) 0 unit SC Q6 [facility] PRN Reason: Protocol Last Admin: 04/13/17 12:04 Dose: Not Given Pantoprazole Sodium (Protonix Inj) 40 mg IVP DAILY [facility] Last Admin: 04/13/17 09:36 Dose: 40 mg Rosuvastatin Calcium (Crestor) 10 mg PO HS [facility] - Labs Labs: 04/13/17 06:17 04/13/17 06:17 PT 15.8 SECONDS (9.7-12.2) H 04/13/17 07:59 INR 1.4 04/13/17 07:59 APTT > 400 SECONDS (21-34) H* D 04/13/17 07:59 - Constitutional Appears: Other (intubated) - Head Exam Head Exam: ATRAUMATIC, NORMOCEPHALIC - ENT Exam ENT Exam: Mucous Membranes Moist - Respiratory Exam Respiratory Exam: Rales - Cardiovascular Exam Cardiovascular Exam: REGULAR RHYTHM, +S1, +S2 - GI/Abdominal Exam GI & Abdominal Exam: Soft, Hypoactive Bowel Sounds - Psychiatric Exam Psychiatric exam: Flat Affect - Skin Skin Exam: Dry, Warm Assessment and Plan - Assessment and Plan (Free Text) Plan: PGY-[address] Wynn 82 M with PMH of CAD s/p CABG, CHF, HTN, COPD (not on home O2), CKD 3A, Liver mass, admitted to ICU for CHF exacerbation requiring bipap vs PNA with Hx of recent hospitalization. Trop is positive. 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 Pt was apneic over the weekend, developed a-fib RVR. Pt was intubated on PRVC. Pt was coded this am , ROSC after 6 mins of ACLS. 2 rounds epi, 2 bicarb. Family meeting 11 AM today. Highly likely DNR/DNI S/P Cardiopulm arrest Tachycardia Hx A-fib - Cardizem 30 q6 - Esmolol gtt, Cardizem gtt PRN Hypotension Shock, cardiogenic vs septic from PNA - Levaphed gtt @ 7.5 - propofol gtt NSTEMI - Heparin gtt - hold - ASA, Plavix - hold - No crestor for transaminitis - No plan for cardiac cath CHF, systolic, acute on chronic - lasix 60 IV BID - Echo: low EF 30-35% - lifevest for 3 months - PENDING DNR/DNI DECISION, may need to cancel - repeat echo in 3 months to assess need for permanant icd - While intubated and sedated in ICU, will not get Life Vest; will start process now so that Life Vest available when extubated and stable/ready for discharge Hx CAD s/p CABG - asa, Metoprolol 12.5 BID, Metolazone 5 daily, lasix - A1C 5.8 Hyperlipidemia (lipid panel drawn before propofol and intubation) - Cholesterol 764 - LDL 500 S/R/D/w Dr. Wynn <Krishna Wynn - Last Filed: 04/14/17 05:00> Objective - Vital Signs/Intake and Output Vital Signs (last 24 hours): Temp Pulse Resp BP Pulse Ox 99.9 F H 107 H 30 H 114/36 L 97 04/14/17 00:00 04/14/17 04:00 04/14/17 04:00 04/14/17 03:28 04/14/17 04:00 Intake and Output: 04/13/17 04/14/17 18:59 06:59 Intake Total 2398.2 633.2 Output Total 15 0 Balance 2383.2 633.2 - Medications Medications: Current Medications Albuterol/Ipratropium (Duoneb 3 Mg/0.5 Mg (3 Ml) Ud) 3 ml INH RQ6 [facility] Last Admin: 04/14/17 01:22 Dose: 3 ml Calcium Acetate (Phoslo) 1,334 mg GT TIDCC [facility] Last Admin: 04/13/17 16:25 Dose: Not Given Propofol (Diprivan) 1,000 mg in 100 mls @ 2.096 mls/hr IV .Q24H PRN; Protocol; 5 MCG/KG/MIN PRN Reason: TITRATE PER MD ORDER Last Titration: 04/12/17 19:30 Dose: 15 mcg/kg/min, 6.287 mls/hr Norepinephrine Bitartrate 8 mg (/ Sodium Chloride) 258 mls @ 7.74 mls/hr IV .Q24H PRN; Protocol; 4 MCG/MIN PRN Reason: TITRATE PER MD ORDER Last Titration: 04/14/17 04:08 Dose: 15.5 mcg/min, 30 mls/hr Piperacillin Sod/Tazobactam Sod (Zosyn 2.25 Gm Iv Premix) 2.25 gm in 50 mls @ 100 mls/hr IVPB Q8H [facility] Last Admin: 04/13/17 21:39 Dose: 100 mls/hr Vasopressin 40 units/ Sodium (Chloride) 40 mls @ 2.4 mls/hr IV .[id number] [facility]; 0.04 UNITS/MIN PRN Reason: Protocol Last Admin: 04/12/17 04:27 Dose: Not Given Insulin Human Regular (Novolin R) 0 unit SC Q6 [facility] PRN Reason: Protocol Last Admin: 04/14/17 00:13 Dose: Not Given Pantoprazole Sodium (Protonix Inj) 40 mg IVP DAILY [facility] Last Admin: 04/13/17 09:36 Dose: 40 mg Rosuvastatin Calcium (Crestor) 10 mg PO HS [facility] Last Admin: 04/13/17 21:38 Dose: 10 mg - Labs Labs: 04/13/17 06:17 04/13/17 06:17 PT 15.8 SECONDS (9.7-12.2) H 04/13/17 07:59 INR 1.4 04/13/17 07:59 APTT > 400 SECONDS (21-34) H* D 04/13/17 07:59 Assessment and Plan - Assessment and Plan (Free Text) Assessment: Patient seen and evaluated S/P Code blue Poor prognosis Will continue to monitor
--- NOTE | 2017-04-13 13:38 | CP.PCM.PN ---
Subjective - Date & Time of Evaluation Date of Evaluation: 04/13/17 Time of Evaluation: 06:30 - Subjective Subjective: patient seen, remained intubated, Creatinine worsening, had GIbleeding as reported by Nurse, Hemglobin dropping Objective - Vital Signs/Intake and Output Vital Signs (last 24 hours): Temp Pulse Resp BP Pulse Ox 99 F 80 31 H 88/35 L 75 L 04/13/17 12:58 04/13/17 13:00 04/13/17 13:00 04/13/17 12:58 04/13/17 13:00 Intake and Output: 04/13/17 04/13/17 06:59 18:59 Intake Total 1407.4 1307.5 Output Total 5 0 Balance 1402.4 1307.5 - Medications Medications: Current Medications Albuterol/Ipratropium (Duoneb 3 Mg/0.5 Mg (3 Ml) Ud) 3 ml INH RQ6 [facility] Last Admin: 04/13/17 07:27 Dose: 3 ml Calcium Acetate (Phoslo) 667 mg GT TID [facility] Last Admin: 04/13/17 09:36 Dose: 667 mg Propofol (Diprivan) 1,000 mg in 100 mls @ 2.096 mls/hr IV .Q24H PRN; Protocol; 5 MCG/KG/MIN PRN Reason: TITRATE PER MD ORDER Last Titration: 04/12/17 19:30 Dose: 15 mcg/kg/min, 6.287 mls/hr Norepinephrine Bitartrate 8 mg (/ Sodium Chloride) 258 mls @ 7.74 mls/hr IV .Q24H PRN; Protocol; 4 MCG/MIN PRN Reason: TITRATE PER MD ORDER Last Admin: 04/13/17 09:34 Dose: 20 mcg/min, 38.7 mls/hr Piperacillin Sod/Tazobactam Sod (Zosyn 2.25 Gm Iv Premix) 2.25 gm in 50 mls @ 100 mls/hr IVPB Q8H [facility] Last Admin: 04/13/17 12:58 Dose: 100 mls/hr Vasopressin 40 units/ Sodium (Chloride) 40 mls @ 2.4 mls/hr IV .[id number] [facility]; 0.04 UNITS/MIN PRN Reason: Protocol Last Admin: 04/12/17 04:27 Dose: Not Given Insulin Human Regular (Novolin R) 0 unit SC Q6 [facility] PRN Reason: Protocol Last Admin: 04/13/17 12:04 Dose: Not Given Pantoprazole Sodium (Protonix Inj) 40 mg IVP DAILY [facility] Last Admin: 04/13/17 09:36 Dose: 40 mg Rosuvastatin Calcium (Crestor) 10 mg PO HS [facility] - Labs Labs: 04/13/17 06:17 04/13/17 06:17 PT 15.8 SECONDS (9.7-12.2) H 04/13/17 07:59 INR 1.4 04/13/17 07:59 APTT > 400 SECONDS (21-34) H* D 04/13/17 07:59 - Constitutional Appears: Other (intubated, with bloody stool, ) - Head Exam Head Exam: ATRAUMATIC, NORMOCEPHALIC - GI/Abdominal Exam GI & Abdominal Exam: absent: Distended - Extremities Exam Extremities Exam: Pedal Edema (trace) - Neurological Exam Neurological Exam: Altered Assessment and Plan - Assessment and Plan (Free Text) Assessment: Patient with ARDS/ pneimina/chf/ intubated ,with worsening renal function with GIB with dropping h/hpoor prognosis- discussed with family - paliative care discussed supportive care
--- NOTE | 2017-04-13 14:58 | CP.CCUPN ---
<Sami Casillas - Last Filed: 04/13/17 14:24> CCU Subjective - Physician Review Subjective (Free Text): 04/13/17 14:24 PGY-1 ICU progress note Pt seen and examined at bedside. Pt developed rectal bleeding early this morning. PTT was extremely elevated. Then at 7:36 the pt went into asystole and a code blue was called. Compressions were started immediately and code was carried out per ACLS protocol. ROSC was achieved after 15 minutes. Pt remained tachycardic but otherwise hemodynamically stable. Family was contacted and made aware of the situation. Planned family meeting for later for discussion of goals of care/end of life care measures. Critical Care Time Spent (in minutes): 35 CCU Objective - Vital Signs / Intake & Output Vital Signs (Last 4 hours): Vital Signs Temp Pulse Resp BP Pulse Ox 04/13/17 13:00 80 31 H 75 L 04/13/17 12:58 99 F 79 31 H 88/35 L 04/13/17 12:55 77 31 H 88/35 L 69 L 04/13/17 12:50 78 31 H 64 L 04/13/17 12:40 76 30 H 82/33 L 66 L 04/13/17 12:30 81 31 H 67 L 04/13/17 12:28 98.8 F 81 29 H 101/32 L 04/13/17 12:25 86 30 H 101/32 L 68 L 04/13/17 12:20 81 31 H 65 L 04/13/17 12:13 98.7 F 82 30 H 90/37 L 04/13/17 12:10 84 30 H 90/37 L 04/13/17 12:00 98.7 F 88 30 H 04/13/17 11:58 98.8 F 85 31 H 85/37 L 04/13/17 11:55 96 H 32 H 85/37 L 04/13/17 11:50 98 H 31 H 04/13/17 11:40 98 H 32 H 87/41 L 59 L 04/13/17 11:30 100 H 31 H 64 L 04/13/17 11:25 101 H 31 H 84/38 L 56 L 04/13/17 11:20 101 H 33 H 51 L 04/13/17 11:10 101 H 30 H 92/38 L 42 L 04/13/17 11:00 101 H 33 H 64 L 04/13/17 10:55 102 H 32 H 98/44 L 72 L 04/13/17 10:50 101 H 33 H 49 L 04/13/17 10:40 102 H 31 H 96/40 L 55 L 04/13/17 10:30 103 H 32 H 64 L 04/13/17 10:25 103 H 32 H 94/38 L 66 L Intake and Output (Last 8hrs): Intake & Output 04/12/17 04/13/17 04/13/17 22:59 06:59 14:59 Intake Total 1181.4 962.8 1307.5 Output Total 5 0 0 Balance 1176.4 962.8 1307.5 Weight 74 lb 14.4 oz Intake: IV 502 300 95.5 Intake, IV Amount 379.4 422.8 1182.0 Right Antecubital 172.0 172.0 10.7 Right Distal Port 117.5 150.4 248.0 Right Medial Port 39.9 50.4 6.3 Right Proximal Port 50 50 100 Right TLC 817 Tube Feeding 240 240 0 Blood Product 0 Red Blood Cells Cpd As1 0 Lr Unit [id number] Other 60 30 Output: Urine 5 0 0 Urethral (Ortiz) 5 0 0 Other: # Bowel Movements 1 1 - Physical Exam Head: Positive for: Atraumatic, Normocephalic Mouth: Positive for: Moist Mucous Membranes Neck: Positive for: Normal Range of Motion Respiratory/Chest: Positive for: Decreased Breath Sounds, Other (intubated, with aiyana blodd evident in ET tube) Cardiovascular: Positive for: Regular Rate and Rhythm, Tachycardic Abdomen: Positive for: Normal Bowel Sounds. Negative for: Distention Rectal: Positive for: Other (obvious rectal bleed evident on bed sheets) Upper Extremity: Positive for: Edema Lower Extremity: Positive for: Edema Skin: Positive for: Warm, Dry - Medications Active Medications: Active Medications Generic Name Dose Route Start Last Admin Trade Name Freq PRN Reason Stop Dose Admin Albuterol/Ipratropium 3 ml 04/10/17 14:00 04/13/17 07:27 Duoneb 3 Mg/0.5 Mg (3 Ml) Ud INH 3 ml RQ6 ROCKY Administration Calcium Acetate 667 mg 04/11/17 14:00 04/13/17 09:36 Phoslo GT 667 mg TID ROCKY Administration Propofol 1,000 mg in 100 mls @ 2.096 mls/hr 04/10/17 20:06 04/12/17 19:30 Diprivan IV 15 mcg/kg/min .Q24H PRN 6.287 mls/hr TITRATE PER MD ORDER Titration Protocol 5 MCG/KG/MIN Norepinephrine Bitartrate 8 mg 258 mls @ 7.74 mls/hr 04/10/17 21:05 04/13/17 09:34 / Sodium Chloride IV 20 mcg/min .Q24H PRN 38.7 mls/hr TITRATE PER MD ORDER Administration Protocol 4 MCG/MIN Piperacillin Sod/Tazobactam Sod 2.25 gm in 50 mls @ 100 mls/hr 04/10/17 21:45 04/13/17 12:58 Zosyn 2.25 Gm Iv Premix IVPB 100 mls/hr Q8H ROCKY Administration Vasopressin 40 units/ Sodium 40 mls @ 2.4 mls/hr 04/12/17 04:00 04/12/17 04: 27 Chloride IV Not Given .[id number] ROCKY Protocol 0.04 UNITS/MIN Insulin Human Regular 0 unit 04/11/17 00:45 04/13/17 12:04 Novolin R SC Not Given Q6 ROCKY Protocol Pantoprazole Sodium 40 mg 04/11/17 10:00 04/13/17 09:36 Protonix Inj IVP 40 mg DAILY ROCKY Administration Rosuvastatin Calcium 10 mg 04/12/17 22:00 Crestor PO HS ROCKY - Patient Studies Lab Studies: Microbiology Studies 04/08/17 12:19 Blood Culture - Preliminary Blood-Venous NO GROWTH AFTER 4 DAYS 04/08/17 12:19 Blood Culture - Preliminary Blood-Venous NO GROWTH AFTER 4 DAYS 04/12/17 10:06 Gram Stain - Final Trachasp Lab Studies 04/13/17 04/13/17 04/13/17 Range/Units 11:31 08:41 07:59 WBC (4.8-10.8) K/uL RBC (4.40-5.90) Mil/uL Hgb (12.0-18.0) g/dL Hct (35.0-51.0) % MCV (80.0-94.0) fL MCH (27.0-31.0) pg MCHC (33.0-37.0) g/dL RDW (11.5-14.5) % Plt Count (130-400) K/uL MPV (7.2-11.7) fL Neut % (Auto) (50.0-75.0) % Lymph % (Auto) (20.0-40.0) % Wake % (Auto) (0.0-10.0) % Eos % (Auto) (0.0-4.0) % Baso % (Auto) (0.0-2.0) % Neut # (1.8-7.0) K/uL Lymph # (1.0-4.3) K/uL Wake # (0.0-0.8) K/uL Eos # (0.0-0.7) K/uL Baso # (0.0-0.2) K/uL Neutrophils % (Manual) (50-75) % Band Neutrophils % (0-2) % Lymphocytes % (Manual) (20-40) % Reactive Lymphs % (0-0) % Monocytes % (Manual) (0-10) % Metamyelocytes % Platelet Estimate (NORMAL) Hypochromasia (manual) Poikilocytosis (manual Anisocytosis (manual) Target Cells PT 15.8 H (9.7-12.2) SECONDS INR 1.4 APTT > 400 H* D (21-34) SECONDS Plt Function Assay 163 K/uL Puncture Site pCO2 (35-45) mm/Hg pO2 (80-100) mm/Hg HCO3 (21-28) mmol/L ABG pH (7.35-7.45) ABG Total CO2 (22-28) mmol/L ABG O2 Saturation (95-98) % ABG Base Excess (-2.0-3.0) mmol/L ABG Hemoglobin (11.7-17.4) g/dL ABG Carboxyhemoglobin (0.5-1.5) % POC ABG HHb (Measured) (0.0-5.0) % ABG Methemoglobin (0.0-3.0) % Ilir Test A-a O2 Difference mm/Hg Respiratory Index Hgb O2 Saturation (95.0-98.0) % Mechanical Rate FiO2 % Tidal Volume PEEP Sodium (132-148) mmol/L Potassium (3.6-5.2) mmol/L Chloride (98-107) mmol/L Carbon Dioxide (22-30) mmol/L Anion Gap (10-20) BUN (9-20) mg/dL Creatinine (0.8-1.5) MG/DL Est GFR ( Amer) Est GFR (Non-Af Amer) POC Glucose (mg/dL) 127 H (65-110) mg/dL Random Glucose (75-110) mg/dL Hemoglobin A1c (4.2-6.5) % Calcium (8.6-10.4) mg/dl Phosphorus (2.5-4.5) mg/dL Magnesium (1.6-2.3) mg/dL Total Bilirubin (0.2-1.3) mg/dL AST (17-59) U/L ALT (21-72) U/L Alkaline Phosphatase (38-126) U/L Total Protein (6.3-8.3) g/dL Albumin (3.5-5.0) g/dL Globulin (2.2-3.9) gm/dL Albumin/Globulin Ratio (1.0-2.1) Blood Type Antibody Screen 04/13/17 04/13/17 04/13/17 Range/Units 06:17 06:17 05:52 WBC 10.9 H (4.8-10.8) K/uL RBC 2.27 L (4.40-5.90) Mil/uL Hgb 7.7 L (12.0-18.0) g/dL Hct 22.3 L (35.0-51.0) % MCV 98.1 H (80.0-94.0) fL MCH 34.1 H (27.0-31.0) pg MCHC 34.8 (33.0-37.0) g/dL RDW 15.5 H (11.5-14.5) % Plt Count 440 H (130-400) K/uL MPV 7.3 (7.2-11.7) fL Neut % (Auto) 88.5 H (50.0-75.0) % Lymph % (Auto) 8.8 L (20.0-40.0) % Wake % (Auto) 1.7 (0.0-10.0) % Eos % (Auto) 0.8 (0.0-4.0) % Baso % (Auto) 0.2 (0.0-2.0) % Neut # 9.6 H (1.8-7.0) K/uL Lymph # 1.0 (1.0-4.3) K/uL Wake # 0.2 (0.0-0.8) K/uL Eos # 0.1 (0.0-0.7) K/uL Baso # 0.0 (0.0-0.2) K/uL Neutrophils % (Manual) 85 H (50-75) % Band Neutrophils % 3 H (0-2) % Lymphocytes % (Manual) 5 L (20-40) % Reactive Lymphs % 1 H (0-0) % Monocytes % (Manual) 6 (0-10) % Metamyelocytes % TEST NOT PERFORMED Platelet Estimate Slightly increased H (NORMAL) Hypochromasia (manual) Slight Poikilocytosis (manual Slight Anisocytosis (manual) Slight Target Cells Slight PT (9.7-12.2) SECONDS INR APTT (21-34) SECONDS Plt Function Assay K/uL Puncture Site pCO2 (35-45) mm/Hg pO2 (80-100) mm/Hg HCO3 (21-28) mmol/L ABG pH (7.35-7.45) ABG Total CO2 (22-28) mmol/L ABG O2 Saturation (95-98) % ABG Base Excess (-2.0-3.0) mmol/L ABG Hemoglobin (11.7-17.4) g/dL ABG Carboxyhemoglobin (0.5-1.5) % POC ABG HHb (Measured) (0.0-5.0) % ABG Methemoglobin (0.0-3.0) % Ilir Test A-a O2 Difference mm/Hg Respiratory Index Hgb O2 Saturation (95.0-98.0) % Mechanical Rate FiO2 % Tidal Volume PEEP Sodium 138 (132-148) mmol/L Potassium 4.4 (3.6-5.2) mmol/L Chloride 98 (98-107) mmol/L Carbon Dioxide 26 (22-30) mmol/L Anion Gap 19 (10-20) BUN 125 H* (9-20) mg/dL Creatinine 4.4 H (0.8-1.5) MG/DL Est GFR ( Amer) 16 Est GFR (Non-Af Amer) 13 POC Glucose (mg/dL) 191 H (65-110) mg/dL Random Glucose 175 H (75-110) mg/dL Hemoglobin A1c (4.2-6.5) % Calcium 7.0 L (8.6-10.4) mg/dl Phosphorus 6.2 H (2.5-4.5) mg/dL Magnesium 2.9 H (1.6-2.3) mg/dL Total Bilirubin 2.0 H (0.2-1.3) mg/dL AST 360 H D (17-59) U/L ALT 43 (21-72) U/L Alkaline Phosphatase 186 H (38-126) U/L Total Protein 6.2 L (6.3-8.3) g/dL Albumin 2.8 L (3.5-5.0) g/dL Globulin 3.4 (2.2-3.9) gm/dL Albumin/Globulin Ratio 0.8 L (1.0-2.1) Blood Type Antibody Screen 04/13/17 04/13/17 04/12/17 Range/Units 05:20 00:51 17:07 WBC (4.8-10.8) K/uL RBC (4.40-5.90) Mil/uL Hgb (12.0-18.0) g/dL Hct (35.0-51.0) % MCV (80.0-94.0) fL MCH (27.0-31.0) pg MCHC (33.0-37.0) g/dL RDW (11.5-14.5) % Plt Count (130-400) K/uL MPV (7.2-11.7) fL Neut % (Auto) (50.0-75.0) % Lymph % (Auto) (20.0-40.0) % Wake % (Auto) (0.0-10.0) % Eos % (Auto) (0.0-4.0) % Baso % (Auto) (0.0-2.0) % Neut # (1.8-7.0) K/uL Lymph # (1.0-4.3) K/uL Wake # (0.0-0.8) K/uL Eos # (0.0-0.7) K/uL Baso # (0.0-0.2) K/uL Neutrophils % (Manual) (50-75) % Band Neutrophils % (0-2) % Lymphocytes % (Manual) (20-40) % Reactive Lymphs % (0-0) % Monocytes % (Manual) (0-10) % Metamyelocytes % Platelet Estimate (NORMAL) Hypochromasia (manual) Poikilocytosis (manual Anisocytosis (manual) Target Cells PT (9.7-12.2) SECONDS INR APTT (21-34) SECONDS Plt Function Assay K/uL Puncture Site Rr pCO2 47 H (35-45) mm/Hg pO2 214 H (80-100) mm/Hg HCO3 25.0 (21-28) mmol/L ABG pH 7.35 (7.35-7.45) ABG Total CO2 27.3 (22-28) mmol/L ABG O2 Saturation 99.3 H (95-98) % ABG Base Excess 0.1 (-2.0-3.0) mmol/L ABG Hemoglobin 7.8 L (11.7-17.4) g/dL ABG Carboxyhemoglobin 1.1 (0.5-1.5) % POC ABG HHb (Measured) 0.7 (0.0-5.0) % ABG Methemoglobin 1.2 (0.0-3.0) % Ilir Test Pos A-a O2 Difference 440.0 mm/Hg Respiratory Index 2.1 Hgb O2 Saturation 96.9 (95.0-98.0) % Mechanical Rate 20 FiO2 100.0 % Tidal Volume 500 PEEP 8 Sodium (132-148) mmol/L Potassium (3.6-5.2) mmol/L Chloride (98-107) mmol/L Carbon Dioxide (22-30) mmol/L Anion Gap (10-20) BUN (9-20) mg/dL Creatinine (0.8-1.5) MG/DL Est GFR ( Amer) Est GFR (Non-Af Amer) POC Glucose (mg/dL) 162 H 142 H (65-110) mg/dL Random Glucose (75-110) mg/dL Hemoglobin A1c (4.2-6.5) % Calcium (8.6-10.4) mg/dl Phosphorus (2.5-4.5) mg/dL Magnesium (1.6-2.3) mg/dL Total Bilirubin (0.2-1.3) mg/dL AST (17-59) U/L ALT (21-72) U/L Alkaline Phosphatase (38-126) U/L Total Protein (6.3-8.3) g/dL Albumin (3.5-5.0) g/dL Globulin (2.2-3.9) gm/dL Albumin/Globulin Ratio (1.0-2.1) Blood Type Antibody Screen 04/11/17 04/09/17 Range/Units 17:41 06:40 WBC (4.8-10.8) K/uL RBC (4.40-5.90) Mil/uL Hgb (12.0-18.0) g/dL Hct (35.0-51.0) % MCV (80.0-94.0) fL MCH (27.0-31.0) pg MCHC (33.0-37.0) g/dL RDW (11.5-14.5) % Plt Count (130-400) K/uL MPV (7.2-11.7) fL Neut % (Auto) (50.0-75.0) % Lymph % (Auto) (20.0-40.0) % Wake % (Auto) (0.0-10.0) % Eos % (Auto) (0.0-4.0) % Baso % (Auto) (0.0-2.0) % Neut # (1.8-7.0) K/uL Lymph # (1.0-4.3) K/uL Wake # (0.0-0.8) K/uL Eos # (0.0-0.7) K/uL Baso # (0.0-0.2) K/uL Neutrophils % (Manual) (50-75) % Band Neutrophils % (0-2) % Lymphocytes % (Manual) (20-40) % Reactive Lymphs % (0-0) % Monocytes % (Manual) (0-10) % Metamyelocytes % Platelet Estimate (NORMAL) Hypochromasia (manual) Poikilocytosis (manual Anisocytosis (manual) Target Cells PT (9.7-12.2) SECONDS INR APTT (21-34) SECONDS Plt Function Assay K/uL Puncture Site pCO2 (35-45) mm/Hg pO2 (80-100) mm/Hg HCO3 (21-28) mmol/L ABG pH (7.35-7.45) ABG Total CO2 (22-28) mmol/L ABG O2 Saturation (95-98) % ABG Base Excess (-2.0-3.0) mmol/L ABG Hemoglobin (11.7-17.4) g/dL ABG Carboxyhemoglobin (0.5-1.5) % POC ABG HHb (Measured) (0.0-5.0) % ABG Methemoglobin (0.0-3.0) % Ilir Test A-a O2 Difference mm/Hg Respiratory Index Hgb O2 Saturation (95.0-98.0) % Mechanical Rate FiO2 % Tidal Volume PEEP Sodium (132-148) mmol/L Potassium (3.6-5.2) mmol/L Chloride (98-107) mmol/L Carbon Dioxide (22-30) mmol/L Anion Gap (10-20) BUN (9-20) mg/dL Creatinine (0.8-1.5) MG/DL Est GFR ( Amer) Est GFR (Non-Af Amer) POC Glucose (mg/dL) (65-110) mg/dL Random Glucose (75-110) mg/dL Hemoglobin A1c 5.8 (4.2-6.5) % Calcium (8.6-10.4) mg/dl Phosphorus (2.5-4.5) mg/dL Magnesium (1.6-2.3) mg/dL Total Bilirubin (0.2-1.3) mg/dL AST (17-59) U/L ALT (21-72) U/L Alkaline Phosphatase (38-126) U/L Total Protein (6.3-8.3) g/dL Albumin (3.5-5.0) g/dL Globulin (2.2-3.9) gm/dL Albumin/Globulin Ratio (1.0-2.1) Blood Type A POSITIVE Antibody Screen Negative Laboratory Results - last 24 hr 04/09/17 04/11/17 04/12/17 06:40 17:41 17:07 WBC RBC Hgb Hct MCV MCH MCHC RDW Plt Count MPV Neut % (Auto) Lymph % (Auto) Wake % (Auto) Eos % (Auto) Baso % (Auto) Neut # Lymph # Wake # Eos # Baso # Neutrophils % (Manual) Band Neutrophils % Lymphocytes % (Manual) Reactive Lymphs % Monocytes % (Manual) Metamyelocytes % Platelet Estimate Hypochromasia (manual) Poikilocytosis (manual Anisocytosis (manual) Target Cells PT INR APTT Plt Function Assay Puncture Site pCO2 pO2 HCO3 ABG pH ABG Total CO2 ABG O2 Saturation ABG Base Excess ABG Hemoglobin ABG Carboxyhemoglobin POC ABG HHb (Measured) ABG Methemoglobin Ilir Test A-a O2 Difference Respiratory Index Hgb O2 Saturation Mechanical Rate FiO2 Tidal Volume PEEP Sodium Potassium Chloride Carbon Dioxide Anion Gap BUN Creatinine Est GFR ( Amer) Est GFR (Non-Af Amer) POC Glucose (mg/dL) 142 H Random Glucose Hemoglobin A1c 5.8 Calcium Phosphorus Magnesium Total Bilirubin AST ALT Alkaline Phosphatase Total Protein Albumin Globulin Albumin/Globulin Ratio Blood Type A POSITIVE Antibody Screen Negative 04/13/17 04/13/17 04/13/17 00:51 05:20 05:52 WBC RBC Hgb Hct MCV MCH MCHC RDW Plt Count MPV Neut % (Auto) Lymph % (Auto) Wake % (Auto) Eos % (Auto) Baso % (Auto) Neut # Lymph # Wake # Eos # Baso # Neutrophils % (Manual) Band Neutrophils % Lymphocytes % (Manual) Reactive Lymphs % Monocytes % (Manual) Metamyelocytes % Platelet Estimate Hypochromasia (manual) Poikilocytosis (manual Anisocytosis (manual) Target Cells PT INR APTT Plt Function Assay Puncture Site Rr pCO2 47 H pO2 214 H HCO3 25.0 ABG pH 7.35 ABG Total CO2 27.3 ABG O2 Saturation 99.3 H ABG Base Excess 0.1 ABG Hemoglobin 7.8 L ABG Carboxyhemoglobin 1.1 POC ABG HHb (Measured) 0.7 ABG Methemoglobin 1.2 Ilir Test Pos A-a O2 Difference 440.0 Respiratory Index 2.1 Hgb O2 Saturation 96.9 Mechanical Rate 20 FiO2 100.0 Tidal Volume 500 PEEP 8 Sodium Potassium Chloride Carbon Dioxide Anion Gap BUN Creatinine Est GFR ( Amer) Est GFR (Non-Af Amer) POC Glucose (mg/dL) 162 H 191 H Random Glucose Hemoglobin A1c Calcium Phosphorus Magnesium Total Bilirubin AST ALT Alkaline Phosphatase Total Protein Albumin Globulin Albumin/Globulin Ratio Blood Type Antibody Screen 04/13/17 04/13/17 04/13/17 06:17 06:17 07:59 WBC 10.9 H RBC 2.27 L Hgb 7.7 L Hct 22.3 L MCV 98.1 H MCH 34.1 H MCHC 34.8 RDW 15.5 H Plt Count 440 H MPV 7.3 Neut % (Auto) 88.5 H Lymph % (Auto) 8.8 L Wake % (Auto) 1.7 Eos % (Auto) 0.8 Baso % (Auto) 0.2 Neut # 9.6 H Lymph # 1.0 Wake # 0.2 Eos # 0.1 Baso # 0.0 Neutrophils % (Manual) 85 H Band Neutrophils % 3 H Lymphocytes % (Manual) 5 L Reactive Lymphs % 1 H Monocytes % (Manual) 6 Metamyelocytes % TEST NOT PERFORMED Platelet Estimate Slightly increased H Hypochromasia (manual) Slight Poikilocytosis (manual Slight Anisocytosis (manual) Slight Target Cells Slight PT 15.8 H INR 1.4 APTT > 400 H* D Plt Function Assay Puncture Site pCO2 pO2 HCO3 ABG pH ABG Total CO2 ABG O2 Saturation ABG Base Excess ABG Hemoglobin ABG Carboxyhemoglobin POC ABG HHb (Measured) ABG Methemoglobin Ilir Test A-a O2 Difference Respiratory Index Hgb O2 Saturation Mechanical Rate FiO2 Tidal Volume PEEP Sodium 138 Potassium 4.4 Chloride 98 Carbon Dioxide 26 Anion Gap 19 BUN 125 H* Creatinine 4.4 H Est GFR ( Amer) 16 Est GFR (Non-Af Amer) 13 POC Glucose (mg/dL) Random Glucose 175 H Hemoglobin A1c Calcium 7.0 L Phosphorus 6.2 H Magnesium 2.9 H Total Bilirubin 2.0 H AST 360 H D ALT 43 Alkaline Phosphatase 186 H Total Protein 6.2 L Albumin 2.8 L Globulin 3.4 Albumin/Globulin Ratio 0.8 L Blood Type Antibody Screen 04/13/17 04/13/17 08:41 11:31 WBC RBC Hgb Hct MCV MCH MCHC RDW Plt Count MPV Neut % (Auto) Lymph % (Auto) Wake % (Auto) Eos % (Auto) Baso % (Auto) Neut # Lymph # Wake # Eos # Baso # Neutrophils % (Manual) Band Neutrophils % Lymphocytes % (Manual) Reactive Lymphs % Monocytes % (Manual) Metamyelocytes % Platelet Estimate Hypochromasia (manual) Poikilocytosis (manual Anisocytosis (manual) Target Cells PT INR APTT Plt Function Assay 163 Puncture Site pCO2 pO2 HCO3 ABG pH ABG Total CO2 ABG O2 Saturation ABG Base Excess ABG Hemoglobin ABG Carboxyhemoglobin POC ABG HHb (Measured) ABG Methemoglobin Ilir Test A-a O2 Difference Respiratory Index Hgb O2 Saturation Mechanical Rate FiO2 Tidal Volume PEEP Sodium Potassium Chloride Carbon Dioxide Anion Gap BUN Creatinine Est GFR ( Amer) Est GFR (Non-Af Amer) POC Glucose (mg/dL) 127 H Random Glucose Hemoglobin A1c Calcium Phosphorus Magnesium Total Bilirubin AST ALT Alkaline Phosphatase Total Protein Albumin Globulin Albumin/Globulin Ratio Blood Type Antibody Screen Fingerstick Blood Sugar Results: 127 Review of Systems - Review of Systems Systems not reviewed;Unavailable: Intubated Assessment/Plan - Assessment and Plan (Free Text) Assessment: 82 M with PMH of CAD s/p CABG, CHF, HTN, COPD (not on home O2), CKD 3A, Liver mass, admitted to ICU for CHF exacerbation requiring bipap vs pneumonia. Pt now s/p cardiac arrest secondary to multi-organ failure and acute blood loss anemia. Per family, pt is now DNR/DNI. Plan: Pt intubated before being made DNR/DNI. Per family, only comfort measures will be carried out. POLST has been filled out and signed - in chart. No plans for terminal extubation at this time. <Tyler Nunez - Last Filed: 04/13/17 17:44> CCU Objective - Vital Signs / Intake & Output Vital Signs (Last 4 hours): Vital Signs Temp Pulse Resp BP Pulse Ox 04/13/17 16:23 79 32 H 92/32 L 04/13/17 16:10 76 31 H 92/32 L 85 L 04/13/17 16:00 99.1 F 78 32 H 92/32 L 86 L 04/13/17 15:55 88 32 H 88/32 L 88 L 04/13/17 15:50 84 33 H 88 L 04/13/17 15:40 94 H 34 H 88/34 L 86 L 04/13/17 15:30 94 H 34 H 83 L 04/13/17 15:25 95 H 34 H 86/31 L 88 L 04/13/17 15:21 95 H 35 H 85/34 L 86 L 04/13/17 15:20 95 H 34 H 93 L 04/13/17 15:10 99.7 F H 97 H 34 H 85/32 L 04/13/17 15:00 99 H 33 H 04/13/17 14:55 100 H 33 H 87/34 L 04/13/17 14:50 102 H 31 H 04/13/17 14:40 105 H 30 H 110/42 L 98 04/13/17 14:35 114 H 30 H 88 L 04/13/17 14:30 118 H 29 H 70 L 04/13/17 14:27 107 H 27 H 80 L 04/13/17 14:25 69 26 H 79/30 L 59 L 04/13/17 14:20 69 27 H 63 L 04/13/17 14:10 72 29 H 88/29 L 64 L 04/13/17 14:00 76 27 H 73 L 04/13/17 13:55 78 27 H 86/31 L 68 L 04/13/17 13:50 75 28 H 69 L Intake and Output (Last 8hrs): Intake & Output 04/13/17 04/13/17 04/13/17 06:59 14:59 22:59 Intake Total 962.8 1445.0 685.7 Output Total 0 0 10 Balance 962.8 1445.0 675.7 Weight 74 lb 14.4 oz Intake: IV 300 95.5 35.7 Intake, IV Amount 422.8 1319.5 325.0 Right Antecubital 172.0 10.7 Right Distal Port 150.4 285.5 75.0 Right Medial Port 50.4 6.3 Right Proximal Port 50 100 Right TLC 917 250 Tube Feeding 240 0 0 Blood Product 0 325 Red Blood Cells Cpd As1 0 325 Lr Unit [id number] Other 30 Output: Urine 0 0 10 Urethral (Ortiz) 0 0 10 Other: # Bowel Movements 1 - Medications Active Medications: Active Medications Generic Name Dose Route Start Last Admin Trade Name Freq PRN Reason Stop Dose Admin Albuterol/Ipratropium 3 ml 04/10/17 14:00 04/13/17 07:27 Duoneb 3 Mg/0.5 Mg (3 Ml) Ud INH 3 ml RQ6 ROCKY Administration Calcium Acetate 1,334 mg 04/13/17 14:29 04/13/17 16:25 Phoslo GT Not Given TIDCC RCOKY Propofol 1,000 mg in 100 mls @ 2.096 mls/hr 04/10/17 20:06 04/12/17 19:30 Diprivan IV 15 mcg/kg/min .Q24H PRN 6.287 mls/hr TITRATE PER MD ORDER Titration Protocol 5 MCG/KG/MIN Norepinephrine Bitartrate 8 mg 258 mls @ 7.74 mls/hr 04/10/17 21:05 04/13/17 16:23 / Sodium Chloride IV 20 mcg/min .Q24H PRN 38.7 mls/hr TITRATE PER MD ORDER Administration Protocol 4 MCG/MIN Piperacillin Sod/Tazobactam Sod 2.25 gm in 50 mls @ 100 mls/hr 04/10/17 21:45 04/13/17 12:58 Zosyn 2.25 Gm Iv Premix IVPB 100 mls/hr Q8H [facility] Administration Vasopressin 40 units/ Sodium 40 mls @ 2.4 mls/hr 04/12/17 04:00 04/12/17 04: 27 Chloride IV Not Given .[id number] [facility] Protocol 0.04 UNITS/MIN Insulin Human Regular 0 unit 04/11/17 00:45 04/13/17 12:04 Novolin R SC Not Given Q6 [facility] Protocol Pantoprazole Sodium 40 mg 04/11/17 10:00 04/13/17 09:36 Protonix Inj IVP 40 mg DAILY [facility]OCK[facility] Administration Rosuvastatin Calcium 10 mg 04/12/17 22:00 Crestor PO HS [facility]OCKY - Patient Studies Lab Studies: Microbiology Studies 04/08/17 12:19 Blood Culture - Final Blood-Venous NO GROWTH AFTER 5 DAYS Gram Stain - Final TEST NOT PERFORMED 04/08/17 12:19 Blood Culture - Final Blood-Venous NO GROWTH AFTER 5 DAYS Gram Stain - Final TEST NOT PERFORMED 04/12/17 10:06 Gram Stain - Final Trachasp Lab Studies 04/13/17 04/13/17 04/13/17 Range/Units 11:31 08:41 07:59 WBC (4.8-10.8) K/uL RBC (4.40-5.90) Mil/uL Hgb (12.0-18.0) g/dL Hct (35.0-51.0) % MCV (80.0-94.0) fL MCH (27.0-31.0) pg MCHC (33.0-37.0) g/dL RDW (11.5-14.5) % Plt Count (130-400) K/uL MPV (7.2-11.7) fL Neut % (Auto) (50.0-75.0) % Lymph % (Auto) (20.0-40.0) % Wake % (Auto) (0.0-10.0) % Eos % (Auto) (0.0-4.0) % Baso % (Auto) (0.0-2.0) % Neut # (1.8-7.0) K/uL Lymph # (1.0-4.3) K/uL Wake # (0.0-0.8) K/uL Eos # (0.0-0.7) K/uL Baso # (0.0-0.2) K/uL Neutrophils % (Manual) (50-75) % Band Neutrophils % (0-2) % Lymphocytes % (Manual) (20-40) % Reactive Lymphs % (0-0) % Monocytes % (Manual) (0-10) % Metamyelocytes % Platelet Estimate (NORMAL) Hypochromasia (manual) Poikilocytosis (manual Anisocytosis (manual) Target Cells PT 15.8 H (9.7-12.2) SECONDS INR 1.4 APTT > 400 H* D (21-34) SECONDS Plt Function Assay 163 K/uL Puncture Site pCO2 (35-45) mm/Hg pO2 (80-100) mm/Hg HCO3 (21-28) mmol/L ABG pH (7.35-7.45) ABG Total CO2 (22-28) mmol/L ABG O2 Saturation (95-98) % ABG Base Excess (-2.0-3.0) mmol/L ABG Hemoglobin (11.7-17.4) g/dL ABG Carboxyhemoglobin (0.5-1.5) % POC ABG HHb (Measured) (0.0-5.0) % ABG Methemoglobin (0.0-3.0) % Ilir Test A-a O2 Difference mm/Hg Respiratory Index Hgb O2 Saturation (95.0-98.0) % Mechanical Rate FiO2 % Tidal Volume PEEP Sodium (132-148) mmol/L Potassium (3.6-5.2) mmol/L Chloride (98-107) mmol/L Carbon Dioxide (22-30) mmol/L Anion Gap (10-20) BUN (9-20) mg/dL Creatinine (0.8-1.5) MG/DL Est GFR ( Amer) Est GFR (Non-Af Amer) POC Glucose (mg/dL) 127 H (65-110) mg/dL Random Glucose (75-110) mg/dL Calcium (8.6-10.4) mg/dl Phosphorus (2.5-4.5) mg/dL Magnesium (1.6-2.3) mg/dL Total Bilirubin (0.2-1.3) mg/dL AST (17-59) U/L ALT (21-72) U/L Alkaline Phosphatase (38-126) U/L Total Protein (6.3-8.3) g/dL Albumin (3.5-5.0) g/dL Globulin (2.2-3.9) gm/dL Albumin/Globulin Ratio (1.0-2.1) Blood Type Antibody Screen 04/13/17 04/13/17 04/13/17 Range/Units 06:17 06:17 05:52 WBC 10.9 H (4.8-10.8) K/uL RBC 2.27 L (4.40-5.90) Mil/uL Hgb 7.7 L (12.0-18.0) g/dL Hct 22.3 L (35.0-51.0) % MCV 98.1 H (80.0-94.0) fL MCH 34.1 H (27.0-31.0) pg MCHC 34.8 (33.0-37.0) g/dL RDW 15.5 H (11.5-14.5) % Plt Count 440 H (130-400) K/uL MPV 7.3 (7.2-11.7) fL Neut % (Auto) 88.5 H (50.0-75.0) % Lymph % (Auto) 8.8 L (20.0-40.0) % Wake % (Auto) 1.7 (0.0-10.0) % Eos % (Auto) 0.8 (0.0-4.0) % Baso % (Auto) 0.2 (0.0-2.0) % Neut # 9.6 H (1.8-7.0) K/uL Lymph # 1.0 (1.0-4.3) K/uL Wake # 0.2 (0.0-0.8) K/uL Eos # 0.1 (0.0-0.7) K/uL Baso # 0.0 (0.0-0.2) K/uL Neutrophils % (Manual) 85 H (50-75) % Band Neutrophils % 3 H (0-2) % Lymphocytes % (Manual) 5 L (20-40) % Reactive Lymphs % 1 H (0-0) % Monocytes % (Manual) 6 (0-10) % Metamyelocytes % TEST NOT PERFORMED Platelet Estimate Slightly increased H (NORMAL) Hypochromasia (manual) Slight Poikilocytosis (manual Slight Anisocytosis (manual) Slight Target Cells Slight PT (9.7-12.2) SECONDS INR APTT (21-34) SECONDS Plt Function Assay K/uL Puncture Site pCO2 (35-45) mm/Hg pO2 (80-100) mm/Hg HCO3 (21-28) mmol/L ABG pH (7.35-7.45) ABG Total CO2 (22-28) mmol/L ABG O2 Saturation (95-98) % ABG Base Excess (-2.0-3.0) mmol/L ABG Hemoglobin (11.7-17.4) g/dL ABG Carboxyhemoglobin (0.5-1.5) % POC ABG HHb (Measured) (0.0-5.0) % ABG Methemoglobin (0.0-3.0) % Ilir Test A-a O2 Difference mm/Hg Respiratory Index Hgb O2 Saturation (95.0-98.0) % Mechanical Rate FiO2 % Tidal Volume PEEP Sodium 138 (132-148) mmol/L Potassium 4.4 (3.6-5.2) mmol/L Chloride 98 (98-107) mmol/L Carbon Dioxide 26 (22-30) mmol/L Anion Gap 19 (10-20) BUN 125 H* (9-20) mg/dL Creatinine 4.4 H (0.8-1.5) MG/DL Est GFR ( Amer) 16 Est GFR (Non-Af Amer) 13 POC Glucose (mg/dL) 191 H (65-110) mg/dL Random Glucose 175 H (75-110) mg/dL Calcium 7.0 L (8.6-10.4) mg/dl Phosphorus 6.2 H (2.5-4.5) mg/dL Magnesium 2.9 H (1.6-2.3) mg/dL Total Bilirubin 2.0 H (0.2-1.3) mg/dL AST 360 H D (17-59) U/L ALT 43 (21-72) U/L Alkaline Phosphatase 186 H (38-126) U/L Total Protein 6.2 L (6.3-8.3) g/dL Albumin 2.8 L (3.5-5.0) g/dL Globulin 3.4 (2.2-3.9) gm/dL Albumin/Globulin Ratio 0.8 L (1.0-2.1) Blood Type Antibody Screen 04/13/17 04/13/17 04/11/17 Range/Units 05:20 00:51 17:41 WBC (4.8-10.8) K/uL RBC (4.40-5.90) Mil/uL Hgb (12.0-18.0) g/dL Hct (35.0-51.0) % MCV (80.0-94.0) fL MCH (27.0-31.0) pg MCHC (33.0-37.0) g/dL RDW (11.5-14.5) % Plt Count (130-400) K/uL MPV (7.2-11.7) fL Neut % (Auto) (50.0-75.0) % Lymph % (Auto) (20.0-40.0) % Wake % (Auto) (0.0-10.0) % Eos % (Auto) (0.0-4.0) % Baso % (Auto) (0.0-2.0) % Neut # (1.8-7.0) K/uL Lymph # (1.0-4.3) K/uL Wake # (0.0-0.8) K/uL Eos # (0.0-0.7) K/uL Baso # (0.0-0.2) K/uL Neutrophils % (Manual) (50-75) % Band Neutrophils % (0-2) % Lymphocytes % (Manual) (20-40) % Reactive Lymphs % (0-0) % Monocytes % (Manual) (0-10) % Metamyelocytes % Platelet Estimate (NORMAL) Hypochromasia (manual) Poikilocytosis (manual Anisocytosis (manual) Target Cells PT (9.7-12.2) SECONDS INR APTT (21-34) SECONDS Plt Function Assay K/uL Puncture Site Rr pCO2 47 H (35-45) mm/Hg pO2 214 H (80-100) mm/Hg HCO3 25.0 (21-28) mmol/L ABG pH 7.35 (7.35-7.45) ABG Total CO2 27.3 (22-28) mmol/L ABG O2 Saturation 99.3 H (95-98) % ABG Base Excess 0.1 (-2.0-3.0) mmol/L ABG Hemoglobin 7.8 L (11.7-17.4) g/dL ABG Carboxyhemoglobin 1.1 (0.5-1.5) % POC ABG HHb (Measured) 0.7 (0.0-5.0) % ABG Methemoglobin 1.2 (0.0-3.0) % Ilir Test Pos A-a O2 Difference 440.0 mm/Hg Respiratory Index 2.1 Hgb O2 Saturation 96.9 (95.0-98.0) % Mechanical Rate 20 FiO2 100.0 % Tidal Volume 500 PEEP 8 Sodium (132-148) mmol/L Potassium (3.6-5.2) mmol/L Chloride (98-107) mmol/L Carbon Dioxide (22-30) mmol/L Anion Gap (10-20) BUN (9-20) mg/dL Creatinine (0.8-1.5) MG/DL Est GFR ( Amer) Est GFR (Non-Af Amer) POC Glucose (mg/dL) 162 H (65-110) mg/dL Random Glucose (75-110) mg/dL Calcium (8.6-10.4) mg/dl Phosphorus (2.5-4.5) mg/dL Magnesium (1.6-2.3) mg/dL Total Bilirubin (0.2-1.3) mg/dL AST (17-59) U/L ALT (21-72) U/L Alkaline Phosphatase (38-126) U/L Total Protein (6.3-8.3) g/dL Albumin (3.5-5.0) g/dL Globulin (2.2-3.9) gm/dL Albumin/Globulin Ratio (1.0-2.1) Blood Type A POSITIVE Antibody Screen Negative Laboratory Results - last 24 hr 04/11/17 04/13/17 04/13/17 17:41 00:51 05:20 WBC RBC Hgb Hct MCV MCH MCHC RDW Plt Count MPV Neut % (Auto) Lymph % (Auto) Wake % (Auto) Eos % (Auto) Baso % (Auto) Neut # Lymph # Wake # Eos # Baso # Neutrophils % (Manual) Band Neutrophils % Lymphocytes % (Manual) Reactive Lymphs % Monocytes % (Manual) Metamyelocytes % Platelet Estimate Hypochromasia (manual) Poikilocytosis (manual Anisocytosis (manual) Target Cells PT INR APTT Plt Function Assay Puncture Site Rr pCO2 47 H pO2 214 H HCO3 25.0 ABG pH 7.35 ABG Total CO2 27.3 ABG O2 Saturation 99.3 H ABG Base Excess 0.1 ABG Hemoglobin 7.8 L ABG Carboxyhemoglobin 1.1 POC ABG HHb (Measured) 0.7 ABG Methemoglobin 1.2 Ilir Test Pos A-a O2 Difference 440.0 Respiratory Index 2.1 Hgb O2 Saturation 96.9 Mechanical Rate 20 FiO2 100.0 Tidal Volume 500 PEEP 8 Sodium Potassium Chloride Carbon Dioxide Anion Gap BUN Creatinine Est GFR ( Amer) Est GFR (Non-Af Amer) POC Glucose (mg/dL) 162 H Random Glucose Calcium Phosphorus Magnesium Total Bilirubin AST ALT Alkaline Phosphatase Total Protein Albumin Globulin Albumin/Globulin Ratio Blood Type A POSITIVE Antibody Screen Negative 04/13/17 04/13/17 04/13/17 05:52 06:17 06:17 WBC 10.9 H RBC 2.27 L Hgb 7.7 L Hct 22.3 L MCV 98.1 H MCH 34.1 H MCHC 34.8 RDW 15.5 H Plt Count 440 H MPV 7.3 Neut % (Auto) 88.5 H Lymph % (Auto) 8.8 L Wake % (Auto) 1.7 Eos % (Auto) 0.8 Baso % (Auto) 0.2 Neut # 9.6 H Lymph # 1.0 Wake # 0.2 Eos # 0.1 Baso # 0.0 Neutrophils % (Manual) 85 H Band Neutrophils % 3 H Lymphocytes % (Manual) 5 L Reactive Lymphs % 1 H Monocytes % (Manual) 6 Metamyelocytes % TEST NOT PERFORMED Platelet Estimate Slightly increased H Hypochromasia (manual) Slight Poikilocytosis (manual Slight Anisocytosis (manual) Slight Target Cells Slight PT INR APTT Plt Function Assay Puncture Site pCO2 pO2 HCO3 ABG pH ABG Total CO2 ABG O2 Saturation ABG Base Excess ABG Hemoglobin ABG Carboxyhemoglobin POC ABG HHb (Measured) ABG Methemoglobin Ilir Test A-a O2 Difference Respiratory Index Hgb O2 Saturation Mechanical Rate FiO2 Tidal Volume PEEP Sodium 138 Potassium 4.4 Chloride 98 Carbon Dioxide 26 Anion Gap 19 BUN 125 H* Creatinine 4.4 H Est GFR ( Amer) 16 Est GFR (Non-Af Amer) 13 POC Glucose (mg/dL) 191 H Random Glucose 175 H Calcium 7.0 L Phosphorus 6.2 H Magnesium 2.9 H Total Bilirubin 2.0 H AST 360 H D ALT 43 Alkaline Phosphatase 186 H Total Protein 6.2 L Albumin 2.8 L Globulin 3.4 Albumin/Globulin Ratio 0.8 L Blood Type Antibody Screen 04/13/17 04/13/17 04/13/17 07:59 08:41 11:31 WBC RBC Hgb Hct MCV MCH MCHC RDW Plt Count MPV Neut % (Auto) Lymph % (Auto) Wake % (Auto) Eos % (Auto) Baso % (Auto) Neut # Lymph # Wake # Eos # Baso # Neutrophils % (Manual) Band Neutrophils % Lymphocytes % (Manual) Reactive Lymphs % Monocytes % (Manual) Metamyelocytes % Platelet Estimate Hypochromasia (manual) Poikilocytosis (manual Anisocytosis (manual) Target Cells PT 15.8 H INR 1.4 APTT > 400 H* D Plt Function Assay 163 Puncture Site pCO2 pO2 HCO3 ABG pH ABG Total CO2 ABG O2 Saturation ABG Base Excess ABG Hemoglobin ABG Carboxyhemoglobin POC ABG HHb (Measured) ABG Methemoglobin Ilir Test A-a O2 Difference Respiratory Index Hgb O2 Saturation Mechanical Rate FiO2 Tidal Volume PEEP Sodium Potassium Chloride Carbon Dioxide Anion Gap BUN Creatinine Est GFR ( Amer) Est GFR (Non-Af Amer) POC Glucose (mg/dL) 127 H Random Glucose Calcium Phosphorus Magnesium Total Bilirubin AST ALT Alkaline Phosphatase Total Protein Albumin Globulin Albumin/Globulin Ratio Blood Type Antibody Screen Assessment/Plan (1) Acute respiratory failure with hypoxia Current Visit: Yes Status: Acute Comment: Continue BiPAP Spoke with family at length and need for intubation if condition worsens Family unable to decide at this point Continue present medical management with diuretics, antibiotics (2) Congestive heart failure Current Visit: Yes Status: Acute (3) Coronary artery disease Current Visit: No Status: Chronic Attending/Attestation - Attestation I have personally seen and examined this patient.: Yes I have fully participated in the care of the patient.: Yes I have reviewed all pertinent clinical information: Yes Notes (Text): 04/13/17 17:43 Patient seen and examined in the intensive care unit. Case discussed with house staff in the morning rounds. Patient developed rectal bleeding in the morning, became hypotensive and later cardiac arrest status post resuscitation. Patient transfused packed RBCs and FFP Family signed DNR/DNI Prognosis poor
[2017-04-13] MEDS ORDERED: Dextrose 50% SYRINGE Inj (50 ml) ONE (18:13)
[2017-04-13] MEDS ORDERED: Dextrose 50% SYRINGE Inj (50 ml) IV STA (18:20)
[2017-04-14] MEDS: (Novolin R) Insulin Human Regular 100 units/ml vial SC SCH ×4 (00:13→18:06)
[2017-04-14] MEDS: Albuterol-Ipratrop 3 mg / 0.5 (3 ml) UD INH SCH ×4 (01:22→19:45)
[2017-04-14] MEDS: Piperacill/Tazo 2.25gm in Dex 2.25 GM/50 ML BAG IVPB SCH ×3 (05:33→22:11)
--- NOTE | 2017-04-14 09:14 | CP.PCM.PN ---
<Sherron Cheney - Last Filed: 04/14/17 09:11> Subjective - Date & Time of Evaluation Date of Evaluation: 04/14/17 Time of Evaluation: 08:30 - Subjective Subjective: EP Cardiology Progress Note- Dr. Burks Patient seen and examined at bedside this AM. Patient intubated in the ICU . Patient is now DNR/DNI as per POLST. No further episodes of asystole reported. Patient moves eyes, but does not respond to commands. Patient unable to provide ROS. No acute events overnight as per nursing. Objective - Vital Signs/Intake and Output Vital Signs (last 24 hours): Temp Pulse Resp BP Pulse Ox 99.9 F H 136 H 27 H 90/36 L 97 04/14/17 00:00 04/14/17 06:30 04/14/17 06:30 04/14/17 06:28 04/14/17 06:30 Intake and Output: 04/14/17 04/14/17 06:59 18:59 Intake Total 785.8 Output Total 0 Balance 785.8 - Medications Medications: Current Medications Albuterol/Ipratropium (Duoneb 3 Mg/0.5 Mg (3 Ml) Ud) 3 ml INH RQ6 [facility] Last Admin: 04/14/17 07:19 Dose: 3 ml Calcium Acetate (Phoslo) 1,334 mg GT TIDCC [facility] Last Admin: 04/13/17 16:25 Dose: Not Given Propofol (Diprivan) 1,000 mg in 100 mls @ 2.096 mls/hr IV .Q24H PRN; Protocol; 5 MCG/KG/MIN PRN Reason: TITRATE PER MD ORDER Last Titration: 04/12/17 19:30 Dose: 15 mcg/kg/min, 6.287 mls/hr Norepinephrine Bitartrate 8 mg (/ Sodium Chloride) 258 mls @ 7.74 mls/hr IV .Q24H PRN; Protocol; 4 MCG/MIN PRN Reason: TITRATE PER MD ORDER Last Titration: 04/14/17 05:15 Dose: 13.59 mcg/min, 26.3 mls/hr Piperacillin Sod/Tazobactam Sod (Zosyn 2.25 Gm Iv Premix) 2.25 gm in 50 mls @ 100 mls/hr IVPB Q8H [facility] Last Admin: 04/14/17 05:33 Dose: 100 mls/hr Vasopressin 40 units/ Sodium (Chloride) 40 mls @ 2.4 mls/hr IV .[id number] [facility]; 0.04 UNITS/MIN PRN Reason: Protocol Last Admin: 04/12/17 04:27 Dose: Not Given Insulin Human Regular (Novolin R) 0 unit SC Q6 [facility] PRN Reason: Protocol Last Admin: 04/14/17 06:30 Dose: Not Given Pantoprazole Sodium (Protonix Inj) 40 mg IVP DAILY [facility] Last Admin: 04/13/17 09:36 Dose: 40 mg Rosuvastatin Calcium (Crestor) 10 mg PO HS [facility] Last Admin: 04/13/17 21:38 Dose: 10 mg - Labs Labs: 04/13/17 06:17 04/13/17 06:17 PT 15.8 SECONDS (9.7-12.2) H 04/13/17 07:59 INR 1.4 04/13/17 07:59 APTT > 400 SECONDS (21-34) H* D 04/13/17 07:59 - Constitutional Appears: No Acute Distress - Eye Exam Eye Exam: EOMI, Normal appearance - ENT Exam Additional comments: Intubated, OGT in place - Respiratory Exam Respiratory Exam: Rales Additional comments: ntubated and on Mechanical Ventilation (PRVC) - Cardiovascular Exam Cardiovascular Exam: Tachycardia, REGULAR RHYTHM, +S1, +S2 - GI/Abdominal Exam GI & Abdominal Exam: Soft. absent: Distended, Tenderness - Neurological Exam Neurological Exam: Altered, Awake - Psychiatric Exam Psychiatric exam: Normal Affect, Normal Mood - Skin Skin Exam: Dry, Normal Color, Warm Assessment and Plan - Assessment and Plan (Free Text) Assessment: (1) Decreased cardiac ejection fraction Assessment & Plan: - Decreased EF 2/2 Systolic CHF - Consulted for [employer]- patient seen by [employer] workforce services representative. - Patient with episode of asystole 04/13/17, code blue w/ ROSC after 15 minutes. Pt is now DNR/DNI, which includes no shocking. - Will have to reassess if and when patient stabilizes and can be extubated. - Will obtain ECHO in 3 months to assess need for permanent pacer as per pt's primary Cardio (Dr. Wynn) - Continue medical management as per Pt's primary Cardio (Dr. Wynn) and per ICU team Echo 04/08/17: EF 37%, Normal LV size, pseudonormal grade 2 diastolic dysfxn, borderline dilated LA, Probably bicuspid and scleroitc aortic valve, No AR, Mild MR and TR, RVSO 40mmHg, mild Pulm HTN, Aortic root normal size with mild sclerocalcific changes EKG 04/08/17: Atrial fibrillation with rapid ventricular response at 122, ST & T wave abnormality (consider inferolateral ischemia), Abnormal ECG EKG 04/10/17: Atrial fibrillation with rapid ventricular response at 115, Marked ST abnormality, possible anterolateral subendocardial injury, Abnormal ECG Status: Acute - Assessment and Plan (Free Text) Assessment: Case discussed with Dr. Burks. <Rosalva Burks - Last Filed: 04/15/17 09:43> Objective - Vital Signs/Intake and Output Vital Signs (last 24 hours): Temp Pulse Resp BP Pulse Ox 99.3 F 119 H 26 H 98/34 L 100 04/15/17 08:00 04/15/17 08:28 04/15/17 08:28 04/15/17 08:28 04/15/17 08:28 Intake and Output: 04/15/17 04/15/17 06:59 18:59 Intake Total 1325.7 144.7 Output Total 0 0 Balance 1325.7 144.7 - Medications Medications: Current Medications Albuterol/Ipratropium (Duoneb 3 Mg/0.5 Mg (3 Ml) Ud) 3 ml INH RQ6 [facility] Last Admin: 04/15/17 07:26 Dose: 3 ml Calcium Acetate (Phoslo) 1,334 mg GT TIDCC [facility] Last Admin: 04/15/17 08:16 Dose: 1,334 mg Propofol (Diprivan) 1,000 mg in 100 mls @ 2.096 mls/hr IV .Q24H PRN; Protocol; 5 MCG/KG/MIN PRN Reason: TITRATE PER MD ORDER Last Titration: 04/14/17 20:30 Dose: 7 mcg/kg/min, 2.934 mls/hr Norepinephrine Bitartrate 8 mg (/ Sodium Chloride) 258 mls @ 7.74 mls/hr IV .Q24H PRN; Protocol; 4 MCG/MIN PRN Reason: TITRATE PER MD ORDER Last Admin: 04/15/17 07:26 Dose: 13.59 mcg/min, 26.29 mls/hr Piperacillin Sod/Tazobactam Sod (Zosyn 2.25 Gm Iv Premix) 2.25 gm in 50 mls @ 100 mls/hr IVPB Q8H [facility] Last Admin: 04/15/17 06:12 Dose: 100 mls/hr Vasopressin 40 units/ Sodium (Chloride) 40 mls @ 2.4 mls/hr IV .[id number] [facility]; 0.04 UNITS/MIN PRN Reason: Protocol Last Admin: 04/12/17 04:27 Dose: Not Given Insulin Human Regular (Novolin R) 0 unit SC Q6 [facility] PRN Reason: Protocol Last Admin: 04/15/17 07:19 Dose: 2 unit Pantoprazole Sodium (Protonix Inj) 40 mg IVP DAILY [facility] Last Admin: 04/14/17 09:44 Dose: 40 mg Rosuvastatin Calcium (Crestor) 10 mg PO HS [facility] Last Admin: 04/14/17 22:11 Dose: 10 mg - Labs Labs: 04/13/17 06:17 04/13/17 06:17 PT 15.8 SECONDS (9.7-12.2) H 04/13/17 07:59 INR 1.4 04/13/17 07:59 APTT > 400 SECONDS (21-34) H* D 04/13/17 07:59 Attending/Attestation - Attestation I have personally seen and examined this patient.: Yes I have fully participated in the care of the patient.: Yes I have reviewed all pertinent clinical information, including history, physical exam and plan: Yes Notes (Text): 04/15/17 09:43 Intubated in ICU guarded condition
--- NOTE | 2017-04-14 16:36 | CP.CCUPN ---
<VinnySami - Last Filed: 04/14/17 16:32> CCU Subjective - Physician Review Subjective (Free Text): 04/14/17 16:33 PGY-1 ICU progress note Pt seen and examined at bedside. Pt will track with eyes when address. No events overnight. Critical Care Time Spent (in minutes): 35 CCU Objective - Vital Signs / Intake & Output Intake and Output (Last 8hrs): Intake & Output 04/14/17 04/14/17 04/14/17 06:59 14:59 22:59 Intake Total 563.3 389.5 Output Total 0 0 Balance 563.3 389.5 Weight 155 lb 13.869 oz Intake: IV 258 258 Intake, IV Amount 305.3 131.5 Right Distal Port 255.3 131.5 Right Medial Port 50 Tube Feeding 0 0 Output: Urine 0 0 Urethral (Ortiz) 0 0 Other: # Bowel Movements 1 - Physical Exam Head: Positive for: Atraumatic, Normocephalic Mouth: Positive for: Moist Mucous Membranes Respiratory/Chest: Positive for: Decreased Breath Sounds, Other (intubated, with aiyana blodd evident in ET tube) Cardiovascular: Positive for: Regular Rate and Rhythm, Tachycardic Abdomen: Positive for: Normal Bowel Sounds. Negative for: Distention Rectal: Positive for: Other (obvious rectal bleed evident on bed sheets) Upper Extremity: Positive for: Edema Lower Extremity: Positive for: Edema Skin: Positive for: Warm, Dry Psychiatric: Positive for: Alert - Medications Active Medications: Active Medications Generic Name Dose Route Start Last Admin Trade Name Freq PRN Reason Stop Dose Admin Albuterol/Ipratropium 3 ml 04/10/17 14:00 04/14/17 14:15 Duoneb 3 Mg/0.5 Mg (3 Ml) Ud INH 3 ml RQ6 [facility] Administration Calcium Acetate 1,334 mg 04/13/17 14:29 04/14/17 14:09 Phoslo GT 1,334 mg TIDCC [facility] Administration Propofol 1,000 mg in 100 mls @ 2.096 mls/hr 04/10/17 20:06 04/12/17 19:30 Diprivan IV 15 mcg/kg/min .Q24H PRN 6.287 mls/hr TITRATE PER MD ORDER Titration Protocol 5 MCG/KG/MIN Norepinephrine Bitartrate 8 mg 258 mls @ 7.74 mls/hr 04/10/17 21:05 04/14/17 09:42 / Sodium Chloride IV 13.59 mcg/min .Q24H PRN 26.3 mls/hr TITRATE PER MD ORDER Administration Protocol 4 MCG/MIN Piperacillin Sod/Tazobactam Sod 2.25 gm in 50 mls @ 100 mls/hr 04/10/17 21:45 04/14/17 14:09 Zosyn 2.25 Gm Iv Premix IVPB 100 mls/hr Q8H [facility] Administration Vasopressin 40 units/ Sodium 40 mls @ 2.4 mls/hr 04/12/17 04:00 04/12/17 04: 27 Chloride IV Not Given .[id number] [facility] Protocol 0.04 UNITS/MIN Insulin Human Regular 0 unit 04/11/17 00:45 04/14/17 12:29 Novolin R SC Not Given Q6 [facility] Protocol Pantoprazole Sodium 40 mg 04/11/17 10:00 04/14/17 09:44 Protonix Inj IVP 40 mg DAILY [facility] Administration Rosuvastatin Calcium 10 mg 04/12/17 22:00 04/13/17 21:38 Crestor PO 10 mg HS [facility] Administration - Patient Studies Lab Studies: Microbiology Studies 04/12/17 10:06 Gram Stain - Final Trachasp Sputum Culture - Final NORMAL ORAL TEVIN 04/08/17 12:19 Blood Culture - Final Blood-Venous NO GROWTH AFTER 5 DAYS Gram Stain - Final TEST NOT PERFORMED 04/08/17 12:19 Blood Culture - Final Blood-Venous NO GROWTH AFTER 5 DAYS Gram Stain - Final TEST NOT PERFORMED Lab Studies 04/14/17 04/14/17 04/13/17 Range/Units 12:06 05:39 23:44 POC Glucose (mg/dL) 118 H 121 H 124 H (65-110) mg/dL 04/13/17 04/13/17 Range/Units 18:34 18:10 POC Glucose (mg/dL) 148 H 41 L (65-110) mg/dL Laboratory Results - last 24 hr 04/13/17 04/13/17 04/13/17 18:10 18:34 23:44 POC Glucose (mg/dL) 41 L 148 H 124 H 04/14/17 04/14/17 05:39 12:06 POC Glucose (mg/dL) 121 H 118 H Fingerstick Blood Sugar Results: 121 Review of Systems - Review of Systems Systems not reviewed;Unavailable: Intubated Assessment/Plan - Assessment and Plan (Free Text) Assessment: 82 M with PMH of CAD s/p CABG, CHF, HTN, COPD (not on home O2), CKD 3A, Liver mass, admitted to ICU for CHF exacerbation requiring bipap vs pneumonia. Pt now s/p cardiac arrest secondary to multi-organ failure and acute blood loss anemia. Per family, pt is now DNR/DNI. Plan: Comfort care measures only per POLST that was signed by family yesterday. Pt has Diprivan for agitation. <Armando Beach M - Last Filed: 04/14/17 18:05> CCU Objective - Vital Signs / Intake & Output Vital Signs (Last 4 hours): Vital Signs Temp Pulse Resp BP Pulse Ox 04/14/17 17:50 113 H 28 H 98 04/14/17 17:40 102 H 31 H 98 04/14/17 17:30 104 H 28 H 98 04/14/17 17:28 101 H 29 H 101/30 L 98 04/14/17 17:20 115 H 29 H 98 04/14/17 16:30 95 H 32 H 94 L 04/14/17 16:28 97 H 31 H 107/37 L 94 L 04/14/17 16:20 106 H 31 H 94 L 04/14/17 16:10 100 H 33 H 95 04/14/17 16:00 97.2 F L 101 H 31 H 93 L 04/14/17 15:50 108 H 30 H 92 L 04/14/17 15:40 107 H 33 H 94 L 04/14/17 15:30 103 H 29 H 94 L 04/14/17 15:28 96 H 28 H 103/41 L 95 04/14/17 15:20 106 H 33 H 93 L 04/14/17 15:10 108 H 29 H 93 L 04/14/17 15:00 109 H 27 H 95 04/14/17 14:50 95 H 26 H 97 04/14/17 14:40 120 H 26 H 96 04/14/17 14:30 102 H 26 H 97 04/14/17 14:28 102 H 26 H 93/33 L 96 04/14/17 14:20 103 H 26 H 96 04/14/17 14:10 134 H 26 H 97 Intake and Output (Last 8hrs): Intake & Output 04/14/17 04/14/17 04/14/17 06:59 14:59 22:59 Intake Total 563.3 588.4 168.9 Output Total 0 0 0 Balance 563.3 588.4 168.9 Weight 155 lb 13.869 oz Intake: IV 258 258 Intake, IV Amount 305.3 210.4 78.9 Right Distal Port 255.3 210.4 78.9 Right Medial Port 50 Tube Feeding 0 120 90 Output: Urine 0 0 0 Urethral (Ortiz) 0 0 0 Other: # Bowel Movements 1 - Medications Active Medications: Active Medications Generic Name Dose Route Start Last Admin Trade Name Freq PRN Reason Stop Dose Admin Albuterol/Ipratropium 3 ml 04/10/17 14:00 04/14/17 14:15 Duoneb 3 Mg/0.5 Mg (3 Ml) Ud INH 3 ml RQ6 [facility] Administration Calcium Acetate 1,334 mg 04/13/17 14:29 04/14/17 14:09 Phoslo GT 1,334 mg TIDCC [facility] Administration Propofol 1,000 mg in 100 mls @ 2.096 mls/hr 04/10/17 20:06 04/14/17 18:00 Diprivan IV 5 mcg/kg/min .Q24H PRN 2.096 mls/hr TITRATE PER MD ORDER Administration Protocol 5 MCG/KG/MIN Norepinephrine Bitartrate 8 mg 258 mls @ 7.74 mls/hr 04/10/17 21:05 04/14/17 09:42 / Sodium Chloride IV 13.59 mcg/min .Q24H PRN 26.3 mls/hr TITRATE PER MD ORDER Administration Protocol 4 MCG/MIN Piperacillin Sod/Tazobactam Sod 2.25 gm in 50 mls @ 100 mls/hr 04/10/17 21:45 04/14/17 14:09 Zosyn 2.25 Gm Iv Premix IVPB 100 mls/hr Q8H [facility] Administration Vasopressin 40 units/ Sodium 40 mls @ 2.4 mls/hr 04/12/17 04:00 04/12/17 04: 27 Chloride IV Not Given .[id number] [facility] Protocol 0.04 UNITS/MIN Insulin Human Regular 0 unit 04/11/17 00:45 04/14/17 12:29 Novolin R SC Not Given Q6 [facility] Protocol Pantoprazole Sodium 40 mg 04/11/17 10:00 04/14/17 09:44 Protonix Inj IVP 40 mg DAILY [facility] Administration Rosuvastatin Calcium 10 mg 04/12/17 22:00 04/13/17 21:38 Crestor PO 10 mg HS [facility] Administration - Patient Studies Lab Studies: Microbiology Studies 04/12/17 10:06 Gram Stain - Final Trachasp Sputum Culture - Final NORMAL ORAL TEVIN 04/08/17 12:19 Blood Culture - Final Blood-Venous NO GROWTH AFTER 5 DAYS Gram Stain - Final TEST NOT PERFORMED 04/08/17 12:19 Blood Culture - Final Blood-Venous NO GROWTH AFTER 5 DAYS Gram Stain - Final TEST NOT PERFORMED Lab Studies 04/14/17 04/14/17 04/14/17 Range/Units 17:55 12:06 05:39 POC Glucose (mg/dL) 117 H 118 H 121 H (65-110) mg/dL 04/13/17 04/13/17 04/13/17 Range/Units 23:44 18:34 18:10 POC Glucose (mg/dL) 124 H 148 H 41 L (65-110) mg/dL Laboratory Results - last 24 hr 04/13/17 04/13/17 04/13/17 18:10 18:34 23:44 POC Glucose (mg/dL) 41 L 148 H 124 H 04/14/17 04/14/17 04/14/17 05:39 12:06 17:55 POC Glucose (mg/dL) 121 H 118 H 117 H Attending/Attestation - Attestation I have personally seen and examined this patient.: Yes I have fully participated in the care of the patient.: Yes I have reviewed all pertinent clinical information: Yes Notes (Text): 04/14/17 18:05 Today: March The Patient was seen and examined at the bedside, Medical records reviewed, all clinical/lab/hemodynamic/radiographic data were reviewed and management issues were discussed and formulated, Events reviewed Pain issues, skin care, head of the bed elevation, glycemic control were addressed. Agree with above treatment plans as transcribed in Dr. Vinny edmond
--- NOTE | 2017-04-14 17:14 | CP.PCM.PN ---
Subjective - Date & Time of Evaluation Date of Evaluation: 04/14/17 Time of Evaluation: 11:00 - Subjective Subjective: Covering Dr. Lorenzana 82-year-old male admitted with CHF, pneumonia and respiratory failure Intubated on ventilatory support Status post GI bleeding DNR/DNI Objective - Vital Signs/Intake and Output Vital Signs (last 24 hours): Temp Pulse Resp BP Pulse Ox 97.2 F L 95 H 32 H 107/37 L 94 L 04/14/17 16:00 04/14/17 16:30 04/14/17 16:30 04/14/17 16:28 04/14/17 16:30 Intake and Output: 04/14/17 04/14/17 06:59 18:59 Intake Total 785.8 757.3 Output Total 0 0 Balance 785.8 757.3 - Medications Medications: Current Medications Albuterol/Ipratropium (Duoneb 3 Mg/0.5 Mg (3 Ml) Ud) 3 ml INH RQ6 [facility] Last Admin: 04/14/17 14:15 Dose: 3 ml Calcium Acetate (Phoslo) 1,334 mg GT TIDCC [facility] Last Admin: 04/14/17 14:09 Dose: 1,334 mg Propofol (Diprivan) 1,000 mg in 100 mls @ 2.096 mls/hr IV .Q24H PRN; Protocol; 5 MCG/KG/MIN PRN Reason: TITRATE PER MD ORDER Last Titration: 04/12/17 19:30 Dose: 15 mcg/kg/min, 6.287 mls/hr Norepinephrine Bitartrate 8 mg (/ Sodium Chloride) 258 mls @ 7.74 mls/hr IV .Q24H PRN; Protocol; 4 MCG/MIN PRN Reason: TITRATE PER MD ORDER Last Admin: 04/14/17 09:42 Dose: 13.59 mcg/min, 26.3 mls/hr Piperacillin Sod/Tazobactam Sod (Zosyn 2.25 Gm Iv Premix) 2.25 gm in 50 mls @ 100 mls/hr IVPB Q8H [facility] Last Admin: 04/14/17 14:09 Dose: 100 mls/hr Vasopressin 40 units/ Sodium (Chloride) 40 mls @ 2.4 mls/hr IV .[id number] [facility]; 0.04 UNITS/MIN PRN Reason: Protocol Last Admin: 04/12/17 04:27 Dose: Not Given Insulin Human Regular (Novolin R) 0 unit SC Q6 [facility] PRN Reason: Protocol Last Admin: 04/14/17 12:29 Dose: Not Given Pantoprazole Sodium (Protonix Inj) 40 mg IVP DAILY [facility] Last Admin: 04/14/17 09:44 Dose: 40 mg Rosuvastatin Calcium (Crestor) 10 mg PO HS [facility] Last Admin: 04/13/17 21:38 Dose: 10 mg - Labs Labs: 04/13/17 06:17 04/13/17 06:17 PT 15.8 SECONDS (9.7-12.2) H 04/13/17 07:59 INR 1.4 04/13/17 07:59 APTT > 400 SECONDS (21-34) H* D 04/13/17 07:59 - Head Exam Head Exam: ATRAUMATIC, NORMOCEPHALIC - Neck Exam Neck Exam: Normal Inspection - Respiratory Exam Respiratory Exam: Decreased Breath Sounds - Cardiovascular Exam Cardiovascular Exam: Irregular Rhythm - GI/Abdominal Exam GI & Abdominal Exam: Soft, Normal Bowel Sounds Assessment and Plan (1) Acute respiratory failure with hypoxia Assessment & Plan: 82 M with PMH of CAD s/p CABG, CHF, HTN, COPD (not on home O2), CKD 3A, Liver mass, admitted to ICU for CHF exacerbation requiring bipap vs pneumonia. Pt now s/p cardiac arrest secondary to multi-organ failure and acute blood loss anemia. Per family, pt is now DNR/DNI. Status: Acute (2) Congestive heart failure Status: Acute (3) Coronary artery disease Status: Chronic
[2017-04-14] MEDS: Propofol 10 mg/ml 1,000 MG/100 ML VIAL IV PRN (18:00)
--- NOTE | 2017-04-14 21:26 | CP.PCM.PN ---
Subjective - Date & Time of Evaluation Date of Evaluation: 04/14/17 Time of Evaluation: 09:30 - Subjective Subjective: Patient seen and evaluated Intubated Currently DNR/DNI Physical Exam - Constitutional Appears: No Acute Distress, Chronically Ill - Head Exam Head Exam: ATRAUMATIC, NORMOCEPHALIC - Eye Exam Eye Exam: EOMI, Normal appearance, PERRL. absent: Scleral icterus - ENT Exam ENT Exam: Mucous Membranes Moist - Neck Exam Additional comments: No JVD distention - Respiratory Exam Respiratory Exam: Clear to Auscultation Bilateral, Rales, Rhonchi. absent: Wheezes - Cardiovascular Exam Cardiovascular Exam: REGULAR RHYTHM, +S1, +S2. absent: Systolic Murmur - GI/Abdominal Exam GI & Abdominal Exam: Normal Bowel Sounds, Soft. absent: Distended, Guarding, Tenderness - Extremities Exam Extremities exam: Positive for: pedal edema (3+ pitting), pedal pulses present ( slight). Negative for: calf tenderness - Back Exam Back exam: absent: CVA tenderness (L), CVA tenderness (R) - Neurological Exam Neurological exam: Intubated - Psychiatric Exam Psychiatric exam: Flat Affect - Skin Skin Exam: Dry, Warm Objective - Vital Signs/Intake and Output Vital Signs (last 24 hours): Temp Pulse Resp BP Pulse Ox 97.2 F L 108 H 30 H 91/77 L 91 L 04/14/17 16:00 04/14/17 20:00 04/14/17 20:00 04/14/17 20:08 04/14/17 20:00 Intake and Output: 04/14/17 04/15/17 18:59 06:59 Intake Total 817.8 318.5 Output Total 0 0 Balance 817.8 318.5 - Medications Medications: Current Medications Albuterol/Ipratropium (Duoneb 3 Mg/0.5 Mg (3 Ml) Ud) 3 ml INH RQ6 [facility] Last Admin: 04/14/17 19:45 Dose: Not Given Calcium Acetate (Phoslo) 1,334 mg GT TIDCC [facility] Last Admin: 04/14/17 18:07 Dose: 1,334 mg Propofol (Diprivan) 1,000 mg in 100 mls @ 2.096 mls/hr IV .Q24H PRN; Protocol; 5 MCG/KG/MIN PRN Reason: TITRATE PER MD ORDER Last Admin: 04/14/17 18:00 Dose: 5 mcg/kg/min, 2.096 mls/hr Norepinephrine Bitartrate 8 mg (/ Sodium Chloride) 258 mls @ 7.74 mls/hr IV .Q24H PRN; Protocol; 4 MCG/MIN PRN Reason: TITRATE PER MD ORDER Last Admin: 04/14/17 20:08 Dose: 13.59 mcg/min, 26.29 mls/hr Piperacillin Sod/Tazobactam Sod (Zosyn 2.25 Gm Iv Premix) 2.25 gm in 50 mls @ 100 mls/hr IVPB Q8H [facility] Last Admin: 04/14/17 14:09 Dose: 100 mls/hr Vasopressin 40 units/ Sodium (Chloride) 40 mls @ 2.4 mls/hr IV .[id number] [facility]; 0.04 UNITS/MIN PRN Reason: Protocol Last Admin: 04/12/17 04:27 Dose: Not Given Insulin Human Regular (Novolin R) 0 unit SC Q6 [facility] PRN Reason: Protocol Last Admin: 04/14/17 18:06 Dose: Not Given Pantoprazole Sodium (Protonix Inj) 40 mg IVP DAILY [facility] Last Admin: 04/14/17 09:44 Dose: 40 mg Rosuvastatin Calcium (Crestor) 10 mg PO HS [facility] Last Admin: 04/13/17 21:38 Dose: 10 mg - Labs Labs: 04/13/17 06:17 04/13/17 06:17 PT 15.8 SECONDS (9.7-12.2) H 04/13/17 07:59 INR 1.4 04/13/17 07:59 APTT > 400 SECONDS (21-34) H* D 04/13/17 07:59 Assessment and Plan - Assessment and Plan (Free Text) Assessment: 82 M with PMH of CAD s/p CABG, CHF, HTN, COPD (not on home O2), CKD 3A, Liver mass, admitted to ICU for CHF exacerbation requiring bipap vs PNA with Hx of recent hospitalization. Trop is positive. 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 Pt was apneic over the weekend, developed a-fib RVR. Pt was intubated on PRVC. Pt was coded, ROSC after 6 mins of ACLS. 2 rounds epi, 2 bicarb. Family meeting 11 AM today. DNR/ DNI S/P Cardiopulm arrest Tachycardia Hx A-fib Hypotension Shock, cardiogenic vs septic from PNA - Levaphed gtt @ 7.5 - propofol gtt NSTEMI - Heparin gtt - hold - ASA, Plavix - hold - No crestor for transaminitis - No plan for cardiac cath CHF, systolic, acute on chronic - lasix 60 IV BID - Echo: low EF 30-35% Hx CAD s/p CABG - asa, Metoprolol 12.5 BID, Metolazone 5 daily, lasix - A1C 5.8 Hyperlipidemia (lipid panel drawn before propofol and intubation) - Cholesterol 764 - LDL 500
[2017-04-15] MEDS: (Novolin R) Insulin Human Regular 100 units/ml vial SC SCH ×4 (00:10→19:34)
[2017-04-15] MEDS: Albuterol-Ipratrop 3 mg / 0.5 (3 ml) UD INH SCH ×4 (01:17→19:08)
[2017-04-15] MEDS: Piperacill/Tazo 2.25gm in Dex 2.25 GM/50 ML BAG IVPB SCH ×2 (06:12→13:09)
--- NOTE | 2017-04-15 10:23 | CP.PCM.PN ---
Subjective - Date & Time of Evaluation Date of Evaluation: 04/15/17 Time of Evaluation: 09:00 - Subjective Subjective: Remains intubated. Objective - Vital Signs/Intake and Output Vital Signs (last 24 hours): Temp Pulse Resp BP Pulse Ox 99.3 F 119 H 26 H 98/34 L 100 04/15/17 08:00 04/15/17 08:28 04/15/17 08:28 04/15/17 08:28 04/15/17 08:28 Intake and Output: 04/15/17 04/15/17 06:59 18:59 Intake Total 1325.7 144.7 Output Total 0 0 Balance 1325.7 144.7 - Medications Medications: Current Medications Albuterol/Ipratropium (Duoneb 3 Mg/0.5 Mg (3 Ml) Ud) 3 ml INH RQ6 [facility] Last Admin: 04/15/17 07:26 Dose: 3 ml Calcium Acetate (Phoslo) 1,334 mg GT TIDCC [facility] Last Admin: 04/15/17 08:16 Dose: 1,334 mg Propofol (Diprivan) 1,000 mg in 100 mls @ 2.096 mls/hr IV .Q24H PRN; Protocol; 5 MCG/KG/MIN PRN Reason: TITRATE PER MD ORDER Last Titration: 04/14/17 20:30 Dose: 7 mcg/kg/min, 2.934 mls/hr Norepinephrine Bitartrate 8 mg (/ Sodium Chloride) 258 mls @ 7.74 mls/hr IV .Q24H PRN; Protocol; 4 MCG/MIN PRN Reason: TITRATE PER MD ORDER Last Admin: 04/15/17 07:26 Dose: 13.59 mcg/min, 26.29 mls/hr Piperacillin Sod/Tazobactam Sod (Zosyn 2.25 Gm Iv Premix) 2.25 gm in 50 mls @ 100 mls/hr IVPB Q8H [facility] Last Admin: 04/15/17 06:12 Dose: 100 mls/hr Vasopressin 40 units/ Sodium (Chloride) 40 mls @ 2.4 mls/hr IV .[id number] [facility]; 0.04 UNITS/MIN PRN Reason: Protocol Last Admin: 04/12/17 04:27 Dose: Not Given Insulin Human Regular (Novolin R) 0 unit SC Q6 [facility] PRN Reason: Protocol Last Admin: 04/15/17 07:19 Dose: 2 unit Pantoprazole Sodium (Protonix Inj) 40 mg IVP DAILY [facility] Last Admin: 04/14/17 09:44 Dose: 40 mg Rosuvastatin Calcium (Crestor) 10 mg PO HS [facility] Last Admin: 04/14/17 22:11 Dose: 10 mg - Labs Labs: 04/13/17 06:17 04/13/17 06:17 PT 15.8 SECONDS (9.7-12.2) H 04/13/17 07:59 INR 1.4 04/13/17 07:59 APTT > 400 SECONDS (21-34) H* D 04/13/17 07:59 - Constitutional Appears: Chronically Ill - Head Exam Head Exam: ATRAUMATIC, NORMAL INSPECTION, NORMOCEPHALIC - Eye Exam Eye Exam: Normal appearance - ENT Exam Additional comments: ETT - Neck Exam Neck Exam: Normal Inspection - Respiratory Exam Additional comments: On MV - Cardiovascular Exam Cardiovascular Exam: Tachycardia Additional comments: Hypotensive - GI/Abdominal Exam GI & Abdominal Exam: Hypoactive Bowel Sounds - Rectal Exam Rectal Exam: Deferred - Exam Additional comments: Anuria - Extremities Exam Extremities Exam: Pedal Edema - Back Exam Back Exam: NORMAL INSPECTION - Neurological Exam Neurological Exam: Motor Sensory Deficit Neuro motor strength exam: Left Upper Extremity: 0, Right Upper Extremity: 0, Left Lower Extremity: 0, Right Lower Extremity: 0 - Psychiatric Exam Psychiatric exam: Flat Affect - Skin Skin Exam: Pallor Assessment and Plan - Assessment and Plan (Free Text) Assessment: Patient remains on full life support, looking very ill. Made DNR/DNI last BP supported by vasopressors, remains low, SBP in 90s. As per nursing patient had a few GI bleedings over night. Skin looks very pale.Patient is anuric. Patient tends to open his eyes upon called bu name, but does not make eye contacts and is not fallowing directions. With extended family at bed side, I discussed the very poor clinical presentation of the patient and poor prognosis. I suggested that due to multi organ failure the ICU team feels, that meaningful recovery is not expected and that in this point we were only prolonging patient's no life. I also offered more information about the option of trach and PEG ; that it was not option in this situation due to patient's high risk for those procedures . The cessation of vasopressors and its effect on patient discussed. Family is concerned that the patient would suffer if vasopressors discontinued. I reassured him of actions to promote peaceful without suffering. This was discussed to ICU Intesivist and Charles LEMON. Impression * This is a terminally ill man whose life artificially supported * There is no quality of life and there is not expectation of meaningful recovery * DNR/DNI Suggestion * Would allow this patient to have natural and peaceful * Would stop vasopressors
--- NOTE | 2017-04-15 10:41 | CP.PCM.PN ---
<Ankit Varner - Last Filed: 04/15/17 17:06> Subjective - Date & Time of Evaluation Date of Evaluation: 04/15/17 Time of Evaluation: 08:30 - Subjective Subjective: EP Cardiology Progress Note- Dr. Burks Patient seen and examined at bedside this AM. Patient intubated in the ICU, PRN sedatiom. Patient remains DNR/DNI and comfort measures as per POLST filled by family, but no terminal extubation as per family at this time. No further episodes of asystole reported. No ROS due to intubation. Eyes open but not tracking when in room and not following commands. Objective - Vital Signs/Intake and Output Vital Signs (last 24 hours): Temp Pulse Resp BP Pulse Ox 99.3 F 119 H 26 H 98/34 L 100 04/15/17 08:00 04/15/17 08:28 04/15/17 08:28 04/15/17 08:28 04/15/17 08:28 Intake and Output: 04/15/17 04/15/17 06:59 18:59 Intake Total 1325.7 144.7 Output Total 0 0 Balance 1325.7 144.7 - Medications Medications: Current Medications Albuterol/Ipratropium (Duoneb 3 Mg/0.5 Mg (3 Ml) Ud) [address] [facility] Last Admin: 04/15/17 07:26 Dose: 3 ml Calcium Acetate (Phoslo) 1,[address] [facility] Last Admin: 04/15/17 08:16 Dose: 1,334 mg Propofol (Diprivan) 1,000 mg in 100 mls @ 2.096 mls/hr IV .Q24H PRN; Protocol; 5 MCG/KG/MIN PRN Reason: TITRATE PER MD ORDER Last Titration: 04/14/17 20:30 Dose: 7 mcg/kg/min, 2.934 mls/hr Norepinephrine Bitartrate 8 mg (/ Sodium Chloride) 258 mls @ 7.74 mls/hr IV .Q24H PRN; Protocol; 4 MCG/MIN PRN Reason: TITRATE PER MD ORDER Last Admin: 04/15/17 07:26 Dose: 13.59 mcg/min, 26.29 mls/hr Piperacillin Sod/Tazobactam Sod (Zosyn 2.25 Gm Iv Premix) 2.25 gm in 50 mls @ 100 mls/hr IVPB Q8H [facility] Last Admin: 04/15/17 06:12 Dose: 100 mls/hr Vasopressin 40 units/ Sodium (Chloride) 40 mls @ 2.4 mls/hr IV .[id number] [facility]; 0.04 UNITS/MIN PRN Reason: Protocol Last Admin: 04/12/17 04:27 Dose: Not Given Insulin Human Regular (Novolin R) 0 unit SC Q6 [facility] PRN Reason: Protocol Last Admin: 04/15/17 07:19 Dose: 2 unit Pantoprazole Sodium (Protonix Inj) [address] [facility] Last Admin: 04/15/17 10:15 Dose: 40 mg Rosuvastatin Calcium (Crestor) [address] [facility] Last Admin: 04/14/17 22:11 Dose: 10 mg - Labs Labs: 04/13/17 06:17 04/13/17 06:17 PT 15.8 SECONDS (9.7-12.2) H 04/13/17 07:59 INR 1.4 04/13/17 07:59 APTT > 400 SECONDS (21-34) H* D 04/13/17 07:59 - Additional Findings Additional findings: - Constitutional Appears: Intubated, PRN Sedation, Minimal responsiveness - Eye Exam Eye Exam: Normal appearance, No scleral icterus or conjunctival injection, unable to assess EOMI as pt not following commands and minimal spontaneous - ENT Exam ENT exam: Intubated, OGT in place - Respiratory Exam Respiratory Exam: Diffuse Moderate rales in all auscultated street, Intubated and on Mechanical Ventilation, No wheezes, No aiyana cyanosis - Cardiovascular Exam Cardiovascular Exam: Tachycardia, REGULAR RHYTHM, +S1, +S2 - GI/Abdominal Exam GI & Abdominal Exam: Soft. absent: Distended, Firm, Rigid - Extremities Exam Extremities Exam: No pedal edema, No asymmetric swelling, no erythema - Neurological Exam Neurological Exam: Eyes open but not tracking in room, not following commands, no witnessed spontaneous movement of extremities - Psychiatric Exam Psychiatric exam: Unable to assess 2/2 intubation and minimal responsiveness - Skin Skin Exam: Dry, Normal Color, Warm Assessment and Plan (1) Decreased cardiac ejection fraction Assessment & Plan: Echo 04/08/17: EF 37%, Normal LV size, pseudonormal grade 2 diastolic dysfxn, borderline dilated LA, Probably bicuspid and scleroitc aortic valve, No AR, Mild MR and TR, RVSO 40mmHg, mild Pulm HTN, Aortic root normal size with mild sclerocalcific changes EKG 04/08/17: Atrial fibrillation with rapid ventricular response at 122, ST & T wave abnormality (consider inferolateral ischemia), Abnormal ECG EKG 04/10/17: Atrial fibrillation with rapid ventricular response at 115, Marked ST abnormality, possible anterolateral subendocardial injury, Abnormal ECG -Decreased EF 2/2 Systolic CHF -Consulted for [facility]- patient seen by [facility] guest services representative, however now DNR/DNI and comfort measures only as per pt family, may cancel life vest -Patient with episode of asystole 04/13/17, code blue w/ ROSC after 15 minutes. Pt is now DNR/DNI, which includes no shocking. -Will have to reassess if and when patient stabilizes and can be extubated. Status: Acute - Assessment and Plan (Free Text) Assessment: Case discussed with Dr. Burks <Rosalva Burks - Last Filed: 05/30/17 03:35> Objective - Vital Signs/Intake and Output Vital Signs (last 24 hours): Temp Pulse Resp BP Pulse Ox 99.3 F 37 L 26 H 46/19 L 74 L 04/16/17 00:00 04/16/17 02:06 04/16/17 02:30 04/16/17 02:06 04/16/17 02:05 - Labs Labs: 04/13/17 06:17 04/13/17 06:17 PT 15.8 SECONDS (9.7-12.2) H 04/13/17 07:59 INR 1.4 04/13/17 07:59 APTT > 400 SECONDS (21-34) H* D 04/13/17 07:59 Attending/Attestation - Attestation I have personally seen and examined this patient.: Yes I have fully participated in the care of the patient.: Yes I have reviewed all pertinent clinical information, including history, physical exam and plan: Yes Notes (Text): 05/30/17 03:35 intubated guarded condition
--- NOTE | 2017-04-15 14:56 | CP.PCM.PN ---
Subjective - Date & Time of Evaluation Date of Evaluation: 04/15/17 Time of Evaluation: 11:40 - Subjective Subjective: covering for Dr. Lorenzana Remains intubated on ventilatory support On high-dose pressors Still has GI bleed DNR/DNI Objective - Vital Signs/Intake and Output Vital Signs (last 24 hours): Temp Pulse Resp BP Pulse Ox 98.9 F 107 H 26 H 92/32 L 100 04/15/17 12:00 04/15/17 13:00 04/15/17 13:00 04/15/17 12:28 04/15/17 12:28 Intake and Output: 04/15/17 04/15/17 06:59 18:59 Intake Total 1325.7 451.0 Output Total 0 0 Balance 1325.7 451.0 - Medications Medications: Current Medications Albuterol/Ipratropium (Duoneb 3 Mg/0.5 Mg (3 Ml) Ud) 3 ml INH RQ6 [facility] Last Admin: 04/15/17 13:11 Dose: 3 ml Calcium Acetate (Phoslo) 1,334 mg GT TIDCC [facility] Last Admin: 04/15/17 12:32 Dose: 1,334 mg Propofol (Diprivan) 1,000 mg in 100 mls @ 2.096 mls/hr IV .Q24H PRN; Protocol; 5 MCG/KG/MIN PRN Reason: TITRATE PER MD ORDER Last Titration: 04/14/17 20:30 Dose: 7 mcg/kg/min, 2.934 mls/hr Norepinephrine Bitartrate 8 mg (/ Sodium Chloride) 258 mls @ 7.74 mls/hr IV .Q24H PRN; Protocol; 4 MCG/MIN PRN Reason: TITRATE PER MD ORDER Last Admin: 04/15/17 07:26 Dose: 13.59 mcg/min, 26.29 mls/hr Piperacillin Sod/Tazobactam Sod (Zosyn 2.25 Gm Iv Premix) 2.25 gm in 50 mls @ 100 mls/hr IVPB Q8H [facility] Last Admin: 04/15/17 13:09 Dose: 100 mls/hr Vasopressin 40 units/ Sodium (Chloride) 40 mls @ 2.4 mls/hr IV .[id number] [facility]; 0.04 UNITS/MIN PRN Reason: Protocol Last Admin: 04/12/17 04:27 Dose: Not Given Insulin Human Regular (Novolin R) 0 unit SC Q6 [facility] PRN Reason: Protocol Last Admin: 04/15/17 12:36 Dose: 2 unit Pantoprazole Sodium (Protonix Inj) 40 mg IVP DAILY [facility] Last Admin: 04/15/17 10:15 Dose: 40 mg Rosuvastatin Calcium (Crestor) 10 mg PO HS [facility] Last Admin: 04/14/17 22:11 Dose: 10 mg - Labs Labs: 04/13/17 06:17 04/13/17 06:17 PT 15.8 SECONDS (9.7-12.2) H 04/13/17 07:59 INR 1.4 04/13/17 07:59 APTT > 400 SECONDS (21-34) H* D 04/13/17 07:59 - Head Exam Head Exam: ATRAUMATIC, NORMOCEPHALIC - Eye Exam Eye Exam: Normal appearance - ENT Exam ENT Exam: Mucous Membranes Moist - Neck Exam Neck Exam: Normal Inspection - Respiratory Exam Respiratory Exam: Decreased Breath Sounds - Cardiovascular Exam Cardiovascular Exam: REGULAR RHYTHM - GI/Abdominal Exam GI & Abdominal Exam: Soft Assessment and Plan (1) Acute respiratory failure with hypoxia Assessment & Plan: multi-organ failure On high-dose pressors Prognosis poor Status: Acute (2) Congestive heart failure Status: Acute (3) Coronary artery disease Status: Chronic
--- NOTE | 2017-04-15 15:56 | CP.CCUPN ---
<Sami Casillas - Last Filed: 04/15/17 15:51> CCU Subjective - Physician Review Subjective (Free Text): 04/15/17 15:51 PGY-1 ICU progress note Pt seen and examined at bedside. Still has rectal bleeding. No other events overnight. Critical Care Time Spent (in minutes): 35 CCU Objective - Vital Signs / Intake & Output Vital Signs (Last 4 hours): Vital Signs Temp Pulse Resp BP Pulse Ox 04/15/17 13:00 107 H 26 H 04/15/17 12:28 103 H 25 H 92/32 L 100 04/15/17 12:16 117 H 27 H 91/30 L 100 04/15/17 12:00 98.9 F 107 H 22 92/32 L 100 Intake and Output (Last 8hrs): Intake & Output 04/15/17 04/15/17 04/15/17 06:59 14:59 22:59 Intake Total 773.6 451.0 Output Total 0 0 Balance 773.6 451.0 Intake: IV 250 Intake, IV Amount 283.6 191.0 Right Distal Port 210.4 176.5 Right Medial Port 50 Right Proximal Port 23.2 14.5 Tube Feeding 240 60 Other 200 Output: Urine 0 0 Urethral (Ortiz) 0 0 Stool 0 0 Other: # Bowel Movements 1 1 - Physical Exam Head: Positive for: Atraumatic, Normocephalic Mouth: Positive for: Moist Mucous Membranes Neck: Positive for: Normal Range of Motion Respiratory/Chest: Positive for: Decreased Breath Sounds, Other (intubated) Cardiovascular: Positive for: Regular Rate and Rhythm, Tachycardic Abdomen: Positive for: Normal Bowel Sounds. Negative for: Distention Rectal: Positive for: Other (obvious rectal bleed evident on bed sheets) Upper Extremity: Positive for: Edema Lower Extremity: Positive for: Edema Skin: Positive for: Warm, Dry Psychiatric: Positive for: Alert - Medications Active Medications: Active Medications Generic Name Dose Route Start Last Admin Trade Name Freq PRN Reason Stop Dose Admin Albuterol/Ipratropium 3 ml 04/10/17 14:00 04/15/17 13:11 Duoneb 3 Mg/0.5 Mg (3 Ml) Ud INH 3 ml RQ6 ROCKY Administration Calcium Acetate 1,334 mg 04/13/17 14:29 04/15/17 12:32 Phoslo GT 1,334 mg TIDCC ROCKY Administration Propofol 1,000 mg in 100 mls @ 2.096 mls/hr 04/10/17 20:06 04/14/17 20:30 Diprivan IV 7 mcg/kg/min .Q24H PRN 2.934 mls/hr TITRATE PER MD ORDER Titration Protocol 5 MCG/KG/MIN Norepinephrine Bitartrate 8 mg 258 mls @ 7.74 mls/hr 04/10/17 21:05 04/15/17 07:26 / Sodium Chloride IV 13.59 mcg/min .Q24H PRN 26.29 mls/hr TITRATE PER MD ORDER Administration Protocol 4 MCG/MIN Piperacillin Sod/Tazobactam Sod 2.25 gm in 50 mls @ 100 mls/hr 04/10/17 21:45 04/15/17 13:09 Zosyn 2.25 Gm Iv Premix IVPB 100 mls/hr Q8H ROCKY Administration Vasopressin 40 units/ Sodium 40 mls @ 2.4 mls/hr 04/12/17 04:00 04/12/17 04: 27 Chloride IV Not Given .[id number] ROCKY Protocol 0.04 UNITS/MIN Insulin Human Regular 0 unit 04/11/17 00:45 04/15/17 12:36 Novolin R SC 2 unit Q6 ROCKY Administration Protocol Pantoprazole Sodium 40 mg 04/11/17 10:00 04/15/17 10:15 Protonix Inj IVP 40 mg DAILY ROCKY Administration Rosuvastatin Calcium 10 mg 04/12/17 22:00 04/14/17 22:11 Crestor PO 10 mg HS ROCKY Administration - Patient Studies Lab Studies: Microbiology Studies 04/12/17 10:06 Gram Stain - Final Trachasp Sputum Culture - Final NORMAL ORAL TEVIN Lab Studies 04/15/17 04/15/17 04/14/17 Range/Units 11:55 07:10 23:32 POC Glucose (mg/dL) 182 H 173 H 157 H (65-110) mg/dL 04/14/17 Range/Units 17:55 POC Glucose (mg/dL) 117 H (65-110) mg/dL Laboratory Results - last 24 hr 04/14/17 04/14/17 04/15/17 17:55 23:32 07:10 POC Glucose (mg/dL) 117 H 157 H 173 H 04/15/17 11:55 POC Glucose (mg/dL) 182 H Fingerstick Blood Sugar Results: 182 Review of Systems - Review of Systems Systems not reviewed;Unavailable: Intubated Assessment/Plan - Assessment and Plan (Free Text) Assessment: 82 M with PMH of CAD s/p CABG, CHF, HTN, COPD (not on home O2), CKD 3A, Liver mass, admitted to ICU for CHF exacerbation requiring bipap vs pneumonia. Pt now s/p cardiac arrest secondary to multi-organ failure and acute blood loss anemia. Per family, pt is now DNR/DNI and is requesting supportive measures only for comfort care Plan: Pt still has rectal bleeding. Diprivan for agitation. Comfort care measures only <Shadi Barahona - Last Filed: 04/15/17 17:37> CCU Objective - Vital Signs / Intake & Output Intake and Output (Last 8hrs): Intake & Output 04/15/17 04/15/17 04/15/17 06:59 14:59 22:59 Intake Total 773.6 451.0 Output Total 0 0 Balance 773.6 451.0 Intake: IV 250 Intake, IV Amount 283.6 191.0 Right Distal Port 210.4 176.5 Right Medial Port 50 Right Proximal Port 23.2 14.5 Tube Feeding 240 60 Other 200 Output: Urine 0 0 Urethral (Ortiz) 0 0 Stool 0 0 Other: # Bowel Movements 1 1 - Medications Active Medications: Active Medications Generic Name Dose Route Start Last Admin Trade Name Freq PRN Reason Stop Dose Admin Albuterol/Ipratropium 3 ml 04/10/17 14:00 04/15/17 13:11 Duoneb 3 Mg/0.5 Mg (3 Ml) Ud INH 3 ml RQ6 ROCKY Administration Calcium Acetate 1,334 mg 04/13/17 14:29 04/15/17 12:32 Phoslo GT 1,334 mg TIDCC ROCKY Administration Propofol 1,000 mg in 100 mls @ 2.096 mls/hr 04/10/17 20:06 04/14/17 20:30 Diprivan IV 7 mcg/kg/min .Q24H PRN 2.934 mls/hr TITRATE PER MD ORDER Titration Protocol 5 MCG/KG/MIN Norepinephrine Bitartrate 8 mg 258 mls @ 7.74 mls/hr 04/10/17 21:05 04/15/17 07:26 / Sodium Chloride IV 13.59 mcg/min .Q24H PRN 26.29 mls/hr TITRATE PER MD ORDER Administration Protocol 4 MCG/MIN Piperacillin Sod/Tazobactam Sod 2.25 gm in 50 mls @ 100 mls/hr 04/10/17 21:45 04/15/17 13:09 Zosyn 2.25 Gm Iv Premix IVPB 100 mls/hr Q8H ROCKY Administration Vasopressin 40 units/ Sodium 40 mls @ 2.4 mls/hr 04/12/17 04:00 04/12/17 04: 27 Chloride IV Not Given .[id number] ROCKY Protocol 0.04 UNITS/MIN Insulin Human Regular 0 unit 04/11/17 00:45 04/15/17 12:36 Novolin R SC 2 unit Q6 ROCKY Administration Protocol Pantoprazole Sodium 40 mg 04/11/17 10:00 04/15/17 10:15 Protonix Inj IVP 40 mg DAILY ROCKY Administration Rosuvastatin Calcium 10 mg 04/12/17 22:00 04/14/17 22:11 Crestor PO 10 mg HS ROCKY Administration - Patient Studies Lab Studies: Microbiology Studies 04/12/17 10:06 Gram Stain - Final Trachasp Sputum Culture - Final NORMAL ORAL TEVIN Lab Studies 04/15/17 04/15/17 04/14/17 Range/Units 11:55 07:10 23:32 POC Glucose (mg/dL) 182 H 173 H 157 H (65-110) mg/dL 04/14/17 Range/Units 17:55 POC Glucose (mg/dL) 117 H (65-110) mg/dL Laboratory Results - last 24 hr 04/14/17 04/14/17 04/15/17 17:55 23:32 07:10 POC Glucose (mg/dL) 117 H 157 H 173 H 04/15/17 11:55 POC Glucose (mg/dL) 182 H Attending/Attestation - Attestation I have personally seen and examined this patient.: Yes I have fully participated in the care of the patient.: Yes I have reviewed all pertinent clinical information: Yes Notes (Text): 04/15/17 17:36 Pt seen and examined on rounds with Dr. Casillas and pt RN. All pertinent PN/labs/ meds/imaging reviewed personally and discussed with involved consultants. I agree with the assessment and plan as outlined above which reflects my direct input. pt dnr/dni on comfort measures family awaiting for natural cont supp care prognosis grave Shadi Barahona MD
[2017-04-15 19:37] VITALS: RESP 26
--- NOTE | 2017-04-16 00:08 | CP.CCUPN ---
CCU Subjective - Physician Review Events Since Last Encounter (Free Text): 04/16/17 00:07 I spoke to all family members in the room. They understand that Mr. Grant is very sick and will not recover from this acute episode. They want him to in peace and not suffer any longer. They agree with a morphine drip and an initial push of morphine as well as ativan prn. They understand that all other medications will be stopped. They will like to leave the ventilator on and not remove for now. They understand that most likely he will in less than one hour. CCU Objective - Vital Signs / Intake & Output Intake and Output (Last 8hrs): Intake & Output 04/15/17 04/15/17 04/16/17 14:59 22:59 06:59 Intake Total 476.4 127.0 Output Total 0 0 Balance 476.4 127.0 Intake: IV 0 Intake, IV Amount 216.4 127.0 Right Distal Port 199.0 112.5 Right Proximal Port 17.4 14.5 Tube Feeding 60 0 Other 200 Output: Urine 0 0 Urethral (Ortiz) 0 0 Stool 0 0 Other: # Bowel Movements 1 - Physical Exam Head: Positive for: Atraumatic, Normocephalic Mouth: Positive for: Moist Mucous Membranes Neck: Positive for: Normal Range of Motion Respiratory/Chest: Positive for: Decreased Breath Sounds, Other (intubated) Cardiovascular: Positive for: Regular Rate and Rhythm, Tachycardic Abdomen: Positive for: Normal Bowel Sounds. Negative for: Distention Rectal: Positive for: Other (obvious rectal bleed evident on bed sheets) Upper Extremity: Positive for: Edema Lower Extremity: Positive for: Edema Skin: Positive for: Warm, Dry Psychiatric: Positive for: Alert - Medications Active Medications: Active Medications Generic Name Dose Route Start Last Admin Trade Name Freq PRN Reason Stop Dose Admin Albuterol/Ipratropium 3 ml 04/10/17 14:00 04/15/17 19:08 Duoneb 3 Mg/0.5 Mg (3 Ml) Ud INH 3 ml RQ6 ROCKY Administration Calcium Acetate 1,334 mg 04/13/17 14:29 04/15/17 18:14 Phoslo GT 1,334 mg TIDCC ROCKY Administration Propofol 1,000 mg in 100 mls @ 2.096 mls/hr 04/10/17 20:06 04/14/17 20:30 Diprivan IV 7 mcg/kg/min .Q24H PRN 2.934 mls/hr TITRATE PER MD ORDER Titration Protocol 5 MCG/KG/MIN Norepinephrine Bitartrate 8 mg 258 mls @ 7.74 mls/hr 04/10/17 21:05 04/15/17 12:00 / Sodium Chloride IV 11.62 mcg/min .Q24H PRN 22.5 mls/hr TITRATE PER MD ORDER Titration Protocol 4 MCG/MIN Piperacillin Sod/Tazobactam Sod 2.25 gm in 50 mls @ 100 mls/hr 04/10/17 21:45 04/15/17 13:09 Zosyn 2.25 Gm Iv Premix IVPB 100 mls/hr Q8H ROCKY Administration Vasopressin 40 units/ Sodium 40 mls @ 2.4 mls/hr 04/12/17 04:00 04/12/17 04: 27 Chloride IV Not Given .[id number] ROCKY Protocol 0.04 UNITS/MIN Insulin Human Regular 0 unit 04/11/17 00:45 04/15/17 19:34 Novolin R SC Not Given Q6 ROCKY Protocol Pantoprazole Sodium 40 mg 04/11/17 10:00 04/15/17 10:15 Protonix Inj IVP 40 mg DAILY ROCKY Administration Rosuvastatin Calcium 10 mg 04/12/17 22:00 04/14/17 22:11 Crestor PO 10 mg HS ROCKY Administration - Patient Studies Lab Studies: Lab Studies 04/15/17 04/15/17 04/15/17 Range/Units 18:25 11:55 07:10 POC Glucose (mg/dL) 127 H 182 H 173 H (65-110) mg/dL Laboratory Results - last 24 hr 04/15/17 04/15/17 04/15/17 07:10 11:55 18:25 POC Glucose (mg/dL) 173 H 182 H 127 H Fingerstick Blood Sugar Results: 125
[2017-04-16] MEDS: (Novolin R) Insulin Human Regular 100 units/ml vial SC SCH (01:40)
[2017-04-16] MEDS: Piperacill/Tazo 2.25gm in Dex 2.25 GM/50 ML BAG IVPB SCH (01:41)
[2017-04-16 03:49] VITALS: BP 46/19; PULSE 37; O2SAT 74
[2017-04-16 04:00] VITALS: TEMP 99.3
--- NOTE | 2017-04-16 05:58 | CP.PCM.PN ---
Subjective - Date & Time of Evaluation Date of Evaluation: 04/15/17 Time of Evaluation: 16:20 - Subjective Subjective: Patient seen and evaluated Intubated Critically ill Respnds only to deep pain DNR/DNI Physical Exam - Constitutional Appears: No Acute Distress, Chronically Ill - Head Exam Head Exam: ATRAUMATIC, NORMOCEPHALIC - Eye Exam Eye Exam: EOMI, Normal appearance, PERRL. absent: Scleral icterus - ENT Exam ENT Exam: Mucous Membranes Moist - Neck Exam Additional comments: No JVD distention - Respiratory Exam Respiratory Exam: Clear to Auscultation Bilateral, Rales, Rhonchi. absent: Wheezes - Cardiovascular Exam Cardiovascular Exam: REGULAR RHYTHM, +S1, +S2. absent: Systolic Murmur - GI/Abdominal Exam GI & Abdominal Exam: Normal Bowel Sounds, Soft. absent: Distended, Guarding, Tenderness - Extremities Exam Extremities exam: Positive for: pedal edema (3+ pitting), pedal pulses present ( slight). Negative for: calf tenderness - Back Exam Back exam: absent: CVA tenderness (L), CVA tenderness (R) - Neurological Exam Neurological exam: Intubated - Psychiatric Exam Psychiatric exam: Flat Affect - Skin Skin Exam: Dry, Warm Objective - Vital Signs/Intake and Output Vital Signs (last 24 hours): Temp Pulse Resp BP Pulse Ox 99.3 F 37 L 26 H 46/19 L 74 L 04/16/17 00:00 04/16/17 02:06 04/16/17 02:30 04/16/17 02:06 04/16/17 02:05 Intake and Output: 04/15/17 04/16/17 18:59 06:59 Intake Total 578.0 172.2 Output Total 0 0 Balance 578.0 172.2 - Medications Medications: Current Medications Morphine Sulfate 250 mg/ (Sodium Chloride) 250 mls @ 6 mls/hr IV .Q24H ONE PRN Reason: Protocol Stop: 04/17/17 00:08 Last Admin: 04/16/17 01:31 Dose: 6 mls/hr, 6 mls/hr Lorazepam (Ativan) 2 mg IVP PRN PRN PRN Reason: Agitation - Labs Labs: 04/13/17 06:17 04/13/17 06:17 PT 15.8 SECONDS (9.7-12.2) H 04/13/17 07:59 INR 1.4 04/13/17 07:59 APTT > 400 SECONDS (21-34) H* D 04/13/17 07:59 Assessment and Plan - Assessment and Plan (Free Text) Assessment: 82 M with PMH of CAD s/p CABG, CHF, HTN, COPD (not on home O2), CKD 3A, Liver mass, admitted to ICU for CHF exacerbation requiring bipap vs PNA with Hx of recent hospitalization. Trop is positive. 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 Pt was apneic over the weekend, developed a-fib RVR. Pt was intubated on PRVC. Pt was coded, ROSC after 6 mins of ACLS. 2 rounds epi, 2 bicarb. DNR/DNI S/P Cardiopulm arrest Tachycardia Hx A-fib Hypotension Shock, cardiogenic vs septic from PNA - Levaphed gtt @ 7.5 - propofol gtt NSTEMI - Heparin gtt - hold - ASA, Plavix - hold - No crestor for transaminitis - No plan for cardiac cath CHF, systolic, acute on chronic - lasix 60 IV BID - Echo: low EF 30-35% Hx CAD s/p CABG - asa, Metoprolol 12.5 BID, Metolazone 5 daily, lasix - A1C 5.8 Hyperlipidemia (lipid panel drawn before propofol and intubation) - Cholesterol 764 - LDL 500
--- NOTE | 2017-04-16 06:40 | CP.PCM.PN ---
Subjective - Date & Time of Evaluation Date of Evaluation: 04/16/17 Time of Evaluation: 06:35 Objective - Vital Signs/Intake and Output Vital Signs (last 24 hours): Temp Pulse Resp BP Pulse Ox 99.3 F 37 L 26 H 46/19 L 74 L 04/16/17 00:00 04/16/17 02:06 04/16/17 02:30 04/16/17 02:06 04/16/17 02:05 Intake and Output: 04/15/17 04/16/17 18:59 06:59 Intake Total 578.0 172.2 Output Total 0 0 Balance 578.0 172.2 - Medications Medications: Current Medications Morphine Sulfate 250 mg/ (Sodium Chloride) 250 mls @ 6 mls/hr IV .Q24H ONE PRN Reason: Protocol Stop: 04/17/17 00:08 Last Admin: 04/16/17 01:31 Dose: 6 mls/hr, 6 mls/hr Lorazepam (Ativan) 2 mg IVP PRN PRN PRN Reason: Agitation - Labs Labs: 04/13/17 06:17 04/13/17 06:17 PT 15.8 SECONDS (9.7-12.2) H 04/13/17 07:59 INR 1.4 04/13/17 07:59 APTT > 400 SECONDS (21-34) H* D 04/13/17 07:59
--- NOTE | 2017-04-29 21:36 | CARD ---
APPROVED REPORT EKG Measurement Heart [id number] <Conclusion> Sinus tachycardia with premature atrial complexes Cannot rule out Inferior infarct, age undetermined Abnormal ECG
== END 2017-04-16 02:15 | DRG 207 ==
LOC: C.ER 06:19 → C.9E 08:52 → C.9I 09:18
PROVIDERS: ADMIT Internal Medicine; ATTEND Internal Medicine
PROC: 5A09457 Assistance with Respiratory Ventilation, 24-96 Consecutive Hours, Continuous Positive Airway Pressure (ICD-10-PCS; principal; 2017-04-08)
PROC: 5A1955Z Respiratory Ventilation, Greater than 96 Consecutive Hours (ICD-10-PCS; 2017-04-10)
PROC: 0BH17EZ Insertion of Endotracheal Airway into Trachea, Via Natural or Artificial Opening (ICD-10-PCS; 2017-04-10)
PROC: 02HV33Z Insertion of Infusion Device into Superior Vena Cava, Percutaneous Approach (ICD-10-PCS; 2017-04-10)
PROC: 3E033XZ Introduction of Vasopressor into Peripheral Vein, Percutaneous Approach (ICD-10-PCS; 2017-04-12)
PROC: 5A2204Z Restoration of Cardiac Rhythm, Single (ICD-10-PCS; 2017-04-12)
PROC: 30233K1 Transfusion of Nonautologous Frozen Plasma into Peripheral Vein, Percutaneous Approach (ICD-10-PCS; 2017-04-13)
PROC: 30233N1 Transfusion of Nonautologous Red Blood Cells into Peripheral Vein, Percutaneous Approach (ICD-10-PCS; 2017-04-13)
DX: J44.0 Chronic obstructive pulmonary disease with (acute) lower respiratory infection (principal); I21.4 Non-ST elevation (NSTEMI) myocardial infarction; R57.0 Cardiogenic shock; J69.0 Pneumonitis due to inhalation of food and vomit; I50.23 Acute on chronic systolic (congestive) heart failure; J18.9 Pneumonia, unspecified organism; N17.9 Acute kidney failure, unspecified; I13.0 Hypertensive heart and chronic kidney disease with heart failure and stage 1 through stage 4 chronic kidney disease, or unspecified chronic kidney disease; E11.21 Type 2 diabetes mellitus with diabetic nephropathy; D62 Acute posthemorrhagic anemia; J96.01 Acute respiratory failure with hypoxia; E87.1 Hypo-osmolality and hyponatremia; K92.2 Gastrointestinal hemorrhage, unspecified; R16.0 Hepatomegaly, not elsewhere classified; I48.91 Unspecified atrial fibrillation; N18.3 Chronic kidney disease, stage 3 (moderate); E11.22 Type 2 diabetes mellitus with diabetic chronic kidney disease; Z95.1 Presence of aortocoronary bypass graft; Z87.891 Personal history of nicotine dependence; Z79.4 Long term (current) use of insulin; I25.10 Atherosclerotic heart disease of native coronary artery without angina pectoris; E78.5 Hyperlipidemia, unspecified; R15.9 Full incontinence of feces; I27.2 Other secondary pulmonary hypertension; Z66 Do not resuscitate